=== PATIENT | male | born 1945 | race Caucasian/White ===

== ENCOUNTER 2017-04-30 12:14 | Day surgery (SDC) | payer MEDICARE, BC ==
[2017-04-30 14:23] LABS: #Eosinphils 0.1 thou/uL (0.0-0.7); #Lymphocytes 1.7 thou/uL (1.20-3.40); #Monocytes 0.6 thou/uL (0.11-0.59); #Neutrophils 5.6 thou/uL (1.40-6.50); %Basophils 0.6 % (0.0-1.0); %Eosinophils 0.9 % (0.0-10.0); %Lymphocytes 20.9 % (21.0-51.0); %Monocytes 7.8 % (0.0-10.0); Hematocrit 45.6 % (42.0-52.0); Red Blood Cell (RBC) Count 4.91 mill/uL (4.70-6.10); White Blood Cell (WBC) Count 7.9 thou/uL (4.8-10.8)
[2017-04-30] MEDS ORDERED: CEFAZOLIN/Water 2 GM/20 ML SYRINGE ONE (14:32)
[2017-04-30] MEDS ORDERED: CEFAZOLIN 1 GM VIAL ONE (14:33)
[2017-04-30 14:54] LABS: ALT (SGPT) 9 U/L (8-55); AST (SGOT) 14 U/L (5-34); Alkaline Phosphatase 85 U/L (40-150); Anion Gap 11 mmol/L (10-20); BUN (Urea Nitrogen) 14 mg/dL (8.4-25.7); Bilirubin, Total 0.5 mg/dL (0.2-1.2); Calc. Creatinine Clearance 0 mL/min (70-130); Calcium 9.8 mg/dL (7.8-10.44); Carbon Dioxide 29 mmol/L (23-31); Chloride 102 mmol/L (98-107); Estimated GFR-MDRD 71; Globulin 2.8 g/dL (2.4-3.5); Protein, Total 6.8 g/dL (5.8-8.1)
[2017-04-30] MEDS ORDERED: Gentamicin 80 MG/2 ML VIAL ONE (15:07)
--- NOTE | 2017-04-30 20:16 | CCL ---
CARDIOLOGY PROCEDURE NOTE: Date: 04/30/17 PROCEDURE: Pacemaker generator replacement. INDICATION FOR PROCEDURE: The patient was seen in the office today complaining of not feeling well. He has a history of pacem tacos insertion due to sinus node dysfunction. Recently he had been seen in the office within the las t 6 months and was found to have pacemaker generator approaching elective replacement interval. 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 He w as advised to undergo pacemaker generator replacement after we interrogated the device today in the office and it was found to be at elective replacement interval. DETAILS: The patient was taken to the cardiac catheterization lab, where he underwent the procedure today wit hout difficulties or complications. The patient was prepped and draped in sterile fashion. Using loc al Xylocaine, the old pacemaker was [id number], an Adapta dual chamber pacemaker from [employer]. The l lashon were interrogated and both the atrial and ventricular leads were found to have normal sensing a nd normal thresholds. The new device was then attached to the generator. The leads were then special procedures tech d to the new generator and the generator and leads were placed back in the pocket and the pocket was closed in three layers after copious amounts of antibiotic solution was performed. There were no di fficulties or complications encountered. He was implanted with a new Adapta dual chamber pacemaker ( IS-1 dual chamber) with the same leads. The pacemaker was set with the upper rate at 120 and the low er rate was set at 60. There were no difficulties or complications encountered.
--- NOTE | 2017-05-01 04:06 | DIS ---
He was seen in the office today and was found to have pacemaker generator elective replacement inter mitzi. He was to have developed suddenly the pacemaker syndrome where he was pacing in the ventricle, but not on the atrium. After he was switched over, now he paces in the atrium and has minimal paci ng in the ventricle. Pacemaker tripped over to elective replacement interval yesterday, and due to his symptoms, he was advised to go ahead and have the pacemaker generator change out today, and this was performed today without difficulties or complication. ADMITTING DIAGNOSES: Pacemaker generator at elective replacement interval and a history of sinus no de dysfunction. He also has a history of intermittent atrial fibrillation, has dyslipidemia and hyp ertension. DISCHARGE DIAGNOSES: Pacemaker generator at elective replacement interval and a history of sinus no de dysfunction. He also has a history of intermittent atrial fibrillation, has dyslipidemia and hyp ertension. PROCEDURES IN THE HOSPITAL: Include old generator removal, new generator implant. DISCHARGE MEDICATIONS: Same as his admission medications. He had actually held his Eliquis and thi s medication will be resumed. His medications include levothyroxine 75 mcg a day, MiraLax as needed , Tylenol with codeine p.r.n., B12. He also takes terazosin 10 mg q. day, sotalol 160 mg b.i.d., si mvastatin 40 mg a day, testosterone injections once a week and Budeprion XL 300 mg 24 hours. He has recently been started also on Eliquis 5 mg b.i.d., and again, this was held today and also as of mark cook. FOLLOWUP: His followup will be with me in 7 to 10 days in the office for wound check. He will cont inue his routine transtelephonic checks of the pacemaker. There were no complications or difficulti es encountered. HOSPITAL COURSE: As noted above, the patient presented to the office with symptomatic pacemaker syn drome. After his pacemaker, he had reached EMILIANO yesterday. He started experiencing dizziness and faustin d hypertension, and heart rate was maintaining at 60 or 65, which is the default for the pacemaker. He presented to the office after complaining of symptoms. He was seen, and indeed, the pacemaker g enerator was found to be in elective replacement interval, which was tripped just yesterday. He was taken to the lab where he underwent pacemaker generator exchange. The old was removed and the new was implanted. There were no other difficulties or complications. If the patient remains stable, nacho burnett will be discharged home today. We will see him back in the office as noted.
--- NOTE | 2017-05-01 21:05 | EKG ---
Test Reason : Blood Pressure : / mmHG Vent. Rate : 063 BPM Atrial Rate : 063 BPM P-R Int : 222 ms QRS Dur : 086 ms QT Int : 436 ms P-R-T Axes : 010 022 014 degrees QTc Int : 446 ms Atrial-paced rhythm with prolonged AV conduction with Premature atrial complexes with Abberant condu ction Nonspecific ST and T wave abnormality Abnormal ECG Confirmed by JACKY DESAI, DR. Jean Baptiste ([id number]) on 05/01/2017 9:05:27 PM Referred By: PEG Confirmed By:DR. Markel RICO MD
== END 2017-04-30 16:14 | disposition home or self-care (01) ==
LOC: CCL 12:14
PROVIDERS: ATTEND Internal Medicine Cardiovascular Disease
PROC: 0JPT0PZ Removal of Cardiac Rhythm Related Device from Trunk Subcutaneous Tissue and Fascia, Open Approach (ICD-10-PCS; principal; 2017-04-30)
PROC: 0JH606Z Insertion of Pacemaker, Dual Chamber into Chest Subcutaneous Tissue and Fascia, Open Approach (ICD-10-PCS; 2017-04-30)
DX: Z45.010 Encounter for checking and testing of cardiac pacemaker pulse generator [battery] (principal); I25.10 Atherosclerotic heart disease of native coronary artery without angina pectoris; E78.5 Hyperlipidemia, unspecified; I10 Essential (primary) hypertension; E78.00 Pure hypercholesterolemia, unspecified; E03.9 Hypothyroidism, unspecified; I49.5 Sick sinus syndrome; I48.0 Paroxysmal atrial fibrillation; H81.10 Benign paroxysmal vertigo, unspecified ear; Z98.890 Other specified postprocedural states; Z98.61 Coronary angioplasty status
CPT/HCPCS: 33228; 80053; 85025; 93005; C1785; J0690; J1580

== ENCOUNTER 2017-06-13 14:26 | Observation (INO) | payer MEDICARE, BC ==
[2017-06-13 15:10] LABS: #Lymphocytes 1.3 thou/uL (1.20-3.40); #Monocytes 0.5 thou/uL (0.11-0.59); %Basophils 0.5 % (0.0-1.0); %Eosinophils 0.9 % (0.0-10.0); %Lymphocytes 25.9 % (21.0-51.0); %Monocytes 10.6 % (0.0-10.0); %Neutrophils 62.2 % (42.0-75.0); Hemoglobin 13.6 g/dL (14.0-18.0); Mean Corpuscular HGB CONC 32.6 g/dL (32.0-36.0); Mean Corpuscular Hemoglobin 29.9 pg (27.0-31.0); Mean Corpuscular Volume 91.7 fl (80.0-94.0); Platelet Count 283 thou/uL (130-400); RBC Distribution Width 13.3 % (11.5-14.5); Red Blood Cell (RBC) Count 4.55 mill/uL (4.70-6.10); White Blood Cell (WBC) Count 4.8 thou/uL (4.8-10.8)
[2017-06-13 15:32] LABS: ALT (SGPT) 26 U/L (8-55); AST (SGOT) 23 U/L (5-34); Albumin 4.1 g/dL (3.4-4.8); Alkaline Phosphatase 105 U/L (40-150); Anion Gap 13 mmol/L (10-20); BUN (Urea Nitrogen) 10 mg/dL (8.4-25.7); Bilirubin, Total 0.5 mg/dL (0.2-1.2); CK (CPK) 29 U/L (30-200); Calc. Creatinine Clearance 0 mL/min (70-130); Carbon Dioxide 28 mmol/L (23-31); Chloride 98 mmol/L (98-107); Estimated GFR-MDRD 86; Glucose 101 mg/dL (83-110); Lipase 57 U/L (8-78); Potassium 4.2 mmol/L (3.5-5.1); Protein, Total 7.1 g/dL (5.8-8.1); Sodium 135 mmol/L (136-145)
[2017-06-13 15:36] LABS: CKMB 1.1 ng/mL (0-6.6); Troponin I 0.014 ng/mL (< 0.028)
--- NOTE | 2017-06-13 15:36 | RAD ---
CHEST ONE VIEW: History: Hypotension. Weakness. Comparison: 02-06-17 FINDINGS: Cardiac silhouette is magnified and enlarged. Pulmonary vasculature is unremarkable. Left hemidiaphra gm remains elevated with atelectasis at the left base. Mediastinum is midline with a dual-lead left s ubclavian cardiac pacer. No lobar consolidation or evidence of pneumothorax. youth nutritional monitor leads ov erlie the chest. IMPRESSION: Chronic type findings are stable. No active cardiopulmonary abnormalities are demonstrated. POS: [facility]
[2017-06-13 15:45] LABS: INR-International Normal Ratio 1.3; PTT 34.3 SEC (22.9-36.1); Prothrombin Time 16.6 SEC (12.0-14.7)
[2017-06-13 17:48] LABS: Bilirubin Negative (Negative); Blood, Urine Large (Negative); Clarity CLOUDY (Clear); Glucose, Urine (Dipstick) Negative (Negative); Leukocyte Small (Negative); Nitrite Negative (Negative); Protein, Urine (Dipstick) 30 mg/dL (Neg-Trace); Specific Gravity, Urine 1.012 (1.002-1.036); Urobilinogen 0.2 mg/dL (0.2-1.0)
[2017-06-13 17:52] LABS: Bacteria/HPF None Seen HPF (None Seen); Hyaline Casts/LPF 0-3 HYALINE CAST LPF (0-3 Hyaline); Squamous Epithelial None Seen HPF (0-3)
[2017-06-13 18:10] LABS: RBC/HPF GREATER THAN 50-TNTC HPF (0-3); Yeast-All Forms None Seen HPF (None Seen)
[2017-06-13] MEDS ORDERED: cefTRIAXone\\ROCEPHIN 2 GM in Sodium Chloride 0.9% 100 ML IVPB SCH (18:45)
[2017-06-13] MEDS ORDERED: Sodium Chloride 0.9% 1,000 ML IV SCH (21:00)
[2017-06-13] MEDS ORDERED: Ondansetron HCl/PF 4 MG/2 ML Vial IVP PRN (21:00)
[2017-06-13] MEDS ORDERED: Ondansetron ODT 4 MG TAB SL PRN (21:00)
[2017-06-13] MEDS ORDERED: Acetaminophen 325 MG TAB PO PRN (21:00)
[2017-06-13 21:56] VITALS: BMI 29.2
[2017-06-14] MEDS ORDERED: Ondansetron HCl/PF 4 MG/2 ML Vial IVP PRN (00:43)
[2017-06-14] MEDS ORDERED: Acetaminophen 500 MG TAB PO PRN (00:43)
[2017-06-14] MEDS ORDERED: Ondansetron ODT 4 MG TAB PO PRN (00:43)
[2017-06-14] MEDS ORDERED: Simvastatin 40 MG TAB PO SCH ×2 (01:00→21:00)
[2017-06-14] MEDS ORDERED: Terazosin HCl 5 MG CAP PO SCH ×2 (01:00→21:00)
[2017-06-14] MEDS ORDERED: Famotidine 20 MG TAB PO SCH ×2 (01:00→09:00)
[2017-06-14] MEDS ORDERED: Colchicine 0.6 MG TAB PO SCH ×2 (01:00→09:00)
[2017-06-14] MEDS ORDERED: Sotalol HCl 80 MG TAB PO SCH ×2 (01:00→09:00)
[2017-06-14] MEDS: Sodium Chloride 0.9% 1,000 ML IV SCH ×2 (01:13→11:31)
--- NOTE | 2017-06-14 03:34 | HP ---
DATE OF ADMISSION: 06/14/2017 PRIMARY CARE PROVIDER: Dain Abdalla M.D. PRIMARY FILTER PRESS SUPERVISOR: Vandana Staton M.D. CHIEF COMPLAINT: General weakness and hypotension. HISTORY OF PRESENT ILLNESS: This is a 71-year-old male who presented to [facility] after apparently feeling somewhat weak, dizzy taking his blood pressure at home with systolic in the 70s. The patient states he felt lightheaded with blood pressures ranging in the 70s/ 66. The patient denies any specific change to his chronic medication regimen and does admit to a sig nificant cardiac history including atrial fibrillation, status post cardiac ablation with return of a trial fibrillation and subsequent cardioversion. The patient states he was admitted in [place] with E lectrophysiology Service treating him for atrial arrhythmias. The patient states he spent approximat adry [address] [facility] due to complications after cardiac ablation. The patient states h e developed pericardial effusion requiring pericardial window with drain placement spending most of t he hospital stay in the ICU. The patient also underwent generator replacement for his pacemaker alfredo ce in 04/2017 without complication. The patient denied any recent illness, diarrhea, nausea or vomit ing. The patient denies any recent exposure history. The patient states overall general weakness, b ut denied any dysuria, but had noticed a rust colored urine. The patient was apparently evaluated by his primary care provider for possible urinary tract infection; however, no specific diagnosis was m jimmie. The patient did notice the urine changing to the [place] color after being placed on Eliquis at e direction of the Electrophysiology Service. Current plans are to continue Eliquis therapy for 4-6 weeks post-ablation. In the emergency room, the patient's blood pressure had improved with supportiv e measures, receiving IV fluids and IV Rocephin 2 grams x1 dose after concern for possible urinary tr act infection. The patient was transferred to the observation unit for further evaluation. PAST MEDICAL HISTORY: 1. Atrial fibrillation/atrial tachycardia status post cardiac ablation with subsequent cardioversion . 2. Pericardial effusion status post pericardial window with drain placement in 05/2017. 3. Hypothyroidism. 4. Gastroesophageal reflux. 5. Hyperlipidemia. 6. Chronic anticoagulation with Coumadin. 7. Coronary artery disease status post cardiac stent placement in 1999. PAST SURGICAL HISTORY: 1. Status post pacemaker placement with reimplantation of atrial pacemaker in 1999. Status post gen erator replacement in 2016. 2. Status post cardiac ablation with subsequent cardioversion in 05/2017. 3. Status post pericardial window with pericardial drain in 05/2017. 4. Status post spinal fusion secondary to spinal stenosis. CURRENT MEDICATIONS: 1. Eliquis 5 mg 1 tab p.o. b.i.d. 2. Bupropion XL 300 mg 1 tab p.o. daily. 3. Colchicine 0.6 mg p.o. b.i.d. 4. Toradol 10 mg p.o. q.6 hours p.r.n. pain. 5. Levothyroxine 75 mcg 1 tab p.o. daily. 6. Simvastatin 40 mg one tab p.o. at bedtime. 7. Sotalol 160 mg p.o. b.i.d. 8. Hytrin 10 mg p.o. at bedtime. ALLERGIES: No known drug allergies. FAMILY HISTORY: Positive for hypertension. SOCIAL HISTORY: The patient is , accompanied by his in the hospital. Resides in [place], [place]. Currently retired. No current alcohol, tobacco or illicit drug use. REVIEW OF SYSTEMS: The following complete review of systems was negative, unless otherwise mentioned in the HPI or below: Constitutional: Weight loss or gain, ability to conduct usual activities. Skin: Rash, itching. Eyes: Double vision, pain. ENT/Mouth: Nose bleeding, neck stiffness, pain, tenderness. Cardiovascular: Palpitations, dyspnea on exertion, orthopnea. Respiratory: Shortness of breath, wheezing, cough, hemoptysis, fever or night sweats. Gastrointestinal: Poor appetite, abdominal pain, heartburn, nausea, vomiting, constipation, or diarr hea. Genitourinary: Urgency, frequency, dysuria, nocturia. Musculoskeletal: Pain, swelling. Neurologic/Psychiatric: Anxiety, depression. Allergy/Immunologic: Skin rash, bleeding tendency. PHYSICAL EXAMINATION: VITAL SIGNS: Currently, blood pressure 115/67, pulse 61, respiratory rate 18, temperature 98.5 degre es Fahrenheit, O2 saturation 96% on room air. GENERAL APPEARANCE: This is a 71-year-old male, alert and oriented x3, pleasant, conversan t and in no acute distress. HEENT: Pupils are equal, round, and reactive to light and accommodation. Extraocular muscles are in tact. No scleral icterus, no conjunctival injection. Nares patent. OP is clear. Teeth in good rep air. Oral mucosa dry. NECK: Supple, no cervical adenopathy, no thyromegaly, no carotid bruits, no JVD appreciated. Cervic al spine with full active and passive range of motion. CHEST: Lungs are clear to auscultation bilaterally. CARDIOVASCULAR: S1, S2 with irregular rate and rhythm. Left upper chest wall with pacemaker device in place. ABDOMEN: Rounded, soft, nontender, nondistended. Bowel sounds are positive in all four quadrants. There is no hepatosplenomegaly, no abdominal bruits, no rebound or guarding appreciated. EXTREMITIES: Warm and dry with good turgor. No clubbing, cyanosis or asymmetric edema appreciated. Pulses palpable distally at the dorsalis pedis, posterior tibial, and popliteal arteries bilaterally . Capillary refill less than 2 seconds. NEUROLOGIC: Cranial nerves II-XII are grossly intact. No focal or lateralizing signs appreciated. PERTINENT LABORATORY AND X-RAY FINDINGS: Basic metabolic profile within normal limits. Lactic acid level 1.1. LFTs within normal limits. Total CK 29, troponin I 0.014. Albumin 4.1, lipase 57. CBC showed white blood cell count of 4.8, hemoglobin 14, hematocrit 42, platelet count 283 with normal di fferential. PT 16.6, INR 1.3, PTT 34.3. Urinalysis positive for greater than 50 to too numerous to count RBCs per high powered field and 4-6 WBCs per high powered field. Portable chest x-ray dated showed chronic changes bilaterally. No acute cardiopulmonary process identified. EKG dated 06/13/2017 by my interpretation shows sinus mechanism with heart rates in the 90s. Normal R-wave pr ogression noted in the precordial leads. Normal axis. ST-T wave changes noted in V3 through V5. ASSESSMENT AND PLAN: 1. Question of hypotension. We will continue serial monitoring of blood pressure. Continue intrave nous normal saline at 100 mL per hour. Hold all antihypertensives and monitor serial blood pressure trend. Suspect component of dehydration. 2. Hematuria. Suspect iatrogenic due to Eliquis. Hold Eliquis. Continue intravenous fluids as out lined previously. Continue to monitor urine output. Continue Rocephin 2 grams IV q.24 hours pending final urine culture results. 3. Atrial fibrillation, status post cardiac ablation/cardioversion on chronic anticoagulation with E liquis. Continue supportive measures. Hold Eliquis. Check 2D transthoracic echocardiogram 4. Hypothyroidism, stable. Continue levothyroxine 75 mcg p.o. daily. 5. Prophylaxis. Sequential compression devices while in bed. Pepcid 20 mg p.o. b.i.d. 6. Code status is full. Surrogate medical decision maker is patient's spouse.
[2017-06-14 05:03] LABS: Anion Gap 11 mmol/L (10-20); BUN (Urea Nitrogen) 8 mg/dL (8.4-25.7); Calc. Creatinine Clearance 107 mL/min (70-130); Calcium 9.2 mg/dL (7.8-10.44); Carbon Dioxide 26 mmol/L (23-31); Chloride 105 mmol/L (98-107); Estimated GFR-MDRD Greater than 90; Glucose 102 mg/dL (83-110); Potassium 4.1 mmol/L (3.5-5.1); Sodium 138 mmol/L (136-145)
[2017-06-14] MEDS ORDERED: Levothyroxine Sodium 75 MCG TAB PO SCH (06:00)
[2017-06-14 06:16] LABS: Eosinophils 2 % (0-10); Hemoglobin 12.3 g/dL (14.0-18.0); Lymphocytes 30 % (21-51); MDiff Complete? YES; Mean Corpuscular HGB CONC 32.5 g/dL (32.0-36.0); Mean Corpuscular Hemoglobin 29.9 pg (27.0-31.0); Mean Corpuscular Volume 91.8 fl (80.0-94.0); Mean Platelet Volume 7.1 fL (7.4-10.4); Monocytes 7 % (0-10); Neutrophil 59 % (42-75); PLT Morphology Comment Appears Adequate; Platelet Count 238 thou/uL (130-400); RBC Distribution Width 13.2 % (11.5-14.5); RBC Morphology Normal; Reactive Lymphocytes 1 % (0-10); Red Blood Cell (RBC) Count 4.12 mill/uL (4.70-6.10); White Blood Cell (WBC) Count 4.7 thou/uL (4.8-10.8)
[2017-06-14] MEDS ORDERED: Bupropion 150 MG XL TAB PO SCH (09:00)
--- NOTE | 2017-06-14 09:37 | PDOC.PN ---
- Subjective Encounter Start Date: 06/14/17 Encounter Start Time: 09:36 Subjective: dizziness resolved, gross hematuria - Objective Resuscitation Status: Resuscitation Status FULL:Full Resuscitation MAR Reviewed: Yes Vital Signs & Weight: Vital Signs (12 hours) Temp Pulse Resp BP BP Pulse Ox 06/14/17 08:54 93 06/14/17 08:00 98.3 F 92 24 H 06/14/17 07:24 98.2 F 95 18 128/82 96 06/14/17 04:22 98.3 F 92 24 H 120/68 96 06/14/17 01:14 61 115/67 06/13/17 23:22 98.5 F 61 18 115/67 96 06/13/17 21:58 98.5 F 94 20 Weight Weight 209 lb 8 oz I&O: 06/13/17 06/14/17 06/15/17 06:59 06:59 06:59 Intake Total 619 Output Total 1200 Balance -581 Result Diagrams: 06/14/17 04:24 06/14/17 04:24 Phys Exam - Physical Examination Constitutional: NAD Neck: no JVD Respiratory: clear to auscultation bilateral Cardiovascular: RRR, no significant murmur Gastrointestinal: soft, positive bowel sounds Musculoskeletal: no edema Dx/Plan (1) Hypotension Status: Acute (2) Atrial fibrillation with normal ventricular rate Code(s): I48.91 - UNSPECIFIED ATRIAL FIBRILLATION Status: Chronic (3) CAD (coronary artery disease) Code(s): I25.10 - ATHSCL HEART DISEASE OF [place] CORONARY ARTERY W/O ANG PCTRS Status: Chronic Qualifiers: Coronary Disease-Associated Artery/Lesion type: [place] artery [place] vs. transplanted heart: [place] heart Associated angina: without angina Qualified Code(s): I25.10 - Atherosclerotic heart disease of [place] coronary artery without angina pectoris (4) Hematuria, gross Status: Acute (5) Anticoagulant long-term use Code(s): Z79.01 - PROCESS PLANNER (CURRENT) USE OF ANTICOAGULANTS Status: Chronic - Plan consult card, consult urology * .
[2017-06-14] MEDS ORDERED: Apixaban 5 MG TAB PO SCH ×2 (15:45→21:00)
[2017-06-14 15:51] VITALS: BP 146/85; TEMP 98.2
--- NOTE | 2017-06-14 18:31 | DIS ---
DATE OF ADMISSION: 06/13/2017 DATE OF DISCHARGE: 06/14/2017 PRIMARY CARE PROVIDER: Dain Abdalla MD DISCHARGE DISPOSITION: Home. FINAL DIAGNOSES: Hypotension, resolved; microscopic hematuria; post-atrial flutter ablation; coronar y artery disease; dyslipidemia; chronic anticoagulation. DISCHARGE MEDICATIONS: Wellbutrin 300 mg a day, colchicine 0.6 mg twice a day, sotalol 160 mg twice a day, Zocor 40 mg a day, terazosin 10 mg p.o. at bedtime, levothyroxine 75 mcg a day, Eliquis 5 mg t wice a day, ketorolac 10 mg p.o. q.6 hours p.r.n. ALLERGIES: No known drug allergies. PENDING AT THE TIME OF DISCHARGE: Urine culture and blood cultures were no growth at 24 hours. CODE STATUS: FULL. HOSPITAL COURSE: The patient admitted to the hospital to the [facility]. He presente d with generalized weakness and hypotension. He had a complicated recent history with cardiac ablati on in [place], developed a pericardial effusion requiring pericardial window. He had a generator repl acement for his pacemaker. He has noted that while he is on Eliquis, his urine has been a bit alanna colored. In the emergency room, his blood pressure which had been by history 70, coming in was tala l. It has been 120/80-146/85 here, pulse 92-95, respiratory rate 16-24. Comp metabolic profile, pot assium 135, otherwise normal. Anticoagulation, PT 16.6, APTT 34.3. Urine had too many to count red blood cells, white count was 4.8, hemoglobin 13.6, platelet count 283,000. I spoke with Dr. Kate alamo about his hematuria and having an appointment some 6 weeks, hence, she will arrange for him to be seen earlier. I have given that appointment date to the patient and his . He he was seen by Dr. Gustafson, Electrophysiology and Dr. Ar Staton, his graphics artist. [facility] He will follow up with Dr. Staton in 7 days. Follow up with Dr. Yassine Bernardo, who Dr. Staton faustin s asked the patient to call to discuss future arrangements. I have asked the patient to see Dr. Dain Abdalla in 7 days. PROCEDURES: None.
--- NOTE | 2017-06-14 22:32 | CON ---
DATE OF CONSULTATION: 06/14/2017 ELECTROPHYSIOLOGY CONSULTATION REPORT REFERRING PHYSICIAN: Dr. Vandana Staton as well as Dr. Pineda. HISTORY OF PRESENT ILLNESS: I am seeing Mr. Heredia at our [facility] telemetry floor as an electrophysiology physician practice consultant for the following problems: 1. Atrial arrhythmias. A. Paroxysmal atrial fibrillation despite sotalol. B. Status post pulmonary venous isolation procedure on 05/22/2017, complicated with pericardial effusion, s/p drain. C. Cardioversion for early recurrence of atrial arrhythmias post-ablation, but atypical atrial flutter present on EKGs today. 2. Transient hypertension. A. Down trending blood pressure since discharge from [facility] on the with initially on Lasix with continued lowering blood pressures even after stopping Lasix 4 days post-discharge. B. Now resolved with rehydration. 3. Anticoagulation issues. A. Recent ablation and elevated CHADS VASC score, on Eliquis anticoagulation. B. Anticoagulation is on hold due to microscopic hematuria. Hemoglobin mildly decreased at 12.3. 4. History of sick sinus syndrome, status post dual chamber pacemaker implantation in 07/1999, lead repair in 09/1999, and then generator change in with a [employer] device. 5. History of normal LVEF by echo in 02/13/2017 with 60%. B. Repeat echo reveals good LVEF without pericardial effusion on this admission. 6. History of coronary artery disease, currently stable. 7. History of spinal stenosis, status post recent neck surgery. ALLERGIES: None noted. MEDICATIONS: At home include levothyroxine 75 mcg daily, bupropion, sotalol 160 mg twice a day, Eliquis, terazosin, simvastatin, ketorolac, and colchicine. SUBJECTIVE: Mr. Heredia has been admitted with dizziness and progressively lowering blood pressure. His home device has been registering blood pressure down in the 70s. Though after arrival to the [facility] ER, his blood pressure was all in a good range, earlier was 131/61. He was also noted to have elevated heart rate ever since discharge. His heart rates are in the 90s. His initial EKG is suggestive of 2:1 atypical atrial flutter continued. He has no PND, orthopnea, or lower extremity edema suggest fluid overload. His groin site healed well. He does not pass out. He has no typical angina or pleuritic type of chest pains. He has no fever or chills. He has had somewhat darker urine, but there is no definite burning urination noted. There are no stroke- like symptoms. No neurological deficits. Rest of the 12-point review of system otherwise unremarkable. HOSPITAL COURSE: The patient has been admitted. He continues being rehydrated and monitored, and his Eliquis was put on hold for the last 2 days. PAST MEDICAL HISTORY: As above, also includes hypothyroidism, GERD, hyperlipidemia, chronic anticoagulation with Eliquis. SOCIAL HISTORY: The patient is , accompanied with the . Lives in [place], [place]. Denies smoking, ETOH or drug use. He is retired. FAMILY HISTORY: Noncontributory. PHYSICAL EXAMINATION: VITAL SIGNS: Blood pressure again initially 131/61, most recently is 120/80, heart rate 95, respirations 16, temperature 97.6 degrees Fahrenheit. GENERAL: He is alert and oriented man, in no apparent distress. NECK: Supple. Jugular veins not distended. CHEST: Coarse without crackles. CARDIAC: Heart sounds are regular rate and rhythm. No murmur, gallop or rub is appreciated. Left precordial pacing insertion site is healing well. ABDOMEN: Benign. Bowel sounds positive. EXTREMITIES: Lower extremities without edema, clubbing or cyanosis. Groin catheter insertion site is without significant hematoma. NEUROLOGIC: The patient is nonfocal. MUSCULOSKELETAL: No joint swelling or deformities. SKIN: Without rash. DATABASE: EKGs reviewed reveals 2:1 atypical atrial flutter at a rate of 95 beats per minute consistently. LABORATORY DATA: White blood cell count is 4.7, hemoglobin 12.3, platelet count are 238. INR is 1.3 on . Sodium 138, potassium 4.1, BUN is 8, creatinine is 0.83. AST and ALT are normal. Troponin I 0.014. BNP is 203, slightly elevated. Urine reveals rbc greater than 50, leukocyte esterase is small, bacteria negative. ASSESSMENT AND PLAN: Mr. Heredia is a pleasant 71-year-old man with prior history of paroxysmal atrial fibrillation. He underwent pulmonary venous isolation procedure complicated by pericardial leak causing pericardial effusion requiring pericardiocentesis. He did undergo cardioversion also for atrial arrhythmias, which though recurred despite continue sotalol use. He is still in an atypical atrial flutter. He also has undergone left heart catheterization by his history, although this was not available to me. He reports no significant findings on that. My plan would be at this point: 1. Regarding his atrial arrhythmias, currently he is with reasonable rate control, his symptoms are fairly minimal at this time. Hence, he is off Eliquisx2 doses, I will postpone cardioversion. It is reasonable to continue sotalol for rate control in the meantime, consider cardioversion either EDY guided at a later date or after he resumed anticoagulation for 3-4 weeks. 2. Anticoagulation, currently on hold, hence the microscopic hematuria. I am concerned about the stroke risk hence recent ablation. If possible, I would prefer him to be going back on the anticoagulant unless the bleeding severe enough to prevent that. 3. Transient hypertension, I suspect due to dehydration, which now corrected. There is no evidence of pericardial effusion or tamponade. 4. Discuss these issues with Dr. Staton as well as Dr. Pineda. We will see him as an outpatient as well. DAHIANA
--- NOTE | 2017-06-15 00:49 | CON ---
DATE OF CONSULTATION: 06/14/2017 Please refer to the notes redictated by the creping machine operator. REASON FOR CONSULTATION: We were asked to see Mr. Heredia due to hypotension. HISTORY OF PRESENT ILLNESS: This is a very pleasant 71-year-old gentleman I have followed for many y ears. He has a history of coronary artery disease. He also developed atrial fibrillation, had a his tory of pacemaker insertion. He was advised to seek consultation previously with creping machine operator , was advised to undergo an ablation of the atrial fibrillation which was done in [place] about 2-3 we eks ago. At that time, he developed a pericardial effusion, required a chest tube insertion into the pericardium. He then also had some hematuria at the time and developed lower extremity edema. The chest tube apparently was in for about 3 days. Since that time, he apparently was doing much better but was sent home on Lasix and potassium and then once all the edema resolved, he knows his blood pr essure had actually been on the low side and continues to drift downward until the day of admission w hen he said his blood pressure was like 70/40. He had been up earlier that day and rode to town with his daughter. When he came home shortly after lunchtime, he noticed the blood pressure was low. He did not feel very well and he presented to the emergency room after checking a blood pressure which was in the 70s. On arrival here, the blood pressure has been normal and has been normal since that t nia. His EKG shows what appears to be sinus tachycardia, possibly flutter with a 3:1 block at times with a heart rate in the 90s, but no atrial fibrillation has been noticed and he has been doing quite well otherwise except for the hematuria. He denies any chest pain or shortness of breath. He does have a history of coronary artery disease, undergone angioplasty and stent placement in the past, [facility] appears to be stable. The pacemaker function also appears to be stable. PAST MEDICAL HISTORY: Noted above for the history of atrial fibrillation, history of pacemaker inser tion, dyslipidemia, hypertension, coronary artery disease. His family history, social history, and review of systems, please refer to the notes already dictate d. REVIEW OF SYSTEMS: Unremarkable except what was noted in the history of present illness. PHYSICAL EXAMINATION: GENERAL: Reveals an elderly gentleman in no acute distress. He is alert and oriented. He denies an y symptoms at this time. VITAL SIGNS: His blood pressure is 146/85, heart rate is 94 and regular, respiratory rate 16. He is afebrile. HEENT: Shows the head to be normocephalic and atraumatic. Carotid pulses are present. There were n o bruits, no JVD. Thyroid is not enlarged. Oral mucosa was pink and moist. CHEST: Clear to auscultation. There are no rales, rhonchi, or wheezing. CARDIOVASCULAR: Exam reveals a regular rate and rhythm at this time. There were no significant murm urs, heaves, thrills, bruits, or rubs. ABDOMEN: Soft and nontender. Positive bowel sounds are present. He has a small incision in the lef t sternal area after what appears to be a pericardial drainage tube placement after his previous abla tion and pericardial effusion. EXTREMITIES: Showed no clubbing, cyanosis, or edema. Pedal pulses are present. NEUROLOGIC: He appears to be normal. He was intact. He has normal strength and normal tone. SKIN: Warm and dry. IMAGING STUDIES: He did have an echocardiogram performed today, which shows a normal ejection fracti on with mild mitral and tricuspid valve regurgitation. The left ventricular systolic function was no rmal. There was no evidence of pericardial effusion. His EKG shows sinus rhythm or sinus tachycardi a with possible atrial flutter at times, but with well-controlled ventricular response, has no tachyc ardia. Blood pressure has been stable. LABORATORY DATA: Shows a hemoglobin 12.3. Creatinine is 0.83 with a potassium of 4.1. IMPRESSION: 1. Episode of hypotension most likely which is either vasovagal or due to volume depletion after dari ng given the diuretics. At this time, the patient appears to be stable. I would discharge the patie nt to home. He was advised to drink increase amounts of fluid over the next few days unless he devel ops edema and most likely his hypotension would resolve. I have also advised him to take a 1/2 of hi s sotalol if the blood pressure is less than 90 instead of taking the full dose. 2. Hematuria. He will follow with the urologist concerning his hematuria. 3. History of coronary artery disease which appears to be stable. 4. Status post pacemaker insertion. This also appears to be stable. 5. History of atrial fibrillation which has undergone successful ablation. I will see the patient lashae weeks in the office in approximately a week. If he continues to have episodes of what appears to be po ssible atrial flutter, we can check his pacemaker to determine whether or not he has had any further flutter and so we may discuss cardioversion of the atrial flutter. At some point in time, most likel y if he continues to have atrial flutter, he will need to undergo ablation of the atrial flutter.
== END 2017-06-14 18:48 | disposition home or self-care (01) ==
LOC: ERS 14:26 → 2SW 18:30
PROVIDERS: ADMIT Family Medicine; ATTEND Family Medicine
DX: I95.9 Hypotension, unspecified (principal); R31.29 Other microscopic hematuria; I48.92 Unspecified atrial flutter; I25.10 Atherosclerotic heart disease of native coronary artery without angina pectoris; E78.5 Hyperlipidemia, unspecified; I10 Essential (primary) hypertension; K21.9 Gastro-esophageal reflux disease without esophagitis; E03.9 Hypothyroidism, unspecified; I48.0 Paroxysmal atrial fibrillation; E86.0 Dehydration; Z79.01 Long term (current) use of anticoagulants; Z79.899 Other long term (current) drug therapy; Z98.1 Arthrodesis status; Z95.0 Presence of cardiac pacemaker; Z95.818 Presence of other cardiac implants and grafts; Z98.890 Other specified postprocedural states
CPT/HCPCS: 71010; 80048; 80053; 82550; 82553; 83605; 83690; 84484; 85007; 85025; 85027; 85610; 85730; 87040; 87086; 93005; 93306; 94760; 96361 ×2; 96365; 99285; G0378; 36415; 81003; 81015; J0696; J7050

== ENCOUNTER 2017-06-25 06:07 | Day surgery (SDC) | payer MEDICARE, BC ==
[2017-06-22 10:11] VITALS: BMI 28.4
[2017-06-25] MEDS ORDERED: PROPOFOL 20 ML ONE (06:59)
--- NOTE | 2017-06-25 09:44 | ECHO ---
TRANSESOPHAGEAL ECHOCARDIOGRAM: DATE OF PROCEDURE: 06/25/17. INDICATION FOR PROCEDURE: This is a 72-year-old patient who is status post atrial fibrillation ablation who developed atrial fl utter. He was advised to undergo electrocardioversion of the atrial flutter since he continues to faustin ve fatigue and had heart rates in the low 100s. PROCEDURE: He was taken to the recovery area where he underwent short acting propofol. He underwent a transesop hageal echocardiogram as the first procedure. He was given short acting propofol for sedation and th en the esophageal probe was easily passed down the distal esophagus. Impressions are as follows. IMPRESSIONS: 1. Normal left ventricular systolic function, ejection fraction of 55-60%. 2. Pacemaker leads noted in the right chambers without evidence of abnormalities. 3. No evidence of left atrial appendage thrombus and no evidence of left atrial thrombus. 4. No evidence of atrial septal defect or patent foramen ovale. 5. Moderate mitral valve regurgitation. 6. Moderate tricuspid valve regurgitation. He tolerated the procedure well without difficulties or complications. POS: [facility]
--- NOTE | 2017-06-25 09:45 | OP ---
ELECTRICAL CARDIOVERSION: INDICATION FOR PROCEDURE: Atrial flutter with fatigue in a patient with heart rates in the low 100s. After an atrial fibrillat ion ablation, he developed atrial flutter. He was advised to undergo an electrical cardioversion of the atrial flutter after undergoing a transesophageal echocardiogram. He has been on Eliquis but has missed some doses week or two ago and was advised by the social science instructor to undergo a transesoph ageal echocardiogram prior to electrical cardioversion. PROCEDURE: He was taken to recovery area where he underwent transesophageal echocardiogram without evidence of i ntracardiac thrombus or masses, atrial septal defect or patent foramen ovale or left atrial or left a trial appendage thrombus. Using one attempt at 100 joules, he was successfully converted from his atrial flutter back to normal sinus rhythm. He then was converted back to sinus rhythm and had atrial pacing and ventricular sens ing. No difficulties or complications were encountered. The patient remained stable throughout the procedure.
--- NOTE | 2017-06-25 10:49 | DIS ---
INDICATION: He was seen as an outpatient to undergo electrical cardioversion as well as a transesoph ageal echocardiogram due to atrial flutter. ADMITTING DIAGNOSES: 1. Atrial flutter, he is status post atrial fibrillation and ablation, he has a history of coronary artery disease, status post angioplasty and stent placement, he also has status post pacemaker insert ion. 2. Hypertension. 3. Hypercholesterolemia. DISCHARGE DIAGNOSES: 1. Atrial flutter, he is status post atrial fibrillation and ablation, he has a history of coronary artery disease, status post angioplasty and stent placement, he also has status post pacemaker insert ion. 2. Hypertension. 3. Hypercholesterolemia. He has been successfully converted from his atrial flutter back to sinus rhythm. DISCHARGE MEDICATIONS: Will be the same as his medications from which we first saw him with levothyr oxine 75 mcg a day, MiraLax powder, B12 injections, colchicine 0.6 mg b.i.d. every other day, Bupropi on XL 300 mg 1 tablet daily, terazosin 10 mg daily, sotalol 160 mg b.i.d., simvastatin 20 mg a day, t estosterone CIK 200 mg per mL intramuscular injection he is to inject 0.75 mL every week, Eliquis 5 m g b.i.d. FOLLOWUP: His followup will be with me in two weeks in the office. He will continue his routine fol lowups with his primary care physician, also with the miniature set builder. PROCEDURES IN HOSPITAL: Included a transthoracic echocardiogram and then successful cardioversion of atrial flutter back to normal sinus rhythm. HOSPITAL COURSE: This is a very pleasant 72-year-old gentleman who has been followed by me for sever al years. He has history of coronary artery disease and underwent angioplasty and stent placement, a lso had placement of pacemaker insertion. He had been doing well until he started developing intermi ttent atrial fibrillation with rapid rates. He was advised to undergo an ablation of the atrial fibr illation, which was performed in [place]. He did had a successful ablation. He did develop pericardi al effusion after procedure, which required a few additional days in the hospital. He then recovered from this and then developed atrial flutter with a heart rate in the low 100s. He has complained of fatigue, was seen in the office and was advised that he should undergo early cardioversion of his at rial flutter. He had been on Eliquis, who had missed a couple doses at the time of his procedure for the atrial fibrillation. He was thus advised to undergo a transesophageal echocardiogram prior to e lectrical cardioversion of the atrial flutter. He was taken to the recovery area where underwent abel rt-acting propofol and successful cardioversion of the atrial flutter back to normal sinus rhythm. H e actually had atrial pacing and ventricular sensing. There were no difficulties or complications en countered during the procedure. No thrombus was noted in the left atrium or left atrial appendage. There was a normal left ventricular systolic function. He does have moderate mitral and tricuspid va lve regurgitation, pacemaker leads appeared to be stable and there was no evidence of patent foramen ovale or atrial septal defect. He did very well for the procedure and he will continue on the same m edications. I will see him back in the office in a couple of weeks.
[2017-06-25] MEDS ORDERED: PROPOFOL 200 MG/20 ML VIAL ONE (17:09)
--- NOTE | 2017-07-20 16:28 | EKG ---
Test Reason : RUN OFF Blood Pressure : / mmHG Vent. Rate : 075 BPM Atrial Rate : 075 BPM P-R Int : 116 ms QRS Dur : 090 ms QT Int : 396 ms P-R-T Axes : -13 039 091 degrees QTc Int : 442 ms Electronic atrial pacemaker Abnormal ECG When compared with ECG of 13-JUN-2017 14:33, (Unconfirmed) Electronic atrial pacemaker has replaced Sinus rhythm Nonspecific T wave abnormality no longer evident in Inferior leads Confirmed by DR. Lester LORENZO ([id number]) on 07/20/2017 4:27:37 PM Referred By: PEG Confirmed By:DR. Lester LORENZO
== END 2017-06-25 09:15 | disposition home or self-care (01) ==
LOC: CCL 06:07
PROVIDERS: ATTEND Internal Medicine Cardiovascular Disease
DX: I48.92 Unspecified atrial flutter (principal); I25.10 Atherosclerotic heart disease of native coronary artery without angina pectoris; I10 Essential (primary) hypertension; I08.1 Rheumatic disorders of both mitral and tricuspid valves; I48.0 Paroxysmal atrial fibrillation; E03.9 Hypothyroidism, unspecified; H81.10 Benign paroxysmal vertigo, unspecified ear; E78.00 Pure hypercholesterolemia, unspecified; Z79.01 Long term (current) use of anticoagulants; Z79.899 Other long term (current) drug therapy; Z95.0 Presence of cardiac pacemaker; Z95.5 Presence of coronary angioplasty implant and graft; Z90.89 Acquired absence of other organs
CPT/HCPCS: 92960; 93005; 93010; 93312; J2704

== ENCOUNTER → 2017-07-24 | Day surgery (SDC) | payer MEDICARE, BC ==
[2017-07-23 13:15] VITALS: BMI 28.7
[~2017-07-24] MED LIST: Diprivan 20 ML ONE; Propofol 200 MG/20 ML VIAL ONE
--- NOTE | 2017-07-24 12:42 | OP ---
DATE OF PROCEDURE: 07/24/2017 INDICATION OF THE PROCEDURE: Atrial flutter. DESCRIPTION OF PROCEDURE: He was advised to undergo electrocardioversion of the atrial flutter back to sinus rhythm. This was performed with one attempt at 200 joules. He was successfully converted b ack to sinus rhythm without any difficulties or complications. He was given short acting propofol fo r the procedure. In the procedure, he converted back to sinus rhythm with atrial pacing and ventricu lar sensing. There were no difficulties or complications encountered. The patient tolerated the pro cedure well.
--- NOTE | 2017-07-24 12:48 | DIS ---
INDICATION OF THE PROCEDURE: The diagnosis as an outpatient was atrial flutter. His other diagnoses include history of atrial fibrillation, status post ablation, history of coronary artery disease, hi story of hypertension. DISCHARGE DIAGNOSES: History of atrial fibrillation, status post ablation, history of coronary arter y disease, history of hypertension. He has paroxysmal atrial fibrillation, sick sinus syndrome. He has had pacemaker insertion. He also has a history of cervical spinal stenosis, hypercholesterolemia . PROCEDURE: Included an electrocardioversion of atrial flutter back to normal sinus rhythm. He will follow up with Dr. Gustafson in the next month. He will see me in the next 1-2 weeks in the office to ens ure he remains in sinus rhythm. DISCHARGE MEDICATIONS: Same as his admission medications. These include simvastatin 40 mg a day, Mi raLax as needed, bupropion 300 mg daily, levothyroxine 75 mcg daily, sotalol 160 mg b.i.d., Eliquis 5 mg b.i.d., Flomax daily, carvedilol 3.125 mg half a tablet b.i.d., vitamin B12 1000 mcg injection on ce a month, Keflex 500 mg b.i.d. as directed. PROCEDURES IN HOSPITAL: Included electrocardioversion of atrial flutter back to normal sinus rhythm with one attempt at 200 joules. HOSPITAL COURSE: This is a very pleasant gentleman who is now 72 years old, had a history of atrial fibrillation and underwent radiofrequency ablation in the last year. He then developed atrial flutte r. He required electrical cardioversion several weeks ago. He then presented again with atrial flut ter and not feeling well with rapid heart rates. Heart rates in the 120s and 130s at times and he wa s advised to undergo repeat cardioversion. His medications have been slightly adjusted with Betapace and sotalol and he was advised to undergo repeat attempt of cardioversion. He was taken to [facility] area with short acting propofol anesthesia and using one attempt at 200 joules, he was successfu lly converted back to normal sinus rhythm with a heart rate in the 60s and 70s and appears to be atri al pacing with ventricular sensing. He did well. There were no complications or difficulties. He w as given short acting propofol for the procedure. If he remains stable, he will be discharged home i n the next 1-2 hours.
== END ==
LOC: CCL 05:58
PROVIDERS: ATTEND Internal Medicine Cardiovascular Disease
DX: I48.0 Paroxysmal atrial fibrillation (principal); I25.10 Atherosclerotic heart disease of native coronary artery without angina pectoris; I10 Essential (primary) hypertension; I48.92 Unspecified atrial flutter; I49.5 Sick sinus syndrome; E78.00 Pure hypercholesterolemia, unspecified; Z95.0 Presence of cardiac pacemaker; Z95.5 Presence of coronary angioplasty implant and graft; Z98.890 Other specified postprocedural states; Z79.01 Long term (current) use of anticoagulants; Z79.899 Other long term (current) drug therapy
CPT/HCPCS: 92960; J2704

== ENCOUNTER 2017-07-25 10:30 | Outpatient (CLI) | payer MEDICARE, BC ==
--- NOTE | 2017-07-25 12:58 | CT ---
ABDOMEN AND PELVIS CT SCAN WITH IV CONTRAST WITH MULTIPHASE IMAGING: HISTORY: A 72-year-old male with a history of gross hematuria. FINDINGS: There is some pleural thickening and minimal linear and pleural-based parenchymal changes in the left lower lobe, which could possibly be old, with some left hemidiaphragm elevation. Three vessel coron gonzalo artery calcific disease. ICD in place. A 2 cm in diameter right lobe of liver cyst. The gallbl adder, pancreas, spleen, and adrenal glands are unremarkable. There are multiple nonobstructing righ t renal calculi, up to an irregularly-shaped calculus measuring 0.9 x 1.8 cm. There is some renal co rtical scarring and some bilateral renal cysts. In addition, there is a fatty mass, measuring approx imately 3 x 3.3 x 3.9 cm, exophytic, off the lateral aspect of the right mid kidney, which has very f atty attenuation. There is a slightly prominent right extrarenal pelvis without evidence for obstruc ting calculus or right ureteral dilatation, probably related to mild right ureteropelvic junction obs truction. Bilateral fat-containing inguinal hernias. Marked prostate gland enlargement, with the pr ostate gland measuring approximately 6 x 6.7 x 6.9 cm. Normal appearing appendix. No adenopathy, ab scess, or abnormal fluid collection. IMPRESSION: 1. Multiple right-sided renal calculi without evidence for acute genitourinary obstruction. 2. 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 3. Prostate gland enlargement. 4. Bilateral fat-containing inguinal hernias. 5. Pleural-based parenchymal and pleural changes in the left lung base, having more of an old appear ance. 6. Diaphragm elevation, having more the appearance of some thickening or possibly some chronic schaefer e. 7. Other findings as above. CODE T POS: [facility]
[2017-07-25] MEDS ORDERED: Iopamidol 370 76% 100 ML VIAL ONE (13:12)
== END 2017-07-25 10:31 | disposition home or self-care (01) ==
LOC: CT 10:30
PROVIDERS: ATTEND Urology
DX: R31.0 Gross hematuria (principal); R97.20 Elevated prostate specific antigen [PSA]; N20.0 Calculus of kidney; N40.0 Benign prostatic hyperplasia without lower urinary tract symptoms; K40.90 Unilateral inguinal hernia, without obstruction or gangrene, not specified as recurrent; J98.6 Disorders of diaphragm
CPT/HCPCS: 74178; 84153; 88112

== ENCOUNTER 2017-09-07 11:21 | Day surgery (SDC) | payer MEDICARE, BC ==
[~2017-09-07 11:21] MED LIST changes: -Diprivan 20 ML ONE; +PROPOFOL 200 MG/20 ML VIAL ONE; -Propofol 200 MG/20 ML VIAL ONE
[2017-09-07] MEDS ORDERED: PROPOFOL 20 ML ONE (12:43)
--- NOTE | 2017-09-10 18:20 | EKG ---
Test Reason : Blood Pressure : / mmHG Vent. Rate : 087 BPM Atrial Rate : 087 BPM P-R Int : 132 ms QRS Dur : 090 ms QT Int : 400 ms P-R-T Axes : -25 027 054 degrees QTc Int : 481 ms Electronic atrial pacemaker Prolonged QT Abnormal ECG When compared with ECG of 25-JUN-2017 07:49, T wave inversion no longer evident in Anterior leads Confirmed by JACKY DESAI, SRima ([id number]) on 09/10/2017 6:19:44 PM Referred By: DARIO Confirmed By:DR. Markel RICO MD
--- NOTE | 2017-09-20 09:40 | OP ---
DATE OF PROCEDURE: 09/07/2017 CARDIOVERSION REPORT REASON FOR PROCEDURE: Mr. Heredia is a 72-year-old man with history of persistent atrial fibrillation, prior ablation, pacemaker in place, who presenting with atypical atrial flutter here for cardioversi on. He has been adequately anticoagulated. DESCRIPTION OF PROCEDURE: The patient has received deep sedation by Anesthesia specialist, propofol. After adequate level of sedation achieved, a 70 joule shock promptly converted the patient back to sinus rhythm. CONCLUSION: Successful cardioversion. PLAN: Continue anticoagulation and office followup.
== END 2017-09-07 15:13 | disposition home or self-care (01) ==
LOC: SDC 11:21 → CCL 15:13
PROVIDERS: ATTEND Internal Medicine Cardiovascular Disease
PROC: 5A2204Z Restoration of Cardiac Rhythm, Single (ICD-10-PCS; principal; 2017-09-07)
DX: I48.1 Persistent atrial fibrillation (principal); I48.4 Atypical atrial flutter; I10 Essential (primary) hypertension; I25.10 Atherosclerotic heart disease of native coronary artery without angina pectoris; E78.00 Pure hypercholesterolemia, unspecified; Z79.01 Long term (current) use of anticoagulants; Z79.899 Other long term (current) drug therapy; Z95.0 Presence of cardiac pacemaker; Z95.5 Presence of coronary angioplasty implant and graft; Z98.890 Other specified postprocedural states
CPT/HCPCS: 92960; 93005; 93010; J2704

== ENCOUNTER 2017-12-17 08:42 | Outpatient (CLI) | payer MEDICARE, BC ==
--- NOTE | 2017-12-17 10:23 | CT ---
CT LUMBAR SPINE WITHOUT CONTRAST: Date: 12/17/17 HISTORY: Lumbar radiculopathy. Low back pain. Left leg gives out. COMPARISON: None. TECHNIQUE: Lumbar spine CT is performed without contrast. Coronal and sagittal reformatted images are submitted for interpretation. FINDINGS: Lumbar spine vertebral body height is maintained. No fracture. No retroperitoneal mass, lymphadenopat hy, or hematoma. Aorta has a normal caliber. There are nonobstructing calcifications in the right intrarenal collecting system. Vacuum disc phenomenon at L4-L5 and L5-S1. No spondylolysis. There is 3 mm of anterolisthesis of L4 u salima L5. Lumbar spine vertebral body height is maintained. There is no fracture. Limited evaluation of the contents of the central spinal canal and neural foramina due to technique. T12-L1, L1-L2: No significant central canal stenosis or neural foraminal narrowing. L2-L3: No significant central canal stenosis or foraminal narrowing. L3-l4: Generalized disc bulge, ligamentum flavum thickening, and facet hypertrophy result in mild central ca nal stenosis. Mild bilateral foraminal narrowing. L4-L5: Vacuum disc phenomenon. Generalized disc bulge, ligamentum flavum thickening, and facet hypertrophy r esult in mild central canal stenosis. Mild bilateral foraminal narrowing. L5-S1: Vacuum disc phenomenon. No significant central canal stenosis. Neural foramina are patent bilaterally . IMPRESSION: 1. Degenerative changes lumbar spine as above. 2. Nonobstructing calcification of the right intrarenal collecting system, incompletely evaluated. POS: [facility]
== END 2017-12-17 08:43 | disposition home or self-care (01) ==
LOC: TBSIIMAG 08:42
PROVIDERS: ATTEND Neurological Surgery
DX: M47.26 Other spondylosis with radiculopathy, lumbar region (principal); N28.89 Other specified disorders of kidney and ureter; M99.83 Other biomechanical lesions of lumbar region; M51.16 Intervertebral disc disorders with radiculopathy, lumbar region; M48.061 Spinal stenosis, lumbar region without neurogenic claudication
CPT/HCPCS: 72131

== ENCOUNTER 2018-03-19 13:11 | Outpatient (CLI) | payer MEDICARE, BC ==
--- NOTE | 2018-03-19 18:59 | CT ---
ABDOMEN CT WITHOUT CONTRAST 03/19/18 HISTORY: Nephrolithiasis. Angiomyolipoma of the right kidney. COMPARISON: 07/25/17. TECHNIQUE: An abdomen CT is performed without contrast. Coronal reformatted images are submitted. FINDINGS: ABDOMEN CT: Chronic changes in the lung bases. Stable stent projecting over the mitral valve. Cardiac silhouette. Atherosclerosis of a nonaneurysmal aorta is noted. Hypodensity in the right hepatic lobe measures 2.0 x 2.1 cm. Attenuation coefficient suggests a cyst. The spleen, pancreas, and adrenal glands are unremarkable. The visualized alimentary canal is unremarkable. Exophytic hypodensity from the lower pole of the left kidney measures 2.0 x 2.1 cm and has an attenua tion coefficient of 8 Hounsfield units. No evidence of obstructive uropathy. There are staghorn calcu li in the right renal collecting system. There is scarring of the right kidney. Extrarenal pelvis is noted on the right side. No evidence of right sided obstructive uropathy. The area of scarring mentioned above does have some adjacent fat with subtle linear densities. Possib ility of a predominantly fatty angiomyolipoma is raised measuring 2.9 x 3.8 x 3.8 cm. Previously, thi s lesion measured 3.9 x 3.0 x 3.3 cm. IMPRESSION: 1. Scarring of the right kidney with adjacent well contained predominantly fatty lesion suspicio us for an angiomyolipoma until proven otherwise. There is no significant interval change. 2. Nonobstructing staghorn calculi in the right kidney. POS: [facility]
== END 2018-03-19 13:12 | disposition home or self-care (01) ==
LOC: BICCT 13:11
PROVIDERS: ATTEND Urology
DX: N20.0 Calculus of kidney (principal); D30.01 Benign neoplasm of right kidney; N28.9 Disorder of kidney and ureter, unspecified
CPT/HCPCS: 74150

== ENCOUNTER 2018-08-07 09:23 | Inpatient (IN) | payer MEDICARE, BC ==
--- NOTE | 2018-08-07 09:51 | RAD ---
TWO VIEWS CHEST: Date: 08-07-18 Provided Clinical History: Dyspnea. FINDINGS: Comparison 06-13-17. Cardiac silhouette appears enlarged. Left subclavian cardiac pacing device is redemonstrated with lenore ds overlying the expected locations of RA and RV. There is persistent elevation of the left hemidiaph ragm. There is now adjacent pleural and/or parenchymal opacities present at the left lung base. The r ight lung remains clear. There is no evidence for pneumothorax. IMPRESSION: Left basilar pleural and parenchymal opacity. Follow up is recommended. POS: [facility]
[2018-08-07] MEDS ORDERED: ISOVUE-370 76%-LOCM 1 ML ONE (10:15)
[2018-08-07 10:22] LABS: #Eosinphils 0.1 thou/uL (0.0-0.7); #Lymphocytes 0.9 thou/uL (1.20-3.40); #Monocytes 1.4 thou/uL (0.11-0.59); #Neutrophils 8.1 thou/uL (1.40-6.50); %Eosinophils 0.6 % (0.0-10.0); %Lymphocytes 8.8 % (21.0-51.0); %Monocytes 13.2 % (0.0-10.0); %Neutrophils 77.4 % (42.0-75.0); Hemoglobin 13.7 g/dL (14.0-18.0); Mean Corpuscular HGB CONC 31.3 g/dL (32.0-36.0); Mean Corpuscular Hemoglobin 28.7 pg (27.0-31.0); Mean Corpuscular Volume 91.6 fL (78.0-98.0); Mean Platelet Volume 7.2 fL (7.4-10.4); Platelet Count 301 thou/uL (130-400); RBC Distribution Width 13.5 % (11.5-14.5); Red Blood Cell (RBC) Count 4.76 mill/uL (4.70-6.10); White Blood Cell (WBC) Count 10.4 thou/uL (4.8-10.8)
[2018-08-07] MEDS ORDERED: Furosemide 40 MG/4 ML VIAL ONE (10:27)
[2018-08-07] MEDS ORDERED: Digoxin 0.5 MG/2 ML AMP ONE (10:27)
[2018-08-07 10:40] LABS: ALT (SGPT) Less than 7 U/L (8-55); AST (SGOT) 12 U/L (5-34); Albumin 3.8 g/dL (3.4-4.8); Alkaline Phosphatase 110 U/L (40-150); Anion Gap 16 mmol/L (10-20); BUN (Urea Nitrogen) 15 mg/dL (8.4-25.7); Bilirubin, Total 0.6 mg/dL (0.2-1.2); CK (CPK) 30 U/L (30-200); Calc. Creatinine Clearance 0 mL/min (70-130); Calcium 9.7 mg/dL (7.8-10.44); Carbon Dioxide 25 mmol/L (23-31); Chloride 95 mmol/L (98-107); Estimated GFR-MDRD 89; Globulin 3.4 g/dL (2.4-3.5); Glucose 115 mg/dL (83-110); Protein, Total 7.2 g/dL (5.8-8.1); Sodium 132 mmol/L (136-145)
[2018-08-07 11:58] LABS: Bilirubin Negative (Negative); Blood, Urine Large (Negative); Clarity CLOUDY (Clear); Glucose, Urine (Dipstick) Negative (Negative); Leukocyte Large (Negative); Nitrite Positive (Negative); Protein, Urine (Dipstick) Trace mg/dL (Neg-Trace); Specific Gravity, Urine 1.012 (1.002-1.036)
[2018-08-07 12:00] LABS: Hyaline Casts/LPF 4-6 HYALINE CAST LPF (0-3 Hyaline); Pathc Cast-AUWi Flag 1.01 (0-2.49); Squamous Epithelial 0-3 HPF (0-3); WBC/HPF 21-50 HPF (0-3)
[2018-08-07 12:03] LABS: Yeast-AUWi Flag 47.2 (0-25.0)
[2018-08-07 12:16] LABS: Bacteria/HPF Rare-Few HPF (None Seen); Yeast-All Forms None Seen HPF (None Seen)
[2018-08-07] MEDS ORDERED: Diltiazem 125 MG in Sodium Chloride 0.9% 100 ML IVPB SCH (14:00)
[2018-08-07] MEDS ORDERED: Dextrose 50% Abboject 50 ML SYRINGE ONE (14:07)
[2018-08-07 14:12] LABS: Troponin I Less than 0.010 ng/mL (< 0.028)
--- NOTE | 2018-08-07 15:26 | CT ---
CTA THORAX WITH CONTRAST: (Computed Tomographic Angiography, chest(noncoronary) with contrast material, and image postprocessin g) (PE protocol) DATE: 08/07/18 TIME: 1454 HOURS HISTORY: 73-year-old male with dyspnea, tachycardia, and elevated D-Dimer. Dr. Anthony reported all the relative findings by telephone to Manohar VIZCAINO, of the emergency department, at 1506 hours on 08/07/18. TECHNIQUE: IV injection of iodinated contrast: Isovue-M 300. Scan acquisition timing attempted to coincide with iodinated contrast bolus reaching maximal density in pulmonary arteries. 3D MIP reconstructions. FINDINGS: There is a right pleural effusion that occupies approximately 20% volume of the right hemithoracic ca vity. There is a left pleural effusion that occupies approximately 30% volume of the left hemithoraci c cavity. There is a moderate size pericardial effusion. There is a Watchman device within the left a trial appendage. There is excellent opacification of the pulmonary arteries. There are filling defects involving second, third, and more distal order branches of the left lower l obe pulmonary artery. No other areas of pulmonary thromboembolism are identified; not in the left upp er lobe pulmonary artery branches, right pulmonary artery branches, pulmonic trunk, or left and right main pulmonary arteries. Mild parenchymal densities in the lungs, especially on the left, are probab ly passive atelectasis related to the pleural effusions. There is a left subclavian pacemaker. IMPRESSION: 1. Positive for mild, peripheral pulmonary thromboembolism involving branches of the left lower lobe pulmonary artery. 2. Moderate sized pericardial effusion. 3. Bilateral pleural effusions, approximately 20% on right and 35% on left. 4. Watchman left atrial device. 5. Pacemaker. CODE CR. jn[] POS: [facility]
--- NOTE | 2018-08-07 16:25 | HP ---
REASON FOR ADMISSION: Atrial fibrillation with rapid ventricular response. HISTORY OF PRESENT ILLNESS AND REVIEW OF SYSTEMS: Mr. Heredia is a pleasant 73-year-old man presenting with complaints of shortness of breath for the last three days as well as generalized aching in his joints and muscles 3-4 days ago. The patient states he was recently seen by his primary care physician and underwent a urinalysis which was notable for UTI. He was started on Cipro, which he received only two doses. The patient states he has made it a point of drinking 60 ounces of fluids daily and had noted in the recent days that he had been retaining urine with minimal output compared to what he was taking in. He began to note distention of his abdomen and when lying flat, began to experience difficulty breathing. Denies any cough or hemoptysis. Has not had any fevers or chills, but has had occasional sweats. He reports having increased shortness of breath today. According to patient, he had a max temperature of a 100.1 yesterday evening. He has been managing the temperature as well as aching with Tylenol every 6 to 8 hours. On arrival to the ED, he was noted to be in atrial fibrillation with RVR. Initial heart rate fluctuating between 120s and 130s. He was given a dose of digoxin 0.125 mg and his heart rate improved to the 70s range. He underwent a chest x-ray that was notable for left pleural effusion with an opacity in the posterior left lower lung. He was therefore given a dose of Lasix 40 mg IV. The patient states since receiving that he has emptied his bladder and has noted a subsequent improvement in his shortness of breath. He has undergone laboratory studies notable for a BNP of 344.1. First and second troponin's negative. White blood count normal. His urinalysis was cloudy and positive for trace protein, large blood, nitrites, large leukocyte esterase, 21 to 50 white blood cells, 11-20 red blood cells and hyaline casts with rare to few bacteria. The patient states he is known to have angiomyolipoma involving the right kidney as well as nonobstructing calculi. Additionally, he is known to have a history of atrial fibrillation with previous ablation and pacemaker in place. He has undergone cardioversion for atrial flutter with Dr. Art in August 2017. He is status post Watchman placement and since then has been off Eliquis. His nursing support worker is Dr. Staton. REVIEW OF SYSTEMS: The patient reports having generalized muscle aches and pains for the last 3-4 days. He has been diagnosed with a UTI by his primary care physician, but denies having any dysuria, hematuria. He does report urinary retention in recent days. Reports having fever at home. Denies having any chills but has experienced sweats. Denies having any chest pain, but endorses discomfort when lying flat, particularly due to orthopnea. Has an occasional dry cough, but denies any hemoptysis. Denies having any nausea, vomiting, or abdominal pain. Denies any changes with his bowels. Denies any headaches or dizziness. All other review of systems is negative. PAST MEDICAL HISTORY: 1. Atrial fibrillation. 2. Atrial flutter, status post cardiac ablation in August 2017. 3. Peptic ulcer disease. 4. BPH. 5. Hyperlipidemia. 6. Permanent pacemaker in place. 7. History of spinal surgery for spinal stenosis. 8. Hypothyroidism. 9. Hypercholesterolemia. SOCIAL HISTORY: The patient denies history of smoking or heavy alcohol use. Denies any illicit drug use. He lives with his and is fully independent. ALLERGIES: NO KNOWN DRUG ALLERGIES. CURRENT MEDICATIONS: 1. Levothyroxine 25 mcg p.o. daily. 2. Simvastatin 10 mg p.o. daily. 3. Sotalol 160 mg b.i.d. 4. Aspirin chewable 81 mg p.o. daily. 5. Fluoxetine 20 mg p.o. daily. 6. Tamsulosin 0.4 mg p.o. daily. 7. Effient 10 mg p.o. daily. PHYSICAL EXAMINATION: GENERAL: The patient appears well-developed, well-nourished, in no acute distress. VITAL SIGNS: Temperature 98.4, pulse in the 70s range. Blood pressure 116/75, O2 saturation 100% on room air. Respirations 18. HEENT: Normocephalic and atraumatic. Pupils are equal, round, reactive to light. Sclerae are without icterus. Oropharynx is clear. NECK: Supple. No lymphadenopathy. LUNGS: With reduced breath sounds at the left lung base, otherwise clear without any wheezes, rales, or rhonchi. CARDIAC: Regular rate and rhythm without audible murmurs, rubs, or gallops. ABDOMEN: Soft, nontender, nondistended. Normoactive bowel sounds present. No guarding or rigidity. EXTREMITIES: No edema. No calf tenderness. NEUROLOGIC: Alert and oriented x3. SKIN: Without rash or jaundice. LABORATORY DATA: White blood count 10.4, hemoglobin 13.7, hematocrit 43.6, platelets 301. D-dimer 6.81. Sodium 132, potassium 4.0, BUN 15, creatinine 0.84, GFR 89, total bilirubin 0.6, AST 12, ALT less than 7, alkaline phosphatase 110, CK 30. Troponin 1st and 2nd were negative. BNP 344.1. Urinalysis as mentioned above. IMAGING DATA: Chest x-ray notable for left basilar pleural and parenchymal opacity. IMPRESSION AND PLAN: Mr. Heredia is being admitted for management of the following conditions. 1. Atrial fibrillation with rapid ventricular response. The patient given a dose of digoxin with controlled heart rate in the 70s at present. The patient will be admitted to [facility] and consultation has been placed with Dr. Ruelas. The patient is known to Dr. Staton. 2. Shortness of breath. Potentially due to pleural effusion. We will rule out pulmonary embolism. D-dimer has been requested. Chest x-ray did mention the presence of a parenchymal and pleural opacity. He would need a CT imaging. If D-dimer positive, we will obtain CT angiogram. If D-dimer negative, we will obtain a CT of the chest. 3. Urinary tract infection. Continue antibiotics. Urine culture requested. 4. Hypothyroidism. Resume home medication. Check TSH. 5. Gastrointestinal prophylaxis. The patient is full code status. His primary decision maker is his , Beryl Heredia. His secondary decision maker is Twila Heredia. Job ID: [id number]
[2018-08-07] MEDS ORDERED: Ondansetron ODT 4 MG TAB PO PRN (16:36)
[2018-08-07] MEDS ORDERED: Ondansetron PF 4 MG/2 ML Vial IVP PRN (16:36)
[2018-08-07 17:13] LABS: Troponin I Less than 0.010 ng/mL (< 0.028)
[2018-08-07] MEDS ORDERED: Enoxaparin Sodium 100 MG/ML SYRINGE SC SCH (21:00)
[2018-08-07] MEDS: Sotalol HCl 80 MG TAB PO SCH (22:01)
[2018-08-07] MEDS: Rivaroxaban 15 MG TAB PO SCH (22:01)
[2018-08-07] MEDS: Atorvastatin Calcium 20 MG TAB PO SCH (22:02)
[2018-08-07] MEDS: Ciprofloxacin 500 MG TAB PO SCH (22:02)
[2018-08-07] MEDS: Famotidine/PF 20 mg/2ml Vial SLOW IVP SCH (22:03)
[2018-08-08 05:35] LABS: #Eosinphils 0.1 thou/uL (0.0-0.7); #Monocytes 1.2 thou/uL (0.11-0.59); #Neutrophils 6.3 thou/uL (1.40-6.50); %Basophils 0.3 % (0.0-1.0); %Eosinophils 0.9 % (0.0-10.0); %Lymphocytes 11.4 % (21.0-51.0); %Monocytes 14.2 % (0.0-10.0); %Neutrophils 73.2 % (42.0-75.0); Hemoglobin 12.4 g/dL (14.0-18.0); Mean Corpuscular HGB CONC 31.7 g/dL (32.0-36.0); Mean Corpuscular Volume 91.4 fL (78.0-98.0); Mean Platelet Volume 6.8 fL (7.4-10.4); Platelet Count 308 thou/uL (130-400); RBC Distribution Width 13.5 % (11.5-14.5); Red Blood Cell (RBC) Count 4.28 mill/uL (4.70-6.10); White Blood Cell (WBC) Count 8.6 thou/uL (4.8-10.8)
[2018-08-08] MEDS: Ciprofloxacin 500 MG TAB PO SCH ×2 (05:36→20:05)
[2018-08-08] MEDS: Levothyroxine Sodium 75 MCG TAB PO SCH (05:36)
[2018-08-08 05:54] LABS: ALT (SGPT) Less than 7 U/L (8-55); AST (SGOT) 10 U/L (5-34); Albumin 3.4 g/dL (3.4-4.8); Alkaline Phosphatase 93 U/L (40-150); Anion Gap 13 mmol/L (10-20); BUN (Urea Nitrogen) 14 mg/dL (8.4-25.7); Bilirubin, Total 0.5 mg/dL (0.2-1.2); Calc. Creatinine Clearance 109 mL/min (70-130); Calcium 9.4 mg/dL (7.8-10.44); Carbon Dioxide 26 mmol/L (23-31); Chloride 96 mmol/L (98-107); Estimated GFR-MDRD Greater than 90; Globulin 3.1 g/dL (2.4-3.5); Glucose 101 mg/dL (83-110); Protein, Total 6.5 g/dL (5.8-8.1); Sodium 131 mmol/L (136-145)
[2018-08-08] MEDS ORDERED: Levothyroxine 150 MCG TAB PO SCH (06:00)
--- NOTE | 2018-08-08 08:40 | PDOC.PN ---
- Subjective Encounter Start Date: 08/08/18 Encounter Start Time: 08:39 Feeling some better. Feels like his abdominal girth is decreased. Breathing a little better. - Objective Resuscitation Status - Order Detail: 08/07/18 16:36 Resuscitation Status Routine Co-Sign Provider: Resuscitation Status: FULL: Full Resuscitation Discussed with: Patient and family Vital Signs & Weight: Vital Signs (12 hours) Temp Pulse Resp BP BP Pulse Ox 08/08/18 07:45 98.5 F 72 14 123/70 95 08/08/18 04:15 71 18 107/64 94 L 08/07/18 23:47 98.0 F 71 20 112/59 L 95 08/07/18 22:01 71 139/77 Weight Weight 213 lb I&O: 08/07/18 08/08/18 08/09/18 06:59 06:59 06:59 Intake Total 250 Output Total 475 Balance -225 Result Diagrams: 08/08/18 05:18 08/08/18 05:18 Phys Exam - Physical Examination Constitutional: NAD Respiratory: no wheezing, no rales, no rhonchi slightly diminished at bases. Cardiovascular: RRR, no significant murmur, no rub Faint at apex. Gastrointestinal: soft, non-tender, no distention, positive bowel sounds Trace edema. Psychiatric: normal affect, A&O x 3 Dx/Plan (1) Atrial fibrillation with RVR Code(s): I48.91 - UNSPECIFIED ATRIAL FIBRILLATION Status: Acute (2) High output congestive heart failure Code(s): I50.83 - HIGH OUTPUT HEART FAILURE Status: Acute (3) Pleural effusion Code(s): J90 - PLEURAL EFFUSION, NOT ELSEWHERE CLASSIFIED Status: Acute (4) Pulmonary embolism Code(s): I26.99 - OTHER PULMONARY EMBOLISM WITHOUT ACUTE COR PULMONALE Status : Acute (5) Pericardial effusion Code(s): I31.3 - PERICARDIAL EFFUSION (NONINFLAMMATORY) Status: Acute (6) CAD (coronary artery disease) Code(s): I25.10 - ATHSCL HEART DISEASE OF [place] CORONARY ARTERY W/O ANG PCTRS Status: Chronic Qualifiers: Coronary Disease-Associated Artery/Lesion type: [place] artery [place] vs. transplanted heart: [place] heart Associated angina: without angina Qualified Code(s): I25.10 - Atherosclerotic heart disease of [place] coronary artery without angina pectoris - Plan * Echo today. * Lasix. * On Xarelto for PE. * Ambulate. * Cards consult. * Better rate control now. * Bladder scan for PVR.
[2018-08-08] MEDS ORDERED: Prasugrel 10 MG TAB PO SCH (09:00)
[2018-08-08] MEDS ORDERED: Furosemide 40 MG/4 ML VIAL SLOW IVP SCH (09:15)
[2018-08-08] MEDS: Rivaroxaban 15 MG TAB PO SCH ×2 (09:36→20:05)
[2018-08-08] MEDS: Aspirin 81 mg Enteric Coated Tablet PO SCH (09:36)
[2018-08-08] MEDS: Sotalol HCl 80 MG TAB PO SCH ×2 (09:37→20:05)
[2018-08-08] MEDS: Famotidine/PF 20 mg/2ml Vial SLOW IVP SCH ×2 (09:48→20:05)
[2018-08-08] MEDS ORDERED: Digoxin 0.5 MG/2 ML AMP SLOW IVP SCH (13:15)
--- NOTE | 2018-08-08 14:26 | PDOC.CTH ---
Cardiology Progress Note - Subjective The pt seen and examined. No overnight events. No cardiac complaints. Recurrent Afib with RVR this afternoon. - Objective Vital Signs Temp Pulse Resp BP BP BP Pulse Ox 08/08/18 13:21 108 H 08/08/18 12:23 97.9 F 108 H 24 H 119/73 93 L 08/08/18 09:37 72 08/08/18 07:45 98.5 F 72 14 123/70 95 08/08/18 04:15 71 18 107/64 94 L Weight 213 lb 08/07/18 08/08/18 08/09/18 06:59 06:59 06:59 Intake Total 250 600 Output Total 475 600 Balance -225 0 - Physical Examination General/Neuro: alert & oriented x3 Neck: no JVD present Lungs: other: (diminished at bases) Heart: other: (irregular) Abdomen: soft Extremities: other: (No edema) - Telemetry Telemetry Rhythm: AFib - Labs Result Diagrams: 08/08/18 05:18 08/08/18 05:18 Troponin/CKMB Troponin I Less than 0.010 ng/mL (< 0.028) 08/07/18 16:40 - Assessment/Plan 1. A fib with RVR with last Aflutter ablation in 08/2017 - HR was well controlled until this afternoon. On digoxin and Sotalol for HR; hx of Watchman' s device. On ASA 2. PE in Lt Lower lobe - Stable with RA. On Xarelto 3. mod pericardial effusion - stable with Lasix 4. UTI - managed by PCP 5. CAD with s/p stent - stable with bblocker, ASA, and statin 6. Hx of PM placement - 7. Hypothyrodism - MAR reviewed Pt. seen and eval. by me. I agree with the A/P by the [facility]AR[employer] [facility]ER. He had another episode of A-fib early afternoon. This converted back to NSR after IV digoxin. Hopefully when the UTI has resolved the atrial fib. will not return. If so, he may need a repeat ablation. Review of Systems - Review of Systems Constitutional: reports: no symptoms reported EENTM: reports: no symptoms reported Respiratory: reports: no symptoms reported Cardiac (ROS): reports: no symptoms reported ABD/GI: reports: no symptoms reported : reports: no symptoms reported
--- NOTE | 2018-08-08 19:58 | CON ---
DATE OF CONSULTATION: 08/07/2018 INDICATION FOR CONSULTATION/HISTORY OF PRESENT ILLNESS: This is a 73-year-old patient with a history of atrial fibrillation, who has undergone multiple ablations and cardioversions, who also has history of coronary artery disease, who developed urinary tract infection and has intermittent atrial fibrillation. He developed atrial fibrillation, became short of breath and weak. He presented to the emergency room, where he also was found to have a small left lower lobe peripheral pulmonary emboli. He is a very pleasant 73-year-old gentleman whom I follow for many years. He had been complaining of not feeling well for the last several days with muscle aches and pains, almost like a flu-like syndrome. He also complains of shortness of breath. He was found to have urinary tract infection. He was started on medications. He had only received a couple of doses. He had also noticed that he was drinking plenty of fluids, but then noticed that he was starting to retain urine even though he was drinking quite amount of fluid and he became somewhat short of breath. He was in the emergency room. He was given IV Lasix and had improvement. He also noticed at that time in the emergency room he was in atrial fibrillation with rapid ventricular response. He has undergone ablations in the past. He has had several cardioversions. He has also had a pacemaker insertion. He has a dual-chamber pacemaker insertion, which recently was checked and was found to have normal function. He had angioplasty with stent placement to the mid left anterior descending artery in 1999 and had no significant problems since that time from a coronary standpoint. He had pulmonary vein isolation on 05/22/2017, for atrial fibrillation and cardioverted on 05/24/2017, June 2017, July 2017, and August of 2017. He then underwent atrial flutter ablation on 08/07/2017, and then again on 08/16/2017, by Dr. Cardona. At some point in time, he did have a small perforation. He also had been placed on I believe was to be placed on Plavix after he had a Watchman device placed. During that time, I believe that he was evaluated for whether or not he was compatible with Plavix and was found to be a nonresponder and then was started on Effient. At this time since in the emergency room, he has been found to have a pulmonary embolus may be advantageous, to start him on some other medication. It would not be advisable most likely in this gentleman to be on Lovenox as well as Effient and I will switch him over to Xarelto, which will be twice a day medicine for now. Then, we will switch eventually to once a day medicine. He was in atrial fibrillation in the emergency room and after he was given IV diltiazem and then he converted back to a normal sinus rhythm. Since the patient was seen yesterday, the dictation is today, he has since converted back to in and out of atrial fibrillation. He did yesterday have atrial pacing and ventricular sensing. He denied any chest pain. He mainly complains of shortness of breath and just not feeling well. He has had some renal insufficiency problems in the past, but this has been relatively stable. He says he has an angiomyolipoma of right kidney, this had been overall stable. PAST MEDICAL HISTORY: Significant for the arrhythmias as noted above, coronary artery disease as noted above. He has a history of dyslipidemia, hypertension, pacemaker insertion. He has had a tonsillectomy. He has a history of paroxysmal atrial fibrillation, benign positional vertigo, history of atrial flutter, atrial fibrillation. Also, I believe he has had some benign positional vertigo. His last echocardiogram prior to having the ablations was in June of 2017, which showed ejection fraction of 50% to 55% with moderate mitral and tricuspid valve regurgitation. SOCIAL HISTORY: He is . He has no tobacco abuse. He has rare alcohol use if any. He continues to work [place] his [place]. ALLERGIES: NONE. MEDICATIONS: Prior to admission include; 1. Levothyroxine. 2. MiraLAX. 3. Vitamin B12. 4. Colchicine. 5. Tamsulosin. 6. Aspirin 81 mg a day. 7. Budeprion XL 300 mg 24-hour tablets. 8. Testosterone once a week injections. 9. He was on Effient as well as sotalol 160 mg b.i.d. 10. Simvastatin 40 mg a day. 11. He also was taking fluoxetine and sotalol 160 mg twice a day as well as his levothyroxine, which is 25 mcg a day. REVIEW OF SYSTEMS: A 12-point review of systems is unremarkable, except what was noted in the history of present illness. He has had some left leg pain, but otherwise has remained relatively stable otherwise. PHYSICAL EXAMINATION: GENERAL: Reveals an elderly gentleman, who is in no acute distress. He is alert and oriented. He is in sinus rhythm at this time with atrial pacing and ventricular sensing. VITAL SIGNS: His blood pressure is 119/73, heart rate in the 70s to one teens, O2 saturation is 93%, respiratory rate is 14 to 24, and he is afebrile. HEENT: Shows head to be normocephalic and atraumatic. NECK: Carotid pulses are present. I do not hear any bruits. CHEST: Actually seem to be clear to auscultation. Did not hear any rales, rhonchi, or wheezing. CARDIOVASCULAR: Revealed at that time, irregular rate and rhythm. He has since become irregular again with his atrial fibrillation. ABDOMEN: Soft and nontender. Positive bowel sounds are present. EXTREMITIES: Show no clubbing, cyanosis, or edema. NEUROLOGICAL: The patient appears to be intact. SKIN: Warm and dry. DIAGNOSTIC DATA: His EKG showed atrial fibrillation, but then converted to a sinus rhythm with atrial pacing and ventricular sensing and no evidence of ischemia. Cardiac enzymes were negative. His other laboratory data is relatively stable. Hemoglobin was 12.4 with hematocrit of 39.1, platelet count was 308,000. His BNP was 344. Cardiac enzymes are negative. Creatinine 0.8, BUN was 14, blood sugar was 101, and potassium is 4.0. Chest x-ray shows some left basilar opacity. Urinalysis shows some elevated WBC and the CT scan showed the small pulmonary emboli in the periphery. IMPRESSION: 1. Probable viral illness, for which he is recovering but developed acute congestive heart failure, which is systolic in nature due to the onset of atrial fibrillation with rapid ventricular response. We will continue with his antiarrhythmic medication. We will also add digoxin. He may need to undergo a repeat ablation. However, this will be the third ablation for this gentleman. We will try to treat this with medication. We will ask an port warden to see him in consultation in the next few days. 2. Coronary artery disease. This appears to be stable. Cardiac enzymes are negative. There is no indication he has an ischemia. 3. Status post pacemaker insertion, the function recently checked was normal. At this time, we will be more than happy to continue to follow the patient with you. 4. Pulmonary embolus. As discussed above, I will hold the Lovenox and also the Effient and start him on Xarelto. In order to prevent overt bleeding, Xarelto should be adequate since this is a small peripheral pulmonary emboli. At this time, we will be more than happy to continue to follow the patient with you, but he appears to be overall stable until this afternoon shortly around 1 o'clock on . He again developed atrial fibrillation. I will start him on IV digoxin to see whether or not we can control the heart rate. Job ID: [id number]
[2018-08-08] MEDS: Digoxin 0.5 MG/2 ML AMP SLOW IVP SCH (20:04)
[2018-08-08] MEDS: Atorvastatin Calcium 20 MG TAB PO SCH (20:05)
[2018-08-09] MEDS: Digoxin 0.5 MG/2 ML AMP SLOW IVP SCH (01:19)
[2018-08-09 05:20] LABS: #Eosinphils 0.1 thou/uL (0.0-0.7); #Lymphocytes 1.1 thou/uL (1.20-3.40); #Monocytes 0.8 thou/uL (0.11-0.59); #Neutrophils 3.7 thou/uL (1.40-6.50); %Basophils 0.3 % (0.0-1.0); %Eosinophils 2.1 % (0.0-10.0); %Lymphocytes 19.3 % (21.0-51.0); %Monocytes 14.6 % (0.0-10.0); %Neutrophils 63.7 % (42.0-75.0); Hemoglobin 12.7 g/dL (14.0-18.0); Mean Corpuscular Hemoglobin 29.2 pg (27.0-31.0); Mean Corpuscular Volume 91.2 fL (78.0-98.0); Mean Platelet Volume 6.8 fL (7.4-10.4); Platelet Count 334 thou/uL (130-400); RBC Distribution Width 13.4 % (11.5-14.5); Red Blood Cell (RBC) Count 4.36 mill/uL (4.70-6.10); White Blood Cell (WBC) Count 5.7 thou/uL (4.8-10.8)
[2018-08-09] MEDS: Levothyroxine Sodium 75 MCG TAB PO SCH (05:40)
[2018-08-09] MEDS: Ciprofloxacin 500 MG TAB PO SCH (05:40)
[2018-08-09 05:44] LABS: ALT (SGPT) Less than 7 U/L (8-55); AST (SGOT) 14 U/L (5-34); Albumin 3.2 g/dL (3.4-4.8); Alkaline Phosphatase 92 U/L (40-150); Anion Gap 11 mmol/L (10-20); BUN (Urea Nitrogen) 13 mg/dL (8.4-25.7); Bilirubin, Total 0.2 mg/dL (0.2-1.2); Calc. Creatinine Clearance 112 mL/min (70-130); Calcium 9.1 mg/dL (7.8-10.44); Carbon Dioxide 29 mmol/L (23-31); Chloride 97 mmol/L (98-107); Estimated GFR-MDRD Greater than 90; Globulin 3.1 g/dL (2.4-3.5); Glucose 110 mg/dL (83-110); Potassium 3.6 mmol/L (3.5-5.1); Protein, Total 6.3 g/dL (5.8-8.1); Sodium 133 mmol/L (136-145)
[2018-08-09] MEDS: Aspirin 81 mg Enteric Coated Tablet PO SCH (08:57)
[2018-08-09] MEDS: Sotalol HCl 80 MG TAB PO SCH ×2 (08:57→20:52)
[2018-08-09] MEDS: Digoxin 0.125 MG TAB PO SCH (08:57)
[2018-08-09] MEDS: Rivaroxaban 15 MG TAB PO SCH ×2 (08:58→20:52)
[2018-08-09] MEDS: Famotidine/PF 20 mg/2ml Vial SLOW IVP SCH (08:58)
[2018-08-09] MEDS: Acetaminophen 325 MG TAB PO PRN (08:58)
[2018-08-09 10:18] LABS: Hemoglobin 12.3 g/dL (14.0-18.0); Platelet Count 332 thou/uL (130-400)
[2018-08-09 10:40] LABS: Calc. Creatinine Clearance 116 mL/min (70-130); Estimated GFR-MDRD Greater than 90
[2018-08-09] MEDS ORDERED: Potassium Chloride 20 MEQ TAB PO SCH (11:00)
[2018-08-09] MEDS ORDERED: Furosemide 20 MG/2 ML VIAL SLOW IVP SCH (11:00)
--- NOTE | 2018-08-09 15:09 | PDOC.CTH ---
Cardiology Progress Note - Subjective The pt seen and examined. No overnight events. No cardiac complaints. - Objective Vital Signs Temp Pulse Resp BP BP Pulse Ox 08/09/18 11:24 97.8 F 111 H 16 100/51 L 93 L 08/09/18 08:57 109 H 101/66 08/09/18 07:32 97.6 F 109 H 20 101/66 96 Weight 213 lb 08/08/18 08/09/18 08/10/18 06:59 06:59 06:59 Intake Total 250 840 244 Output Total 475 2045 Balance -225 -1205 244 - Physical Examination General/Neuro: alert & oriented x3 Neck: no JVD present Lungs: CTA Heart: other: (irregular) Abdomen: soft Extremities: other: (1-2+ pitting BLE edema) - Telemetry Telemetry Rhythm: Afib/Aflutter - Labs Result Diagrams: 08/09/18 10:10 08/09/18 10:10 Troponin/CKMB Troponin I Less than 0.010 ng/mL (< 0.028) 08/07/18 16:40 - Assessment/Plan 1. A fib with RVR with last Aflutter ablation in 08/2017 - HR has been 90-110s with digoxin and Sotalol; hx of Watchman's device. On ASA 2. PE in Lt Lower lobe - Stable with RA. On Xarelto 3. mod pericardial effusion - stable with Lasix 4. UTI - managed by PCP 5. CAD with s/p stent - stable with bblocker, ASA, and statin 6. Hx of PM placement - 7. Hypothyrodism - MAR reviewed Pt. seen and eval. by me. I agree with the A/P by the [facility]. He does not tolerate the rapid ventricular response to the atrial flutter/fib. Continue rate control with sotolol and digoxin. EP to see on Sunday. Likely will need a repeat ablation. Chest clear. Regular rhythm . ( monitor- atrial flutter). Review of Systems - Review of Systems Constitutional: reports: no symptoms reported EENTM: reports: no symptoms reported Respiratory: reports: no symptoms reported Cardiac (ROS): reports: no symptoms reported ABD/GI: reports: no symptoms reported : reports: no symptoms reported Musculoskeletal: reports: no symptoms reported
[2018-08-09] MEDS: Famotidine 20 MG TAB PO SCH (20:53)
[2018-08-09] MEDS: Atorvastatin Calcium 20 MG TAB PO SCH (20:53)
--- NOTE | 2018-08-09 21:37 | PDOC.PN ---
- Subjective Encounter Start Date: 08/09/18 Encounter Start Time: 09:25 Doing ok overall. Lost about five pounds with diuresis. Breathing better. Less orthopnea. - Objective Resuscitation Status - Order Detail: 08/07/18 16:36 Resuscitation Status Routine Co-Sign Provider: Resuscitation Status: FULL: Full Resuscitation Discussed with: Patient and family Vital Signs & Weight: Vital Signs (12 hours) Temp Pulse Resp BP BP Pulse Ox 08/09/18 20:52 115 H 08/09/18 19:14 98.0 F 115 H 20 125/65 99 08/09/18 15:57 111 H 114/64 95 08/09/18 15:11 98.1 F 112 H 20 90/51 L 95 08/09/18 11:24 97.8 F 111 H 16 100/51 L 93 L Weight Weight 213 lb I&O: 08/08/18 08/09/18 08/10/18 06:59 06:59 06:59 Intake Total 968 394 0078 Output Total 475 2045 1775 Balance [facility] -1205 -671 Result Diagrams: 08/09/18 10:10 08/09/18 10:10 Phys Exam - Physical Examination Constitutional: NAD Respiratory: no wheezing, no rales, no rhonchi Decreased fremitus at both bases. Cardiovascular: no significant murmur, irregular Gastrointestinal: soft, non-tender Musculoskeletal: no edema Neurological: non-focal Psychiatric: normal affect, A&O x 3 Dx/Plan (1) Atrial fibrillation with RVR Code(s): I48.91 - UNSPECIFIED ATRIAL FIBRILLATION Status: Acute (2) High output congestive heart failure Code(s): I50.83 - HIGH OUTPUT HEART FAILURE Status: Acute (3) Pleural effusion Code(s): J90 - PLEURAL EFFUSION, NOT ELSEWHERE CLASSIFIED Status: Acute (4) Pulmonary embolism Code(s): I26.99 - OTHER PULMONARY EMBOLISM WITHOUT ACUTE COR PULMONALE Status : Acute (5) Pericardial effusion Code(s): I31.3 - PERICARDIAL EFFUSION (NONINFLAMMATORY) Status: Acute (6) CAD (coronary artery disease) Code(s): I25.10 - ATHSCL HEART DISEASE OF [place] CORONARY ARTERY W/O ANG PCTRS Status: Chronic Qualifiers: Coronary Disease-Associated Artery/Lesion type: [place] artery [place] vs. transplanted heart: [place] heart Associated angina: without angina Qualified Code(s): I25.10 - Atherosclerotic heart disease of [place] coronary artery without angina pectoris - Plan * Had recurrence of afib with RVR yesterday evening. Started on Dig. Continues to have intermittent afib/flutter. * Continue Dig load. * Discussed with Cardiology. Does not do well with afib and will likely need cardioversion. * Discussed with EP. Had prior ablations. Had complications at one point ( apparent hemopericardium). May need to go back to [place]. * Anticipate he will be here through the weekend. * Has watchman and dose not need anticoagulation for afib, but does for the PE. Continue xarelto.
[2018-08-10] MEDS: Levothyroxine Sodium 75 MCG TAB PO SCH (05:43)
[2018-08-10 05:47] LABS: Anion Gap 11 mmol/L (10-20); BUN (Urea Nitrogen) 13 mg/dL (8.4-25.7); Calc. Creatinine Clearance 121 mL/min (70-130); Calcium 9.1 mg/dL (7.8-10.44); Carbon Dioxide 28 mmol/L (23-31); Chloride 100 mmol/L (98-107); Estimated GFR-MDRD Greater than 90; Glucose 93 mg/dL (83-110); Potassium 4.1 mmol/L (3.5-5.1); Sodium 135 mmol/L (136-145)
[2018-08-10] MEDS: Aspirin 81 mg Enteric Coated Tablet PO SCH (09:18)
[2018-08-10] MEDS: Digoxin 0.125 MG TAB PO SCH (09:18)
[2018-08-10] MEDS: Famotidine 20 MG TAB PO SCH ×2 (09:19→21:07)
[2018-08-10] MEDS: Sotalol HCl 80 MG TAB PO SCH ×2 (09:19→21:08)
[2018-08-10] MEDS: Rivaroxaban 15 MG TAB PO SCH (09:19)
[2018-08-10] MEDS: cefTRIAXone\\ROCEPHIN 1 GM in Sodium Chloride 0.9% 100 ML IVPB SCH (18:19)
[2018-08-10 18:58] LABS: Bilirubin Negative (Negative); Blood, Urine Large (Negative); Clarity CLOUDY (Clear); Glucose, Urine (Dipstick) Negative (Negative); Leukocyte Moderate (Negative); Nitrite Negative (Negative); Protein, Urine (Dipstick) 100 mg/dL (Neg-Trace); Specific Gravity, Urine 1.009 (1.002-1.036); pH, Urine 7.5 (5.0-9.0)
[2018-08-10 19:03] LABS: Bacteria/HPF None Seen HPF (None Seen); Hyaline Casts/LPF 0-3 HYALINE CAST LPF (0-3 Hyaline); RBC/HPF GREATER THAN 50-TNTC HPF (0-3); Squamous Epithelial 0-3 HPF (0-3)
--- NOTE | 2018-08-10 19:08 | PDOC.CTH ---
Cardiology Progress Note - Subjective He is more tachycardic and feels SOB when this happens. Still in and out of afib currently in RVR in the 110's. Developed hematuria. - Objective Vital Signs Temp Pulse Resp BP Pulse Ox 08/10/18 15:53 96.7 F L 116 H 20 122/85 98 08/10/18 12:31 97.2 F L 114 H 19 131/83 08/10/18 09:18 116 H 08/10/18 09:10 97.4 F L 115 H 20 139/75 96 Weight 213 lb 08/09/18 08/10/18 08/11/18 06:59 06:59 06:59 Intake Total 840 1104 900 Output Total 2045 8825 1050 Balance -1862 -354 -150 - Physical Examination General/Neuro: alert & oriented x3, NAD Neck: no JVD present Lungs: unlabored respirations Heart: other: (Irreg irreg) Abdomen: NT/ND Extremities: other: (no edema) - Telemetry Telemetry Rhythm: Afib HR 110's. - Labs Result Diagrams: 08/09/18 10:10 08/10/18 04:42 Troponin/CKMB Troponin I Less than 0.010 ng/mL (< 0.028) 08/07/18 16:40 - Assessment/Plan 1. A fib with RVR with last Aflutter ablation in 08/2017 2. Acute PE. 3. Mod pericardial effusion 4. UTI 5. CAD s/p stent 6. Hx of PM placement 7. Hypothyrodism 8. Hematuria, new. PLAN: - Will try to rate control afib more with increased digoixin dose. - May need AVJ ablation. - Continue sotalol on high dose. - Watchman device in place so no need for Xarelto for stroke prophylaxis. - May have to stop Xarelto due to hematuria and have an IVC filter placed. - EP to see Sunday. - Would expect hematuria to resolve once Xarelto stopped. Hgb without a significant drop. - Will get a UA. - Keep rizzo in place.
[2018-08-10] MEDS: Atorvastatin Calcium 20 MG TAB PO SCH (21:07)
--- NOTE | 2018-08-10 23:14 | PRG ---
DATE OF SERVICE: 08/10/2018 SUBJECTIVE: The patient developed gross hematuria. Shortness of breath is improving. He denies any flank pain, fever, or chills. No chest pain or shortness of breath reported. OBJECTIVE: VITAL SIGNS: Temperature 97.2, pulse rate of 114, respiration 19, blood pressure 131/83. Intake of 1104, output 1775. Telemetry monitoring by my review showed sinus tachycardia/atrial flutter. GENERAL: A 73-year-old male in no apparent distress. LUNGS: Showed few rales at bases. No wheezing. HEART: S1 and S2 present. Tachycardic. ABDOMEN: Soft, nontender. Bowel sounds present. EXTREMITIES: Trace edema in bilateral lower extremity. REVIEW OF SYSTEMS: No fever, chills, chest pain, shortness of breath, nausea, or vomiting. CURRENT MEDICATIONS: Current medications were reviewed. The patient is on; 1. Aspirin. 2. Lipitor. 3. Digoxin. 4. Levothyroxine. 5. Protonix. 6. Xarelto with sotalol. LABORATORY FINDINGS: Sodium 135, potassium 4.1, BUN 13, and creatinine 0.72. Hemoglobin was 12.3. Urinalysis has been ordered. Urine cultures from 19 showed mixed skin diogenes, greater than 100,000 colonies. Repeat urine culture this admission showed less than 25,000 mixed skin diogenes. IMPRESSION: 1. Atrial fibrillation with rapid ventricular response. 2. History of atrial flutter status post ablation last year. 3. New diagnosis of pulmonary embolism, on anticoagulation. 4. Urinary tract infection. Ciprofloxacin has been discontinued. 5. Acute on chronic diastolic heart failure exacerbation, probably precipitated by tachyarrhythmias. 6. Bilateral pleural effusions. 7. Pericardial effusion. 8. Coronary artery disease, status post stent placement. 9. Hypothyroidism. 10. History of pacemaker placement. 11. New gross hematuria while on anticoagulation. 12. Chronic normochromic normocytic anemia. 13. Hyponatremia. 14. History of Watchman left atrial device. PLAN: Anticoagulation will be held due to gross hematuria. We will consult Urology. Electrophysiology has been consulted as well. Continue current medications including aspirin, levothyroxine, Protonix, and sotalol. Digoxin dose has been increased per Cardiology. We will start him on IV ceftriaxone for UTI. Job ID: [id number]
[2018-08-11 05:22] LABS: #Eosinphils 0.4 thou/uL (0.0-0.7); #Lymphocytes 1.2 thou/uL (1.20-3.40); #Monocytes 0.8 thou/uL (0.11-0.59); #Neutrophils 4.1 thou/uL (1.40-6.50); %Basophils 0.4 % (0.0-1.0); %Eosinophils 5.5 % (0.0-10.0); %Lymphocytes 19.1 % (21.0-51.0); %Monocytes 11.5 % (0.0-10.0); %Neutrophils 63.4 % (42.0-75.0); Hemoglobin 12.8 g/dL (14.0-18.0); Mean Corpuscular HGB CONC 31.2 g/dL (32.0-36.0); Mean Corpuscular Hemoglobin 28.5 pg (27.0-31.0); Mean Corpuscular Volume 91.5 fL (78.0-98.0); Mean Platelet Volume 6.4 fL (7.4-10.4); Platelet Count 379 thou/uL (130-400); RBC Distribution Width 13.2 % (11.5-14.5); Red Blood Cell (RBC) Count 4.48 mill/uL (4.70-6.10); White Blood Cell (WBC) Count 6.5 thou/uL (4.8-10.8)
[2018-08-11 05:45] LABS: Anion Gap 12 mmol/L (10-20); BUN (Urea Nitrogen) 13 mg/dL (8.4-25.7); Calc. Creatinine Clearance 117 mL/min (70-130); Calcium 8.9 mg/dL (7.8-10.44); Carbon Dioxide 23 mmol/L (23-31); Chloride 102 mmol/L (98-107); Estimated GFR-MDRD Greater than 90; Glucose 96 mg/dL (83-110); Phosphorus 3.5 mg/dL (2.3-4.7); Potassium 4.3 mmol/L (3.5-5.1); Sodium 133 mmol/L (136-145)
[2018-08-11] MEDS: Levothyroxine Sodium 75 MCG TAB PO SCH (05:47)
[2018-08-11] MEDS: Digoxin 0.25 MG TAB PO SCH (08:44)
[2018-08-11] MEDS: Aspirin 81 mg Enteric Coated Tablet PO SCH (08:44)
[2018-08-11] MEDS: Saccharomyces boulardii 250 MG CAP PO SCH (08:45)
[2018-08-11] MEDS: Sotalol HCl 80 MG TAB PO SCH ×2 (08:45→20:39)
[2018-08-11] MEDS: Famotidine 20 MG TAB PO SCH ×2 (08:45→20:40)
--- NOTE | 2018-08-11 10:14 | ULT ---
BILATERAL LOWER EXTREMITY VENOUS DOPPLER ULTRASOUND: DATE: 08/11/2018. COMPARISON: None. HISTORY: Elevated D-dimer, PE, rollout DVT. TECHNIQUE: Multiplanar, morgan scale, sonographic imaging venous structures bilateral lower extremities obtained w ith color flow and spectral analysis. FINDINGS: Bilateral common femoral veins, greater saphenous veins, profunda femoral veins, femoral veins, popli teal veins, posterior tibial veins, and anterior tibial veins are patent. Normal blood flow, augment ation, and compression within the deep venous system bilaterally. No evidence for DVT on either side . IMPRESSION: No evidence for deep venous thrombosis of either lower extremity. POS: [facility]
--- NOTE | 2018-08-11 13:08 | CON ---
DATE OF CONSULTATION: 08/11/2018 REASON FOR CONSULTATION: Gross hematuria. HISTORY OF PRESENT ILLNESS: Mr. Heredia is a 73-year-old white male, who is well known to me for previous multiple urologic issues including BPH, gross hematuria, nephrolithiasis, and an angiomyolipoma and elevated PSA. He came into the hospital last night secondary to shortness of breath for the last few days as well as generalized malaise and aching a few days ago. He previously been seen by his primary care physician a few days before that and was diagnosed with a urinary tract infection, at which time, the patient started feeling bad. He was started on ciprofloxacin and drinking at least 60 to 80 ounces of water. During this time, the patient started having shortness of breath, but denied any fevers or chills, flank pain, but did start having some myalgias and upper respiratory symptoms, mainly the shortness of breath. Previously noted. The highest temperature got was up to 100.1. They brought him to the emergency room, where he was noted to be back in atrial fibrillation with RVR. The patient has previously had an ablation by Dr. Julien and was in normal sinus rhythm for approximately 9 months. His BNP was also elevated somewhat. He has now been admitted to the hospital for treatment of his urinary tract infection as well as his shortness of breath and atrial fibrillation. He did undergo a CT PE protocol and venogram while in the emergency room, which demonstrated a very small pulmonary embolism in the lateral aspects of his vasculature. His venogram was clear and did not demonstrate any evidence of lower extremity DVTs. He also has developed gross hematuria, which is clearing now that his Xarelto has been held by the primary team. Obviously, his die operator would like him back on his blood thinners as soon as possible. Of note, the patient also reports that his urinary symptoms have markedly improved after starting daily MiraLAX and taking his Flomax. He states his nocturia is almost gone and his stream is pretty good without much difficulty with urination. The patient does have a known history of elevated PSA with a prior biopsy, which was negative. We had elected to stop PSA screening in lieu of his other comorbidities and his age. HOME MEDICATIONS: 1. Levothyroxine. 2. Simvastatin. 3. Sotalol. 4. Aspirin. 5. Fluoxetine. 6. Tamsulosin. 7. Effient. ALLERGIES: NO KNOWN ALLERGIES. PAST MEDICAL HISTORY: 1. Atrial fibrillation. 2. Atrial flutter. 3. Peptic ulcer disease. 4. BPH. 5. Hyperlipidemia. 6. Hypothyroidism. 7. Hypercholesterolemia. 8. Angiomyolipoma. 9. Nephrolithiasis. PAST SURGICAL HISTORY: 1. Pacemaker placement. 2. Spinal surgery for spinal stenosis. 3. Cardiac ablation in August 2017. FAMILY HISTORY: Noncontributory. SOCIAL HISTORY: The patient denies any current tobacco abuse or heavy alcohol use. He denies any illicit drugs. He lives with his and is independent. REVIEW OF SYSTEMS: A 12-point review of systems is unremarkable other than that was commented on the HPI. PHYSICAL EXAMINATION: VITAL SIGNS: Temperature 98.1, pulse 118, respirations 20, blood pressure 126/82, and saturations 95% on room air. GENERAL: No apparent distress, communicating, and alert and appears stated age, well nourished, well developed. HEENT: Normocephalic and atraumatic. Sclerae nonicteric. Pupils are symmetric and round. Moist mucous membranes. Trachea midline. CARDIOVASCULAR: Irregularly irregular rhythm with tachycardia. Normal S1 and S2. CHEST: No increased work of breathing. Symmetric expansion of the lungs, bibasilar crackles. ABDOMEN: Soft, nontender, and nondistended. Positive bowel sounds. No organomegaly. No peritoneal signs. No rebound or guarding. No suprapubic tenderness. : Nonfocal. No obvious lesions. EXTREMITIES: 1+ edema bilaterally. No clubbing or cyanosis. MUSCULOSKELETAL: No joint deformities or joint erythema noted. Full range of motion. SKIN: Warm and dry. Good turgor. No rashes or lesions. NEUROLOGIC: Cranial nerves 2 through 12 grossly intact. No focal sensory or motor deficits identified. PSYCHIATRIC: Alert and oriented x3. Appropriate mood and affect. LABORATORY EVALUATION: The full set of labs in the [facility] system, which I have reviewed. Of note, the patient's white count of 6.5 and hemoglobin 12.8. Creatinine is currently 0.71 with a sodium of 133. Urinalysis demonstrates red urine, 100 protein, large blood, moderate leukocyte esterase, greater than 50 red cells, 7 to 10 white cells, and no bacteria seen. Urine culture from August 07 demonstrates 10,000 to 25,000 mixed skin diogenes. ASSESSMENT AND PLAN: A 73-year-old white male with gross hematuria, which is almost certainly due to his nephrolithiasis and concurrent urinary tract infection. I agree with holding his Xarelto for a very short time until his hematuria clears as soon as his urine is back to normal or yellow appearing. He can restart his blood thinners per the die operator. Ultimately, I do think the patient needs to have his stone treated as he will otherwise be at risk for recurrent urinary tract infections and recurrent hematuria, especially given his blood thinner usage. Given his heart comorbidities and recurrence of his atrial fibrillation, I think it will be best to just avoid percutaneous nephrolithotomy in this situation and consider doing staged ureteroscopy for his rather large stone. I have discussed this with the patient and he is in agreement that he will be okay going forward with ureteroscopy. He is not eligible to undergo an ureteroscopy right now as he does have some uncontrolled atrial fibrillation with evidence of heart failure and urinary tract infection. He will need cardiac clearance from both Dr. Julien and Dr. Staton before moving forward with any kind of surgical procedure as well as clearance of his current urinary tract infection. I will arrange for his ureteroscopy as an outpatient. His angiomyolipoma is stable at the current time, and this does need to be addressed in the future, but has no indications for treatment at the current time. His BPH seems to be managing well with the tamsulosin and management of his constipation. SUMMARY OF RECOMMENDATIONS: 1. Continue antibiotics for 7 days. we can await final cultures. 2. Agree with holding anticoagulation for a short time only until his hematuria clears and then restarting it per the die operator recommendations. 3. Continue BPH medications. 4. We will arrange for ureteroscopy as an outpatient after cardiac clearance. Job ID: [id number]
[2018-08-11] MEDS: cefTRIAXone\\ROCEPHIN 1 GM in Sodium Chloride 0.9% 100 ML IVPB SCH (16:42)
--- NOTE | 2018-08-11 17:41 | PDOC.PN ---
- Subjective Encounter Start Date: 08/11/18 Encounter Start Time: 11:30 Patient seen and examined for A flutter/PE. No CP. No new complaints. No overnight events - Objective Resuscitation Status - Order Detail: 08/07/18 16:36 Resuscitation Status Routine Co-Sign Provider: Resuscitation Status: FULL: Full Resuscitation Discussed with: Patient and family MAR Reviewed: Yes Vital Signs & Weight: Vital Signs (12 hours) Temp Pulse Resp BP Pulse Ox 08/11/18 16:41 97.6 F 121 H 17 118/75 97 08/11/18 12:06 98.1 F 118 H 20 126/82 95 08/11/18 08:44 121 H 08/11/18 08:34 97.5 F L 120 H 16 122/77 96 Weight Weight 202 lb 9.6 oz I&O: 08/10/18 08/11/18 08/12/18 06:59 06:59 06:59 Intake Total 1104 1210 1060 Output Total 1775 1700 725 Balance -671 -490 335 Result Diagrams: 08/11/18 04:27 08/11/18 04:27 EKG Reviewed by me: Yes (Tele A flutter) Phys Exam - Physical Examination Constitutional: NAD Respiratory: no wheezing, no rhonchi Cardiovascular: no rub tachycardic Gastrointestinal: soft, non-tender, positive bowel sounds Musculoskeletal: no edema Neurological: moves all 4 limbs Psychiatric: A&O x 3 Dx/Plan - Plan DVT proph w/SCDs IMPRESSION: 1. Atrial fibrillation/flutter with rapid ventricular response. 2. History of atrial flutter status post ablation last year. 3. New diagnosis of pulmonary embolism, on anticoagulation. Doppler B/L LE - negative 4. Urinary tract infection. 5. Acute on chronic diastolic heart failure exacerbation, probably precipitated by tachyarrhythmias. 6. Bilateral pleural effusions. 7. Pericardial effusion. 8. Coronary artery disease, status post stent placement. 9. Hypothyroidism. 10. History of pacemaker placement. 11. New gross hematuria while on anticoagulation. improving. 12. Chronic normochromic normocytic anemia. 13. Hyponatremia. 14. History of Watchman left atrial device. PLAN: Hold Anticoag until gross hematuria resolves per urology. AM labs Cont Sotalol/Digoxin Cont IV Atbx for 7 days per Urology. Cont current meds as below Review of Systems - Review of Systems Respiratory: negative: Cough, Dry, Shortness of Breath, Hemoptysis, SOB with Excertion, Pleuritic Pain, Sputum, Wheezing Cardiovascular: negative: chest pain, palpitations, orthopnea, paroxysmal nocturnal dyspnea, edema, light headedness, other - Medications/Allergies Allergies/Adverse Reactions: Allergies Allergy/AdvReac Type Severity Reaction Status Date / Time No Known Allergies Allergy Verified 07/23/17 13:15 Medications: Current Medications Acetaminophen (Tylenol) 650 mg PO Q4H PRN PRN Reason: Headache/Fever/Mild Pain (1-3) Last Admin: 08/09/18 08:58 Dose: 650 mg Aspirin (Ecotrin) 81 mg PO DAILY PENDING SALE TO [facility] Last Admin: 08/11/18 08:44 Dose: 81 mg Atorvastatin Calcium (Lipitor) 20 mg PO HS PENDING SALE TO [facility] Last Admin: 08/10/18 21:07 Dose: 20 mg Digoxin (Lanoxin) 0.25 mg PO DAILY PENDING SALE TO [facility] Last Admin: 08/11/18 08:44 Dose: 0.25 mg Famotidine (Pepcid) 20 mg PO Q12HR PENDING SALE TO [facility] Last Admin: 08/11/18 08:45 Dose: 20 mg Ceftriaxone Sodium 1 gm/ (Sodium Chloride) 100 mls @ 200 mls/hr IVPB Q24HR PENDING SALE TO [facility] Last Admin: 08/11/18 16:42 Dose: 100 mls Levothyroxine Sodium (Synthroid) 75 mcg PO 0600 PENDING SALE TO [facility] Last Admin: 08/11/18 05:47 Dose: 75 mcg Ondansetron HCl (Zofran Odt) 4 mg PO Q6H PRN PRN Reason: Nausea/Vomiting Ondansetron HCl (Zofran) 4 mg IVP Q6H PRN PRN Reason: Nausea/Vomiting Pantoprazole Sodium (Protonix) 40 mg PO DAILY PENDING SALE TO [facility] Last Admin: 08/11/18 08:45 Dose: 40 mg Rivaroxaban (Xarelto) 15 mg PO BID PENDING SALE TO [facility] Last Admin: 08/10/18 09:19 Dose: 15 mg Saccharomyces Boulardii (Florastor) 250 mg PO DAILY PENDING SALE TO [facility] Last Admin: 08/11/18 08:45 Dose: 250 mg Sodium Chloride (Flush - Normal Saline) 10 ml IVF Q12HR PRN PRN Reason: Saline Flush Last Admin: 08/10/18 21:08 Dose: 10 ml Sodium Chloride (Flush - Normal Saline) 10 ml IVF PRN PRN PRN Reason: Saline Flush Sotalol HCl (Betapace) 160 mg PO BID PATRICIA Last Admin: 08/11/18 08:45 Dose: 160 mg
--- NOTE | 2018-08-11 18:31 | PDOC.CTH ---
Cardiology Progress Note - Objective Vital Signs Temp Pulse Resp BP Pulse Ox 08/11/18 16:41 97.6 F 121 H 17 118/75 97 08/11/18 12:06 98.1 F 118 H 20 126/82 95 08/11/18 08:44 121 H 08/11/18 08:34 97.5 F L 120 H 16 122/77 96 Weight 202 lb 9.6 oz 08/10/18 08/11/18 08/12/18 06:59 06:59 06:59 Intake Total 1104 1210 1060 Output Total 1775 1700 725 Balance -451 -480 335 - Labs Result Diagrams: 08/11/18 04:27 08/11/18 04:27 Troponin/CKMB Troponin I Less than 0.010 ng/mL (< 0.028) 08/07/18 16:40 - Assessment/Plan 1. A fib with RVR with last Aflutter ablation in 08/2017 2. Acute PE. 3. Mod pericardial effusion 4. UTI 5. CAD s/p stent 6. Hx of PM placement 7. Hypothyrodism 8. Hematuria, new. PLAN: - Continue current digoixin dose. - May need AVJ ablation. - Continue sotalol on high dose. - Watchman device in place so no need for Xarelto for stroke prophylaxis. - Continue to hold Xarelto due to hematuria, consider an IVC filter. - EP to see Sunday. - Would expect hematuria to resolve once Xarelto stopped. Hgb actually better than yesterday. - Appreciate urology recs.
[2018-08-11] MEDS: Atorvastatin Calcium 20 MG TAB PO SCH (20:40)
[2018-08-12] MEDS: Acetaminophen 325 MG TAB PO PRN ×2 (00:53→09:17)
[2018-08-12 05:32] LABS: #Eosinphils 0.3 thou/uL (0.0-0.7); #Lymphocytes 1.4 thou/uL (1.20-3.40); #Monocytes 0.6 thou/uL (0.11-0.59); #Neutrophils 3.6 thou/uL (1.40-6.50); %Basophils 0.1 % (0.0-1.0); %Eosinophils 4.8 % (0.0-10.0); %Lymphocytes 23.2 % (21.0-51.0); %Monocytes 10.7 % (0.0-10.0); %Neutrophils 61.3 % (42.0-75.0); Hemoglobin 12.6 g/dL (14.0-18.0); Mean Corpuscular HGB CONC 32.2 g/dL (32.0-36.0); Mean Corpuscular Hemoglobin 29.2 pg (27.0-31.0); Mean Corpuscular Volume 90.8 fL (78.0-98.0); Mean Platelet Volume 6.4 fL (7.4-10.4); Platelet Count 396 thou/uL (130-400); RBC Distribution Width 13.3 % (11.5-14.5); Red Blood Cell (RBC) Count 4.31 mill/uL (4.70-6.10); White Blood Cell (WBC) Count 5.9 thou/uL (4.8-10.8)
[2018-08-12 05:58] LABS: Anion Gap 12 mmol/L (10-20); BUN (Urea Nitrogen) 12 mg/dL (8.4-25.7); Calc. Creatinine Clearance 120 mL/min (70-130); Calcium 9.2 mg/dL (7.8-10.44); Carbon Dioxide 25 mmol/L (23-31); Chloride 102 mmol/L (98-107); Estimated GFR-MDRD Greater than 90; Glucose 88 mg/dL (83-110); Magnesium 2.1 mg/dL (1.6-2.6); Phosphorus 3.6 mg/dL (2.3-4.7); Potassium 4.7 mmol/L (3.5-5.1); Sodium 134 mmol/L (136-145)
[2018-08-12] MEDS: Levothyroxine Sodium 75 MCG TAB PO SCH (06:13)
[2018-08-12] MEDS: Digoxin 0.25 MG TAB PO SCH (09:13)
[2018-08-12] MEDS: Aspirin 81 mg Enteric Coated Tablet PO SCH (09:13)
[2018-08-12] MEDS: Saccharomyces boulardii 250 MG CAP PO SCH (09:13)
[2018-08-12] MEDS: Famotidine 20 MG TAB PO SCH (09:14)
[2018-08-12] MEDS: Sotalol HCl 80 MG TAB PO SCH ×2 (09:14→21:09)
[2018-08-12] MEDS: cefTRIAXone\\ROCEPHIN 1 GM in Sodium Chloride 0.9% 100 ML IVPB SCH (16:40)
--- NOTE | 2018-08-12 17:29 | PDOC.CTH ---
Cardiology Progress Note - Subjective The pt seen and examined. No overnight events. No cardiac complaints. - Objective Vital Signs Temp Pulse Resp BP Pulse Ox 08/12/18 12:11 97.6 F 111 H 18 123/81 97 08/12/18 09:13 122 H 08/12/18 07:48 97.5 F L 98 16 128/91 H 96 Weight 203 lb 08/11/18 08/12/18 08/13/18 06:59 06:59 06:59 Intake Total 1210 1570 Output Total 1700 2125 Balance -490 -555 - Physical Examination General/Neuro: alert & oriented x3 Neck: no JVD present Lungs: CTA Heart: other: (irregular) Abdomen: soft Extremities: other: (No edema) - Telemetry Telemetry Rhythm: Afib - Labs Result Diagrams: 08/12/18 04:14 08/12/18 04:14 Troponin/CKMB Troponin I Less than 0.010 ng/mL (< 0.028) 08/07/18 16:40 - Assessment/Plan 1. A fib with RVR with last Aflutter ablation in 08/2017 - HR has been 90-110s with digoxin and Sotalol; hx of Watchman's device. On ASA 2. PE in Lt Lower lobe - Stable with RA. Xarelto is off 2/2 hematuria last Sunday; consider an IVC filter? 3. mod pericardial effusion - stable with Lasix 4. UTI - managed by PCP 5. CAD with s/p stent - stable with bblocker, ASA, and statin 6. Hx of PM placement - 7. Hypothyrodism - 8. Hematuria - no more hematuria since Xarelto was off on 08/10/2018 MAR reviewed Pt. seen and eval. by me. I agree with the A/P by the PERSONAL LINES SALES EXECUTIVE. He does not tolerate the rapid ventricular response to the atrial flutter/fib. Continue rate control with sotolol and digoxin. EP to see on Sunday. Likely will need a repeat ablation. Chest clear. Regular rhythm . ( monitor- atrial flutter). Review of Systems - Review of Systems Constitutional: reports: no symptoms reported EENTM: reports: no symptoms reported Respiratory: reports: no symptoms reported Cardiac (ROS): reports: no symptoms reported ABD/GI: reports: no symptoms reported : reports: no symptoms reported Musculoskeletal: reports: no symptoms reported Skin: reports: no symptoms reported
--- NOTE | 2018-08-12 20:04 | CON ---
DATE OF CONSULTATION: 08/12/2018 ADDITIONAL REFERRING PHYSICIAN: Todd Poe MD I am seeing Mr. Heredia at our [facility] Telemetry Floor as an Electrophysiology digital media sales consultant for the following problems; PROBLEM LIST: 1. Recurrent atypical atrial flutter with varying morphologies and somewhat limited ventricular rate control despite continued sotalol during the setting of UTI. 2. Newly found pulmonary embolism. 3. Hematuria requiring stopping freshly initiated Xarelto. 4. Prior history of Watchman device placement in the past with repeated re- coiling due to leak adjacent to the Watchman device with no evident srinivasa-device leak, but some echo lucency behind the Watchman device on the most recetn EDY. Currently was on Effient. 5. Prior history of pacemaker implant without obvious malfunction. 6. Preserved LVEF at 55% to 60%, mild TR, small pericardial effusion on echo 08/07/2018. ALLERGIES: NONE NOTED. MEDICATIONS: At home included; 1. Levothyroxine. 2. Sotalol 160 mg twice a day. 3. Simvastatin 40 mg p.o. nightly. 4. Tamsulosin. 5. Fluoxetine. 6. Prasugrel. 7. Aspirin. 8. Ciprofloxacin. 9. Vitamin A. 10. Vitamin C. 11. Vitamin E. 12. Copper supplements. SUBJECTIVE: Mr. Heredia was admitted with progressive dyspnea and generalized aching of joints starting 3 to 4 days prior to admission. His UA was significant for a UTI and was started on Cipro, given as an outpatient. He had some sweats. His dyspnea worsened. He had temperatures up to 100.1 degrees Fahrenheit temperatures. He was noted to be in atrial fibrillation/atrial flutter with RVR in the ER. Heart rates were somewhat increased 120s to 130s. Digoxin was given. IV Lasix was administered, which improved his dyspnea. Troponin levels were unremarkable. His further workup was significant for CT scan suggestive of mild peripheral pulmonary thromboembolism including branches of the left lower pulmonary artery with some moderate-sized pericardial effusion was noted, bilateral pleural effusions were also seen. Subsequently, he was initiated on Xarelto, but had to be stopped due to progressive hematuria. Currently, still in atrial flutter with some rapid rates, was improved with IV digoxin. Continue the higher dose of sotalol. Currently, denies angina. No dizziness, loss of consciousness, or stroke-like symptoms. Bleeding is again resolving. No fever, chills, or cough anymore. Rest of 12-point system otherwise unremarkable. PAST MEDICAL HISTORY: As above. SOCIAL HISTORY: The patient denies smoking, EtOH, or drug abuse. FAMILY HISTORY: Not contributory. OBJECTIVE DATA: VITAL SIGNS: Blood pressure is 123/81, heart rate 111, respiratory rate is 18, and temperature 97.6 degrees Fahrenheit today. GENERAL: Alert and oriented man, in no apparent distress. NECK: Supple. Jugular veins not distended. CHEST: Coarse without crackles. HEART: Sounds are irregular. S1 and S2 are variable. No murmur or gallop. ABDOMEN: Benign. Bowel sounds positive. EXTREMITIES: Lower extremities without edema, clubbing, or cyanosis. Pulses are adequate. NEUROLOGIC: Nonfocal. MUSCULOSKELETAL: Without joint swelling or deformity. SKIN: Without rash. DATABASE: The CT scan reviewed as above, recording as above. EKGs reviewed revealing an atypical appearing atrial flutter on presentation with variable AV conduction at 127 beats per minute. QTc is 479 milliseconds. Subsequent EKG from August 07 is similar. Telemetry strips revealed continued atrial flutter with variable AV conduction. LABORATORY DATA: White cell count 5.9, hemoglobin 12.6, and platelet count is 396. Sodium 133, potassium 4.3, BUN is 13, and creatinine 0.71. D-dimer 6.81. ASSESSMENT AND PLAN: Mr. Heredia is a pleasant 73-year-old male with prior history of atrial arrhythmias and prior left atrial ablation procedures, also Watchman device in place. He has been well suppressed with sotalol in the past, but has required cardioversion in September last year. He has since been stable on sotalol, but now the atrial flutter recurs in the setting of urinary tract infection. He also has documented pulmonary embolism. Plan would be currently continued rate control and possible transesophageal echocardiogram-guided cardioversion once the patient deemed stable from a clinical standpoint. As he has Watchman procedure and adequate documenting closure in the past, it is reasonable to consider the cardioversion even off anticoagulants. He has history of pulmonary embolism, though this would complicate decision, he might benefit from inferior vena cava filter placement, if he indeed cannot resume his anticoagulants as his hematuria. Long-term re-ablation is a remote possibility, although at this point, it is likely not a viable option as the current infection and pulmonary embolism issues. Thank you again for allowing me to participate in the care of this patient. Job ID: [id number]
--- NOTE | 2018-08-12 20:39 | PDOC.PN ---
- Subjective Encounter Start Date: 08/12/18 Encounter Start Time: 18:00 Patient seen and examined for Afib/flutter. Gross hematuria resolved. No new complaints. No overnight events - Objective Resuscitation Status - Order Detail: 08/07/18 16:36 Resuscitation Status Routine Co-Sign Provider: Resuscitation Status: FULL: Full Resuscitation Discussed with: Patient and family MAR Reviewed: Yes Vital Signs & Weight: Vital Signs (12 hours) Temp Pulse Resp BP BP Pulse Ox 08/12/18 19:00 97.4 F L 101 H 16 128/82 98 08/12/18 15:52 97.8 F 116 H 18 120/79 95 08/12/18 12:11 97.6 F 111 H 18 123/81 97 08/12/18 09:13 122 H Weight Weight 203 lb I&O: 08/11/18 08/12/18 08/13/18 06:59 06:59 06:59 Intake Total 1210 1570 750 Output Total 1700 2125 800 Balance -490 -555 -50 Result Diagrams: 08/12/18 04:14 08/12/18 04:14 EKG Reviewed by me: Yes (Tele A flutter) Phys Exam - Physical Examination Constitutional: NAD Neck: no JVD Gastrointestinal: no distention Neurological: non-focal, moves all 4 limbs Psychiatric: normal affect, A&O x 3 Skin: no rash Dx/Plan - Plan IMPRESSION: 1. Atrial fibrillation/flutter with rapid ventricular response. 2. History of atrial flutter status post ablation last year. 3. New diagnosis of pulmonary embolism. Doppler B/L LE - negative 4. Urinary tract infection - on IV Atbx 5. Acute on chronic diastolic heart failure exacerbation, probably precipitated by tachyarrhythmias. 6. Bilateral pleural effusions. 7. Pericardial effusion. 8. Coronary artery disease, status post stent placement. 9. Hypothyroidism. 10. History of pacemaker placement. 11. New gross hematuria while on anticoagulation. improving. 12. Chronic normochromic normocytic anemia. 13. Hyponatremia. 14. History of Watchman left atrial device. PLAN: Start Eliquis (Will start at 5 mg BID due to high risk of bleeding - Patient agrees) - Patient understands the risk of anticoag. Cont Sotalol/Digoxin Cont Atbx for 7 days per Urology. Cont current meds as below EDY-CV in AM Review of Systems - Medications/Allergies Allergies/Adverse Reactions: Allergies Allergy/AdvReac Type Severity Reaction Status Date / Time No Known Allergies Allergy Verified 07/23/17 13:15 Medications: Current Medications Acetaminophen (Tylenol) 650 mg PO Q4H PRN PRN Reason: Headache/Fever/Mild Pain (1-3) Last Admin: 08/12/18 09:17 Dose: 650 mg Apixaban (Eliquis) 5 mg PO BID [facility] Aspirin (Ecotrin) 81 mg PO DAILY [facility] Last Admin: 08/12/18 09:13 Dose: 81 mg Atorvastatin Calcium (Lipitor) 20 mg PO HS [facility] Last Admin: 08/11/18 20:40 Dose: 20 mg Digoxin (Lanoxin) 0.25 mg PO DAILY [facility] Last Admin: 08/12/18 09:13 Dose: 0.25 mg Famotidine (Pepcid) 20 mg PO Q12HR [facility] Last Admin: 08/12/18 09:14 Dose: 20 mg Fluoxetine HCl (Prozac) 20 mg PO DAILY [facility] Ceftriaxone Sodium 1 gm/ (Sodium Chloride) 100 mls @ 200 mls/hr IVPB Q24HR [facility] Last Admin: 08/12/18 16:40 Dose: 100 mls Levothyroxine Sodium (Synthroid) 75 mcg PO 0600 [facility] Last Admin: 08/12/18 06:13 Dose: 75 mcg Ondansetron HCl (Zofran Odt) 4 mg PO Q6H PRN PRN Reason: Nausea/Vomiting Ondansetron HCl (Zofran) 4 mg IVP Q6H PRN PRN Reason: Nausea/Vomiting Pantoprazole Sodium (Protonix) 40 mg PO DAILY [facility] Last Admin: 08/12/18 09:14 Dose: 40 mg Saccharomyces Boulardii (Florastor) 250 mg PO DAILY [facility] Last Admin: 08/12/18 09:13 Dose: 250 mg Sodium Chloride (Flush - Normal Saline) 10 ml IVF Q12HR PRN PRN Reason: Saline Flush Last Admin: 08/12/18 09:14 Dose: 10 ml Sodium Chloride (Flush - Normal Saline) 10 ml IVF PRN PRN PRN Reason: Saline Flush Sotalol HCl (Betapace) 160 mg PO BID [facility] Last Admin: 08/12/18 09:14 Dose: 160 mg Tamsulosin HCl (Flomax) 0.4 mg PO HS PATRICIA
[2018-08-12] MEDS ORDERED: Tamsulosin HCl 0.4 MG CAP PO SCH (21:00)
[2018-08-12] MEDS: Atorvastatin Calcium 20 MG TAB PO SCH (21:09)
[2018-08-12] MEDS: Apixaban 5 MG TAB PO SCH (21:09)
[2018-08-12 23:22] LABS: Hemoglobin 11.9 g/dL (14.0-18.0); Platelet Count 435 thou/uL (130-400)
[2018-08-13] MEDS: Levothyroxine Sodium 75 MCG TAB PO SCH (06:21)
[2018-08-13] MEDS ORDERED: FLUoxetine HCl 20 MG CAP PO SCH (09:00)
[2018-08-13] MEDS ORDERED: PROPOFOL 40 ML ONE (10:09)
--- NOTE | 2018-08-13 10:24 | PDOC.CTH ---
Cardiology Progress Note - Subjective No new cardiac events overnight. Still in atrial flutter. - Objective Vital Signs Temp Pulse Resp BP BP Pulse Ox 08/13/18 07:50 97.9 F 89 18 116/71 99 08/13/18 03:12 97.9 F 73 16 112/70 Weight 201 lb 4.8 oz 08/12/18 08/13/18 08/14/18 06:59 06:59 06:59 Intake Total 1570 950 Output Total 2125 1350 Balance -555 -400 - Physical Examination General/Neuro: alert & oriented x3 Neck: no JVD present Lungs: CTA Heart: RRR, other: (mild tachycardia. Still in flutter.) Abdomen: no HSM, soft - Telemetry Telemetry Rhythm: atrial flutter. HR low 100's. - Labs Result Diagrams: 08/12/18 23:07 08/12/18 04:14 Troponin/CKMB Troponin I Less than 0.010 ng/mL (< 0.028) 08/07/18 16:40 - Assessment/Plan 1. A fib with RVR with last Aflutter ablation in 08/2017 - HR has been 90-110s with digoxin and Sotalol; hx of Watchman's device. On ASA. Cardioverted this AM. 2. PE in Lt Lower lobe - Stable with RA. Xarelto is off 2/2 hematuria last Sunday; consider an IVC filter? No further hematuria off Xarelto. Tolerating Eliquis. 3. mod pericardial effusion - stable with Lasix 4. UTI - managed by PCP 5. CAD with s/p stent - stable with bblocker, ASA, and statin 6. Hx of PM placement - 7. Hypothyrodism - 8. Hematuria - no more hematuria since Xarelto was off on 08/10/2018. Continue OAC with Eliquis. MAR reviewed Successful cardioversion. If he remains stable then could d/c this PM or in AM. F/U with me in 2 weeks in Office,
[2018-08-13] MEDS: Aspirin 81 mg Enteric Coated Tablet PO SCH (11:43)
[2018-08-13] MEDS: Digoxin 0.25 MG TAB PO SCH (11:43)
[2018-08-13] MEDS: Saccharomyces boulardii 250 MG CAP PO SCH (11:43)
[2018-08-13] MEDS: Apixaban 5 MG TAB PO SCH (11:43)
[2018-08-13] MEDS: Sotalol HCl 80 MG TAB PO SCH (11:44)
--- NOTE | 2018-08-13 14:57 | DIS ---
DATE OF ADMISSION: 08/09/2018 DATE OF DISCHARGE: 08/13/2018 DISCHARGE DISPOSITION: Home. FOLLOWUP: 1. Follow up with primary care physician, Dr. Abdalla in 1 week. 2. Follow up with Cardiology, Dr. Staton as well as Urology, Dr. Bernardo in 2 to 3 weeks. ALLERGIES: NO KNOWN DRUG ALLERGIES. THE PATIENT WAS SEEN ON THE DAY OF DISCHARGE. DENIES ANY NEW COMPLAINTS. NO CHEST PAIN, SHORTNESS OF BREATH, OR PALPITATIONS REPORTED. BRIEF HOSPITAL COURSE: The patient is a 73-year-old white male with atrial fibrillation, status post Watchman device; recent UTI, on ciprofloxacin; and diastolic heart failure, presented to the hospital on July, with shortness of breath with palpitations. His workup was consistent with atrial fibrillation with rapid ventricular response along with diastolic heart failure exacerbation. He was managed on the telemetry floor. He was seen by Cardiology , Dr. Staton. His heart rate was controlled with sotalol and digoxin. CT angiogram of the chest done in the emergency room showed mild peripheral pulmonary thromboembolism involving the branches of the left lower lobe pulmonary artery with moderate-size pericardial effusion and bilateral pleural effusion. He was started on Xarelto, after which he developed gross hematuria. Xarelto was held for 1 to 2 days for this reason. He was also evaluated by Urology, Dr. Bernardo. Gross hematuria has resolved. Anticoagulation with Eliquis has been started. He was started on 5 mg twice a day instead of 10 mg twice a day due to high risk of bleeding. He underwent cardioversion for atrial flutter this morning. He was seen by multiple consultants including Cardiology, Dr. Staton; Electrophysiology, Dr. Gustafson, and Urology, Dr. Bernardo. He appears stable for discharge. FINAL DIAGNOSES: 1. Atrial fibrillation/flutter with rapid ventricular response. 2. History of atrial flutter status post ablation last year. 3. New diagnosis of pulmonary embolism. Doppler B/L LE - negative - started on Eliquis. The patient understands the risk associated with anticoagulation. 4. Urinary tract infection - Completed antibiotics 5. Acute on chronic diastolic heart failure exacerbation, probably precipitated by tachyarrhythmias. ACC Stage C. 6. Bilateral pleural effusions. 7. Pericardial effusion. 8. Coronary artery disease, status post stent placement. 9. Hypothyroidism. 10. History of pacemaker placement. 11. New gross hematuria while on anticoagulation. improving. 12. Chronic normochromic normocytic anemia. 13. Hyponatremia. 14. History of Watchman left atrial device. PLAN: Plan was discussed with the patient in detail. He stated understanding. DIAGNOSTIC TESTS: Bilateral lower extremity Doppler was negative for DVT. Echocardiogram as discussed above. CT of the chest as discussed above. Chest x -ray on admission showed left basilar pleural and parenchymal opacity. Job ID: [id number] [facility]
[2018-08-13] MEDS ORDERED: PROPOFOL 200 MG/20 ML VIAL ONE (15:40)
[2018-08-13 15:46] VITALS: BP 109/64; TEMP 98.8
--- NOTE | 2018-08-13 16:03 | PDOC.CTH ---
Cardiology Progress Note - Subjective EP PROGRESS NOTE: 08/13/18 Seen and evaluated for atrial flutter. Had CV this AM. staying in NSR. Feels well. Now on Eliquis with no further hematuria. Likely DC later today. no new cardiac concerns or complaints - Objective Vital Signs Temp Pulse Resp BP Pulse Ox 08/13/18 15:16 98.8 F 74 20 109/64 94 L 08/13/18 11:43 71 08/13/18 11:25 97.8 F 72 18 126/67 97 08/13/18 07:50 97.9 F 89 18 116/71 99 Weight 201 lb 4.8 oz 08/12/18 08/13/18 08/14/18 06:59 06:59 06:59 Intake Total 1570 950 Output Total 2125 1350 Balance -555 -400 - Physical Examination General/Neuro: alert & oriented x3, NAD Neck: carotid US brisk, no JVD present Lungs: CTA, unlabored respirations Heart: PMI normal, RRR Abdomen: NT/ND - Telemetry Telemetry Rhythm: SR - Labs Result Diagrams: 08/12/18 23:07 08/12/18 04:14 Troponin/CKMB Troponin I Less than 0.010 ng/mL (< 0.028) 08/07/18 16:40 - Assessment/Plan 1. Atypical atrial flutter -on Sotalol 160mg BID - s/p DCCV in NSR now - Has watchman in place. needs to restart Effient if eliquis is stopped as part of the post implant protocol. No need for novel oral anticoagulation from at AF perspective with left atrial appendage closed. 2. UTI 3. Pulmonary embolism -small - OAC reinitiated 4. Preserved LVEF 55%-60% 5. Hematuria -d/t large kidney stone -per nephrology Continue Sotalol as currently ordered. Will possibly require redo ablation in the future. Will discuss as outpatient once recovered from recent medical issues. If OAC is stopped he must resume effient therapy as taken before as part of his recovery following watchman implant. OK for DC by EP. Follow up in 6 weeks in clinic. Addendum - Physician - Physician Attestation Date/Time: 08/13/18 6725 Agree with above. I personally performed or re-performed the physical examination and medical decision making. I have verified all student documentation or findings, including history, physical exam and/or medical decision making.
--- NOTE | 2018-08-14 21:15 | OP ---
DATE OF PROCEDURE: 08/13/18 INDICATION FOR PROCEDURE: This is an 73-year-old gentleman with atrial flutter with rapid ventricular response who has undergon e ablations in the past for atrial fibrillation. Flutter has a Watchman device. He has been on oral a nticoagulation. Also developed a pulmonary embolus. He was advised to undergone a electrocardioversio n of the atrial flutter back to sinus rhythm. This was performed today without difficulties or complications using short acting Propofol. One attem pt at 100 joules he was successfully converted from his atrial flutter back to sinus rhythm with atri al pacing and ventricular sensing, There were no complications or difficulties encountered.
== END 2018-08-13 16:58 | disposition home or self-care (01) | DRG 308 ==
LOC: ERS 09:23 → ERHOLD 11:48 → 2SW 16:27 → OBSVTOIN 08-09 14:05 → 2NO 08-09 21:39
PROVIDERS: ADMIT Internal Medicine; ATTEND Internal Medicine
PROC: 5A2204Z Restoration of Cardiac Rhythm, Single (ICD-10-PCS; principal; 2018-08-13)
DX: I48.0 Paroxysmal atrial fibrillation (principal); I26.99 Other pulmonary embolism without acute cor pulmonale; I50.33 Acute on chronic diastolic (congestive) heart failure; N39.0 Urinary tract infection, site not specified; E87.1 Hypo-osmolality and hyponatremia; I31.3 Pericardial effusion (noninflammatory); I48.4 Atypical atrial flutter; E03.9 Hypothyroidism, unspecified; I25.10 Atherosclerotic heart disease of native coronary artery without angina pectoris; D64.9 Anemia, unspecified; R31.0 Gross hematuria; N20.0 Calculus of kidney; N40.0 Benign prostatic hyperplasia without lower urinary tract symptoms; K27.9 Peptic ulcer, site unspecified, unspecified as acute or chronic, without hemorrhage or perforation; D17.9 Benign lipomatous neoplasm, unspecified; K59.00 Constipation, unspecified; Z79.899 Other long term (current) drug therapy; Z95.5 Presence of coronary angioplasty implant and graft; Z95.0 Presence of cardiac pacemaker; Z79.82 Long term (current) use of aspirin; Z98.890 Other specified postprocedural states
CPT/HCPCS: 36415; 71046; 71275; 80048; 80053; 81001; 81003; 81015; 82550; 83735; 83880; 84100; 84484; 85025; 85379; 87086; 92960; 93005; 93306; 93798; 93970; 96374; 96375; J0696; J1160; J1940; J2704; J7050; Q9966; S0028

== ENCOUNTER 2018-08-29 10:14 | Outpatient (CLI) | payer MEDICARE, BC ==
--- NOTE | 2018-08-29 12:34 | ULT ---
RENAL ULTRASOUND: HISTORY: Followup of right renal mass. Also a history of renal stones. FINDINGS: Real-time imaging of the right and left kidneys was performed. The right kidney measures 11.7 and th e left kidney 10.4 cm. 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 Cortical scarring involving the right kidney. There is some shad owing in the region of the right renal pelvis suggesting a calculus. There is some slight prominence of the extrarenal pelvis on the right. The left kidney shows no mass or obstruction. Bladder region shows an enlarged prostate with a sugge stion of some bladder wall thickening. IMPRESSION: 1. 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 2. Cortical scarring involving the right kidney, also shadowing in the right renal pelvis region sug gestive of renal calculi which have been noted on the previous CT study. 3. Enlarged prostate with some mild bladder wall thickening. POS: TPC
== END 2018-08-29 10:15 | disposition home or self-care (01) ==
LOC: BICULT 10:14
PROVIDERS: ATTEND Urology
DX: N20.0 Calculus of kidney (principal); D30.01 Benign neoplasm of right kidney; N28.9 Disorder of kidney and ureter, unspecified; N40.0 Benign prostatic hyperplasia without lower urinary tract symptoms; N32.9 Bladder disorder, unspecified
CPT/HCPCS: 76770

== ENCOUNTER 2018-09-20 02:10 | Outpatient (CLI) | payer MEDICARE, BC ==
[2018-09-20 13:59] LABS: Hemoglobin 14.4 g/dL (14.0-18.0); Mean Corpuscular HGB CONC 32.3 g/dL (32.0-36.0); Mean Corpuscular Hemoglobin 28.9 pg (27.0-31.0); Mean Corpuscular Volume 89.5 fL (78.0-98.0); Mean Platelet Volume 7.3 fL (7.4-10.4); Platelet Count 270 thou/uL (130-400); RBC Distribution Width 13.8 % (11.5-14.5); Red Blood Cell (RBC) Count 4.98 mill/uL (4.70-6.10); White Blood Cell (WBC) Count 6.9 thou/uL (4.8-10.8)
[2018-09-20 14:04] LABS: INR-International Normal Ratio 1.1; PTT 36.7 SEC (22.9-36.1); Prothrombin Time 14.4 SEC (12.0-14.7)
[2018-09-20 14:10] LABS: Bilirubin Negative (Negative); Blood, Urine Large (Negative); Clarity CLEAR (Clear); Glucose, Urine (Dipstick) Negative (Negative); Leukocyte Large (Negative); Nitrite Positive (Negative); Protein, Urine (Dipstick) Negative (Neg-Trace); Specific Gravity, Urine 1.008 (1.002-1.036); Urobilinogen 0.2 mg/dL (0.2-1.0)
[2018-09-20 14:14] LABS: Anion Gap 10 mmol/L (10-20); BUN (Urea Nitrogen) 13 mg/dL (8.4-25.7); Calc. Creatinine Clearance 0 mL/min (70-130); Calcium 9.7 mg/dL (7.8-10.44); Carbon Dioxide 31 mmol/L (23-31); Chloride 102 mmol/L (98-107); Estimated GFR-MDRD Greater than 90; Glucose 84 mg/dL (83-110); Potassium 4.3 mmol/L (3.5-5.1); Sodium 139 mmol/L (136-145)
[2018-09-20 14:15] LABS: Bacteria/HPF Rare-Few HPF (None Seen); Hyaline Casts/LPF 0-3 HYALINE CAST LPF (0-3 Hyaline); Squamous Epithelial None Seen HPF (0-3); WBC/HPF 21-50 HPF (0-3); Yeast-AUWi Flag 33.3 (0-25.0)
--- NOTE | 2018-09-20 14:16 | RAD ---
TWO VIEWS OF THE CHEST: COMPARISON: 08/07/2018. HISTORY: Preoperative radiograph. FINDINGS: Two views of the chest show a normal-sized cardiomediastinal silhouette. The pacemaker is unchanged in position. There is no evidence of consolidation, mass, or pleural effusion. IMPRESSION: No evidence of acute cardiopulmonary disease. POS: TPC
[2018-09-20 14:27] LABS: RBC/HPF 21-50 HPF (0-3); Yeast-All Forms None Seen HPF (None Seen)
--- NOTE | 2018-09-20 14:50 | EKG ---
Test Reason : Blood Pressure : / mmHG Vent. Rate : 072 BPM Atrial Rate : 468 BPM P-R Int : 000 ms QRS Dur : 090 ms QT Int : 410 ms P-R-T Axes : 000 061 059 degrees QTc Int : 448 ms Electronic atrial pacemaker When compared with ECG of 07-AUG-2018 09:46, Electronic atrial pacemaker has replaced Atrial fibrillation Nonspecific T wave abnormality no longer evident in Inferior leads Nonspecific T wave abnormality no longer evident in Anterolateral leads Confirmed by JACKY DESAI, DR. Jean Baptiste ([id number]) on 09/20/2018 2:49:33 PM Referred By: JUDY Confirmed By:DR. Markel RICO MD
== END 2018-09-20 02:11 | disposition home or self-care (01) ==
LOC: LABBT 02:10
PROVIDERS: ATTEND Urology
DX: Z01.818 Encounter for other preprocedural examination (principal); N20.0 Calculus of kidney; D30.01 Benign neoplasm of right kidney; R35.1 Nocturia; N40.1 Benign prostatic hyperplasia with lower urinary tract symptoms
CPT/HCPCS: 71046; 80048; 81001; 85027; 85610; 85730; 87077; 87086; 93005; 93010

== ENCOUNTER 2018-10-10 08:47 | Day surgery (SDC) | payer MEDICARE, BC ==
[2018-10-10] MEDS ORDERED: Sodium Chloride 0.9% 100 ML ONE (09:28)
[2018-10-10] MEDS ORDERED: cefTRIAXone\\ROCEPHIN 1 GM VIAL ONE (09:28)
[2018-10-10 09:51] LABS: #Eosinphils 0.3 thou/uL (0.0-0.7); #Lymphocytes 1.5 thou/uL (1.20-3.40); #Monocytes 0.8 thou/uL (0.11-0.59); #Neutrophils 7.9 thou/uL (1.40-6.50); %Basophils 0.4 % (0.0-1.0); %Eosinophils 2.6 % (0.0-10.0); %Lymphocytes 13.9 % (21.0-51.0); %Monocytes 7.5 % (0.0-10.0); %Neutrophils 75.6 % (42.0-75.0); Hemoglobin 13.5 g/dL (14.0-18.0); Mean Corpuscular HGB CONC 31.7 g/dL (32.0-36.0); Mean Corpuscular Hemoglobin 27.8 pg (27.0-31.0); Mean Corpuscular Volume 87.6 fL (78.0-98.0); Mean Platelet Volume 8.1 fL (7.4-10.4); Platelet Count 342 thou/uL (130-400); Red Blood Cell (RBC) Count 4.85 mill/uL (4.70-6.10); White Blood Cell (WBC) Count 10.5 thou/uL (4.8-10.8)
[2018-10-10 09:59] LABS: PTT 35.6 SEC (22.9-36.1); Prothrombin Time 13.5 SEC (12.0-14.7)
[2018-10-10] MEDS ORDERED: B & O ONE (10:08)
[2018-10-10] MEDS ORDERED: Fentanyl 100 MCG/2 ML VIAL ONE (10:18)
[2018-10-10] MEDS ORDERED: Iothalamate Meglumine 60% 50 ML VIAL FS ONE (11:02)
[2018-10-10] MEDS ORDERED: Tamsulosin HCl 0.4 MG CAP ONE (13:49)
[2018-10-10 14:21] LABS: Anion Gap 12 mmol/L (10-20); BUN (Urea Nitrogen) 13 mg/dL (8.4-25.7); Calc. Creatinine Clearance 0 mL/min (70-130); Calcium 9.1 mg/dL (7.8-10.44); Carbon Dioxide 25 mmol/L (23-31); Chloride 105 mmol/L (98-107); Estimated GFR-MDRD 90; Glucose 98 mg/dL (83-110); Potassium 4.5 mmol/L (3.5-5.1); Sodium 137 mmol/L (136-145)
[2018-10-10] MEDS ORDERED: PHENYLEPHRINE-NS 100 MCG/ML 10 ML SYRINGE ONE (17:01)
[2018-10-10] MEDS ORDERED: Ondansetron PF 4 MG/2 ML Vial ONE (17:01)
[2018-10-10] MEDS ORDERED: PROPOFOL 200 MG/20 ML VIAL ONE (17:01)
[2018-10-10] MEDS ORDERED: Glycopyrrolate 0.2 MG/ML 5 ML SYRINGE ONE (17:01)
[2018-10-10] MEDS ORDERED: Lidocaine 1% PF 5 ML VIAL ONE (17:01)
[2018-10-10] MEDS ORDERED: Rocuronium Bromide 10 MG/ML (10ML VIAL) ONE (17:01)
--- NOTE | 2018-10-10 19:20 | OP ---
DATE OF PROCEDURE: 10/10/2018 SERVICE: Urology. PREOPERATIVE DIAGNOSIS: Right nephrolithiasis. POSTOPERATIVE DIAGNOSIS: Right nephrolithiasis with right UPJ obstruction. INDICATION FOR PROCEDURE: Mr. Heredia is a 73-year-old white male, who has a right AML and large right renal calculus in the midpole. Due to his comorbidities and requirement for only short cessation of his anticoagulation, he was not a candidate for PCNL, so we have elected to do a staged ureteroscopy. I have discussed the procedure in great detail with him with all risks and benefits, and he has agreed to proceed forward. DESCRIPTION OF PROCEDURE: After identification of armband and verification of consent, the patient was brought back to the operating room. He underwent general anesthesia with endotracheal intubation. He was then placed in dorsal lithotomy position and prepped and draped in usual sterile fashion. After appropriate time-out, a lubricated 22-Moldovan rigid cystoscope was introduced per urethra into the bladder. The prostate was hypertrophic and somewhat friable. The right ureteral orifice was identified and intubated with the 0.035 Sensor wire up to the level of renal pelvis. The stones were radiopaque and easily identifiable. The cystoscope was then removed and a dual-lumen catheter was advanced over the Sensor wire up to the level of the proximal ureter. An Amplatz Super Stiff wire was then placed through the second lumen up to the level of renal pelvis. The dual-lumen was then removed and a Sensor wire affixed to the drapes as a safety wire. An 11/13 x 46 cm ureteral access sheath was then advanced over the Super Stiff wire up to the level of the proximal ureter. The inner cannula and the Super Stiff wire were then removed, leaving the outer sheath and Sensor wire in place as a safety wire. A flexible digital ureteroscope was then passed up through the ureteral access sheath to the level of the ureteropelvic junction, where there was a relatively narrow stricture noted. This would not allow passage of the ureteroscope and did represent some form of a UPJ obstruction. I elected to dilate this with a balloon dilator. Therefore, the area of the stricture was marked radiographically and the ureteroscope withdrawn. The Super Stiff wire was then loaded back through the ureteral access sheath into the renal pelvis, and a 12-Moldovan x 4 cm balloon dilator was advanced and positioned over the UPJ obstruction. The dilator was insufflated to 26 atmospheres. We did allow for some stretching of the UPJ. This was then decompressed and the balloon removed. The ureteroscope was then advanced back into the ureteral access sheath and the UPJ was more open but somewhat still stenotic. It was enough to allow for passage of the ureteroscope, which was then brought into the kidney. Full pyeloscopy demonstrated multiple stones with the largest stone in the mid to lower pole. Using a 275 micron ball-tip fiber, the stones were broken down with complete fragmentation of all stones. A 1.9-Moldovan ZeroTip Nitinol basket was then used to begin the basketing process. During this process, the kidney became more and more obscured with vision due to the significant amount of stone debris from the fragmentation, some bleeding which had occurred during the ureteroscopy, and then eventually a large blood clot formed, which precluded all vision. Attempts to basket out the blood clot were performed, but this was unsuccessful. The bleeding was not heavy and the bleeding did stop, but there was a large blood clot, which could not be removed, which was sitting in the mid pole and could not be gotten out of the way for the remainder of basketing and lasering of any remaining stone fragments. At this point, I felt it would be better and safer just to stop the procedure and bring the patient back at a later date after the blood clot has dissolved and all bleeding has stopped. At which point, the remaining fragments can be lasered down further to the appropriate size and the basket used to bring out the remaining fragments. The ureteroscope was withdrawn and the sheath removed. A cystoscope was back-loaded over the Sensor wire back into the bladder and a 6 x 28 double-J stent advanced over the Sensor wire up to the level of renal pelvis. The wire was then removed leaving a good curl in the kidney and a good curl in the bladder. The bladder was then drained and the cystoscope removed. The patient then had a 16-A B and O suppository placed in his rectum. He was taken out of positioning, awakened, and taken to PACU for recovery in stable condition. COMPLICATIONS: None. ESTIMATED BLOOD LOSS: Minimal. RETAINED TUBES AND DRAINS: A 6 x 28 double-J stent on the right. SPECIMEN: Stone for stone analysis. DISPOSITION: The patient will be discharged home and we will schedule a new surgical date in approximately 1 to 2 weeks for treatment of the remaining stones and basket extraction of remaining stones. Job ID: [id number]
[2018-10-15 16:09] LABS: CA Oxalate Dihydrate 20 % (.); CA Oxalate Monohydrate 45 % (.); CA Phosphate 35 % (.); Color Brown (.); Stone Weight 87.4 mg (.)
== END 2018-10-10 21:10 | disposition home or self-care (01) ==
LOC: SDC 08:47
PROVIDERS: ATTEND Urology
PROC: 0TF38ZZ Fragmentation in Right Kidney Pelvis, Via Natural or Artificial Opening Endoscopic (ICD-10-PCS; principal; 2018-10-10)
PROC: 0T768DZ Dilation of Right Ureter with Intraluminal Device, Via Natural or Artificial Opening Endoscopic (ICD-10-PCS; 2018-10-10)
DX: N20.0 Calculus of kidney (principal); N13.5 Crossing vessel and stricture of ureter without hydronephrosis; N40.1 Benign prostatic hyperplasia with lower urinary tract symptoms; R35.1 Nocturia; I10 Essential (primary) hypertension; E03.9 Hypothyroidism, unspecified; D30.01 Benign neoplasm of right kidney; Z79.01 Long term (current) use of anticoagulants; Z79.82 Long term (current) use of aspirin; Z79.899 Other long term (current) drug therapy; Z88.8 Allergy status to other drugs, medicaments and biological substances
CPT/HCPCS: 51798; 52356; 76000; 80048; 82365; 85025; 85610; 85730; 88300; C1769; 36415; J0696; J2001; J2405; J2704; J3010; J3490; Q9961

== ENCOUNTER 2018-10-12 10:32 | Inpatient (IN) | payer MEDICARE, BC ==
[2018-10-12] MEDS ORDERED: Lidocaine 2% Jelly 5 ML TUBE ONE (11:55)
[2018-10-12 12:48] LABS: #Eosinphils 0.1 thou/uL (0.0-0.7); #Lymphocytes 1.3 thou/uL (1.20-3.40); #Monocytes 1.5 thou/uL (0.11-0.59); #Neutrophils 11.3 thou/uL (1.40-6.50); %Basophils 0.2 % (0.0-1.0); %Eosinophils 0.4 % (0.0-10.0); %Lymphocytes 8.9 % (21.0-51.0); %Monocytes 10.4 % (0.0-10.0); %Neutrophils 80.1 % (42.0-75.0); Hemoglobin 10.9 g/dL (14.0-18.0); Mean Corpuscular HGB CONC 32.4 g/dL (32.0-36.0); Mean Corpuscular Hemoglobin 28.7 pg (27.0-31.0); Mean Corpuscular Volume 88.8 fL (78.0-98.0); Mean Platelet Volume 6.5 fL (7.4-10.4); Platelet Count 276 thou/uL (130-400); RBC Distribution Width 13.7 % (11.5-14.5); Red Blood Cell (RBC) Count 3.79 mill/uL (4.70-6.10); White Blood Cell (WBC) Count 14.1 thou/uL (4.8-10.8)
[2018-10-12 13:09] LABS: ALT (SGPT) 14 U/L (8-55); AST (SGOT) 21 U/L (5-34); Albumin 3.5 g/dL (3.4-4.8); Alkaline Phosphatase 90 U/L (40-150); Anion Gap 13 mmol/L (10-20); BUN (Urea Nitrogen) 14 mg/dL (8.4-25.7); Bilirubin, Total 0.5 mg/dL (0.2-1.2); Calc. Creatinine Clearance 0 mL/min (70-130); Calcium 9.2 mg/dL (7.8-10.44); Carbon Dioxide 24 mmol/L (23-31); Chloride 100 mmol/L (98-107); Estimated GFR-MDRD 71; Globulin 2.9 g/dL (2.4-3.5); Glucose 93 mg/dL (83-110); Potassium 4.1 mmol/L (3.5-5.1); Protein, Total 6.4 g/dL (5.8-8.1); Sodium 133 mmol/L (136-145)
--- NOTE | 2018-10-12 14:44 | HP ---
PRIMARY CARE PHYSICIAN: Dain Abdalla MD. REASON FOR ADMISSION: Acute urinary retention with clot retention, gross hematuria. HISTORY OF PRESENT ILLNESS: A 73-year-old male, who has underlying history of chronic benign enlargement of prostate as well as nephrolithiasis. He had lithotripsy procedure by Dr. Bernardo on October 10, 2018. The patient reports that he has 1-inch stone in his kidney, which was broken to half on that day, and subsequently, the patient was in day stay procedure. He was not able to pee and that is why he was discharged home with a Landrum catheter. After discharge, the patient was having hematuria and clots through the Landrum catheter. At one point, his catheter stopped draining, and the patient was having difficulty urination and he was having lot of lower abdominal pain, and that is why he decided to come to the emergency room. In the emergency room, ER physician tried to flush Landrum catheter, but it was not able to be flushed, and subsequently, Urology was consulted and they exchanged bigger size catheter. After that, the patient was feeling much better. This patient has a drop in his hemoglobin from baseline 13.5 to 10.9. He currently denies any fever, chills, nausea, or vomiting, but he reports that he gained 3 pounds for the last several weeks, and he has pedal edema as well as lower extremity edema. He denies any orthopnea or PND. He denies any fever or chills. He denies any constipation, diarrhea, melena, or hematochezia. REVIEW OF SYSTEMS: CONSTITUTIONAL: Negative for weight loss or gain, ability to conduct usual activities. SKIN: Negative for rash, itching. EYES: Negative for double vision, pain. ENT/MOUTH: Negative for nose bleeding, neck stiffness, pain, tenderness. CARDIOVASCULAR: Negative for palpitations, dyspnea on exertion, orthopnea. RESPIRATORY: Negative for shortness of breath, wheezing, cough, hemoptysis, fever or night sweats. GASTROINTESTINAL: Negative for poor appetite, abdominal pain, heartburn, nausea, vomiting, constipation, or diarrhea. GENITOURINARY: Negative for urgency, frequency, dysuria, nocturia. MUSCULOSKELETAL: Negative for pain, swelling. NEUROLOGIC/PSYCHIATRIC: Negative for anxiety, depression. ALLERGY/IMMUNOLOGIC: Negative for skin rash, bleeding tendency. See my HPI for pertinent positives and negatives. All other review of systems reviewed and negative except as mentioned in HPI. PAST MEDICAL HISTORY: History of atrial fibrillation/atrial flutter, required cardiac ablation in August 2017; peptic ulcer disease; benign enlargement of prostate; nephrolithiasis; hypertension; dyslipidemia; hypothyroidism; lumbar spine stenosis; permanent pacemaker; and chronic anticoagulation, which is currently on hold. PAST PSYCHIATRIC HISTORY: Reviewed and negative. PAST SURGICAL HISTORY: Spinal stenosis surgery, pacemaker placement, lithotripsy, and ablation procedure x3. SOCIAL HISTORY: The patient is , lives at home with his . No history of tobacco, alcohol, or illicit drug abuse. FAMILY HISTORY: No strong family history of premature coronary artery disease, stroke, or cancer. ALLERGIES: NO KNOWN DRUG ALLERGIES. CURRENT HOME MEDICATIONS: 1. Vitamin B12 every month. 2. Aspirin 81 mg daily. 3. Lasix 20 mg p.o. daily p.r.n. 4. Zocor 40 mg p.o. at bedtime. 5. Levothyroxine 75 mcg p.o. daily. 6. Sotalol 160 mg p.o. b.i.d. 7. The patient is currently off Eliquis therapy. EMERGENCY ROOM COURSE: The patient's emergency room course reviewed. PHYSICAL EXAMINATION: VITAL SIGNS: Currently, blood pressure 122/68, pulse 69, respiratory rate 16, temperature 98.1, saturation 98% on room air, weight 96.6 kg. GENERAL: The patient is currently alert, awake, in no obvious acute distress. HEENT: Head, normocephalic and atraumatic. Eyes; pupils are round and reactive to light. Extraocular muscle is intact. ENT; oropharynx is within normal limits. Moist mucous membrane. No oral lesion. No pharyngeal erythema. No exudate. NECK: Supple. No JVD. No thyromegaly. No carotid bruit. No jugular venous distention. LUNGS: Clear to auscultation without any rhonchi or rales. CARDIAC: S1 and S2, appears regular without any significant murmur. ABDOMEN: Soft and benign without any tenderness. GENITALIA: Landrum catheter in place, continuous bladder irrigation in process. EXTREMITIES: Bilateral lower extremity pitting edema noted. Good distal pulsation. SKIN: No skin rash. HEMATOLOGICAL SYSTEM: No lymphadenopathy. NEUROLOGIC: Nonfocal examination. LABORATORY DATA: Significant labs: BMP; sodium 133, potassium 4.1, chloride 100, carbon dioxide 24, anion gap 13, BUN 14, creatinine 1.02, glucose 93, calcium 9.2. LFT; albumin 3.5, protein 6.4, AST 21, ALT 14, alkaline phosphatase 90. CBC; WBC 14.1, hemoglobin 10.9, platelet 276. ASSESSMENT AND PLAN: 1. Gross hematuria, likely due to recent lithotripsy procedure for nephrolithiasis. 2. Acute urinary retention due to clot retention. Urology was consulted and Landrum catheter is exchanged, and currently, the patient has bladder irrigation. 3. Anemia due to acute blood loss, likely due to gross hematuria. His baseline hemoglobin is in 13 and currently 10. The patient is asymptomatic, and we will monitor H and H while in hospital. No need of blood transfusion. 4. Bilateral lower extremity edema, likely due to diastolic heart failure. We will check BNP. The patient already had echocardiography in July 2018. No need of repeat echocardiography, but we will treat with Lasix 40 mg IV b.i.d. We will repeat labs tomorrow. 5. Atrial fibrillation/atrial flutter, required ablation with pacemaker. Currently, stable and rate controlled. 6. Hypothyroidism. Continue Synthroid 75 mcg p.o. daily. 7. Dyslipidemia. Continue Zocor 40 mg p.o. at bedtime. 8. Deep venous thrombosis prophylaxis. SCD boots. 9. Gastrointestinal prophylaxis. Pepcid 20 mg p.o. b.i.d. CODE STATUS: The patient is full code. The patient's is surrogate decision maker. DISPOSITION PLAN: Based on clinical course. Plan of care was discussed with the patient and family member in detail. Job ID: [id number]
[2018-10-12] MEDS ORDERED: Metolazone 5 MG TAB PO SCH (15:30)
--- NOTE | 2018-10-12 15:31 | CON ---
DATE OF CONSULTATION: 10/12/2018 HISTORY OF PRESENT ILLNESS: This is a 73-year-old white male, his and he called me earlier this morning saying that his catheter was not draining well. He has had hematuria, was urinating around the catheter and a great deal of discomfort, feeling like he needed to urinate. I asked him to come in to [facility] Emergency Room as it sound like his catheter had occluded. A couple days ago, he had ureteroscopic procedure done by Dr. Yassine Bernardo, who is his primary urologist. This was actually 2 days ago on the , there was a ureteroscopic procedure with laser lithotripsy for a right stone. He had evidence of right UPJ obstruction, also had that balloon dilated. There was some bleeding and lot of difficulty towards the end of the case and seeing the stone fragments, where stent was placed. He was unable to urinate in recovery room, so he had a Landrum catheter placed and had about a liter of urine out that was bloody. The urine was bloody yesterday, which seemed to be draining okay. Last night, it was not draining well at all. He started urinating around it. Today, the same thing having lateral lower abdominal pain to the point, where it was bad enough they need to call and come in. He does have some other significant medical problems. He has atrial fibrillation. He has had ablations done for this as well as a Watchman procedure for this. He has spinal stenosis and not too long ago and spinal surgery for this. He has a history of coronary artery disease and I believe he has at least a cardiac stent in place and the history of a kidney stone as mentioned. 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 Reason to consider undergoing, I think a percutaneous approach to the stone that in the fact that he was on blood thinners because of his atrial fibrillation. Currently, he is off blood thinners. The only other thing that his family has really been noticing is over the last couple of weeks to a bit longer just increasing lower extremity edema. He is on Lasix for this. He also has a history of a pacemaker in place, lower urinary tract symptoms, low thyroid, hypercholesterolemia, and peptic ulcer disease. He has had no artificial hip or joint surgery. He does not have any significant history of cigarette smoking or alcohol use. His lab work today is white count was 14.1 was 10.5 two days ago and his hemoglobin is 10.9, it was 13.5 two days ago. His creatinine is 0.83, which is about the same that it was. Looking through his urine cultures in July and early September of this year, he had negative culture and then in September was Staph saprophyticus. On exam, his bladder is distended. He is circumcised. His Landrum catheter is not draining a little bit of urine that is in the bag is grossly bloody. The testicles are descended without mass or tenderness. I removed his indwelling Landrum catheter and he was able to urinate, diffuse clots, and some grossly bloody urine. Of note is fact that his Landrum catheter is hanging quite a bit about the penis. I went ahead and used Betadine for the prep. Used 2% Xylocaine jelly for topical anesthesia and then placed a 22-[place] 3-way catheter without difficulty and drained out a little under a liter of grossly bloody urine, a few clots. We placed 30 mL in the balloon and then irrigated with 2 L of saline getting out some clots on a great deal of clots per the urine getting much clear with clots, we did retrieve. Hooked up to continuous bladder irrigation. I talked with his family. Given any other options, it is possible he could get home later today, although they live ways away and he has already had 1problem with this catheter occluded and that could happen again. So for that reason, I think he will be better to be admitted. In addition, he has the lower extremity edema, which is a newer problem for him. We will see if we get the hospitalist team to admit him and see what they think about the lower extremity edema and keep the catheter in and continuous irrigation. I will follow with him. We will recheck the hemoglobin tomorrow morning. I would really think it is a good idea in the face of his bleeding to keep him off his blood thinners and not restart any of them currently until this is cleared. I will let Dr. Bernardo know about his admission. Job ID: [id number]
[2018-10-12] MEDS ORDERED: Eucerin (Mineral Oil/Petrolatum,White) 30 gm Jar TOP PRN (15:33)
[2018-10-12] MEDS ORDERED: Zolpidem Tartrate 5 MG TAB PO PRN (15:33)
[2018-10-12] MEDS ORDERED: Artificial Tears 18 DROP/0.9 ML EA EYE PRN (15:33)
[2018-10-12] MEDS ORDERED: Senokot S 8.6-50 MG TAB PO PRN (15:33)
[2018-10-12] MEDS ORDERED: Loperamide HCl 2 MG CAP PO PRN (15:33)
[2018-10-12] MEDS ORDERED: Bisacodyl 5 MG TAB PO PRN (15:33)
[2018-10-12] MEDS ORDERED: Calcium Carbonate 500 MG ChewTAB PO PRN (15:33)
[2018-10-12] MEDS ORDERED: hydrALAZINE 20 MG/ML VIAL SLOW IVP PRN (15:33)
[2018-10-12] MEDS ORDERED: Sodium Chloride 0.65% Nasal 44 ML BOT EA NARE PRN (15:33)
[2018-10-12] MEDS ORDERED: Cepastat Lozenges 1 LOZ PO PRN (15:33)
[2018-10-12] MEDS ORDERED: Diabetic Tussin 200 MG/10 ML UDCUP PO PRN (15:33)
[2018-10-12] MEDS ORDERED: Metoclopramide HCl 10 MG/2 ML VIAL IVP PRN (15:33)
[2018-10-12 15:47] VITALS: BMI 29.3
[2018-10-12] MEDS: Furosemide 40 MG/4 ML VIAL SLOW IVP SCH (16:18)
[2018-10-12 19:09] LABS: Hemoglobin 11.8 g/dL (14.0-18.0)
[2018-10-12] MEDS: Sotalol HCl 80 MG TAB PO SCH (21:00)
[2018-10-12] MEDS: Famotidine 20 MG TAB PO SCH (21:00)
[2018-10-12] MEDS: Atorvastatin Calcium 20 MG TAB PO SCH (21:00)
[2018-10-13] MEDS: Levothyroxine Sodium 75 MCG TAB PO SCH (05:31)
[2018-10-13] MEDS: Furosemide 40 MG/4 ML VIAL SLOW IVP SCH ×2 (05:32→14:18)
[2018-10-13 06:23] LABS: #Eosinphils 0.1 thou/uL (0.0-0.7); #Lymphocytes 1.4 thou/uL (1.20-3.40); #Monocytes 1.5 thou/uL (0.11-0.59); %Basophils 0.3 % (0.0-1.0); %Eosinophils 0.7 % (0.0-10.0); %Lymphocytes 12.5 % (21.0-51.0); %Monocytes 13.3 % (0.0-10.0); %Neutrophils 73.2 % (42.0-75.0); Hemoglobin 10.8 g/dL (14.0-18.0); Mean Corpuscular HGB CONC 30.7 g/dL (32.0-36.0); Mean Corpuscular Hemoglobin 27.1 pg (27.0-31.0); Mean Corpuscular Volume 88.4 fL (78.0-98.0); Mean Platelet Volume 6.7 fL (7.4-10.4); Platelet Count 263 thou/uL (130-400); RBC Distribution Width 13.7 % (11.5-14.5); Red Blood Cell (RBC) Count 3.98 mill/uL (4.70-6.10); White Blood Cell (WBC) Count 10.9 thou/uL (4.8-10.8)
[2018-10-13 06:55] LABS: Anion Gap 12 mmol/L (10-20); BUN (Urea Nitrogen) 16 mg/dL (8.4-25.7); Calc. Creatinine Clearance 96 mL/min (70-130); Calcium 9.1 mg/dL (7.8-10.44); Carbon Dioxide 28 mmol/L (23-31); Chloride 99 mmol/L (98-107); Estimated GFR-MDRD 82; Glucose 90 mg/dL (83-110); Potassium 3.6 mmol/L (3.5-5.1); Sodium 135 mmol/L (136-145)
[2018-10-13] MEDS: Metolazone 5 MG TAB PO SCH (08:03)
[2018-10-13] MEDS: Famotidine 20 MG TAB PO SCH ×2 (08:03→20:17)
[2018-10-13] MEDS: Sotalol HCl 80 MG TAB PO SCH ×2 (08:03→20:18)
--- NOTE | 2018-10-13 09:57 | PDOC.PN ---
- Subjective Encounter Start Date: 10/13/18 Encounter Start Time: 09:20 -: old records requested/rev Patient seen and examined. No new complaints. No overnight events - Objective Resuscitation Status - Order Detail: 10/12/18 13:43 Resuscitation Status Routine Resuscitation Status: FULL: Full Resuscitation MAR Reviewed: Yes Vital Signs & Weight: Vital Signs (12 hours) Temp Pulse Resp BP BP Pulse Ox 10/13/18 08:03 69 104/64 10/13/18 08:00 97 10/13/18 07:43 98.2 F 69 20 104/64 92 L 10/13/18 05:09 98.3 F 70 18 109/58 L 97 10/13/18 00:45 98.3 F 70 16 99/56 L 97 Weight Weight 210 lb 4.8 oz I&O: 10/12/18 10/13/18 10/14/18 06:59 06:59 06:59 Intake Total 3000 Output Total 6750 Balance -3750 Result Diagrams: 10/13/18 05:36 10/13/18 05:36 Phys Exam - Physical Examination Constitutional: NAD HEENT: PERRLA, moist MMs, sclera anicteric Neck: no JVD, supple Respiratory: no wheezing, no rales, no rhonchi Cardiovascular: RRR, no significant murmur, no rub Gastrointestinal: soft, non-tender, no distention, positive bowel sounds Musculoskeletal: no edema, pulses present Neurological: non-focal, normal sensation Lymphatic: no nodes Psychiatric: normal affect, A&O x 3 Skin: no rash, normal turgor Dx/Plan (1) Acute urinary retention Code(s): R33.8 - OTHER RETENTION OF URINE Status: Acute (2) Anemia due to acute blood loss Code(s): D62 - ACUTE POSTHEMORRHAGIC ANEMIA Status: Acute (3) Edema of both lower extremities Code(s): R60.0 - LOCALIZED EDEMA Status: Acute (4) Hematuria, gross Status: Acute (5) Anticoagulant long-term use Code(s): Z79.01 - EXHIBIT BUILDER (CURRENT) USE OF ANTICOAGULANTS Status: Chronic (6) CAD (coronary artery disease) Code(s): I25.10 - ATHSCL HEART DISEASE OF [place] CORONARY ARTERY W/O ANG PCTRS Status: Chronic Qualifiers: (7) Atrial fibrillation and flutter Code(s): I48.91 - UNSPECIFIED ATRIAL FIBRILLATION; I48.92 - UNSPECIFIED ATRIAL FLUTTER Status: Chronic - Plan cont current plan of care, plan discussed w/ family * continue current medical treatment * symptomatic treatment * lasix daily * if urology ok, will dc. Review of Systems - Review of Systems ENT: negative: Ear Pain, Ear Discharge, Nose Pain, Nose Discharge, Nose Congestion, Mouth Pain, Mouth Swelling, Throat Pain, Throat Swelling, Other Respiratory: negative: Cough, Dry, Shortness of Breath, Hemoptysis, SOB with Excertion, Pleuritic Pain, Sputum, Wheezing Cardiovascular: negative: chest pain, palpitations, orthopnea, paroxysmal nocturnal dyspnea, edema, light headedness, other Gastrointestinal: negative: Nausea, Vomiting, Abdominal Pain, Diarrhea, Constipation, Melena, Hematochezia, Other Genitourinary: negative: Dysuria, Frequency, Incontinence, Hematuria, Retention , Other Musculoskeletal: negative: Neck Pain, Shoulder Pain, Arm Pain, Back Pain, Hand Pain, Leg Pain, Foot Pain, Other - Medications/Allergies Allergies/Adverse Reactions: Allergies Allergy/AdvReac Type Severity Reaction Status Date / Time ciprofloxacin [From Cipro] Allergy Severe Verified 10/12/18 15:45 rivaroxaban [From Xarelto] Allergy Severe Verified 10/12/18 15:45 fluoxetine Allergy Verified 10/12/18 15:45 hydroxyzine Allergy Verified 10/12/18 15:45 Medications: Current Medications Acetaminophen (Tylenol) 650 mg PO Q4H PRN PRN Reason: Headache/Fever/Mild Pain (1-3) Hydrocodone Bitart/Acetaminophen ([place] 5/325) 1 tab PO Q4H PRN PRN Reason: Moderate Pain (4-6) Artificial Tears (Tears Naturale) 2 drop EA EYE PRN PRN PRN Reason: Dry Eyes Atorvastatin Calcium (Lipitor) 20 mg PO HS [facility] Last Admin: 10/12/18 21:00 Dose: 20 mg Bisacodyl (Dulcolax) 10 mg PO DAILYPRN PRN PRN Reason: Constipation Calcium Carbonate (Tums) 1,000 mg PO Q4H PRN PRN Reason: Heartburn or Indigestion Famotidine (Pepcid) 20 mg PO BID [facility] Last Admin: 10/13/18 08:03 Dose: 20 mg Furosemide (Lasix) 40 mg SLOW IVP 0600,1400 [facility] Last Admin: 10/13/18 05:32 Dose: 40 mg Guaifenesin (Robitussin Sf) 200 mg PO Q4H PRN PRN Reason: Cough Hydralazine HCl (Apresoline) 10 mg SLOW IVP Q4H PRN PRN Reason: SBP > 180 and HR < 70 Levothyroxine Sodium (Synthroid) 75 mcg PO 0600 [facility] Last Admin: 10/13/18 05:31 Dose: 75 mcg Loperamide HCl (Imodium) 2 mg PO PRN PRN PRN Reason: Diarrhea/Loose Stools Metoclopramide HCl (Reglan) 10 mg IVP Q6H PRN PRN Reason: Nausea/Vomiting Metolazone (Zaroxolyn) 5 mg PO 0830 [facility] Last Admin: 10/13/18 08:03 Dose: 5 mg Mineral Oil/White Petrolatum (Eucerin Cream) 0 gm TOP BIDPRN PRN PRN Reason: Dry Skin Senna/Docusate Sodium (Senokot S) 2 tab PO BID PRN PRN Reason: Constipation Sodium Chloride ([place] Nasal [place] 0.65%) 0 ml EA NARE QIDPRN PRN PRN Reason: Nasal Congestion Sotalol HCl (Betapace) 160 mg PO BID [facility] Last Admin: 10/13/18 08:03 Dose: 160 mg Throat Lozenges (Cepastat Lozenges) 1 anselmo PO Q2H PRN PRN Reason: Sore Throat Zolpidem Tartrate (Ambien) 5 mg PO HSPRN PRN PRN Reason: Insomnia
[2018-10-13] MEDS: Acetaminophen 325 MG TAB PO PRN ×2 (10:56→20:24)
[2018-10-13] MEDS ORDERED: Polyethylene Glycol 3350 17 GM Packet PO SCH (11:15)
[2018-10-13] MEDS: Atorvastatin Calcium 20 MG TAB PO SCH (20:17)
[2018-10-14] MEDS: Levothyroxine Sodium 75 MCG TAB PO SCH (04:48)
[2018-10-14] MEDS: Acetaminophen 325 MG TAB PO PRN (04:49)
[2018-10-14] MEDS: Furosemide 40 MG/4 ML VIAL SLOW IVP SCH ×2 (04:51→14:12)
[2018-10-14] MEDS: Metolazone 5 MG TAB PO SCH (08:54)
[2018-10-14] MEDS: Famotidine 20 MG TAB PO SCH ×2 (08:54→20:50)
[2018-10-14] MEDS: Sotalol HCl 80 MG TAB PO SCH ×2 (08:55→20:50)
[2018-10-14] MEDS: Polyethylene Glycol 3350 17 GM Packet PO SCH (08:56)
[2018-10-14] MEDS: HYDROcodone/Acetaminophen 5/325 mg Tablet PO PRN ×2 (09:56→18:03)
--- NOTE | 2018-10-14 10:19 | PDOC.PN ---
- Subjective Encounter Start Date: 10/14/18 Encounter Start Time: 09:40 Patient seen and examined. No new complaints. No overnight events - Objective Resuscitation Status - Order Detail: 10/12/18 13:43 Resuscitation Status Routine Resuscitation Status: FULL: Full Resuscitation MAR Reviewed: Yes Vital Signs & Weight: Vital Signs (12 hours) Temp Pulse Resp BP BP Pulse Ox 10/14/18 08:55 70 10/14/18 08:06 97.6 F 70 16 109/74 95 10/14/18 04:06 97.7 F 69 20 104/68 96 10/14/18 00:31 97.8 F 70 18 100/66 93 L Weight Weight 210 lb 4.8 oz I&O: 10/13/18 10/14/18 10/15/18 06:59 06:59 06:59 Intake Total 3000 2800 Output Total 6750 9000 Balance -3750 -6210 Result Diagrams: 10/13/18 05:36 10/13/18 05:36 Phys Exam - Physical Examination Constitutional: NAD HEENT: PERRLA, moist MMs, sclera anicteric Neck: no JVD, supple Respiratory: no wheezing, no rales, no rhonchi Cardiovascular: RRR, no significant murmur, no rub Gastrointestinal: soft, non-tender, no distention, positive bowel sounds Musculoskeletal: no edema, pulses present rizzo+ Neurological: non-focal, normal sensation Lymphatic: no nodes Psychiatric: normal affect, A&O x 3 Skin: no rash, normal turgor Dx/Plan (1) Acute urinary retention Code(s): R33.8 - OTHER RETENTION OF URINE Status: Acute (2) Anemia due to acute blood loss Code(s): D62 - ACUTE POSTHEMORRHAGIC ANEMIA Status: Acute (3) Edema of both lower extremities Code(s): R60.0 - LOCALIZED EDEMA Status: Acute (4) Hematuria, gross Status: Acute (5) Anticoagulant long-term use Code(s): Z79.01 - CHILD AND ADOLESCENT THERAPIST (CURRENT) USE OF ANTICOAGULANTS Status: Chronic (6) CAD (coronary artery disease) Code(s): I25.10 - ATHSCL HEART DISEASE OF [place] CORONARY ARTERY W/O ANG PCTRS Status: Chronic Qualifiers: - Plan cont current plan of care, plan discussed w/ family * medication reviewed as below * symptomatic treatment * continue CBI * urology following * discharge if urology OK. Review of Systems - Review of Systems ENT: negative: Ear Pain, Ear Discharge, Nose Pain, Nose Discharge, Nose Congestion, Mouth Pain, Mouth Swelling, Throat Pain, Throat Swelling, Other Respiratory: negative: Cough, Dry, Shortness of Breath, Hemoptysis, SOB with Excertion, Pleuritic Pain, Sputum, Wheezing Cardiovascular: negative: chest pain, palpitations, orthopnea, paroxysmal nocturnal dyspnea, edema, light headedness, other Gastrointestinal: negative: Nausea, Vomiting, Abdominal Pain, Diarrhea, Constipation, Melena, Hematochezia, Other Genitourinary: negative: Dysuria, Frequency, Incontinence, Hematuria, Retention , Other Musculoskeletal: negative: Neck Pain, Shoulder Pain, Arm Pain, Back Pain, Hand Pain, Leg Pain, Foot Pain, Other - Medications/Allergies Allergies/Adverse Reactions: Allergies Allergy/AdvReac Type Severity Reaction Status Date / Time ciprofloxacin [From Cipro] Allergy Severe Verified 10/12/18 15:45 rivaroxaban [From Xarelto] Allergy Severe Verified 10/12/18 15:45 fluoxetine Allergy Verified 10/12/18 15:45 hydroxyzine Allergy Verified 10/12/18 15:45 Medications: Current Medications Acetaminophen (Tylenol) 650 mg PO Q4H PRN PRN Reason: Headache/Fever/Mild Pain (1-3) Last Admin: 10/14/18 04:49 Dose: 650 mg Hydrocodone Bitart/Acetaminophen ([place] 5/325) 1 tab PO Q4H PRN PRN Reason: Moderate Pain (4-6) Last Admin: 10/14/18 09:56 Dose: 1 tab Artificial Tears (Tears Naturale) 2 drop EA EYE PRN PRN PRN Reason: Dry Eyes Atorvastatin Calcium (Lipitor) 20 mg PO HS [facility] Last Admin: 10/13/18 20:17 Dose: 20 mg Bisacodyl (Dulcolax) 10 mg PO DAILYPRN PRN PRN Reason: Constipation Calcium Carbonate (Tums) 1,000 mg PO Q4H PRN PRN Reason: Heartburn or Indigestion Famotidine (Pepcid) 20 mg PO BID [facility] Last Admin: 10/14/18 08:54 Dose: 20 mg Furosemide (Lasix) 40 mg SLOW IVP 0600,1400 [facility] Last Admin: 10/14/18 04:51 Dose: 40 mg Guaifenesin (Robitussin Sf) 200 mg PO Q4H PRN PRN Reason: Cough Hydralazine HCl (Apresoline) 10 mg SLOW IVP Q4H PRN PRN Reason: SBP > 180 and HR < 70 Levothyroxine Sodium (Synthroid) 75 mcg PO 0600 [facility] Last Admin: 10/14/18 04:48 Dose: 75 mcg Loperamide HCl (Imodium) 2 mg PO PRN PRN PRN Reason: Diarrhea/Loose Stools Metoclopramide HCl (Reglan) 10 mg IVP Q6H PRN PRN Reason: Nausea/Vomiting Metolazone (Zaroxolyn) 5 mg PO 0830 [facility] Last Admin: 10/14/18 08:54 Dose: 5 mg Mineral Oil/White Petrolatum (Eucerin Cream) 0 gm TOP BIDPRN PRN PRN Reason: Dry Skin Polyethylene Glycol (Miralax) 17 gm PO DAILY [facility] Last Admin: 10/14/18 08:56 Dose: 17 gm Senna/Docusate Sodium (Senokot S) 2 tab PO BID PRN PRN Reason: Constipation Sodium Chloride ([place] Nasal [place] 0.65%) 0 ml EA NARE QIDPRN PRN PRN Reason: Nasal Congestion Sotalol HCl (Betapace) 160 mg PO BID [facility] Last Admin: 10/14/18 08:55 Dose: 160 mg Throat Lozenges (Cepastat Lozenges) 1 anselmo PO Q2H PRN PRN Reason: Sore Throat Zolpidem Tartrate (Ambien) 5 mg PO HSPRN PRN PRN Reason: Insomnia
--- NOTE | 2018-10-14 14:48 | DIS ---
DATE OF ADMISSION: 10/12/2018 DATE OF DISCHARGE: 10/14/2018 PRIMARY CARE PHYSICIAN: Dain Abdalla MD DISCHARGE DISPOSITION: Home. PRIMARY DISCHARGE DIAGNOSES: Acute urinary retention, acute anemia due to blood loss, edema of both lower extremity, and gross hematuria. SECONDARY DISCHARGE DIAGNOSES: History of coronary artery disease, atrial fibrillation/atrial flutter, and history of chronic anticoagulation use. PRIMARY PROCEDURE/OPERATION: None. RADIOLOGICAL INVESTIGATION: None. SIGNIFICANT LABORATORY DATA: Hemoglobin 10.8. Creatinine 0.90. DISCHARGE MEDICATIONS: The patient will hold aspirin and Eliquis as per Urology. The patient will continue to take Lasix 20 mg daily. The patient will continue 1. Jay 1 tablet q.6 hourly p.r.n. 2. Vitamin B12 every month. 3. Synthroid 75 mcg p.o. daily. 4. Oxybutynin 5 mg t.i.d. 5. MiraLAX 17 g daily. 6. Zocor 40 mg p.o. q.h.s. 7. Sotalol 160 mg p.o. b.i.d. The patient will continue his testosterone injection monthly therapy. CONTRAINDICATION: None. CODE STATUS: Full code. INPATIENT LEAN MANUFACTURING SPECIALIST: Dr. Edmond Forbes was following while in hospital. TEST RESULT PENDING ON DISCHARGE: None. ALLERGIES: CIPRO, XARELTO, AND HYDROXYZINE. DISCHARGE PLAN: Posthospital, the patient will follow up with Dr. Yassine Bernardo as instructed and primary care physician. HOSPITAL COURSE: A 73-year-old male, who was admitted by me. Please see my HPI for further details. This patient was recently treated for nephrolithiasis by Dr. Bernardo. Subsequently, the patient required Landrum catheter, and when he went home after procedure, he was having significant amount of gross hematuria with clot and that clot made his catheter clogged, and subsequently, he had retention of urine. He had to come to emergency room because he was having lot of abdominal pain. He was found with acute urinary retention. He required Landrum catheter exchange by Urology, and subsequently, we admitted him to the hospital for observation. He had slight drop in his hemoglobin, but he did not require any blood transfusion. He was also having weight gain and lower extremity edema, which was corrected with Lasix and Zaroxolyn. On discharge, we advised him to take Lasix everyday basis. Rest of medication was continued while in hospital as well as on discharge. He will restart aspirin and Eliquis therapy whenever Urology clears to take. This patient is overall stable, and once Urology cleared him for discharge, then we will consider discharging him home. The patient was getting continuous bladder irrigation while in hospital, and his gross hematuria was clearing up. Job ID: [id number]
[2018-10-14] MEDS: Atorvastatin Calcium 20 MG TAB PO SCH (20:50)
[2018-10-15] MEDS: Furosemide 40 MG/4 ML VIAL SLOW IVP SCH (05:45)
[2018-10-15] MEDS: Levothyroxine Sodium 75 MCG TAB PO SCH (05:45)
[2018-10-15] MEDS: HYDROcodone/Acetaminophen 5/325 mg Tablet PO PRN ×2 (06:37→22:47)
[2018-10-15 08:56] LABS: #Basophils 0.1 thou/uL (0.0-0.2); #Eosinphils 0.3 thou/uL (0.0-0.7); #Lymphocytes 1.2 thou/uL (1.20-3.40); #Monocytes 0.6 thou/uL (0.11-0.59); %Basophils 0.6 % (0.0-1.0); %Eosinophils 3.8 % (0.0-10.0); %Lymphocytes 13.2 % (21.0-51.0); %Monocytes 6.2 % (0.0-10.0); %Neutrophils 76.2 % (42.0-75.0); Hemoglobin 12.4 g/dL (14.0-18.0); Mean Corpuscular HGB CONC 31.1 g/dL (32.0-36.0); Mean Corpuscular Hemoglobin 27.6 pg (27.0-31.0); Mean Corpuscular Volume 88.9 fL (78.0-98.0); Mean Platelet Volume 6.7 fL (7.4-10.4); Platelet Count 394 thou/uL (130-400); RBC Distribution Width 13.4 % (11.5-14.5); Red Blood Cell (RBC) Count 4.47 mill/uL (4.70-6.10); White Blood Cell (WBC) Count 9.1 thou/uL (4.8-10.8)
[2018-10-15 09:14] LABS: Anion Gap 17 mmol/L (10-20); BUN (Urea Nitrogen) 29 mg/dL (8.4-25.7); Calc. Creatinine Clearance 53 mL/min (70-130); Calcium 9.7 mg/dL (7.8-10.44); Carbon Dioxide 30 mmol/L (23-31); Chloride 89 mmol/L (98-107); Estimated GFR-MDRD 42; Glucose 169 mg/dL (83-110); Potassium 3.7 mmol/L (3.5-5.1); Sodium 132 mmol/L (136-145)
[2018-10-15] MEDS: Metolazone 5 MG TAB PO SCH (09:57)
[2018-10-15] MEDS: Polyethylene Glycol 3350 17 GM Packet PO SCH (09:58)
[2018-10-15] MEDS: Apixaban 5 MG TAB PO SCH ×2 (09:58→20:38)
[2018-10-15] MEDS: Famotidine 20 MG TAB PO SCH ×2 (09:59→20:38)
[2018-10-15] MEDS: Sotalol HCl 80 MG TAB PO SCH ×2 (10:01→20:38)
--- NOTE | 2018-10-15 10:14 | PRG ---
DATE OF SERVICE: 10/14/2018 SUBJECTIVE: The patient states he is feeling okay. He is not complaining of any chest pain or shortness of breath. He is receiving high doses of Lasix for his volume overload to decrease his edema. His catheter has cleared up significantly from when Dr. Forbes had seen him. He is on a slow drip CBI. OBJECTIVE: VITAL SIGNS: Temperature 97.7, pulse 70, respirations 18, blood pressure 99/61, and saturation 97% on room air. GENERAL: No apparent distress. Communicative and alert. CARDIOVASCULAR: Regular rate and rhythm. ABDOMEN: Soft, nontender, and nondistended. : Landrum catheter in place with very light pink blood-tinged translucent urine without blood immediately clears with CBI re-initiation. EXTREMITIES: 1+ edema bilaterally. ASSESSMENT AND PLAN: A 73-year-old white male with gross hematuria after ureteroscopy, presumably either from bleeding from the renal pelvis versus potential prostatic bleeding from catheter-related trauma. We may consider a voiding trial tomorrow and then restart the patient's Eliquis subsequently to ensure that he can receive his anticoagulation until his next surgery. We will reassess in the morning and make a decision at that time. Job ID: [id number]
--- NOTE | 2018-10-15 10:18 | PRG ---
DATE OF SERVICE: SUBJECTIVE: The patient is feeling fine. Denies any chest pain or shortness of breath. He has become a little bit hypotensive from all of his Lasix, but otherwise is still feeling okay. He did not have any clots or problems with his catheter overnight. OBJECTIVE: VITAL SIGNS: Temperature 98.6, pulse 70, respirations 18, blood pressure 84/55, and saturation 97% on room air. GENERAL: No apparent distress, communicative, and alert. CARDIOVASCULAR: Regular rate and rhythm. Normal S1 and S2. ABDOMEN: Soft, nontender, and nondistended. Positive bowel sounds. : Landrum catheter in place with blood-tinged urine on CBI and very slow drip. EXTREMITIES: No edema. ASSESSMENT AND PLAN: This is a 73-year-old white male with gross hematuria after ureteroscopy, presumably either from the prostate or renal pelvis. I had come to my attention that the patient actually had 1300 mL when he presented to the emergency room with his clot retention from his catheter. Given this information, which occurred on Sunday, he should keep his catheter in for 7 days before doing a void trial. I would not recommend that we do a void trial today, but we will just keep his CBI off. I will restart his Eliquis as his hematuria is not that significant and is what would be expected with an indwelling stent. I will monitor him for at least 24 hours on the Eliquis to see how bad his hematuria gets. If it does get bad, we may need to restart the CBI and take him back off Eliquis. Otherwise, he may be able to be discharged with his catheter in place and on Eliquis to go home. I would plan to see him back on Sunday next week for a void trial and then we will discuss his definitive ureteroscopy that following Sunday, where we would clean out the remainder of his stone. I did discuss possibly doing a TURP with him, which I will discuss further at his followup visit before his next surgery. Job ID: [id number]
--- NOTE | 2018-10-15 10:36 | PDOC.PN ---
- Subjective Encounter Start Date: 10/15/18 Encounter Start Time: 07:20 Patient seen and examined. No new complaints. No overnight events - Objective Resuscitation Status - Order Detail: 10/12/18 13:43 Resuscitation Status Routine Resuscitation Status: FULL: Full Resuscitation MAR Reviewed: Yes Vital Signs & Weight: Vital Signs (12 hours) Temp Pulse Resp BP Pulse Ox 10/15/18 10:01 70 10/15/18 08:02 92/61 10/15/18 07:43 98.6 F 70 18 84/55 L 97 Weight Weight 210 lb 4.8 oz I&O: 10/14/18 10/15/18 10/16/18 06:59 06:59 06:59 Intake Total 2800 2585 Output Total 9005 5014 Balance -2645 -4093 Result Diagrams: 10/15/18 08:43 10/15/18 08:43 Phys Exam - Physical Examination Constitutional: NAD HEENT: PERRLA, moist MMs, sclera anicteric Neck: no JVD, supple Respiratory: no wheezing, no rales, no rhonchi Cardiovascular: RRR, no significant murmur, no rub Gastrointestinal: soft, non-tender, no distention, positive bowel sounds Musculoskeletal: no edema, pulses present Neurological: non-focal, normal sensation rizzo+ Lymphatic: no nodes Psychiatric: normal affect, A&O x 3 Skin: no rash, normal turgor Dx/Plan (1) Acute urinary retention Code(s): R33.8 - OTHER RETENTION OF URINE Status: Acute (2) Anemia due to acute blood loss Code(s): D62 - ACUTE POSTHEMORRHAGIC ANEMIA Status: Acute (3) Edema of both lower extremities Code(s): R60.0 - LOCALIZED EDEMA Status: Acute (4) Hematuria, gross Status: Acute (5) Anticoagulant long-term use Code(s): Z79.01 - AERONAUTICAL PROJECT ENGINEER (CURRENT) USE OF ANTICOAGULANTS Status: Chronic (6) CAD (coronary artery disease) Code(s): I25.10 - ATHSCL HEART DISEASE OF [place] CORONARY ARTERY W/O ANG PCTRS Status: Chronic Qualifiers: - Plan cont current plan of care, plan discussed w/ family * medication reviewed as below * symptomatic treatment * see my discharge summery. Review of Systems - Review of Systems ENT: negative: Ear Pain, Ear Discharge, Nose Pain, Nose Discharge, Nose Congestion, Mouth Pain, Mouth Swelling, Throat Pain, Throat Swelling, Other Respiratory: negative: Cough, Dry, Shortness of Breath, Hemoptysis, SOB with Excertion, Pleuritic Pain, Sputum, Wheezing Cardiovascular: negative: chest pain, palpitations, orthopnea, paroxysmal nocturnal dyspnea, edema, light headedness, other Gastrointestinal: negative: Nausea, Vomiting, Abdominal Pain, Diarrhea, Constipation, Melena, Hematochezia, Other Genitourinary: negative: Dysuria, Frequency, Incontinence, Hematuria, Retention , Other Musculoskeletal: negative: Neck Pain, Shoulder Pain, Arm Pain, Back Pain, Hand Pain, Leg Pain, Foot Pain, Other - Medications/Allergies Allergies/Adverse Reactions: Allergies Allergy/AdvReac Type Severity Reaction Status Date / Time ciprofloxacin [From Cipro] Allergy Severe Verified 10/12/18 15:45 rivaroxaban [From Xarelto] Allergy Severe Verified 10/12/18 15:45 fluoxetine Allergy Verified 10/12/18 15:45 hydroxyzine Allergy Verified 10/12/18 15:45 Medications: Current Medications Acetaminophen (Tylenol) 650 mg PO Q4H PRN PRN Reason: Headache/Fever/Mild Pain (1-3) Last Admin: 10/14/18 04:49 Dose: 650 mg Hydrocodone Bitart/Acetaminophen ([place] 5/325) 1 tab PO Q4H PRN PRN Reason: Moderate Pain (4-6) Last Admin: 10/15/18 06:37 Dose: 1 tab Apixaban (Eliquis) 5 mg PO BID [facility] Last Admin: 10/15/18 09:58 Dose: 5 mg Artificial Tears (Tears Naturale) 2 drop EA EYE PRN PRN PRN Reason: Dry Eyes Atorvastatin Calcium (Lipitor) 20 mg PO [facility] Last Admin: 10/14/18 20:50 Dose: 20 mg Bisacodyl (Dulcolax) 10 mg PO DAILYPRN PRN PRN Reason: Constipation Calcium Carbonate (Tums) 1,000 mg PO Q4H PRN PRN Reason: Heartburn or Indigestion Famotidine (Pepcid) 20 mg PO BID [facility] Last Admin: 10/15/18 09:59 Dose: 20 mg Guaifenesin (Robitussin Sf) 200 mg PO Q4H PRN PRN Reason: Cough Hydralazine HCl (Apresoline) 10 mg SLOW IVP Q4H PRN PRN Reason: SBP > 180 and HR < 70 Sodium Chloride (Normal Saline 0.9%) 500 mls @ 999 mls/hr IV .Q31M [facility] Stop: 10/15/18 11:00 Levothyroxine Sodium (Synthroid) 75 mcg PO 0600 [facility] Last Admin: 10/15/18 05:45 Dose: 75 mcg Loperamide HCl (Imodium) 2 mg PO PRN PRN PRN Reason: Diarrhea/Loose Stools Metoclopramide HCl (Reglan) 10 mg IVP Q6H PRN PRN Reason: Nausea/Vomiting Mineral Oil/White Petrolatum (Eucerin Cream) 0 gm TOP BIDPRN PRN PRN Reason: Dry Skin Polyethylene Glycol (Miralax) 17 gm PO DAILY [facility] Last Admin: 10/15/18 09:58 Dose: 17 gm Senna/Docusate Sodium (Senokot S) 2 tab PO BID PRN PRN Reason: Constipation Sodium Chloride ([place] Nasal [place] 0.65%) 0 ml EA NARE QIDPRN PRN PRN Reason: Nasal Congestion Sotalol HCl (Betapace) 160 mg PO BID [facility] Last Admin: 10/15/18 10:01 Dose: Not Given Throat Lozenges (Cepastat Lozenges) 1 anselmo PO Q2H PRN PRN Reason: Sore Throat Zolpidem Tartrate (Ambien) 5 mg PO HSPRN PRN PRN Reason: Insomnia
[2018-10-15] MEDS ORDERED: Sodium Chloride 0.9% 500 ML IV SCH (11:00)
--- NOTE | 2018-10-15 11:25 | DIS ---
DATE OF ADMISSION: 10/12/2018 DATE OF DISCHARGE: ADDENDUM: Please see my discharge summary dictated yesterday. Dr. Bernardo discontinued continuous bladder irrigation yesterday and he did not have any further problems while in hospital. He continued to get Lasix and Zaroxolyn and because of that he has mild acute kidney injury and he has relatively low blood pressure and that is why I am giving him today a 500 mL bolus and I advised him to drink liberal fluid. His kidney should be getting better. This is only related with diuretic therapy and we are giving him 500 mL bolus fluid. Urology started Eliquis therapy on him as well. Further plan will be as per Urology. After discharge, the patient is going home with Landrum catheter in place. Otherwise, the patient is medically stable for discharge. Please see my progress note from today for further detail. Job ID: [id number]
[2018-10-15] MEDS: Atorvastatin Calcium 20 MG TAB PO SCH (20:38)
[2018-10-16] MEDS: Levothyroxine Sodium 75 MCG TAB PO SCH (06:05)
[2018-10-16] MEDS: HYDROcodone/Acetaminophen 5/325 mg Tablet PO PRN ×3 (06:10→22:32)
[2018-10-16] MEDS: Apixaban 5 MG TAB PO SCH (08:51)
[2018-10-16] MEDS: Famotidine 20 MG TAB PO SCH ×2 (08:51→20:15)
[2018-10-16] MEDS: Sotalol HCl 80 MG TAB PO SCH ×2 (08:58→20:15)
[2018-10-16] MEDS: Polyethylene Glycol 3350 17 GM Packet PO SCH (08:58)
--- NOTE | 2018-10-16 09:53 | PRG ---
DATE OF SERVICE: 10/16/2018 SUBJECTIVE: The patient states he is feeling fine. He is having some right flank pain secondary to his stent, but this is controlled with pain medication. His home dose of Eliquis was restarted yesterday and he has had increased hematuria today, but has not had any problems with drainage. OBJECTIVE: VITAL SIGNS: Temperature 99, pulse 69, blood pressure 111/65, respirations 20, and saturations 95% on room air. GENERAL: No apparent distress, communicating, and alert. CARDIOVASCULAR: Regular rate and rhythm. ABDOMEN: Soft, nontender, and nondistended. Positive bowel sounds. LOWER EXTREMITIES: No significant edema. : Landrum catheter in place, draining a Ruperto-Aid translucent red urine. ASSESSMENT AND PLAN: This is a 73-year-old white male with gross hematuria secondary to stent irritation and possible prostate trauma with increased hematuria, on Eliquis, which is somewhat expected. 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 As such, I had elected to restart his Eliquis while in the hospital to see how much hematuria he would have. The hematuria has picked up, but is not necessarily bad enough to form clots. I have elected to watch him over the course of today and will reassess this afternoon. If his hematuria has worsened more or he has any form of clots within the catheter, I would recommend that we decrease his Eliquis down to 5 mg once a day and see how he does with that instead, even though that is not an ideal dose for him, just for the short term until he can have his surgery and his stent removed. If his urine stays at least able to where it is or a little improved, he may still be able to be discharged today. I will reassess this afternoon. Job ID: [id number]
--- NOTE | 2018-10-16 15:37 | PDOC.PN ---
- Subjective Encounter Start Date: 10/16/18 Encounter Start Time: 15:36 Subjective: Admitted with urinary retention and found to have gross hematuria -: Patient had uereteroscopic procedure few days prior. -: Reports feeling ill. gross hematuria worsened since restarting eliquis. - Objective Resuscitation Status - Order Detail: 10/12/18 13:43 Resuscitation Status Routine Resuscitation Status: FULL: Full Resuscitation Vital Signs & Weight: Vital Signs (12 hours) Temp Pulse Resp BP BP Pulse Ox 10/16/18 08:58 69 111/65 10/16/18 08:45 99.0 F 72 20 111/65 95 10/16/18 08:00 95 10/16/18 04:00 98.0 F 69 20 113/76 93 L Weight Weight 210 lb 4.8 oz I&O: 10/15/18 10/16/18 10/17/18 06:59 06:59 06:59 Intake Total 2585 1380 Output Total 6850 3350 425 Balance -4265 -1970 -425 Result Diagrams: 10/15/18 08:43 10/15/18 08:43 Phys Exam - Physical Examination Constitutional: NAD fatigued HEENT: moist MMs Neck: no JVD, supple Respiratory: no wheezing, no rales, no rhonchi fair air entry bilaterally Cardiovascular: RRR Gastrointestinal: soft, non-tender, no distention, positive bowel sounds Musculoskeletal: no edema, pulses present Neurological: non-focal, moves all 4 limbs Psychiatric: A&O x 3 Dx/Plan (1) CHENTE (acute kidney injury) Code(s): N17.9 - ACUTE KIDNEY FAILURE, UNSPECIFIED Status: Acute (2) Pulmonary embolism Code(s): I26.99 - OTHER PULMONARY EMBOLISM WITHOUT ACUTE COR PULMONALE Status : Acute (3) Cancer of skin of right ear Code(s): C44.202 - UNSP MALIG NEOPLASM SKIN/ RIGHT EAR AND EXTERNAL AURIC CANAL Status: Acute (4) Acute urinary retention Code(s): R33.8 - OTHER RETENTION OF URINE Status: Acute (5) Anemia due to acute blood loss Code(s): D62 - ACUTE POSTHEMORRHAGIC ANEMIA Status: Acute (6) Hematuria, gross Status: Acute (7) Anticoagulant long-term use Code(s): Z79.01 - HALFWAY (CURRENT) USE OF ANTICOAGULANTS Status: Chronic (8) Atrial fibrillation and flutter Code(s): I48.91 - UNSPECIFIED ATRIAL FIBRILLATION; I48.92 - UNSPECIFIED ATRIAL FLUTTER Status: Chronic (9) CAD (coronary artery disease) Code(s): I25.10 - ATHSCL HEART DISEASE OF [place] CORONARY ARTERY W/O ANG PCTRS Status: Chronic Qualifiers: (10) Nephrolithiasis Status: Acute (11) Hyponatremia Code(s): E87.1 - HYPO-OSMOLALITY AND HYPONATREMIA Status: Acute - Plan Get repeat CBC and BMP -: Will start IVF therapy. -: Will defer gross hematuria mgt to Urology. -: Continue other treatments * .
[2018-10-16 15:44] LABS: #Eosinphils 0.1 thou/uL (0.0-0.7); #Lymphocytes 1.2 thou/uL (1.20-3.40); #Monocytes 1.6 thou/uL (0.11-0.59); #Neutrophils 12.6 thou/uL (1.40-6.50); %Basophils 0.1 % (0.0-1.0); %Eosinophils 0.7 % (0.0-10.0); %Lymphocytes 7.9 % (21.0-51.0); %Monocytes 10.2 % (0.0-10.0); %Neutrophils 81.1 % (42.0-75.0); Hemoglobin 11.3 g/dL (14.0-18.0); Mean Corpuscular HGB CONC 32.4 g/dL (32.0-36.0); Mean Corpuscular Hemoglobin 28.2 pg (27.0-31.0); Mean Platelet Volume 6.5 fL (7.4-10.4); Platelet Count 344 thou/uL (130-400); RBC Distribution Width 13.2 % (11.5-14.5); Red Blood Cell (RBC) Count 4.02 mill/uL (4.70-6.10); White Blood Cell (WBC) Count 15.5 thou/uL (4.8-10.8)
[2018-10-16 16:03] LABS: Anion Gap 11 mmol/L (10-20); BUN (Urea Nitrogen) 30 mg/dL (8.4-25.7); Calc. Creatinine Clearance 59 mL/min (70-130); Calcium 9.3 mg/dL (7.8-10.44); Carbon Dioxide 34 mmol/L (23-31); Chloride 91 mmol/L (98-107); Estimated GFR-MDRD 47; Glucose 134 mg/dL (83-110); Potassium 3.6 mmol/L (3.5-5.1); Sodium 132 mmol/L (136-145)
[2018-10-16] MEDS ORDERED: Sodium Chloride 0.9% 1,000 ML IV SCH ×2 (16:45→17:15)
[2018-10-16] MEDS: Atorvastatin Calcium 20 MG TAB PO SCH (20:15)
[2018-10-17] MEDS: Levothyroxine Sodium 75 MCG TAB PO SCH (05:51)
[2018-10-17 06:07] LABS: Anion Gap 11 mmol/L (10-20); BUN (Urea Nitrogen) 28 mg/dL (8.4-25.7); Calc. Creatinine Clearance 56 mL/min (70-130); Calcium 9.3 mg/dL (7.8-10.44); Carbon Dioxide 35 mmol/L (23-31); Chloride 91 mmol/L (98-107); Estimated GFR-MDRD 44; Glucose 103 mg/dL (83-110); Potassium 3.7 mmol/L (3.5-5.1); Sodium 133 mmol/L (136-145)
[2018-10-17 06:21] LABS: Band 4 % (5-11); Hemoglobin 10.4 g/dL (14.0-18.0); Lymphocytes 16 % (21-51); MDiff Complete? YES; Mean Corpuscular HGB CONC 32.9 g/dL (32.0-36.0); Mean Corpuscular Hemoglobin 28.9 pg (27.0-31.0); Mean Corpuscular Volume 87.8 fL (78.0-98.0); Mean Platelet Volume 6.5 fL (7.4-10.4); Monocytes 12 % (0-10); Neutrophil 68 % (42-75); Platelet Count 318 thou/uL (130-400); RBC Distribution Width 13.1 % (11.5-14.5); RBC Morphology Normal; Red Blood Cell (RBC) Count 3.61 mill/uL (4.70-6.10); White Blood Cell (WBC) Count 12.4 thou/uL (4.8-10.8)
--- NOTE | 2018-10-17 07:47 | PRG ---
DATE OF SERVICE: 10/17/2018 SUBJECTIVE: The patient is complaining of right upper back flank pain, which has been present since surgery. Denies nausea, vomiting, fever, or chills. OBJECTIVE: VITAL SIGNS: Temperature 98, pulse 71, respiratory rate 18, oxygen saturation 92, and blood pressure 104/65. I's and O's 1526 in, 1375 out. ABDOMEN: Soft. There is a right CVA tenderness, however, no rigidity. No rebound. GENITOURINARY: Has a 3-way Landrum catheter in, it is maroon red. I did manually irrigate at bedside, in which there was immediate clearing, however, hematuria persist. Therefore, I did reconnect his CBI, started on low drip, quirino light red. PERTINENT LABORATORY DATA: White count 12.4; hemoglobin 10.4, which has been relatively stable since admission; and platelet is 318. Creatinine is 1.55. Admitting creatinine of 1.0. Urine culture on September 20 is Staph saprophyticus. Repeat urine culture pending. IMPRESSION AND PLAN: Mr. Heredia is a 73-year-old male with history of atrial fibrillation, remote history of pulmonary embolus, on chronic Eliquis, followed by Dr. Staton, I am covering Dr. Bernardo, who is his primary urologist. The patient has been signed out to me. Eliquis has been discontinued, as I have been informed by Dr. Bernardo, whom he conference with Dr. Staton in which Eliquis is approved to be held as his pulmonary embolus was remote, EKG has been obtained. It appears to be paced. I will review with Dr. Staton. The plan is if the patient is not in overt atrial fibrillation, he is clear to hold his Eliquis due to persistent hematuria. Last Eliquis was yesterday and I will keep the patient overnight with continuous bladder irrigation. Pending improvement of his hematuria off Eliquis, we will consider discharge tomorrow with indwelling Landrum catheter. will cover with broad-spectrum antibiotic therapy due to recent trauma, ureteral stent with perforation of pelvis prudent to cover with broad-spectrum antibiotic until final culture is back. Job ID: [id number] [facility]
[2018-10-17] MEDS: HYDROcodone/Acetaminophen 5/325 mg Tablet PO PRN (08:30)
[2018-10-17] MEDS: cefTRIAXone\\ROCEPHIN 1 GM in Sodium Chloride 0.9% 100 ML IVPB SCH (08:30)
[2018-10-17] MEDS: Sotalol HCl 80 MG TAB PO SCH ×2 (08:31→21:51)
[2018-10-17] MEDS: Polyethylene Glycol 3350 17 GM Packet PO SCH (08:33)
[2018-10-17] MEDS: Famotidine 20 MG TAB PO SCH ×2 (08:33→20:39)
[2018-10-17] MEDS ORDERED: Apixaban 5 MG TAB PO SCH (09:00)
--- NOTE | 2018-10-17 13:33 | ULT ---
US Renal Bilateral STANDARD HISTORY:Acute renal insufficiency obstructive uropathy. COMPARISON: CT examination of 04-04 and a renal ultrasound 08/29/2018. FINDINGS: Real-time imaging of the right and left kidneys were performed. The right kidney measures 1 2.1 cm in size. There is cortical scarring involving the right kidney and an echogenic lesion again demonstrated along the cortex of the midpole region of the kidney. 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 There are some echogenic foci within the renal pelvis which probably represent renal calculi. There is prominence to the right renal pelvis, this appears similar to the previous CT study . The left kidney measures 10.4 cm in length. It is not obstructed. The bladder is nondistended at the time of this exam. IMPRESSION: Stable appearance to the right kidney. 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 The prominence to the right renal pelvis is a stable appearance.
--- NOTE | 2018-10-17 17:41 | PDOC.PN ---
- Subjective Encounter Start Date: 10/17/18 Encounter Start Time: 17:39 Subjective: Seen and examined. -: No new problem -: still having right flank pain and hematuria - Objective Resuscitation Status - Order Detail: 10/12/18 13:43 Resuscitation Status Routine Resuscitation Status: FULL: Full Resuscitation Vital Signs & Weight: Vital Signs (12 hours) Temp Pulse Resp BP BP BP Pulse Ox 10/17/18 16:00 97.6 F 69 18 93/55 L 93 L 10/17/18 12:39 98.2 F 76 18 96/61 93 L 10/17/18 08:31 71 104/65 10/17/18 07:24 98.0 F 71 18 104/65 92 L Weight Weight 210 lb 4.8 oz I&O: 10/16/18 10/17/18 10/18/18 06:59 06:59 06:59 Intake Total 1380 1526 Output Total 3350 3875 2500 Balance -1970 -2349 -2500 Result Diagrams: 10/17/18 05:22 10/17/18 05:22 Phys Exam - Physical Examination Constitutional: NAD fatigued HEENT: PERRLA, moist MMs Right ear ulcer noted Neck: no JVD, supple Respiratory: no wheezing, no rales, no rhonchi, clear to auscultation bilateral Cardiovascular: RRR Gastrointestinal: soft, non-tender, no distention, positive bowel sounds Landrum in place connected to CBI and with bloody drainage Musculoskeletal: no edema, pulses present Neurological: non-focal, moves all 4 limbs Psychiatric: A&O x 3 Dx/Plan (1) CHENTE (acute kidney injury) Code(s): N17.9 - ACUTE KIDNEY FAILURE, UNSPECIFIED Status: Acute Comment: No improvement in renal function as yet. (2) Pulmonary embolism Code(s): I26.99 - OTHER PULMONARY EMBOLISM WITHOUT ACUTE COR PULMONALE Status : Acute (3) Cancer of skin of right ear Code(s): C44.202 - UNSP MALIG NEOPLASM SKIN/ RIGHT EAR AND EXTERNAL AURIC CANAL Status: Acute (4) Acute urinary retention Code(s): R33.8 - OTHER RETENTION OF URINE Status: Acute (5) Anemia due to acute blood loss Code(s): D62 - ACUTE POSTHEMORRHAGIC ANEMIA Status: Acute (6) Hematuria, gross Status: Acute (7) Anticoagulant long-term use Code(s): Z79.01 - BUTTON SAWYER (CURRENT) USE OF ANTICOAGULANTS Status: Chronic Comment: For atrial fib. S/p watchman procedure. Told by aviation consultant/EPS that he can stop anticoagulation. small PE noted in 07/2018 is questioned at this time ? artefacts (8) Atrial fibrillation and flutter Code(s): I48.91 - UNSPECIFIED ATRIAL FIBRILLATION; I48.92 - UNSPECIFIED ATRIAL FLUTTER Status: Chronic (9) CAD (coronary artery disease) Code(s): I25.10 - ATHSCL HEART DISEASE OF [place] CORONARY ARTERY W/O ANG PCTRS Status: Chronic Qualifiers: (10) Nephrolithiasis Status: Acute (11) Hyponatremia Code(s): E87.1 - HYPO-OSMOLALITY AND HYPONATREMIA Status: Acute (12) Low BP Status: Acute Comment: Due to volume depletion most likely. - Plan Renal U/S showed no acute changes or obstruction. -: Will start NS at 100 cc/hr -: Monitor hematuria with CBI and discontinuation of anticoagulation. -: recheck CBC and renal function in the am. -: Monitor BP with commencement of IVF. Will consider sotalol dose reduction * .
[2018-10-17] MEDS: Sodium Chloride 0.9% 1,000 ML IV SCH (18:54)
[2018-10-17] MEDS: Atorvastatin Calcium 20 MG TAB PO SCH (20:39)
[2018-10-18] MEDS: Sodium Chloride 0.9% 1,000 ML IV SCH ×4 (01:21→22:15)
[2018-10-18] MEDS: Levothyroxine Sodium 75 MCG TAB PO SCH (05:11)
[2018-10-18] MEDS: HYDROcodone/Acetaminophen 5/325 mg Tablet PO PRN ×2 (05:11→17:34)
[2018-10-18 06:31] LABS: #Eosinphils 0.3 thou/uL (0.0-0.7); #Lymphocytes 1.3 thou/uL (1.20-3.40); #Monocytes 1.1 thou/uL (0.11-0.59); #Neutrophils 4.8 thou/uL (1.40-6.50); %Basophils 0.4 % (0.0-1.0); %Lymphocytes 17.5 % (21.0-51.0); %Monocytes 14.6 % (0.0-10.0); %Neutrophils 63.5 % (42.0-75.0); Hemoglobin 9.7 g/dL (14.0-18.0); Mean Corpuscular HGB CONC 33.1 g/dL (32.0-36.0); Mean Corpuscular Hemoglobin 28.8 pg (27.0-31.0); Mean Corpuscular Volume 86.9 fL (78.0-98.0); Mean Platelet Volume 6.6 fL (7.4-10.4); Platelet Count 322 thou/uL (130-400); RBC Distribution Width 12.9 % (11.5-14.5); Red Blood Cell (RBC) Count 3.35 mill/uL (4.70-6.10); White Blood Cell (WBC) Count 7.6 thou/uL (4.8-10.8)
[2018-10-18 06:51] LABS: Anion Gap 11 mmol/L (10-20); BUN (Urea Nitrogen) 28 mg/dL (8.4-25.7); Calc. Creatinine Clearance 61 mL/min (70-130); Calcium 8.8 mg/dL (7.8-10.44); Carbon Dioxide 33 mmol/L (23-31); Chloride 93 mmol/L (98-107); Estimated GFR-MDRD 49; Glucose 92 mg/dL (83-110); Potassium 3.7 mmol/L (3.5-5.1); Sodium 133 mmol/L (136-145)
[2018-10-18] MEDS: Famotidine 20 MG TAB PO SCH ×2 (07:59→21:19)
[2018-10-18] MEDS: Sotalol HCl 80 MG TAB PO SCH ×2 (07:59→21:18)
[2018-10-18] MEDS: cefTRIAXone\\ROCEPHIN 1 GM in Sodium Chloride 0.9% 100 ML IVPB SCH (07:59)
[2018-10-18] MEDS: Polyethylene Glycol 3350 17 GM Packet PO SCH (08:00)
--- NOTE | 2018-10-18 08:44 | PRG ---
DATE OF SERVICE: 10/18/[address] Yassine Bernardo, primary urologist. SUBJECTIVE: The patient is feeling well, at bedside. OBJECTIVE: VITAL SIGNS: Stable. He is afebrile. : CBI was held this morning for monitoring of degree of hematuria, required re-initiation of CBI due to gross hematuria. Currently, CBI is running at a low rate; however, continues to have hematuria. Some sediment noted. LABORATORY DATA: White count improved with rocephin, currently 7.6. Mild decrease in his hemoglobin to 9.7, platelet 322. Creatinine improving at 1.4 with IV fluids. Repeat urine culture negative. Prior urine culture, Staph saprophyticus. Renal ultrasound obtained yesterday reviewed. No acute findings of concern. IMPRESSION AND PLAN: Mr. Heredia is a pleasant 73-year-old male with history of atrial fibrillation, remote history of pulmonary embolus, previously on Eliquis which has been held due to gross hematuria, requiring continuous bladder irrigation. He presented with clot retention, requiring continuous bladder irrigation. He underwent ureteroscopy, laser lithotripsy of large renal pelvic stone, with intraoperative renal pelvic perforation. His renal ultrasound is stable. Eliquis has been approved to be held by Cardiology as he has acute bleed, requiring hospital admission and continuous bladder irrigation. Monitor CBC daily, transfuse if indicated. I informed the patient that due to persistent hematuria, the patient will require to be observed over the weekend on continuous bladder irrigation. Dr. Bernardo is currently off service. I will inform [facility], who is diamond sizer this weekend. Plan is to continue his continuous bladder irrigation, monitor his H and H. Expect hematuria to improve as his anticoagulation wears off. patient agrees to be observed. Continue Rocephin as he is responding to antibiotic therapy with improvement of leukocytosis. Job ID: [id number] [facility]
--- NOTE | 2018-10-18 10:50 | PDOC.PN ---
- Subjective Encounter Start Date: 10/18/18 Encounter Start Time: 10:48 Subjective: Still having gross hematuria and on CBI -: Feeling better. appetite is better. -: No fever, chest pain or SOB. right flank pain has subsided. - Objective Resuscitation Status - Order Detail: 10/12/18 13:43 Resuscitation Status Routine Resuscitation Status: FULL: Full Resuscitation Vital Signs & Weight: Vital Signs (12 hours) Temp Pulse Resp BP BP Pulse Ox 10/18/18 07:59 74 113/59 L 10/18/18 07:44 97.4 F L 74 20 113/59 L 97 Weight Weight 210 lb 4.8 oz I&O: 10/17/18 10/18/18 10/19/18 06:59 06:59 06:59 Intake Total 1526 Output Total 2672 2900 Balance -2349 -2900 Result Diagrams: 10/18/18 06:09 10/18/18 06:09 Phys Exam - Physical Examination Constitutional: NAD HEENT: PERRLA, moist MMs Neck: no JVD Respiratory: no wheezing, no rales, no rhonchi, clear to auscultation bilateral Cardiovascular: RRR Gastrointestinal: soft, non-tender, no distention, positive bowel sounds Musculoskeletal: no edema, pulses present Neurological: non-focal, moves all 4 limbs Psychiatric: A&O x 3 Dx/Plan (1) Anemia due to acute blood loss Code(s): D62 - ACUTE POSTHEMORRHAGIC ANEMIA Status: Acute (2) CHENTE (acute kidney injury) Code(s): N17.9 - ACUTE KIDNEY FAILURE, UNSPECIFIED Status: Acute Comment: No improvement in renal function as yet. (3) Hematuria, gross Status: Acute (4) Pulmonary embolism Code(s): I26.99 - OTHER PULMONARY EMBOLISM WITHOUT ACUTE COR PULMONALE Status : Acute Comment: Noted on CTA chest of 07/2018. 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 S/p watchman procedure. Told by fruit dryer/EPS that he can stop anticoagulation. small PE noted in 07/2018 is questioned at this time ? artefacts (8) Atrial fibrillation and flutter Code(s): I48.91 - UNSPECIFIED ATRIAL FIBRILLATION; I48.92 - UNSPECIFIED ATRIAL FLUTTER Status: Chronic (9) CAD (coronary artery disease) Code(s): I25.10 - ATHSCL HEART DISEASE OF [place] CORONARY ARTERY W/O ANG PCTRS Status: Chronic Qualifiers: (10) Nephrolithiasis Status: Acute Comment: Right sided. S/p stent placement (11) Hyponatremia Code(s): E87.1 - HYPO-OSMOLALITY AND HYPONATREMIA Status: Acute (12) Low BP Status: Acute Comment: Due to volume depletion most likely. Improved with IVF. (13) Physical deconditioning Code(s): R53.81 - OTHER MALAISE Status: Acute - Plan Continue IVF and monitor renal function, volume status and BP. -: Continue Rocephin for possible UTI. Leucocytosis resolved with antibiotics -: monitor H/H and transfuse as needed. -: Continue CBI as per urology -: PT eval and treat. * .
[2018-10-18 18:19] LABS: Hemoglobin 9.8 g/dL (14.0-18.0)
[2018-10-18] MEDS: Atorvastatin Calcium 20 MG TAB PO SCH (21:18)
[2018-10-19] MEDS: HYDROcodone/Acetaminophen 5/325 mg Tablet PO PRN ×3 (04:24→18:10)
[2018-10-19] MEDS: Levothyroxine Sodium 75 MCG TAB PO SCH (05:24)
[2018-10-19 07:50] LABS: #Eosinphils 0.3 thou/uL (0.0-0.7); #Lymphocytes 1.4 thou/uL (1.20-3.40); #Monocytes 0.8 thou/uL (0.11-0.59); #Neutrophils 3.6 thou/uL (1.40-6.50); %Basophils 0.1 % (0.0-1.0); %Eosinophils 5.6 % (0.0-10.0); %Lymphocytes 23.3 % (21.0-51.0); %Monocytes 13.2 % (0.0-10.0); %Neutrophils 57.7 % (42.0-75.0); Hemoglobin 9.8 g/dL (14.0-18.0); Mean Corpuscular HGB CONC 33.9 g/dL (32.0-36.0); Mean Corpuscular Hemoglobin 29.7 pg (27.0-31.0); Mean Corpuscular Volume 87.7 fL (78.0-98.0); Mean Platelet Volume 6.8 fL (7.4-10.4); Platelet Count 305 thou/uL (130-400); RBC Distribution Width 13.1 % (11.5-14.5); Red Blood Cell (RBC) Count 3.31 mill/uL (4.70-6.10); White Blood Cell (WBC) Count 6.2 thou/uL (4.8-10.8)
[2018-10-19 08:09] LABS: Anion Gap 12 mmol/L (10-20); BUN (Urea Nitrogen) 21 mg/dL (8.4-25.7); Calc. Creatinine Clearance 95 mL/min (70-130); Calcium 8.9 mg/dL (7.8-10.44); Carbon Dioxide 29 mmol/L (23-31); Chloride 100 mmol/L (98-107); Estimated GFR-MDRD 81; Glucose 94 mg/dL (83-110); Potassium 3.7 mmol/L (3.5-5.1); Sodium 137 mmol/L (136-145)
[2018-10-19] MEDS: cefTRIAXone\\ROCEPHIN 1 GM in Sodium Chloride 0.9% 100 ML IVPB SCH (08:16)
[2018-10-19] MEDS: Sotalol HCl 80 MG TAB PO SCH ×2 (08:18→20:34)
[2018-10-19] MEDS: Polyethylene Glycol 3350 17 GM Packet PO SCH (08:19)
[2018-10-19] MEDS: Famotidine 20 MG TAB PO SCH ×2 (08:19→20:34)
--- NOTE | 2018-10-19 11:13 | PDOC.PN ---
- Subjective Encounter Start Date: 10/19/18 Encounter Start Time: 09:20 Patient seen and examined. No new complaints. No overnight events - Objective Resuscitation Status - Order Detail: 10/12/18 13:43 Resuscitation Status Routine Resuscitation Status: FULL: Full Resuscitation MAR Reviewed: Yes Vital Signs & Weight: Vital Signs (12 hours) Temp Pulse Resp BP BP BP Pulse Ox 10/19/18 08:18 70 112/71 10/19/18 08:00 96 10/19/18 07:59 97.6 F 70 18 112/71 96 10/19/18 04:00 97.6 F 71 18 113/69 98 Weight Weight 210 lb 4.8 oz I&O: 10/18/18 10/19/18 10/20/18 06:59 06:59 06:59 Intake Total 1550 Output Total 2900 5100 Balance -2900 -3550 Result Diagrams: 10/19/18 07:12 10/19/18 07:12 Phys Exam - Physical Examination Constitutional: NAD HEENT: PERRLA, moist MMs, sclera anicteric Neck: no JVD, supple Respiratory: no wheezing, no rales, no rhonchi Cardiovascular: RRR, no significant murmur, no rub Gastrointestinal: soft, non-tender, no distention, positive bowel sounds Musculoskeletal: no edema, pulses present rizzo+ Neurological: non-focal, normal sensation Lymphatic: no nodes Psychiatric: normal affect, A&O x 3 Skin: no rash, normal turgor Dx/Plan (1) Acute urinary retention Code(s): R33.8 - OTHER RETENTION OF URINE Status: Acute Comment: Due to blood clot. 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 S/p watchman procedure. Told by core winder/EPS that he can stop anticoagulation. small PE noted in 07/2018 is questioned at this time ? artefacts (6) CAD (coronary artery disease) Code(s): I25.10 - ATHSCL HEART DISEASE OF [place] CORONARY ARTERY W/O ANG PCTRS Status: Chronic Qualifiers: - Plan cont current plan of care, plan discussed w/ family, continue antibiotics * medication reviewed as below * symptomatic treatment * continue rocephin * DC IVF * continue CBI. Review of Systems - Review of Systems ENT: negative: Ear Pain, Ear Discharge, Nose Pain, Nose Discharge, Nose Congestion, Mouth Pain, Mouth Swelling, Throat Pain, Throat Swelling, Other Respiratory: negative: Cough, Dry, Shortness of Breath, Hemoptysis, SOB with Excertion, Pleuritic Pain, Sputum, Wheezing Cardiovascular: negative: chest pain, palpitations, orthopnea, paroxysmal nocturnal dyspnea, edema, light headedness, other Gastrointestinal: negative: Nausea, Vomiting, Abdominal Pain, Diarrhea, Constipation, Melena, Hematochezia, Other Genitourinary: negative: Dysuria, Frequency, Incontinence, Hematuria, Retention , Other Musculoskeletal: negative: Neck Pain, Shoulder Pain, Arm Pain, Back Pain, Hand Pain, Leg Pain, Foot Pain, Other Skin: negative: Rash, Lesions, Jaime, Bruising, Other - Medications/Allergies Allergies/Adverse Reactions: Allergies Allergy/AdvReac Type Severity Reaction Status Date / Time ciprofloxacin [From Cipro] Allergy Severe Verified 10/12/18 15:45 rivaroxaban [From Xarelto] Allergy Severe Verified 10/12/18 15:45 fluoxetine Allergy Verified 10/12/18 15:45 hydroxyzine Allergy Verified 10/12/18 15:45 Medications: Current Medications Acetaminophen (Tylenol) 650 mg PO Q4H PRN PRN Reason: Headache/Fever/Mild Pain (1-3) Last Admin: 10/14/18 04:49 Dose: 650 mg Hydrocodone Bitart/Acetaminophen ([place] 5/325) 1 tab PO Q4H PRN PRN Reason: Moderate Pain (4-6) Last Admin: 10/19/18 09:48 Dose: 1 tab Artificial Tears (Tears Naturale) 2 drop EA EYE PRN PRN PRN Reason: Dry Eyes Atorvastatin Calcium (Lipitor) 20 mg PO HS PATRICIA Last Admin: 10/18/18 21:18 Dose: 20 mg Bisacodyl (Dulcolax) 10 mg PO DAILYPRN PRN PRN Reason: Constipation Last Admin: 10/17/18 20:39 Dose: 10 mg Calcium Carbonate (Tums) 1,000 mg PO Q4H PRN PRN Reason: Heartburn or Indigestion Famotidine (Pepcid) 20 mg PO BID [facility] Last Admin: 10/19/18 08:19 Dose: 20 mg Guaifenesin (Robitussin Sf) 200 mg PO Q4H PRN PRN Reason: Cough Hydralazine HCl (Apresoline) 10 mg SLOW IVP Q4H PRN PRN Reason: SBP > 180 and HR < 70 Ceftriaxone Sodium 1 gm/ (Sodium Chloride) 100 mls @ 200 mls/hr IVPB Q24HR [facility] Last Admin: 10/19/18 08:16 Dose: 100 mls Levothyroxine Sodium (Synthroid) 75 mcg PO 0600 [facility] Last Admin: 10/19/18 05:24 Dose: 75 mcg Loperamide HCl (Imodium) 2 mg PO PRN PRN PRN Reason: Diarrhea/Loose Stools Metoclopramide HCl (Reglan) 10 mg IVP Q6H PRN PRN Reason: Nausea/Vomiting Mineral Oil/White Petrolatum (Eucerin Cream) 0 gm TOP BIDPRN PRN PRN Reason: Dry Skin Polyethylene Glycol (Miralax) 17 gm PO DAILY [facility] Last Admin: 10/19/18 08:19 Dose: 17 gm Senna/Docusate Sodium (Senokot S) 2 tab PO BID PRN PRN Reason: Constipation Sodium Chloride ([place] Nasal [place] 0.65%) 0 ml EA NARE QIDPRN PRN PRN Reason: Nasal Congestion Sodium Chloride (Flush - Normal Saline) 10 ml IVF PRN PRN PRN Reason: Saline Flush Sotalol HCl (Betapace) 160 mg PO BID [facility] Last Admin: 10/19/18 08:18 Dose: 160 mg Throat Lozenges (Cepastat Lozenges) 1 anselmo PO Q2H PRN PRN Reason: Sore Throat Zolpidem Tartrate (Ambien) 5 mg PO HSPRN PRN PRN Reason: Insomnia
[2018-10-19] MEDS: Atorvastatin Calcium 20 MG TAB PO SCH (20:34)
[2018-10-20] MEDS: Levothyroxine Sodium 75 MCG TAB PO SCH (05:23)
[2018-10-20 06:35] LABS: #Eosinphils 0.4 thou/uL (0.0-0.7); #Lymphocytes 1.5 thou/uL (1.20-3.40); #Monocytes 0.8 thou/uL (0.11-0.59); %Basophils 0.3 % (0.0-1.0); %Eosinophils 6.4 % (0.0-10.0); %Lymphocytes 22.2 % (21.0-51.0); %Neutrophils 59.1 % (42.0-75.0); Hemoglobin 9.8 g/dL (14.0-18.0); Mean Corpuscular HGB CONC 33.9 g/dL (32.0-36.0); Mean Corpuscular Hemoglobin 29.6 pg (27.0-31.0); Mean Corpuscular Volume 87.5 fL (78.0-98.0); Mean Platelet Volume 6.6 fL (7.4-10.4); Platelet Count 334 thou/uL (130-400); Red Blood Cell (RBC) Count 3.31 mill/uL (4.70-6.10); White Blood Cell (WBC) Count 6.8 thou/uL (4.8-10.8)
[2018-10-20 06:52] LABS: Anion Gap 12 mmol/L (10-20); BUN (Urea Nitrogen) 17 mg/dL (8.4-25.7); Calc. Creatinine Clearance 88 mL/min (70-130); Calcium 9.1 mg/dL (7.8-10.44); Carbon Dioxide 30 mmol/L (23-31); Chloride 102 mmol/L (98-107); Estimated GFR-MDRD 75; Glucose 95 mg/dL (83-110); Sodium 140 mmol/L (136-145)
[2018-10-20] MEDS: Polyethylene Glycol 3350 17 GM Packet PO SCH (08:08)
[2018-10-20] MEDS: Famotidine 20 MG TAB PO SCH ×2 (08:08→20:22)
[2018-10-20] MEDS: Sotalol HCl 80 MG TAB PO SCH ×2 (08:08→20:22)
[2018-10-20] MEDS: cefTRIAXone\\ROCEPHIN 1 GM in Sodium Chloride 0.9% 100 ML IVPB SCH (08:08)
[2018-10-20] MEDS: HYDROcodone/Acetaminophen 5/325 mg Tablet PO PRN ×2 (08:11→20:25)
--- NOTE | 2018-10-20 09:40 | PDOC.PN ---
- Subjective Encounter Start Date: 10/20/18 Encounter Start Time: 08:50 Patient seen and examined. No new complaints. No overnight events - Objective Resuscitation Status - Order Detail: 10/12/18 13:43 Resuscitation Status Routine Resuscitation Status: FULL: Full Resuscitation MAR Reviewed: Yes Vital Signs & Weight: Vital Signs (12 hours) Temp Pulse Resp BP BP BP Pulse Ox 10/20/18 08:08 73 126/80 10/20/18 08:00 97.3 F L 71 18 126/80 100 10/20/18 04:00 97.6 F 73 18 123/76 96 Weight Weight 210 lb 4.8 oz I&O: 10/19/18 10/20/18 10/21/18 06:59 06:59 06:59 Intake Total 1550 980 Output Total 5100 4700 Balance -9310 -3720 Result Diagrams: 10/20/18 05:59 10/20/18 05:59 Phys Exam - Physical Examination Constitutional: NAD HEENT: PERRLA, moist MMs, sclera anicteric Neck: no JVD, supple Respiratory: no wheezing, no rales, no rhonchi Cardiovascular: RRR, no significant murmur, no rub Gastrointestinal: soft, non-tender, no distention, positive bowel sounds Musculoskeletal: no edema, pulses present Neurological: non-focal, normal sensation Lymphatic: no nodes Psychiatric: normal affect Skin: no rash, normal turgor Dx/Plan (1) Acute urinary retention Code(s): R33.8 - OTHER RETENTION OF URINE Status: Acute Comment: Due to blood clot. 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 S/p watchman procedure. Told by behavioral science chair/EPS that he can stop anticoagulation. small PE noted in 07/2018 is questioned at this time ? artefacts (6) CAD (coronary artery disease) Code(s): I25.10 - ATHSCL HEART DISEASE OF [place] CORONARY ARTERY W/O ANG PCTRS Status: Chronic Qualifiers: - Plan cont current plan of care, plan discussed w/ family * medication reviewed as below * symptomatic treatment * continue bladder irrigation for now, still has pinkish urine. Review of Systems - Review of Systems ENT: negative: Ear Pain, Ear Discharge, Nose Pain, Nose Discharge, Nose Congestion, Mouth Pain, Mouth Swelling, Throat Pain, Throat Swelling, Other Respiratory: negative: Cough, Dry, Shortness of Breath, Hemoptysis, SOB with Excertion, Pleuritic Pain, Sputum, Wheezing Cardiovascular: negative: chest pain, palpitations, orthopnea, paroxysmal nocturnal dyspnea, edema, light headedness, other Gastrointestinal: negative: Nausea, Vomiting, Abdominal Pain, Diarrhea, Constipation, Melena, Hematochezia, Other Genitourinary: negative: Dysuria, Frequency, Incontinence, Hematuria, Retention , Other Musculoskeletal: negative: Neck Pain, Shoulder Pain, Arm Pain, Back Pain, Hand Pain, Leg Pain, Foot Pain, Other Skin: negative: Rash, Lesions, Jaime, Bruising, Other - Medications/Allergies Allergies/Adverse Reactions: Allergies Allergy/AdvReac Type Severity Reaction Status Date / Time ciprofloxacin [From Cipro] Allergy Severe Verified 10/12/18 15:45 rivaroxaban [From Xarelto] Allergy Severe Verified 10/12/18 15:45 fluoxetine Allergy Verified 10/12/18 15:45 hydroxyzine Allergy Verified 10/12/18 15:45 Medications: Current Medications Acetaminophen (Tylenol) 650 mg PO Q4H PRN PRN Reason: Headache/Fever/Mild Pain (1-3) Last Admin: 10/14/18 04:49 Dose: 650 mg Hydrocodone Bitart/Acetaminophen ([place] 5/325) 1 tab PO Q4H PRN PRN Reason: Moderate Pain (4-6) Last Admin: 10/20/18 08:11 Dose: 1 tab Artificial Tears (Tears Naturale) 2 drop EA EYE PRN PRN PRN Reason: Dry Eyes Atorvastatin Calcium (Lipitor) 20 mg PO HS PATRICIA Last Admin: 10/19/18 20:34 Dose: 20 mg Bisacodyl (Dulcolax) 10 mg PO DAILYPRN PRN PRN Reason: Constipation Last Admin: 10/17/18 20:39 Dose: 10 mg Calcium Carbonate (Tums) 1,000 mg PO Q4H PRN PRN Reason: Heartburn or Indigestion Famotidine (Pepcid) 20 mg PO BID [facility] Last Admin: 10/20/18 08:08 Dose: 20 mg Guaifenesin (Robitussin Sf) 200 mg PO Q4H PRN PRN Reason: Cough Hydralazine HCl (Apresoline) 10 mg SLOW IVP Q4H PRN PRN Reason: SBP > 180 and HR < 70 Ceftriaxone Sodium 1 gm/ (Sodium Chloride) 100 mls @ 200 mls/hr IVPB Q24HR [facility] Last Admin: 10/20/18 08:08 Dose: 100 mls Levothyroxine Sodium (Synthroid) 75 mcg PO 0600 [facility] Last Admin: 10/20/18 05:23 Dose: 75 mcg Loperamide HCl (Imodium) 2 mg PO PRN PRN PRN Reason: Diarrhea/Loose Stools Metoclopramide HCl (Reglan) 10 mg IVP Q6H PRN PRN Reason: Nausea/Vomiting Mineral Oil/White Petrolatum (Eucerin Cream) 0 gm TOP BIDPRN PRN PRN Reason: Dry Skin Polyethylene Glycol (Miralax) 17 gm PO DAILY [facility] Last Admin: 10/20/18 08:08 Dose: 17 gm Senna/Docusate Sodium (Senokot S) 2 tab PO BID PRN PRN Reason: Constipation Sodium Chloride ([place] Nasal [place] 0.65%) 0 ml EA NARE QIDPRN PRN PRN Reason: Nasal Congestion Sodium Chloride (Flush - Normal Saline) 10 ml IVF PRN PRN PRN Reason: Saline Flush Sotalol HCl (Betapace) 160 mg PO BID [facility] Last Admin: 10/20/18 08:08 Dose: 160 mg Throat Lozenges (Cepastat Lozenges) 1 anselmo PO Q2H PRN PRN Reason: Sore Throat Zolpidem Tartrate (Ambien) 5 mg PO HSPRN PRN PRN Reason: Insomnia
[2018-10-20] MEDS: Atorvastatin Calcium 20 MG TAB PO SCH (20:22)
[2018-10-21] MEDS: Levothyroxine Sodium 75 MCG TAB PO SCH (05:24)
[2018-10-21] MEDS: HYDROcodone/Acetaminophen 5/325 mg Tablet PO PRN ×2 (05:33→15:36)
[2018-10-21] MEDS: cefTRIAXone\\ROCEPHIN 1 GM in Sodium Chloride 0.9% 100 ML IVPB SCH (07:42)
[2018-10-21] MEDS: Famotidine 20 MG TAB PO SCH ×2 (07:51→20:12)
[2018-10-21] MEDS: Sotalol HCl 80 MG TAB PO SCH ×2 (07:52→20:13)
[2018-10-21] MEDS: Polyethylene Glycol 3350 17 GM Packet PO SCH (07:54)
--- NOTE | 2018-10-21 11:39 | PDOC.PN ---
- Subjective Encounter Start Date: 10/21/18 Encounter Start Time: 09:00 Patient seen and examined. No new complaints. No overnight events - Objective Resuscitation Status - Order Detail: 10/12/18 13:43 Resuscitation Status Routine Resuscitation Status: FULL: Full Resuscitation MAR Reviewed: Yes Vital Signs & Weight: Vital Signs (12 hours) Temp Pulse Resp BP BP BP Pulse Ox 10/21/18 11:32 97.8 F 69 20 119/73 94 L 10/21/18 07:52 69 127/69 10/21/18 03:57 97.5 F L 69 18 119/67 96 Weight Weight 210 lb 4.8 oz I&O: 10/20/18 10/21/18 10/22/18 06:59 06:59 06:59 Intake Total 980 500 Output Total 4700 2250 Balance -3720 -1750 Result Diagrams: 10/20/18 05:59 10/20/18 05:59 Phys Exam - Physical Examination Constitutional: NAD HEENT: PERRLA, moist MMs, sclera anicteric Neck: no JVD, supple Respiratory: no wheezing, no rales, no rhonchi Cardiovascular: RRR, no significant murmur, no rub Gastrointestinal: soft, non-tender, no distention, positive bowel sounds Musculoskeletal: no edema, pulses present Neurological: non-focal, normal sensation, moves all 4 limbs Lymphatic: no nodes Psychiatric: normal affect, A&O x 3 Skin: no rash, normal turgor Dx/Plan (1) Acute urinary retention Code(s): R33.8 - OTHER RETENTION OF URINE Status: Acute Comment: Due to blood clot. (2) Anemia due to acute blood loss Code(s): D62 - ACUTE POSTHEMORRHAGIC ANEMIA Status: Acute (3) Edema of both lower extremities Code(s): R60.0 - LOCALIZED EDEMA Status: Resolved (4) Hematuria, gross Status: Acute (5) Anticoagulant long-term use Code(s): Z79.01 - HALFWAY (CURRENT) USE OF ANTICOAGULANTS Status: Chronic Comment: For atrial fib. S/p watchman procedure. Told by brim plater/EPS that he can stop anticoagulation. small PE noted in 07/2018 is questioned at this time ? artefacts (6) CAD (coronary artery disease) Code(s): I25.10 - ATHSCL HEART DISEASE OF [place] CORONARY ARTERY W/O ANG PCTRS Status: Chronic Qualifiers: - Plan cont current plan of care, plan discussed w/ family * medication reviewed as below * symptomatic treatment * continue bladder irrigation * will consider discharge when urology OK. Review of Systems - Review of Systems ENT: negative: Ear Pain, Ear Discharge, Nose Pain, Nose Discharge, Nose Congestion, Mouth Pain, Mouth Swelling, Throat Pain, Throat Swelling, Other Respiratory: negative: Cough, Dry, Shortness of Breath, Hemoptysis, SOB with Excertion, Pleuritic Pain, Sputum, Wheezing Cardiovascular: negative: chest pain, palpitations, orthopnea, paroxysmal nocturnal dyspnea, edema, light headedness, other Gastrointestinal: negative: Nausea, Vomiting, Abdominal Pain, Diarrhea, Constipation, Melena, Hematochezia, Other Genitourinary: negative: Dysuria, Frequency, Incontinence, Hematuria, Retention , Other Musculoskeletal: negative: Neck Pain, Shoulder Pain, Arm Pain, Back Pain, Hand Pain, Leg Pain, Foot Pain, Other - Medications/Allergies Allergies/Adverse Reactions: Allergies Allergy/AdvReac Type Severity Reaction Status Date / Time ciprofloxacin [From Cipro] Allergy Severe Verified 10/12/18 15:45 rivaroxaban [From Xarelto] Allergy Severe Verified 10/12/18 15:45 fluoxetine Allergy Verified 10/12/18 15:45 hydroxyzine Allergy Verified 10/12/18 15:45 Medications: Current Medications Acetaminophen (Tylenol) 650 mg PO Q4H PRN PRN Reason: Headache/Fever/Mild Pain (1-3) Last Admin: 10/14/18 04:49 Dose: 650 mg Hydrocodone Bitart/Acetaminophen ([place] 5/325) 1 tab PO Q4H PRN PRN Reason: Moderate Pain (4-6) Last Admin: 10/21/18 05:33 Dose: 1 tab Artificial Tears (Tears Naturale) 2 drop EA EYE PRN PRN PRN Reason: Dry Eyes Atorvastatin Calcium (Lipitor) 20 mg PO HS PATRICIA Last Admin: 10/20/18 20:22 Dose: 20 mg Bisacodyl (Dulcolax) 10 mg PO DAILYPRN PRN PRN Reason: Constipation Last Admin: 10/17/18 20:39 Dose: 10 mg Calcium Carbonate (Tums) 1,000 mg PO Q4H PRN PRN Reason: Heartburn or Indigestion Famotidine (Pepcid) 20 mg PO BID [facility] Last Admin: 10/21/18 07:51 Dose: 20 mg Guaifenesin (Robitussin Sf) 200 mg PO Q4H PRN PRN Reason: Cough Hydralazine HCl (Apresoline) 10 mg SLOW IVP Q4H PRN PRN Reason: SBP > 180 and HR < 70 Ceftriaxone Sodium 1 gm/ (Sodium Chloride) 100 mls @ 200 mls/hr IVPB Q24HR [facility] Last Admin: 10/21/18 07:42 Dose: 100 mls Levothyroxine Sodium (Synthroid) 75 mcg PO 0600 [facility] Last Admin: 10/21/18 05:24 Dose: 75 mcg Loperamide HCl (Imodium) 2 mg PO PRN PRN PRN Reason: Diarrhea/Loose Stools Metoclopramide HCl (Reglan) 10 mg IVP Q6H PRN PRN Reason: Nausea/Vomiting Mineral Oil/White Petrolatum (Eucerin Cream) 0 gm TOP BIDPRN PRN PRN Reason: Dry Skin Polyethylene Glycol (Miralax) 17 gm PO DAILY [facility] Last Admin: 10/21/18 07:54 Dose: 17 gm Senna/Docusate Sodium (Senokot S) 2 tab PO BID PRN PRN Reason: Constipation Sodium Chloride ([place] Nasal [place] 0.65%) 0 ml EA NARE QIDPRN PRN PRN Reason: Nasal Congestion Sodium Chloride (Flush - Normal Saline) 10 ml IVF PRN PRN PRN Reason: Saline Flush Sotalol HCl (Betapace) 160 mg PO BID [facility] Last Admin: 10/21/18 07:52 Dose: 160 mg Throat Lozenges (Cepastat Lozenges) 1 anselmo PO Q2H PRN PRN Reason: Sore Throat Zolpidem Tartrate (Ambien) 5 mg PO HSPRN PRN PRN Reason: Insomnia
[2018-10-21] MEDS: Atorvastatin Calcium 20 MG TAB PO SCH (20:13)
[2018-10-22] MEDS: HYDROcodone/Acetaminophen 5/325 mg Tablet PO PRN ×2 (05:03→19:16)
[2018-10-22] MEDS: Levothyroxine Sodium 75 MCG TAB PO SCH (05:04)
[2018-10-22 06:37] LABS: #Eosinphils 0.4 thou/uL (0.0-0.7); #Lymphocytes 1.6 thou/uL (1.20-3.40); #Monocytes 0.7 thou/uL (0.11-0.59); #Neutrophils 4.8 thou/uL (1.40-6.50); %Basophils 0.1 % (0.0-1.0); %Eosinophils 5.4 % (0.0-10.0); %Monocytes 9.6 % (0.0-10.0); %Neutrophils 63.9 % (42.0-75.0); Hemoglobin 9.8 g/dL (14.0-18.0); Mean Corpuscular HGB CONC 32.7 g/dL (32.0-36.0); Mean Corpuscular Volume 88.7 fL (78.0-98.0); Mean Platelet Volume 6.5 fL (7.4-10.4); Platelet Count 336 thou/uL (130-400); RBC Distribution Width 13.1 % (11.5-14.5); White Blood Cell (WBC) Count 7.5 thou/uL (4.8-10.8)
[2018-10-22 06:58] LABS: Anion Gap 8 mmol/L (10-20); BUN (Urea Nitrogen) 19 mg/dL (8.4-25.7); Calc. Creatinine Clearance 74 mL/min (70-130); Calcium 9.1 mg/dL (7.8-10.44); Carbon Dioxide 28 mmol/L (23-31); Chloride 103 mmol/L (98-107); Estimated GFR-MDRD 61; Glucose 90 mg/dL (83-110); Potassium 4.4 mmol/L (3.5-5.1); Sodium 135 mmol/L (136-145)
[2018-10-22] MEDS: Polyethylene Glycol 3350 17 GM Packet PO SCH (09:08)
[2018-10-22] MEDS: Famotidine 20 MG TAB PO SCH ×2 (09:08→21:55)
[2018-10-22] MEDS: Sotalol HCl 80 MG TAB PO SCH ×2 (09:08→22:19)
[2018-10-22] MEDS: cefTRIAXone\\ROCEPHIN 1 GM in Sodium Chloride 0.9% 100 ML IVPB SCH (09:08)
--- NOTE | 2018-10-22 11:26 | PDOC.PN ---
- Subjective Encounter Start Date: 10/22/18 Encounter Start Time: 09:30 Patient seen and examined. No new complaints. No overnight events - Objective Resuscitation Status - Order Detail: 10/12/18 13:43 Resuscitation Status Routine Resuscitation Status: FULL: Full Resuscitation MAR Reviewed: Yes Vital Signs & Weight: Vital Signs (12 hours) Temp Pulse Resp BP BP BP Pulse Ox 10/22/18 09:08 145/85 H 10/22/18 08:00 97 10/22/18 07:42 98.1 F 71 20 145/85 H 97 10/22/18 04:14 97.8 F 69 18 125/73 96 10/22/18 00:00 16 Weight Weight 210 lb 4.8 oz I&O: 10/21/18 10/22/18 10/23/18 06:59 06:59 06:59 Intake Total 500 Output Total 2250 700 Balance -1750 -700 Result Diagrams: 10/22/18 06:08 10/22/18 06:08 Phys Exam - Physical Examination Constitutional: NAD HEENT: PERRLA, moist MMs, sclera anicteric Neck: no JVD, supple Respiratory: no wheezing, no rales, no rhonchi Cardiovascular: RRR, no significant murmur, no rub Gastrointestinal: soft, non-tender, no distention, positive bowel sounds Musculoskeletal: no edema, pulses present rizzo+ Neurological: non-focal, normal sensation Lymphatic: no nodes Psychiatric: normal affect, A&O x 3 Skin: no rash, normal turgor Dx/Plan (1) Acute urinary retention Code(s): R33.8 - OTHER RETENTION OF URINE Status: Acute Comment: Due to blood clot. 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 S/p watchman procedure. Told by human resources associate/EPS that he can stop anticoagulation. small PE noted in 07/2018 is questioned at this time ? artefacts (6) CAD (coronary artery disease) Code(s): I25.10 - ATHSCL HEART DISEASE OF [place] CORONARY ARTERY W/O ANG PCTRS Status: Chronic Qualifiers: - Plan cont current plan of care, plan discussed w/ family, continue antibiotics * today CBI turned off, and see if he has any recurrent hematuria * urology will decide if he can be discharged home, but he is scheduled for another urologic procedure this sunday, so suspecting readmission at that time with similar issue * medication reviewed as below * symptomatic treatment. * medically stable * discussed with bedside Review of Systems - Review of Systems ENT: negative: Ear Pain, Ear Discharge, Nose Pain, Nose Discharge, Nose Congestion, Mouth Pain, Mouth Swelling, Throat Pain, Throat Swelling, Other Respiratory: negative: Cough, Dry, Shortness of Breath, Hemoptysis, SOB with Excertion, Pleuritic Pain, Sputum, Wheezing Cardiovascular: negative: chest pain, palpitations, orthopnea, paroxysmal nocturnal dyspnea, edema, light headedness, other Gastrointestinal: negative: Nausea, Vomiting, Abdominal Pain, Diarrhea, Constipation, Melena, Hematochezia, Other Genitourinary: negative: Dysuria, Frequency, Incontinence, Hematuria, Retention , Other Musculoskeletal: negative: Neck Pain, Shoulder Pain, Arm Pain, Back Pain, Hand Pain, Leg Pain, Foot Pain, Other Skin: negative: Rash, Lesions, Jaime, Bruising, Other - Medications/Allergies Allergies/Adverse Reactions: Allergies Allergy/AdvReac Type Severity Reaction Status Date / Time ciprofloxacin [From Cipro] Allergy Severe Verified 10/12/18 15:45 rivaroxaban [From Xarelto] Allergy Severe Verified 10/12/18 15:45 fluoxetine Allergy Verified 10/12/18 15:45 hydroxyzine Allergy Verified 10/12/18 15:45 Medications: Current Medications Acetaminophen (Tylenol) 650 mg PO Q4H PRN PRN Reason: Headache/Fever/Mild Pain (1-3) Last Admin: 10/14/18 04:49 Dose: 650 mg Hydrocodone Bitart/Acetaminophen ([place] 5/325) 1 tab PO Q4H PRN PRN Reason: Moderate Pain (4-6) Last Admin: 10/22/18 05:03 Dose: 1 tab Artificial Tears (Tears Naturale) 2 drop EA EYE PRN PRN PRN Reason: Dry Eyes Atorvastatin Calcium (Lipitor) 20 mg PO HS [facility] Last Admin: 10/21/18 20:13 Dose: 20 mg Bisacodyl (Dulcolax) 10 mg PO DAILYPRN PRN PRN Reason: Constipation Last Admin: 10/17/18 20:39 Dose: 10 mg Calcium Carbonate (Tums) 1,000 mg PO Q4H PRN PRN Reason: Heartburn or Indigestion Famotidine (Pepcid) 20 mg PO BID [facility] Last Admin: 10/22/18 09:08 Dose: 20 mg Guaifenesin (Robitussin Sf) 200 mg PO Q4H PRN PRN Reason: Cough Hydralazine HCl (Apresoline) 10 mg SLOW IVP Q4H PRN PRN Reason: SBP > 180 and HR < 70 Ceftriaxone Sodium 1 gm/ (Sodium Chloride) 100 mls @ 200 mls/hr IVPB Q24HR [facility] Last Admin: 10/22/18 09:08 Dose: 100 mls Levothyroxine Sodium (Synthroid) 75 mcg PO 0600 [facility] Last Admin: 10/22/18 05:04 Dose: 75 mcg Loperamide HCl (Imodium) 2 mg PO PRN PRN PRN Reason: Diarrhea/Loose Stools Metoclopramide HCl (Reglan) 10 mg IVP Q6H PRN PRN Reason: Nausea/Vomiting Mineral Oil/White Petrolatum (Eucerin Cream) 0 gm TOP BIDPRN PRN PRN Reason: Dry Skin Polyethylene Glycol (Miralax) 17 gm PO DAILY [facility] Last Admin: 10/22/18 09:08 Dose: 17 gm Senna/Docusate Sodium (Senokot S) 2 tab PO BID PRN PRN Reason: Constipation Sodium Chloride ([place] Nasal [place] 0.65%) 0 ml EA NARE QIDPRN PRN PRN Reason: Nasal Congestion Sodium Chloride (Flush - Normal Saline) 10 ml IVF PRN PRN PRN Reason: Saline Flush Sotalol HCl (Betapace) 160 mg PO BID [facility] Last Admin: 10/22/18 09:08 Dose: 160 mg Throat Lozenges (Cepastat Lozenges) 1 anselmo PO Q2H PRN PRN Reason: Sore Throat Zolpidem Tartrate (Ambien) 5 mg PO HSPRN PRN PRN Reason: Insomnia
[2018-10-22] MEDS: Acetaminophen 325 MG TAB PO PRN (17:34)
--- NOTE | 2018-10-22 19:04 | PRG ---
DATE OF SERVICE: 10/22/2018 SUBJECTIVE: The patient has no complaints. He continues to have hematuria intermittently, which sometimes worsens and sometimes improves. He had elected not to be discharged. He does not have any bladder spasms or pain other than some mild discomfort on his right side where his stent is located. He did state that he wished to proceed forward with TUVP at the time of his ureteroscopy, which is currently scheduled for Sunday. OBJECTIVE: VITAL SIGNS: Temperature 98.1, pulse 71, respirations 20, blood pressure 145/85, and saturations 97% on room air. GENERAL: No apparent distress, communicating, and alert. CARDIOVASCULAR: Regular rate and rhythm. ABDOMEN: Soft, nontender, and nondistended. Positive bowel sounds. : Landrum catheter in place with a very light orange-colored urine consistent with extremely mild bleeding on CBI on a slow drip. EXTREMITIES: No clubbing, cyanosis, or edema. LABORATORY EVALUATION: The patient's white count is 7.5 with hemoglobin of 9.8, platelets of 336. Creatinine is 1.17. ASSESSMENT AND PLAN: A 73-year-old white male with gross hematuria, which is improving, but not resolved. The patient's catheter is draining well and he is at low risk for clotting on the CBI. Due to his persistent hematuria and possible prostate or renal origin, he has elected to remain in the hospital until his surgery on Sunday, at which point we will plan for definitive ureteroscopy, potential cauterization of anything in his kidney that is still bleeding, removal of any residual stones, then performance of a TUVP to vaporize out his prostate and fix any bleeding as well as correct the obstruction which was present and previously noted. I have gone over the TUVP with him in detail including risks and benefits. The risks, which include, but are not limited to bleeding, infection, urethral stricture, retrograde ejaculation, damage to the bladder, ureteral orifices, erectile dysfunction, urge or stress incontinence, and need for further procedures. He understands these risks and wishes to proceed forward with the TUVP on Sunday. I will continue to follow him and manage his CBI until then. Job ID: [id number]
[2018-10-22] MEDS: Atorvastatin Calcium 20 MG TAB PO SCH (21:54)
--- NOTE | 2018-10-22 22:13 | PRG ---
DATE OF SERVICE: 10/22/2018 SUBJECTIVE: The patient is complaining of bladder pain due to clot retention, called by nursing staff as catheter clotted off. CBI was held this morning, restarted. I have seen the patient for Dr. Bernardo last week. CBI was going at a low rate with clear urine. His anticoagulation is on hold. OBJECTIVE: VITAL SIGNS: Stable. ABDOMEN: Soft. pre-existing catheter was removed and a new 22-[place] 3-way Landrum catheter placed without significant issues. CBI is restarted draining. manually irrigate clots were evacuated; subsequently transparent red pink-tinged urine. CBI restarted at a moderate high-rate, continuous drip. LABORATORY DATA: Labs reviewed, demonstrating his renal function stable, normalized. Hemoglobin is stable at 9.8, on Rocephin. IMPRESSION AND PLAN: Mr. Heredia is a 73-year-old male with history of clot retention, status post ureteroscopy, laser lithotripsy, presented with clot retention. Recurrence of clot retention tonight. Continue to hold all anticoagulation due to recurrent hematuria. Myrbetriq. Advised for bladder spasms. Son and family reassured. Approximately 40 minutes spent with the patient at bedside regarding direct patient care. Job ID: [id number] [facility]
[2018-10-23] MEDS: Acetaminophen 325 MG TAB PO PRN ×2 (03:29→12:35)
[2018-10-23 04:59] LABS: Bilirubin Negative (Negative); Blood, Urine Large (Negative); Clarity CLOUDY (Clear); Glucose, Urine (Dipstick) Negative (Negative); Leukocyte Large (Negative); Nitrite Negative (Negative); Protein, Urine (Dipstick) Trace mg/dL (Neg-Trace); Specific Gravity, Urine 1.005 (1.002-1.036); Urobilinogen 0.2 mg/dL (0.2-1.0)
[2018-10-23 05:02] LABS: Bacteria/HPF None Seen HPF (None Seen); Hyaline Casts/LPF 0-3 HYALINE CAST LPF (0-3 Hyaline); Pathc Cast-AUWi Flag 0.25 (0-2.49); Squamous Epithelial None Seen HPF (0-3)
--- NOTE | 2018-10-23 05:03 | RAD ---
XR Chest 1 View Portable HISTORY: Shortness of breath and cough COMPARISON: 06/13/2017 exam FINDINGS: Heart size is slightly enlarged with a pacemaker in place. There is elevation to the left h emidiaphragm with linear interstitial change in left base most likely chronic in nature. IMPRESSION: Cardiomegaly. Linear parenchymal change in left base is probably on the basis of scar.
[2018-10-23 05:08] LABS: RBC/HPF GREATER THAN 50-TNTC HPF (0-3); Yeast-AUWi Flag 90.2 (0-25.0)
[2018-10-23 05:29] LABS: Other Casts/LPF 0-3 RBC CASTS LPF (0-3 Hyaline); Yeast-All Forms None Seen HPF (None Seen)
[2018-10-23 06:21] LABS: Hemoglobin 10.8 g/dL (14.0-18.0); Mean Corpuscular HGB CONC 30.9 g/dL (32.0-36.0); Mean Corpuscular Hemoglobin 27.3 pg (27.0-31.0); Mean Corpuscular Volume 88.3 fL (78.0-98.0); Mean Platelet Volume 6.6 fL (7.4-10.4); Platelet Count 416 thou/uL (130-400); RBC Distribution Width 13.3 % (11.5-14.5); Red Blood Cell (RBC) Count 3.93 mill/uL (4.70-6.10); White Blood Cell (WBC) Count 21.2 thou/uL (4.8-10.8)
[2018-10-23] MEDS: Levothyroxine Sodium 75 MCG TAB PO SCH (06:23)
[2018-10-23 06:40] LABS: Anion Gap 14 mmol/L (10-20); BUN (Urea Nitrogen) 20 mg/dL (8.4-25.7); Calc. Creatinine Clearance 85 mL/min (70-130); Calcium 9.8 mg/dL (7.8-10.44); Carbon Dioxide 29 mmol/L (23-31); Chloride 102 mmol/L (98-107); Estimated GFR-MDRD 72; Glucose 127 mg/dL (83-110); Potassium 4.9 mmol/L (3.5-5.1); Sodium 140 mmol/L (136-145)
[2018-10-23 07:08] LABS: Band 23 % (5-11); Lymphocytes 3 % (21-51); MDiff Complete? YES; Monocytes 4 % (0-10); Neutrophil 70 % (42-75); Platelet Morphology Comment Appears Increased; Polychromasia SLIGHT = 2-3 cells (100X) (0-2/hpf)
[2018-10-23] MEDS: Famotidine 20 MG TAB PO SCH ×2 (08:22→19:41)
[2018-10-23] MEDS: cefTRIAXone\\ROCEPHIN 1 GM in Sodium Chloride 0.9% 100 ML IVPB SCH (08:22)
[2018-10-23] MEDS: Sotalol HCl 80 MG TAB PO SCH ×2 (08:22→19:42)
[2018-10-23] MEDS: Polyethylene Glycol 3350 17 GM Packet PO SCH (08:22)
[2018-10-23] MEDS: HYDROcodone/Acetaminophen 5/325 mg Tablet PO PRN ×2 (08:31→19:41)
--- NOTE | 2018-10-23 12:23 | PDOC.PN ---
- Subjective Encounter Start Date: 10/23/18 Encounter Start Time: 09:20 last night he had fever, today wbc count increased, he had retention again last night - Objective Resuscitation Status - Order Detail: 10/12/18 13:43 Resuscitation Status Routine Resuscitation Status: FULL: Full Resuscitation MAR Reviewed: Yes Vital Signs & Weight: Vital Signs (12 hours) Temp Pulse Resp BP BP Pulse Ox 10/23/18 08:27 99.5 F 75 18 121/57 L 95 10/23/18 08:22 75 121/57 L 10/23/18 08:00 95 10/23/18 06:30 99.0 F 10/23/18 04:00 101.4 F H 75 16 135/84 96 10/23/18 03:48 100.9 F H 80 24 H 160/80 H Weight Weight 210 lb 4.8 oz I&O: 10/22/18 10/23/18 10/24/18 06:59 06:59 06:59 Intake Total 1300 Output Total 700 3600 Balance -700 -2300 Result Diagrams: 10/23/18 05:08 10/23/18 05:08 Phys Exam - Physical Examination Constitutional: NAD HEENT: PERRLA, moist MMs, sclera anicteric Neck: no JVD, supple Respiratory: no wheezing, no rales, no rhonchi Cardiovascular: RRR, no significant murmur, no rub Gastrointestinal: soft, non-tender, no distention, positive bowel sounds Musculoskeletal: no edema, pulses present Neurological: non-focal, normal sensation, moves all 4 limbs Lymphatic: no nodes Psychiatric: normal affect, A&O x 3 Skin: no rash, normal turgor Dx/Plan (1) Acute urinary retention Code(s): R33.8 - OTHER RETENTION OF URINE Status: Acute Comment: Due to blood clot. (2) Anemia due to acute blood loss Code(s): D62 - ACUTE POSTHEMORRHAGIC ANEMIA Status: Acute (3) Edema of both lower extremities Code(s): R60.0 - LOCALIZED EDEMA Status: Resolved (4) Hematuria, gross Status: Acute (5) CAD (coronary artery disease) Code(s): I25.10 - ATHSCL HEART DISEASE OF [place] CORONARY ARTERY W/O ANG PCTRS Status: Chronic Qualifiers: - Plan cont current plan of care, plan discussed w/ family, continue antibiotics * continue rocephin * add vancomycin * repeat labs tomorrow * continue bladder irrigation * will repeat labs tomorrow * medication reviewed as below * symptomatic treatment. Review of Systems - Review of Systems ENT: negative: Ear Pain, Ear Discharge, Nose Pain, Nose Discharge, Nose Congestion, Mouth Pain, Mouth Swelling, Throat Pain, Throat Swelling, Other Respiratory: negative: Cough, Dry, Shortness of Breath, Hemoptysis, SOB with Excertion, Pleuritic Pain, Sputum, Wheezing Cardiovascular: negative: chest pain, palpitations, orthopnea, paroxysmal nocturnal dyspnea, edema, light headedness, other Gastrointestinal: negative: Nausea, Vomiting, Abdominal Pain, Diarrhea, Constipation, Melena, Hematochezia, Other Genitourinary: negative: Dysuria, Frequency, Incontinence, Hematuria, Retention , Other Musculoskeletal: negative: Neck Pain, Shoulder Pain, Arm Pain, Back Pain, Hand Pain, Leg Pain, Foot Pain, Other - Medications/Allergies Allergies/Adverse Reactions: Allergies Allergy/AdvReac Type Severity Reaction Status Date / Time ciprofloxacin [From Cipro] Allergy Severe Verified 10/12/18 15:45 rivaroxaban [From Xarelto] Allergy Severe Verified 10/12/18 15:45 fluoxetine Allergy Verified 10/12/18 15:45 hydroxyzine Allergy Verified 10/12/18 15:45 Medications: Current Medications Acetaminophen (Tylenol) 650 mg PO Q4H PRN PRN Reason: Headache/Fever/Mild Pain (1-3) Last Admin: 10/23/18 03:29 Dose: 650 mg Hydrocodone Bitart/Acetaminophen ([place] 5/325) 1 tab PO Q4H PRN PRN Reason: Moderate Pain (4-6) Last Admin: 10/23/18 08:31 Dose: 1 tab Artificial Tears (Tears Naturale) 2 drop EA EYE PRN PRN PRN Reason: Dry Eyes Atorvastatin Calcium (Lipitor) 20 mg PO HS [facility] Last Admin: 10/22/18 21:54 Dose: 20 mg Bisacodyl (Dulcolax) 10 mg PO DAILYPRN PRN PRN Reason: Constipation Last Admin: 10/17/18 20:39 Dose: 10 mg Calcium Carbonate (Tums) 1,000 mg PO Q4H PRN PRN Reason: Heartburn or Indigestion Famotidine (Pepcid) 20 mg PO BID [facility] Last Admin: 10/23/18 08:22 Dose: 20 mg Guaifenesin (Robitussin Sf) 200 mg PO Q4H PRN PRN Reason: Cough Hydralazine HCl (Apresoline) 10 mg SLOW IVP Q4H PRN PRN Reason: SBP > 180 and HR < 70 Ceftriaxone Sodium 1 gm/ (Sodium Chloride) 100 mls @ 200 mls/hr IVPB Q24HR [facility] Last Admin: 10/23/18 08:22 Dose: 100 mls Levothyroxine Sodium (Synthroid) 75 mcg PO 0600 [facility] Last Admin: 10/23/18 06:23 Dose: 75 mcg Loperamide HCl (Imodium) 2 mg PO PRN PRN PRN Reason: Diarrhea/Loose Stools Metoclopramide HCl (Reglan) 10 mg IVP Q6H PRN PRN Reason: Nausea/Vomiting Mineral Oil/White Petrolatum (Eucerin Cream) 0 gm TOP BIDPRN PRN PRN Reason: Dry Skin Mirabegron (Myrbetriq Er) 50 mg PO DAILY [facility] Last Admin: 10/23/18 08:31 Dose: 50 mg Polyethylene Glycol (Miralax) 17 gm PO DAILY [facility] Last Admin: 10/23/18 08:22 Dose: 17 gm Senna/Docusate Sodium (Senokot S) 2 tab PO BID PRN PRN Reason: Constipation Sodium Chloride ([place] Nasal [place] 0.65%) 0 ml EA NARE QIDPRN PRN PRN Reason: Nasal Congestion Sodium Chloride (Flush - Normal Saline) 10 ml IVF PRN PRN PRN Reason: Saline Flush Sotalol HCl (Betapace) 160 mg PO BID [facility] Last Admin: 10/23/18 08:22 Dose: 160 mg Throat Lozenges (Cepastat Lozenges) 1 anselmo PO Q2H PRN PRN Reason: Sore Throat Zolpidem Tartrate (Ambien) 5 mg PO HSPRN PRN PRN Reason: Insomnia
[2018-10-23] MEDS: Vancomycin HCl 1.25 GM in Sodium Chloride 0.9% 250 ML 250 ML IVPB SCH (14:40)
[2018-10-23] MEDS ORDERED: Oxybutynin 5 MG TAB PO PRN (18:20)
[2018-10-23] MEDS: Atorvastatin Calcium 20 MG TAB PO SCH (19:41)
--- NOTE | 2018-10-23 19:44 | PRG ---
DATE OF SERVICE: 10/23/2018 SUBJECTIVE: The patient had a rough night. His catheter became clogged with blood clot and he ended up with urinary overdistention injury. Again, his catheter had to be changed out for another three way Landrum catheter and subsequently irrigated by Dr. Yassine Bernardo overnight. At which point, he felt much better and his urine became more clear. CBI was increased. The patient also had a fever after this up to 101, then subsequently 102. His white count was increased up to 21,000. The Medicine Team has added vancomycin on top of his antibiotic regimen. OBJECTIVE: VITAL SIGNS: Temperature 98.5, pulse 72, respirations 20, blood pressure 102/55, and saturation 93% on room air. GENERAL: No apparent distress. Communicative and alert. CARDIOVASCULAR: Regular rate and rhythm. Normal S1 and S2. CHEST: No increased work of breathing. ABDOMEN: Soft, nontender, and nondistended. Positive bowel sounds. : Landrum catheter in place, draining clear yellow urine on CBI with no blood. EXTREMITIES: 2+ edema. LABORATORY EVALUATION: The full set of labs are in the [facility] system which I have reviewed. Of note, the patient's white count is 21,000 with a hemoglobin 10.8, platelet count of 416,000. Creatinine is 1.01. Urine culture and blood cultures are pending. Chest x-ray demonstrates cardiomegaly with some potential old scarring on the lung, but otherwise no evidence of pneumonia. ASSESSMENT AND PLAN: A 73-year-old white male with overdistention injury overnight, which likely resulted in reflux of colonized urine up into the kidney resulting in the temperature spike along with elevation in white count. Now, his catheter is now draining normally. This should resolve, but I would recommend broadening out his antibiotics. I agree with the vancomycin and I will change him to Zosyn for further coverage of anaerobes, which ceftriaxone may not cover. We will continue this regimen and monitor for adequate resolution of his elevated white count. He still is currently scheduled for surgery on Sunday, which we will keep the plan for unless he continues to have fevers in which case we may have to delay his surgery. I would recommend continuing his CBI for now. I have also noticed the patient is on Myrbetriq, which is contraindicated with sotalol. I will stop the Myrbetriq and put him back on oxybutynin. Job ID: [id number]
[2018-10-23] MEDS: Piperacillin/Tazobactam 3.375 GM in Sodium Chloride 0.9% 100 ML IVPB SCH (23:57)
[2018-10-24] MEDS: Vancomycin HCl 1.25 GM in Sodium Chloride 0.9% 250 ML 250 ML IVPB SCH ×2 (02:55→14:10)
[2018-10-24] MEDS: Acetaminophen 325 MG TAB PO PRN (03:28)
[2018-10-24] MEDS: Piperacillin/Tazobactam 3.375 GM in Sodium Chloride 0.9% 100 ML IVPB SCH ×4 (05:28→23:23)
[2018-10-24] MEDS: Levothyroxine Sodium 75 MCG TAB PO SCH (05:28)
[2018-10-24] MEDS: Sotalol HCl 80 MG TAB PO SCH ×2 (08:33→20:47)
[2018-10-24] MEDS: Polyethylene Glycol 3350 17 GM Packet PO SCH (08:33)
[2018-10-24] MEDS: Famotidine 20 MG TAB PO SCH ×2 (08:39→20:47)
--- NOTE | 2018-10-24 10:21 | PDOC.PN ---
- Subjective Encounter Start Date: 10/24/18 Encounter Start Time: 09:20 Patient seen and examined. No new complaints. No overnight events - Objective Resuscitation Status - Order Detail: 10/12/18 13:43 Resuscitation Status Routine Resuscitation Status: FULL: Full Resuscitation MAR Reviewed: Yes Vital Signs & Weight: Vital Signs (12 hours) Temp Pulse Resp BP BP Pulse Ox 10/24/18 08:33 71 10/24/18 08:00 94 L 10/24/18 07:48 97.4 F L 71 16 104/60 94 L 10/24/18 04:00 98.4 F 76 18 97/53 L 93 L 10/24/18 00:00 98.6 F 70 18 104/54 L Weight Weight 210 lb 4.8 oz I&O: 10/23/18 10/24/18 10/25/18 06:59 06:59 06:59 Intake Total 1300 3040 Output Total 3600 3900 Balance -2300 -860 Result Diagrams: 10/23/18 05:08 10/23/18 05:08 Phys Exam - Physical Examination Constitutional: NAD HEENT: PERRLA, moist MMs, sclera anicteric Neck: no JVD, supple Respiratory: no wheezing, no rales, no rhonchi Cardiovascular: RRR, no significant murmur, no rub Gastrointestinal: soft, non-tender, no distention, positive bowel sounds Musculoskeletal: no edema, pulses present rizzo+ Neurological: non-focal, normal sensation, moves all 4 limbs Lymphatic: no nodes Psychiatric: normal affect, A&O x 3 Skin: no rash, normal turgor Dx/Plan (1) Acute urinary retention Code(s): R33.8 - OTHER RETENTION OF URINE Status: Acute Comment: Due to blood clot. (2) Anemia due to acute blood loss Code(s): D62 - ACUTE POSTHEMORRHAGIC ANEMIA Status: Acute (3) Edema of both lower extremities Code(s): R60.0 - LOCALIZED EDEMA Status: Resolved (4) Hematuria, gross Status: Acute (5) CAD (coronary artery disease) Code(s): I25.10 - ATHSCL HEART DISEASE OF [place] CORONARY ARTERY W/O ANG PCTRS Status: Chronic Qualifiers: - Plan cont current plan of care, plan discussed w/ family, continue antibiotics * continue vancomycin and zosyn * medication reviewed as below * symptomatic treatment * repeat labs tomorrow * continue bladder irrigation. Review of Systems - Review of Systems ENT: negative: Ear Pain, Ear Discharge, Nose Pain, Nose Discharge, Nose Congestion, Mouth Pain, Mouth Swelling, Throat Pain, Throat Swelling, Other Respiratory: negative: Cough, Dry, Shortness of Breath, Hemoptysis, SOB with Excertion, Pleuritic Pain, Sputum, Wheezing Cardiovascular: negative: chest pain, palpitations, orthopnea, paroxysmal nocturnal dyspnea, edema, light headedness, other Gastrointestinal: negative: Nausea, Vomiting, Abdominal Pain, Diarrhea, Constipation, Melena, Hematochezia, Other Genitourinary: negative: Dysuria, Frequency, Incontinence, Hematuria, Retention , Other Musculoskeletal: negative: Neck Pain, Shoulder Pain, Arm Pain, Back Pain, Hand Pain, Leg Pain, Foot Pain, Other - Medications/Allergies Allergies/Adverse Reactions: Allergies Allergy/AdvReac Type Severity Reaction Status Date / Time ciprofloxacin [From Cipro] Allergy Severe Verified 10/12/18 15:45 rivaroxaban [From Xarelto] Allergy Severe Verified 10/12/18 15:45 fluoxetine Allergy Verified 10/12/18 15:45 hydroxyzine Allergy Verified 10/12/18 15:45 Medications: Current Medications Acetaminophen (Tylenol) 650 mg PO Q4H PRN PRN Reason: Headache/Fever/Mild Pain (1-3) Last Admin: 10/24/18 03:28 Dose: 650 mg Hydrocodone Bitart/Acetaminophen ([place] 5/325) 1 tab PO Q4H PRN PRN Reason: Moderate Pain (4-6) Last Admin: 10/23/18 19:41 Dose: 1 tab Artificial Tears (Tears Naturale) 2 drop EA EYE PRN PRN PRN Reason: Dry Eyes Atorvastatin Calcium (Lipitor) 20 mg PO HS [facility] Last Admin: 10/23/18 19:41 Dose: 20 mg Bisacodyl (Dulcolax) 10 mg PO DAILYPRN PRN PRN Reason: Constipation Last Admin: 10/17/18 20:39 Dose: 10 mg Calcium Carbonate (Tums) 1,000 mg PO Q4H PRN PRN Reason: Heartburn or Indigestion Famotidine (Pepcid) 20 mg PO BID [facility] Last Admin: 10/24/18 08:39 Dose: 20 mg Guaifenesin (Robitussin Sf) 200 mg PO Q4H PRN PRN Reason: Cough Hydralazine HCl (Apresoline) 10 mg SLOW IVP Q4H PRN PRN Reason: SBP > 180 and HR < 70 Vancomycin HCl 1.25 gm/ Sodium (Chloride) 250 mls @ 166.667 mls/hr IVPB 0200, 1400 [facility] Last Admin: 10/24/18 02:55 Dose: 250 mls Piperacillin Sod/Tazobactam (Sod 3.375 gm/ Sodium Chloride) 100 mls @ 200 mls/ hr IVPB Q6HR [facility] Last Admin: 10/24/18 05:28 Dose: 100 mls Levothyroxine Sodium (Synthroid) 75 mcg PO 0600 [facility] Last Admin: 10/24/18 05:28 Dose: 75 mcg Loperamide HCl (Imodium) 2 mg PO PRN PRN PRN Reason: Diarrhea/Loose Stools Metoclopramide HCl (Reglan) 10 mg IVP Q6H PRN PRN Reason: Nausea/Vomiting Mineral Oil/White Petrolatum (Eucerin Cream) 0 gm TOP BIDPRN PRN PRN Reason: Dry Skin Miscellaneous Medication (Pharmacy To Dose) 1 each IVPB PRN PRN PRN Reason: Pharmacy to dose Oxybutynin Chloride (Ditropan) 5 mg PO Q8H PRN PRN Reason: Bladder Spasms Polyethylene Glycol (Miralax) 17 gm PO DAILY [facility] Last Admin: 10/24/18 08:33 Dose: 17 gm Senna/Docusate Sodium (Senokot S) 2 tab PO BID PRN PRN Reason: Constipation Sodium Chloride ([place] Nasal [place] 0.65%) 0 ml EA NARE QIDPRN PRN PRN Reason: Nasal Congestion Sodium Chloride (Flush - Normal Saline) 10 ml IVF PRN PRN PRN Reason: Saline Flush Sotalol HCl (Betapace) 160 mg PO BID [facility] Last Admin: 10/24/18 08:33 Dose: 160 mg Throat Lozenges (Cepastat Lozenges) 1 anselmo PO Q2H PRN PRN Reason: Sore Throat Zolpidem Tartrate (Ambien) 5 mg PO HSPRN PRN PRN Reason: Insomnia
--- NOTE | 2018-10-24 18:28 | PRG ---
DATE OF SERVICE: 10/24/2018 SUBJECTIVE: The patient states he is feeling fine. He had no significant problems overnight. No issues with clotting in his catheter. His CBI has been running and his urine has been extremely clear. He has not had any fevers. OBJECTIVE: VITAL SIGNS: Temperature 97.4, pulse 71, respirations 16, blood pressure 104/60, saturation 94% on room air. GENERAL: No apparent distress. Communicative and alert. CARDIOVASCULAR: Regular rate and rhythm. ABDOMEN: Soft, nontender, and nondistended. Positive bowel sounds. : Landrum catheter in place with moderate drip CBI, completely clear with no blood. EXTREMITIES: No clubbing or cyanosis. 1+ edema. LABS: No labs to review today. ASSESSMENT AND PLAN: A 73-year-old white male with hematuria, persistent right nephrolithiasis, benign prostatic hypertrophy, and urinary retention. He has remained afebrile and his urine culture is negative. He is currently on vancomycin and Zosyn, which we will leave him on until after his surgery. He is scheduled to go tomorrow for right ureteroscopy, laser lithotripsy, basket extraction of stone, replacement of his right stent, and transurethral vaporization of the prostate. All of this has been discussed with him previously and he has agreed to proceed forward. His surgery will be tomorrow. Job ID: [id number]
[2018-10-24] MEDS: Atorvastatin Calcium 20 MG TAB PO SCH (20:47)
[2018-10-24] MEDS: HYDROcodone/Acetaminophen 5/325 mg Tablet PO PRN (20:54)
[2018-10-24] MEDS: Sodium Chloride 0.9% 1,000 ML IV SCH (23:33)
[2018-10-25] MEDS: Vancomycin HCl 1.25 GM in Sodium Chloride 0.9% 250 ML 250 ML IVPB SCH ×2 (02:10→15:29)
[2018-10-25] MEDS: Levothyroxine Sodium 75 MCG TAB PO SCH (05:06)
[2018-10-25] MEDS: Piperacillin/Tazobactam 3.375 GM in Sodium Chloride 0.9% 100 ML IVPB SCH ×4 (05:07→23:16)
[2018-10-25] MEDS: Sotalol HCl 80 MG TAB PO SCH ×2 (06:05→20:45)
[2018-10-25 07:22] LABS: Hemoglobin 10.2 g/dL (14.0-18.0); Mean Corpuscular HGB CONC 32.6 g/dL (32.0-36.0); Mean Corpuscular Hemoglobin 28.9 pg (27.0-31.0); Mean Corpuscular Volume 88.6 fL (78.0-98.0); Mean Platelet Volume 6.9 fL (7.4-10.4); Platelet Count 348 thou/uL (130-400); RBC Distribution Width 13.4 % (11.5-14.5); Red Blood Cell (RBC) Count 3.55 mill/uL (4.70-6.10); White Blood Cell (WBC) Count 16.6 thou/uL (4.8-10.8)
[2018-10-25 07:26] LABS: ALT (SGPT) 16 U/L (8-55); AST (SGOT) 23 U/L (5-34); Albumin 3.5 g/dL (3.4-4.8); Alkaline Phosphatase 88 U/L (40-150); Anion Gap 13 mmol/L (10-20); BUN (Urea Nitrogen) 19 mg/dL (8.4-25.7); Bilirubin, Total 0.5 mg/dL (0.2-1.2); Calc. Creatinine Clearance 79 mL/min (70-130); Calcium 9.6 mg/dL (7.8-10.44); Carbon Dioxide 26 mmol/L (23-31); Chloride 102 mmol/L (98-107); Estimated GFR-MDRD 66; Globulin 3.4 g/dL (2.4-3.5); Glucose 95 mg/dL (83-110); Potassium 3.8 mmol/L (3.5-5.1); Protein, Total 6.9 g/dL (5.8-8.1); Sodium 137 mmol/L (136-145)
[2018-10-25] MEDS: Polyethylene Glycol 3350 17 GM Packet PO SCH (08:29)
[2018-10-25] MEDS: Famotidine 20 MG TAB PO SCH ×2 (08:29→20:43)
[2018-10-25 08:42] LABS: Band 16 % (5-11); Eosinophils 4 % (0-10); Lymphocytes 6 % (21-51); MDiff Complete? YES; Monocytes 11 % (0-10); Neutrophil 62 % (42-75); Polychromasia SLIGHT = 2-3 cells (100X) (0-2/hpf)
--- NOTE | 2018-10-25 10:52 | PDOC.PN ---
- Subjective Encounter Start Date: 10/25/18 Encounter Start Time: 09:10 Patient seen and examined. No new complaints. No overnight events - Objective Resuscitation Status - Order Detail: 10/12/18 13:43 Resuscitation Status Routine Resuscitation Status: FULL: Full Resuscitation MAR Reviewed: Yes Vital Signs & Weight: Vital Signs (12 hours) Temp Pulse Resp BP BP BP Pulse Ox 10/25/18 08:00 96 10/25/18 07:40 99.1 F 68 16 135/65 96 10/25/18 06:05 73 10/25/18 05:11 98.3 F 73 18 141/67 H 97 10/24/18 23:34 98.4 F 71 18 116/58 L 98 Weight Admit Weight 210 lb 4.8 oz Weight 210 lb 4.8 oz I&O: 10/24/18 10/25/18 10/26/18 06:59 06:59 06:59 Intake Total 3040 1300 Output Total 3900 1400 Balance -860 -100 Result Diagrams: 10/25/18 06:13 10/25/18 06:13 Phys Exam - Physical Examination Constitutional: NAD HEENT: PERRLA, moist MMs, sclera anicteric Neck: no JVD, supple Respiratory: no wheezing, no rales, no rhonchi Cardiovascular: RRR, no significant murmur, no rub Gastrointestinal: soft, non-tender, no distention, positive bowel sounds Musculoskeletal: pulses present trace edema noted Neurological: non-focal, normal sensation, moves all 4 limbs Psychiatric: normal affect, A&O x 3 Skin: no rash, normal turgor Dx/Plan (1) Acute urinary retention Code(s): R33.8 - OTHER RETENTION OF URINE Status: Acute Comment: Due to blood clot. (2) Anemia due to acute blood loss Code(s): D62 - ACUTE POSTHEMORRHAGIC ANEMIA Status: Acute (3) Edema of both lower extremities Code(s): R60.0 - LOCALIZED EDEMA Status: Resolved (4) Hematuria, gross Status: Acute (5) CAD (coronary artery disease) Code(s): I25.10 - ATHSCL HEART DISEASE OF [place] CORONARY ARTERY W/O ANG PCTRS Status: Chronic Qualifiers: (6) Bandemia Code(s): D72.825 - BANDEMIA Status: Acute (7) Atrial fibrillation and flutter Code(s): I48.91 - UNSPECIFIED ATRIAL FIBRILLATION; I48.92 - UNSPECIFIED ATRIAL FLUTTER Status: Chronic (8) Cancer of skin of right ear Code(s): C44.202 - UNSP MALIG NEOPLASM SKIN/ RIGHT EAR AND EXTERNAL AURIC CANAL Status: Chronic (9) Nephrolithiasis Status: Chronic Comment: Right sided. S/p stent placement (10) CHENTE (acute kidney injury) Code(s): N17.9 - ACUTE KIDNEY FAILURE, UNSPECIFIED Status: Resolved Comment : No improvement in renal function as yet. (11) Hyponatremia Code(s): E87.1 - HYPO-OSMOLALITY AND HYPONATREMIA Status: Resolved - Plan cont current plan of care, plan discussed w/ family, continue antibiotics * continue vancomycin and zosyn * today urology planning ureteroscopy, lithotripsy and basket stone removal * medication reviewed as below * symptomatic treatment * will monitor in hospital after procedure for any recurrent hematuria and clot retention. Review of Systems - Review of Systems ENT: negative: Ear Pain, Ear Discharge, Nose Pain, Nose Discharge, Nose Congestion, Mouth Pain, Mouth Swelling, Throat Pain, Throat Swelling, Other Respiratory: negative: Cough, Dry, Shortness of Breath, Hemoptysis, SOB with Excertion, Pleuritic Pain, Sputum, Wheezing Cardiovascular: negative: chest pain, palpitations, orthopnea, paroxysmal nocturnal dyspnea, edema, light headedness, other Gastrointestinal: negative: Nausea, Vomiting, Abdominal Pain, Diarrhea, Constipation, Melena, Hematochezia, Other Genitourinary: negative: Dysuria, Frequency, Incontinence, Hematuria, Retention , Other Musculoskeletal: negative: Neck Pain, Shoulder Pain, Arm Pain, Back Pain, Hand Pain, Leg Pain, Foot Pain, Other Skin: negative: Rash, Lesions, Jaime, Bruising, Other - Medications/Allergies Allergies/Adverse Reactions: Allergies Allergy/AdvReac Type Severity Reaction Status Date / Time ciprofloxacin [From Cipro] Allergy Severe Verified 10/12/18 15:45 rivaroxaban [From Xarelto] Allergy Severe Verified 10/12/18 15:45 fluoxetine Allergy Verified 10/12/18 15:45 hydroxyzine Allergy Verified 10/12/18 15:45 Medications: Current Medications Acetaminophen (Tylenol) 650 mg PO Q4H PRN PRN Reason: Headache/Fever/Mild Pain (1-3) Last Admin: 10/24/18 03:28 Dose: 650 mg Hydrocodone Bitart/Acetaminophen ([place] 5/325) 1 tab PO Q4H PRN PRN Reason: Moderate Pain (4-6) Last Admin: 10/24/18 20:54 Dose: 1 tab Artificial Tears (Tears Naturale) 2 drop EA EYE PRN PRN PRN Reason: Dry Eyes Atorvastatin Calcium (Lipitor) 20 mg PO HS [facility] Last Admin: 10/24/18 20:47 Dose: 20 mg Bisacodyl (Dulcolax) 10 mg PO DAILYPRN PRN PRN Reason: Constipation Last Admin: 10/17/18 20:39 Dose: 10 mg Calcium Carbonate (Tums) 1,000 mg PO Q4H PRN PRN Reason: Heartburn or Indigestion Famotidine (Pepcid) 20 mg PO BID [facility] Last Admin: 10/25/18 08:29 Dose: Not Given Guaifenesin (Robitussin Sf) 200 mg PO Q4H PRN PRN Reason: Cough Hydralazine HCl (Apresoline) 10 mg SLOW IVP Q4H PRN PRN Reason: SBP > 180 and HR < 70 Vancomycin HCl 1.25 gm/ Sodium (Chloride) 250 mls @ 166.667 mls/hr IVPB 0200, 1400 [facility] Last Admin: 10/25/18 02:10 Dose: 250 mls Piperacillin Sod/Tazobactam (Sod 3.375 gm/ Sodium Chloride) 100 mls @ 200 mls/ hr IVPB Q6HR [facility] Last Admin: 10/25/18 05:07 Dose: 100 mls Sodium Chloride (Normal Saline 0.9%) 1,000 mls @ 75 mls/hr IV .[id number] [facility] Last Admin: 10/24/18 23:33 Dose: 1,000 mls Levothyroxine Sodium (Synthroid) 75 mcg PO 0600 [facility] Last Admin: 10/25/18 05:06 Dose: Not Given Loperamide HCl (Imodium) 2 mg PO PRN PRN PRN Reason: Diarrhea/Loose Stools Metoclopramide HCl (Reglan) 10 mg IVP Q6H PRN PRN Reason: Nausea/Vomiting Last Admin: 10/25/18 06:29 Dose: 10 mg Mineral Oil/White Petrolatum (Eucerin Cream) 0 gm TOP BIDPRN PRN PRN Reason: Dry Skin Miscellaneous Medication (Pharmacy To Dose) 1 each IVPB PRN PRN PRN Reason: Pharmacy to dose Oxybutynin Chloride (Ditropan) 5 mg PO Q8H PRN PRN Reason: Bladder Spasms Polyethylene Glycol (Miralax) 17 gm PO DAILY [facility] Last Admin: 10/25/18 08:29 Dose: Not Given Senna/Docusate Sodium (Senokot S) 2 tab PO BID PRN PRN Reason: Constipation Sodium Chloride ([place] Nasal [place] 0.65%) 0 ml EA NARE QIDPRN PRN PRN Reason: Nasal Congestion Sodium Chloride (Flush - Normal Saline) 10 ml IVF PRN PRN PRN Reason: Saline Flush Sotalol HCl (Betapace) 160 mg PO BID [facility] Last Admin: 10/25/18 06:05 Dose: 160 mg Throat Lozenges (Cepastat Lozenges) 1 anselmo PO Q2H PRN PRN Reason: Sore Throat Zolpidem Tartrate (Ambien) 5 mg PO HSPRN PRN PRN Reason: Insomnia
[2018-10-25] MEDS: Sodium Chloride 0.9% 1,000 ML IV SCH (13:25)
[2018-10-25] MEDS ORDERED: Fentanyl 100 MCG/2 ML VIAL ONE ×2 (13:43→17:44)
[2018-10-25] MEDS ORDERED: Famotidine/PF 20 mg/2ml Vial ONE (13:43)
[2018-10-25] MEDS ORDERED: Fentanyl 250 MCG/5 ML VIAL ONE (13:43)
[2018-10-25] MEDS ORDERED: B & O ONE (17:14)
[2018-10-25] MEDS ORDERED: Lidocaine 1% PF 5 ML VIAL ONE (17:29)
[2018-10-25] MEDS ORDERED: Ondansetron PF 4 MG/2 ML Vial ONE (17:29)
[2018-10-25] MEDS ORDERED: PROPOFOL 200 MG/20 ML VIAL ONE (17:29)
[2018-10-25] MEDS ORDERED: PHENYLEPHRINE-NS 100 MCG/ML 10 ML SYRINGE ONE (17:29)
[2018-10-25] MEDS ORDERED: Rocuronium Bromide 10 MG/ML (10ML VIAL) ONE (17:29)
[2018-10-25] MEDS ORDERED: Dexamethasone 20 MG/5 ML VIAL ONE (17:29)
[2018-10-25] MEDS ORDERED: Ondansetron HCl/PF 4 MG/2 ML Vial IVP PRN (18:02)
[2018-10-25] MEDS ORDERED: Promethazine HCl 25 MG/ML VIAL IM PRN (18:02)
[2018-10-25] MEDS ORDERED: Promethazine HCl 25 MG/ML VIAL SLOW IVP PRN (18:02)
--- NOTE | 2018-10-25 19:43 | OP ---
DATE OF PROCEDURE: 10/25/2018 SERVICE: Urology. PREOPERATIVE DIAGNOSES: Right renal stones and BPH with urinary retention and gross hematuria. POSTOPERATIVE DIAGNOSES: Right renal stones, BPH, and gross hematuria. PROCEDURES PERFORMED: 1. Right ureteroscopy, laser lithotripsy, basket extraction of stones, and replacement of a 6 x 26 double-J stent. 2. Transurethral vaporization of the prostate. INDICATION FOR PROCEDURE: Mr. Heredia is a 73-year-old white male, who I had previously taken to the operating room for a large 2.6 cm stone burden in the right kidney. He underwent laser lithotripsy at that time and had the majority of the stone broken up, but due to bleeding, I had to stop the case. Postoperatively, the patient had clot retention and failed a void trial with severely large prostate, which he has been known to have. I had talked him about doing concurrent TUVP at the same time as a second-look ureteroscopy to get rid of his remaining stones with all risks and benefits discussed and he has agreed to proceed forward. DESCRIPTION OF PROCEDURE: After identification of armband and verification of consent, the patient was brought back to the operating room, where he underwent general anesthesia with endotracheal intubation. He was then placed in dorsal lithotomy position, and prepped and draped in usual sterile fashion. After appropriate time-out, a lubricated 22-Bahraini rigid cystoscope was introduced per urethra into the bladder and attention turned to the right ureteral orifice from which there was a stent emanating. Flexible grasper was used to grasp the stent and bring it up to the level of the urethral meatus. A 0.035 Sensor wire was then advanced through the ureteral stent up to the level of renal pelvis. The stent was then removed and discarded. A dual-lumen catheter was then advanced over the Sensor wire up to the level of the proximal ureter. An Amplatz Super Stiff wire was then placed through the second lumen of the dual-lumen catheter to the level of renal pelvis. The dual-lumen was then removed, and the Sensor wire affixed to the drapes as a safety wire. An 11/13 x 36 cm ureteral access sheath was then placed over the Super Stiff wire with ease up to the level of the proximal ureter. The 13/15 sheath was attempted first, but this did not fit. The inner cannula and Super Stiff wire were then removed leaving the outer sheath and Sensor wire in place as a safety wire. A flexible digital ureteroscope was then passed up into the renal pelvis. The UPJ looked more open than previous and did not require redilation. There was a moderate amount of stone fragment, but much less than what had previously been seen in the patient's kidney. The larger stones were broken down with a 200 micron laser fiber until there were extremely small dust fragments. The basket was used to pick out as many stones as possible, but the remaining stones were so small, they could not be picked up with the basket. These were submillimeter and 1 mm fragments. I did not feel these would be amenable to basketing and should pass with a very dilated ureter. Once I was satisfied that all the stone was broken up, a pullback ureteroscopy was employed and no additional stones were seen in the ureter. The ureteroscope and sheath were then removed, and the cystoscope was backloaded back into the bladder over the Sensor wire. A 6 x 26 double-J stent was advanced over the Sensor wire up to the level of the renal pelvis. The Sensor wire was then removed leaving a good curl in the kidney and a good curl in the bladder. The bladder was then emptied, and the cystoscope was removed. The visual obturator bipolar resectoscope was then introduced per urethra back into the bladder. The visual obturator was then replaced for the bipolar button. Using vaporization current, the prostate was vaporized circumferentially for removal of approximately 50% to 60% of the entire prostate volume. The prostate was extremely large and extremely vascular and despite prolonged vaporization, I could not vaporize the entire prostate out. Given the long duration of the case at this point, I felt it was best to go ahead and stop. The patient's BPH has been fully resolved and is wide open, but all of his prostate is not removed, as such, he may have regrowth in the future, but I did feel at this point that this would be the best point to stop to avoid prolonged anesthetic and risk of recurrent atrial fibrillation. This individual meticulous hemostasis was performed with the remaining time to ensure that the patient had no significant bleeding postoperatively. Once adequate hemostasis was achieved, the bladder was then drained and repeat cystoscopy was performed on the prostatic fossa to ensure there was no additional bleeding. Any minor bleeding points were cauterized. There was absolutely no bleeding upon completion, and the resectoscope was removed leaving the bladder partially filled. A 22-[place] three-way Landrum catheter was inserted with ease into the patient's bladder. 30 mL of sterile water was placed into the balloon and CBI was initiated. This was affixed to the patient's leg with a StatLock, and a B and O suppository was placed in his rectum. He was taken out of positioning, awakened, and taken to PACU for recovery in stable condition. COMPLICATIONS: None. ESTIMATED BLOOD LOSS: Estimated to be around 50 to 60 mL. RETAINED TUBES AND DRAINS: A 6 x 26 double-J stent on the right and a 22-B[place]i three-way Landrum catheter on CBI. SPECIMENS: Stone for stone analysis. DISPOSITION: The patient will be kept in the hospital and we will consider a void trial tomorrow depending on the level of hematuria. Job ID: [id number]
[2018-10-25] MEDS: Atorvastatin Calcium 20 MG TAB PO SCH (20:43)
[2018-10-25] MEDS: HYDROcodone/Acetaminophen 5/325 mg Tablet PO PRN (23:14)
[2018-10-26] MEDS: Sodium Chloride 0.9% 1,000 ML IV SCH (02:03)
[2018-10-26] MEDS: Vancomycin HCl 1.25 GM in Sodium Chloride 0.9% 250 ML 250 ML IVPB SCH (02:03)
[2018-10-26] MEDS: Levothyroxine Sodium 75 MCG TAB PO SCH (05:19)
[2018-10-26] MEDS: Piperacillin/Tazobactam 3.375 GM in Sodium Chloride 0.9% 100 ML IVPB SCH ×2 (05:19→12:00)
[2018-10-26 07:07] LABS: #Lymphocytes 0.7 thou/uL (1.20-3.40); #Monocytes 0.2 thou/uL (0.11-0.59); %Basophils 0.1 % (0.0-1.0); %Eosinophils 0.1 % (0.0-10.0); %Lymphocytes 10.3 % (21.0-51.0); %Monocytes 2.8 % (0.0-10.0); %Neutrophils 86.6 % (42.0-75.0); Hemoglobin 9.6 g/dL (14.0-18.0); Mean Corpuscular HGB CONC 32.6 g/dL (32.0-36.0); Mean Corpuscular Hemoglobin 28.8 pg (27.0-31.0); Mean Corpuscular Volume 88.3 fL (78.0-98.0); Mean Platelet Volume 7.1 fL (7.4-10.4); Platelet Count 329 thou/uL (130-400); Red Blood Cell (RBC) Count 3.31 mill/uL (4.70-6.10); White Blood Cell (WBC) Count 6.9 thou/uL (4.8-10.8)
[2018-10-26 07:13] LABS: Anion Gap 13 mmol/L (10-20); BUN (Urea Nitrogen) 22 mg/dL (8.4-25.7); Calc. Creatinine Clearance 87 mL/min (70-130); Calcium 8.9 mg/dL (7.8-10.44); Carbon Dioxide 24 mmol/L (23-31); Chloride 105 mmol/L (98-107); Estimated GFR-MDRD 74; Glucose 136 mg/dL (83-110); Sodium 137 mmol/L (136-145)
[2018-10-26 07:28] VITALS: BP 128/78; TEMP 97.5
[2018-10-26] MEDS: Famotidine 20 MG TAB PO SCH (08:04)
[2018-10-26] MEDS: Sotalol HCl 80 MG TAB PO SCH (08:04)
[2018-10-26] MEDS: Polyethylene Glycol 3350 17 GM Packet PO SCH (08:04)
--- NOTE | 2018-10-26 10:35 | PDOC.PN ---
- Subjective Encounter Start Date: 10/26/18 Encounter Start Time: 09:10 Patient seen and examined. No new complaints. No overnight events - Objective Resuscitation Status - Order Detail: 10/12/18 13:43 Resuscitation Status Routine Resuscitation Status: FULL: Full Resuscitation MAR Reviewed: Yes Vital Signs & Weight: Vital Signs (12 hours) Temp Pulse Resp BP BP Pulse Ox 10/26/18 08:04 72 10/26/18 08:00 94 L 10/26/18 07:28 97.5 F L 72 20 128/78 94 L 10/26/18 05:00 69 18 127/83 94 L 10/25/18 23:22 97.9 F 71 17 127/78 95 Weight Admit Weight 210 lb 4.8 oz Weight 210 lb 4.8 oz I&O: 10/25/18 10/26/18 10/27/18 06:59 06:59 06:59 Intake Total 1300 1800 360 Output Total 1400 1100 Balance -100 700 360 Result Diagrams: 10/26/18 06:04 10/26/18 06:04 Phys Exam - Physical Examination Constitutional: NAD HEENT: PERRLA, moist MMs, sclera anicteric Neck: no JVD, supple Respiratory: no wheezing, no rales, no rhonchi Cardiovascular: RRR, no significant murmur, no rub Gastrointestinal: soft, non-tender, no distention, positive bowel sounds rizzo+ Musculoskeletal: no edema, pulses present Neurological: non-focal, normal sensation, moves all 4 limbs Lymphatic: no nodes Psychiatric: normal affect, A&O x 3 Skin: no rash, normal turgor Dx/Plan (1) Acute urinary retention Code(s): R33.8 - OTHER RETENTION OF URINE Status: Acute Comment: Due to blood clot. (2) Anemia due to acute blood loss Code(s): D62 - ACUTE POSTHEMORRHAGIC ANEMIA Status: Acute (3) Edema of both lower extremities Code(s): R60.0 - LOCALIZED EDEMA Status: Resolved (4) Hematuria, gross Status: Acute (5) CAD (coronary artery disease) Code(s): I25.10 - ATHSCL HEART DISEASE OF [place] CORONARY ARTERY W/O ANG PCTRS Status: Chronic Qualifiers: (6) Bandemia Code(s): D72.825 - BANDEMIA Status: Acute (7) Atrial fibrillation and flutter Code(s): I48.91 - UNSPECIFIED ATRIAL FIBRILLATION; I48.92 - UNSPECIFIED ATRIAL FLUTTER Status: Chronic (8) Cancer of skin of right ear Code(s): C44.202 - UNSP MALIG NEOPLASM SKIN/ RIGHT EAR AND EXTERNAL AURIC CANAL Status: Chronic (9) Nephrolithiasis Status: Chronic Comment: s/p ureteroscopy, lithotripsy, stent placement (10) CHENTE (acute kidney injury) Code(s): N17.9 - ACUTE KIDNEY FAILURE, UNSPECIFIED Status: Resolved Comment : No improvement in renal function as yet. (11) Hyponatremia Code(s): E87.1 - HYPO-OSMOLALITY AND HYPONATREMIA Status: Resolved - Plan cont current plan of care, plan discussed w/ family, continue antibiotics * continue vancomycin and zosyn * DC IVF * continue CBI as per urology * medication reviewed as below * symptomatic treatment * discussed with family bedside. Review of Systems - Review of Systems ENT: negative: Ear Pain, Ear Discharge, Nose Pain, Nose Discharge, Nose Congestion, Mouth Pain, Mouth Swelling, Throat Pain, Throat Swelling, Other Respiratory: negative: Cough, Dry, Shortness of Breath, Hemoptysis, SOB with Excertion, Pleuritic Pain, Sputum, Wheezing Cardiovascular: negative: chest pain, palpitations, orthopnea, paroxysmal nocturnal dyspnea, edema, light headedness, other Gastrointestinal: negative: Nausea, Vomiting, Abdominal Pain, Diarrhea, Constipation, Melena, Hematochezia, Other Genitourinary: negative: Dysuria, Frequency, Incontinence, Hematuria, Retention , Other Musculoskeletal: negative: Neck Pain, Shoulder Pain, Arm Pain, Back Pain, Hand Pain, Leg Pain, Foot Pain, Other Skin: negative: Rash, Lesions, Jaime, Bruising, Other - Medications/Allergies Allergies/Adverse Reactions: Allergies Allergy/AdvReac Type Severity Reaction Status Date / Time ciprofloxacin [From Cipro] Allergy Severe Verified 10/12/18 15:45 rivaroxaban [From Xarelto] Allergy Severe Verified 10/12/18 15:45 fluoxetine Allergy Verified 10/12/18 15:45 hydroxyzine Allergy Verified 10/12/18 15:45 Medications: Current Medications Acetaminophen (Tylenol) 650 mg PO Q4H PRN PRN Reason: Headache/Fever/Mild Pain (1-3) Last Admin: 10/24/18 03:28 Dose: 650 mg Hydrocodone Bitart/Acetaminophen ([place] 5/325) 1 tab PO Q4H PRN PRN Reason: Moderate Pain (4-6) Last Admin: 10/25/18 23:14 Dose: 1 tab Artificial Tears (Tears Naturale) 2 drop EA EYE PRN PRN PRN Reason: Dry Eyes Atorvastatin Calcium (Lipitor) 20 mg PO HS [facility] Last Admin: 10/25/18 20:43 Dose: 20 mg Bisacodyl (Dulcolax) 10 mg PO DAILYPRN PRN PRN Reason: Constipation Last Admin: 10/17/18 20:39 Dose: 10 mg Calcium Carbonate (Tums) 1,000 mg PO Q4H PRN PRN Reason: Heartburn or Indigestion Famotidine (Pepcid) 20 mg PO BID [facility] Last Admin: 10/26/18 08:04 Dose: 20 mg Guaifenesin (Robitussin Sf) 200 mg PO Q4H PRN PRN Reason: Cough Hydralazine HCl (Apresoline) 10 mg SLOW IVP Q4H PRN PRN Reason: SBP > 180 and HR < 70 Vancomycin HCl 1.25 gm/ Sodium (Chloride) 250 mls @ 166.667 mls/hr IVPB 0200, 1400 [facility] Last Admin: 10/26/18 02:03 Dose: 250 mls Piperacillin Sod/Tazobactam (Sod 3.375 gm/ Sodium Chloride) 100 mls @ 200 mls/ hr IVPB Q6HR [facility] Last Admin: 10/26/18 05:19 Dose: 100 mls Levothyroxine Sodium (Synthroid) 75 mcg PO 0600 [facility] Last Admin: 10/26/18 05:19 Dose: 75 mcg Loperamide HCl (Imodium) 2 mg PO PRN PRN PRN Reason: Diarrhea/Loose Stools Metoclopramide HCl (Reglan) 10 mg IVP Q6H PRN PRN Reason: Nausea/Vomiting Last Admin: 10/25/18 06:29 Dose: 10 mg Mineral Oil/White Petrolatum (Eucerin Cream) 0 gm TOP BIDPRN PRN PRN Reason: Dry Skin Miscellaneous Medication (Pharmacy To Dose) 1 each IVPB PRN PRN PRN Reason: Pharmacy to dose Oxybutynin Chloride (Ditropan) 5 mg PO Q8H PRN PRN Reason: Bladder Spasms Polyethylene Glycol (Miralax) 17 gm PO DAILY [facility] Last Admin: 10/26/18 08:04 Dose: 17 gm Senna/Docusate Sodium (Senokot S) 2 tab PO BID PRN PRN Reason: Constipation Sodium Chloride ([place] Nasal [place] 0.65%) 0 ml EA NARE QIDPRN PRN PRN Reason: Nasal Congestion Sodium Chloride (Flush - Normal Saline) 10 ml IVF PRN PRN PRN Reason: Saline Flush Sotalol HCl (Betapace) 160 mg PO BID [facility] Last Admin: 10/26/18 08:04 Dose: 160 mg Throat Lozenges (Cepastat Lozenges) 1 anselmo PO Q2H PRN PRN Reason: Sore Throat Zolpidem Tartrate (Ambien) 5 mg PO HSPRN PRN PRN Reason: Insomnia
--- NOTE | 2018-10-26 12:21 | PRG ---
DATE OF SERVICE: 10/26/2018 SUBJECTIVE: The patient is feeling very good today. His CBI was stopped at 8:00 am. He has not had any problems with clots, fevers, pain, or bladder spasms. He denies any chest pain or shortness of breath. OBJECTIVE: VITAL SIGNS: Temperature 97.5, pulse 72, respirations 20, blood pressure 128/78, and saturation 94% on room air. GENERAL: No apparent distress. CARDIOVASCULAR: Regular rate and rhythm. ABDOMEN: Soft, nontender, and nondistended. : Landrum catheter in place with pink translucent urine without clots. EXTREMITIES: 1+ edema bilaterally. LABORATORY EVALUATION: The full set of labs are in the [facility] system which I have reviewed. Of note, the patient's white count is down to 6.9 with hemoglobin 9.6. Creatinine is 0.99. ASSESSMENT AND PLAN: A 73-year-old white male, status post transurethral vaporization of prostate and completion right ureteroscopy with laser lithotripsy, basket extraction, and stent replacement postop day #1. He underwent a void trial today and urinated to completion. His postvoid residual was 0. He did not have any significant pain or discomfort. From my standpoint, I feel that the patient is stable enough for discharge at this point. His white count is normal and his cultures have been negative. He has been on antibiotics for 2 weeks. I do not think further antibiotics are necessary, and I would not necessarily recommend that he will be sent home on any type of antibiotic regimen at this time unless he develops recurrent symptoms of urinary tract infection, which I have discussed with him. Additionally, I recommended that he consider probiotic and prebiotics including fiber to help reestablish his intestinal microbiome. I will plan to see him back on October 30 at 8:15 a.m. for cystoscopy and stent removal, and we will handle his outpatient care from that point. I will sign off on this case, but from my standpoint, he is okay to be discharged whenever ready by the Medicine Service. Job ID: [id number]
--- NOTE | 2018-10-26 12:56 | DIS ---
DATE OF ADMISSION: 10/15/2018 DATE OF DISCHARGE: 10/26/2018 PRIMARY CARE PHYSICIAN: Dain Abdalla MD DISCHARGE DISPOSITION: Home. PRIMARY DISCHARGE DIAGNOSES: 1. Acute urinary retention due to clot retention. 2. Anemia due to acute blood loss. 3. Gross hematuria. 4. Urinary tract infection, treated in the hospital. 5. Hyponatremia, improved. 6. Hypotension, resolved. 7. Acute kidney injury, improved. 8. Edema of lower extremity, improved. SECONDARY DISCHARGE DIAGNOSES: Nephrolithiasis, cancer of the skin of the right ear, coronary artery disease, atrial fibrillation. PRIMARY PROCEDURE/OPERATION: Landrum catheterization, ureteroscopy, lithotripsy, stent exchange, vaporization of prostate gland. RADIOLOGICAL INVESTIGATION: Chest x-ray. SIGNIFICANT LABORATORY DATA: Hemoglobin 9.6, creatinine 0.99. DISCHARGE MEDICATIONS: 1. [place] 5 one tablet q.6 hourly p.r.n. 2. Vitamin B12 1000 mcg every month. 3. Clorazepate 7.5 mg b.i.d. 4. Synthroid 75 mcg p.o. daily. 5. Oxybutynin 5 mg p.o. t.i.d. 6. MiraLAX 17 g p.o. daily. 7. Zocor 40 mg p.o. at bedtime. 8. Sotalol 160 mg p.o. b.i.d. 9. Testosterone as per home dosage. 10. Lasix 20 mg p.o. daily. CONTRAINDICATION: None. CODE STATUS: Full code. INPATIENT CONSULTANTS: Dr. Preciado and Dr. Bernardo was following while in hospital. TEST RESULT PENDING ON DISCHARGE: None. ALLERGIES: CIPRO, XARELTO, PROZAC. DISCHARGE PLAN: Posthospital, the patient will follow up with Dr. Yassine Bernardo on October 30, 2018. HOSPITAL COURSE: A 73-year-old male, who has nephrolithiasis and he underwent ureteroscopy and lithotripsy and stent placement. Subsequently, he was discharged home with a Landrum catheter. At home, he was having gross hematuria and subsequently he developed acute urinary retention. He required a Landrum catheter exchange and his retention was related with a clot retention, which was taken care by Dr. Forbes. Subsequently, he was admitted to the hospital. We continued with bladder irrigation while in hospital, but he had continuous gross hematuria and that is why we have to change to inpatient status. While in hospital, he developed fever and it was related to Landrum catheter-related sepsis and that is why we started on vancomycin and Zosyn and subsequently his fever subsided and his leukocytosis improved. He has finished complete course of antibiotic therapy while in hospital. He underwent again ureteroscopy and lithotripsy and stent exchange by Dr. Bernardo and subsequently bladder irrigation was continued and that was discontinued. After that, the patient was doing very well. Today, Landrum catheter was also discontinued and the patient was able to void by himself without any residual volume. Dr. Bernardo cleared him for discharge. He has finished antibiotic therapy. He does not need any antibiotic therapy. At this point, we are not going to give him Eliquis therapy because of recent history of a gross hematuria. He has to follow up with Cardiology to decide about long-term anticoagulation for his history of atrial fibrillation. He was previously told that he had pulmonary embolism, but it was probably artifact related finding. Regarding anticoagulation therapy and antiplatelet therapy, we will ask him to follow up with Cardiology after discharge and the patient understood that understanding and he will follow up with them. Whenever Urology is okay, then that anticoagulation and antiplatelet therapy will be resumed. The patient is seen and examined at bedside today. Please see my progress note from today for further detail. Job ID: [id number]
[2018-10-26 13:55] LABS: Vancomycin, Trough 24.3 ug/mL
[2018-10-31 17:09] LABS: CA Oxalate Dihydrate 10 % (.); CA Oxalate Monohydrate 65 % (.); CA Phosphate 25 % (.); Color Brown (.)
== END 2018-10-26 13:50 | disposition home or self-care (01) | DRG 660 ==
LOC: ERS 10:32 → T4-B 13:23 → OBSVTOIN 10-15 16:19
PROVIDERS: ADMIT Internal Medicine; ATTEND Internal Medicine
PROC: 0TC08ZZ Extirpation of Matter from Right Kidney, Via Natural or Artificial Opening Endoscopic (ICD-10-PCS; principal; 2018-10-25)
PROC: 0V508ZZ Destruction of Prostate, Via Natural or Artificial Opening Endoscopic (ICD-10-PCS; 2018-10-25)
PROC: 0T738DZ Dilation of Right Kidney Pelvis with Intraluminal Device, Via Natural or Artificial Opening Endoscopic (ICD-10-PCS; 2018-10-25)
PROC: 0TP98DZ Removal of Intraluminal Device from Ureter, Via Natural or Artificial Opening Endoscopic (ICD-10-PCS; 2018-10-25)
DX: N99.89 Other postprocedural complications and disorders of genitourinary system (principal); I48.92 Unspecified atrial flutter; T83.511A Infection and inflammatory reaction due to indwelling urethral catheter, initial encounter; N39.0 Urinary tract infection, site not specified; D62 Acute posthemorrhagic anemia; E87.1 Hypo-osmolality and hyponatremia; N17.9 Acute kidney failure, unspecified; N20.0 Calculus of kidney; N40.0 Benign prostatic hyperplasia without lower urinary tract symptoms; C44.202 Unspecified malignant neoplasm of skin of right ear and external auricular canal; I48.91 Unspecified atrial fibrillation; K27.9 Peptic ulcer, site unspecified, unspecified as acute or chronic, without hemorrhage or perforation; R31.0 Gross hematuria; Y84.6 Urinary catheterization as the cause of abnormal reaction of the patient, or of later complication, without mention of misadventure at the time of the procedure; Y92.230 Patient room in hospital as the place of occurrence of the external cause; I10 Essential (primary) hypertension; I25.10 Atherosclerotic heart disease of native coronary artery without angina pectoris; E78.5 Hyperlipidemia, unspecified; E03.9 Hypothyroidism, unspecified; N28.89 Other specified disorders of kidney and ureter; M48.061 Spinal stenosis, lumbar region without neurogenic claudication; R53.81 Other malaise; B95.7 Other staphylococcus as the cause of diseases classified elsewhere; Z95.0 Presence of cardiac pacemaker; Z79.01 Long term (current) use of anticoagulants; Z79.82 Long term (current) use of aspirin; Z79.899 Other long term (current) drug therapy; Z86.711 Personal history of pulmonary embolism
CPT/HCPCS: 36415; 51700; 71045; 76000; 76770; 80048; 80053; 80202; 81001; 82365; 85025; 87040; 87086; 88300; 93005; 93010; C1769; J0131; J0696; J1100; J1940; J2001; J2405; J2543; J2704; J2765; J3010; J3370; J3490; J7050; S0028

== ENCOUNTER 2018-10-28 20:49 | Inpatient (IN) | payer MEDICARE, BC ==
[2018-10-28 21:13] LABS: #Lymphocytes 1.2 thou/uL (1.20-3.40); #Monocytes 1.5 thou/uL (0.11-0.59); #Neutrophils 12.7 thou/uL (1.40-6.50); %Eosinophils 0.3 % (0.0-10.0); %Monocytes 9.5 % (0.0-10.0); %Neutrophils 82.2 % (42.0-75.0); Hemoglobin 10.3 g/dL (14.0-18.0); Mean Corpuscular HGB CONC 32.7 g/dL (32.0-36.0); Mean Corpuscular Hemoglobin 28.5 pg (27.0-31.0); Mean Corpuscular Volume 86.9 fL (78.0-98.0); Mean Platelet Volume 6.2 fL (7.4-10.4); Platelet Count 417 thou/uL (130-400); RBC Distribution Width 13.4 % (11.5-14.5); White Blood Cell (WBC) Count 15.4 thou/uL (4.8-10.8)
[2018-10-28 21:31] LABS: ALT (SGPT) 19 U/L (8-55); AST (SGOT) 17 U/L (5-34); Albumin 3.6 g/dL (3.4-4.8); Alkaline Phosphatase 81 U/L (40-150); Anion Gap 11 mmol/L (10-20); BUN (Urea Nitrogen) 13 mg/dL (8.4-25.7); Bilirubin, Total 0.3 mg/dL (0.2-1.2); Calc. Creatinine Clearance 0 mL/min (70-130); Calcium 9.2 mg/dL (7.8-10.44); Carbon Dioxide 27 mmol/L (23-31); Chloride 100 mmol/L (98-107); Estimated GFR-MDRD 75; Globulin 3.1 g/dL (2.4-3.5); Glucose 106 mg/dL (83-110); Potassium 3.7 mmol/L (3.5-5.1); Protein, Total 6.7 g/dL (5.8-8.1); Sodium 134 mmol/L (136-145)
--- NOTE | 2018-10-28 21:51 | RAD ---
Portable frontal chest radiograph: 10/28/2018 COMPARISON: 10/23/2018 HISTORY: Fever following surgery FINDINGS: Stable elevation of the left hemidiaphragm. Stable mild increased linear density noted in t he left lung base, which may signify infectious pneumonitis/aspiration or volume loss. Stable dual lead transvenous pacing device. IMPRESSION: Stable increased linear density in the left lung base as detailed above.
[2018-10-28 22:03] LABS: Bilirubin Negative (Negative); Blood, Urine Large (Negative); Clarity TURBID (Clear); Glucose, Urine (Dipstick) Negative (Negative); Leukocyte Large (Negative); Nitrite Negative (Negative); Protein, Urine (Dipstick) 100 mg/dL (Neg-Trace); Urobilinogen 0.2 mg/dL (0.2-1.0); pH, Urine 6.5 (5.0-9.0)
[2018-10-28 22:05] LABS: Bacteria/HPF None Seen HPF (None Seen); Pathc Cast-AUWi Flag 5.42 (0-2.49); Squamous Epithelial 0-3 HPF (0-3); Yeast-AUWi Flag 264.2 (0-25.0)
[2018-10-28 22:08] LABS: RBC/HPF 21-50 HPF (0-3)
[2018-10-28 22:09] LABS: Hyaline Casts/LPF 0-3 HYALINE CAST LPF (0-3 Hyaline); Yeast-All Forms None Seen HPF (None Seen)
[2018-10-28] MEDS ORDERED: Piperacillin/Tazobactam 4.5 GM VIAL ONE (22:34)
[2018-10-29] MEDS ORDERED: Acetaminophen 325 MG TAB PO PRN (00:10)
[2018-10-29] MEDS ORDERED: Ondansetron ODT 4 MG TAB PO PRN (00:10)
[2018-10-29] MEDS ORDERED: Ondansetron PF 4 MG/2 ML Vial IVP PRN (00:10)
[2018-10-29 00:16] VITALS: BMI 28.5
[2018-10-29] MEDS ORDERED: Oxybutynin 5 MG TAB PO PRN (00:35)
[2018-10-29] MEDS ORDERED: HYDROcodone/Acetaminophen 5/325 mg Tablet PO PRN (00:35)
[2018-10-29] MEDS ORDERED: Docusate 100 MG CAP PO PRN (00:35)
--- NOTE | 2018-10-29 03:13 | HP ---
PRIMARY CARE PHYSICIAN: Dain Abdalla MD CODE STATUS: Full code. TIME OF EVALUATION: 11:15 p.m. CHIEF COMPLAINT: Fever. HISTORY OF PRESENT ILLNESS: This is a 73-year-old male patient with past medical history of lithotripsy, stent placement with stone removal and TURP over the past 2 weeks. Procedure was done by Dr. Bernardo. After the lithotripsy, the patient has a Landrum placed, was on anticoagulation and has no complications and ended up having CBI, the patient was discharged on Sunday, had a great Sunday and today, the patient started having again low level of oxygen and fever of 103. They called his doctor and he was recommended to come here to the ER. Symptoms were generalized, were severe. No clear triggers, no alleviating factors. REVIEW OF SYSTEMS: CONSTITUTIONAL: The patient has fever, chills, generalized weakness. RESPIRATORY: No cough, sputum production, or shortness of breath. CARDIOVASCULAR: No chest pain, or palpitation. GASTROINTESTINAL: No nausea, vomiting, diarrhea, or abdominal pain. MEDICAL ASSISTANT CARDIOLOGY: No dizziness, headache, or feeling lightheaded. GENITOURINARY: No burning on urination. EXTREMITIES: No leg swelling. All other systems were reviewed and negative except for the findings mentioned above. PAST MEDICAL HISTORY: Positive for atrial flutter, atrial fibrillation, hypothyroidism, peptic ulcer disease, BPH, and hyperlipidemia. PAST SURGICAL HISTORY: Spinal stenosis, pacemaker, kidney stone removal, ablation x3, Watchman procedure, TURP. PSYCHIATRIC HISTORY: Anxiety. SOCIAL HISTORY: No alcohol. No drugs. No smoking history. KNOWN ALLERGIES: , hydroxyzine pamoate, Xarelto. REPORTED MEDICATIONS: 1. Levothyroxine. 2. Aspirin. 3. Clonazepam. 4. . 5. Sotalol. 6. Lasix. 7. [place]. 8. Oxybutynin. 9. PreserVision. 10. Cyanocobalamin. 11. Testosterone. 12. Amoxicillin. 13. Simvastatin. PHYSICAL EXAMINATION: VITAL SIGNS: On presentation, blood pressure is 123/83 with heart rate 76, respiratory rate was 16, temperature is 100.4. Pain was 7/10, oxygen saturation 95% on room air. GENERAL APPEARANCE: The patient is alert, oriented, not in acute distress. Reported generalized weakness. HEENT: Eyes, normal conjunctivae. Moist oral mucosa. Anicteric. No JVD. RESPIRATORY: Bilateral air entry. No rales. No wheezes. Symmetric expansion. CARDIOVASCULAR: Normal rate, regular rhythm. No murmurs. No gallop. Bilateral leg edema. ABDOMEN: Soft, normal bowel sounds. MUSCULOSKELETAL: Baseline range of motion and strength. No tenderness. SKIN: Warm, intact. No pallor. No rash. No redness. Peripheral pulses are present. Capillary refill seems to intact. NEUROLOGIC: No evidence of any new focal weakness. Baseline speech. Cranial nerves seems to be intact. PSYCHIATRIC: The patient is in good mood. No anxiety. Optimal judgment. IMAGING STUDIES: Chest x-ray showed stable increase in linear density in the left lung base. LABORATORY DATA: Reviewed. The patient has white count 15.4, hemoglobin 10.3, MCV 86.9, platelet count 217. Chemistry; sodium 134, potassium 3.7, chloride 100, carbon dioxide 27, anion gap 11. BUN 13, creatinine 0.98, GFR 75, glucose 106, lactic acid 0.9, calcium 9.2, total bilirubin 0.3. LFTs were negative. Albumin was normal. ASSESSMENT AND PLAN: The patient will be placed in the hospital with following medical problems: 1. Left lower lobe pneumonia seen on the chest x-ray. The patient will receive treatment with broad-spectrum antibiotics as the patient has been in the hospital for the recent days. We will follow cultures, we will adjust treatment as needed. 2. Sepsis. The patient has fever, leukocytosis, source is right lower lobe pneumonia. Treatment as above. 3. Hyponatremia, sodium 134, this is mild, no need for any acute intervention at this point. 4. Possible urinary tract infection. The patient has white count greater than 50, too numerous to count. The patient tolerating antibiotics. 5. History of atrial fibrillation, status post Watchman, this is chronic, seems to be stable, we will reconcile home medications and adjust as needed. 6. History of benign prostatic hyperplasia, reconcile home medications. 7. Hyperlipidemia. Low-cholesterol diet is advised. Reconcile home medications. 8. Hypothyroidism, continue hormone replacement. 9. Deep venous thrombosis prophylaxis. Job ID: [id number]
[2018-10-29] MEDS: Levothyroxine Sodium 75 MCG TAB PO SCH (05:34)
[2018-10-29] MEDS: Piperacillin/Tazobactam 4.5 GM in Sodium Chloride 0.9% 100 ML IVPB SCH ×3 (05:38→23:08)
[2018-10-29 06:46] LABS: #Eosinphils 0.1 thou/uL (0.0-0.7); #Lymphocytes 1.4 thou/uL (1.20-3.40); #Monocytes 1.8 thou/uL (0.11-0.59); %Basophils 0.1 % (0.0-1.0); %Eosinophils 0.4 % (0.0-10.0); %Lymphocytes 10.1 % (21.0-51.0); %Monocytes 12.8 % (0.0-10.0); %Neutrophils 76.7 % (42.0-75.0); Mean Corpuscular HGB CONC 32.9 g/dL (32.0-36.0); Mean Corpuscular Hemoglobin 28.8 pg (27.0-31.0); Mean Corpuscular Volume 87.4 fL (78.0-98.0); Mean Platelet Volume 6.5 fL (7.4-10.4); Platelet Count 336 thou/uL (130-400); RBC Distribution Width 13.3 % (11.5-14.5); Red Blood Cell (RBC) Count 3.12 mill/uL (4.70-6.10); White Blood Cell (WBC) Count 14.3 thou/uL (4.8-10.8)
[2018-10-29 07:03] LABS: Anion Gap 12 mmol/L (10-20); BUN (Urea Nitrogen) 11 mg/dL (8.4-25.7); Calc. Creatinine Clearance 94 mL/min (70-130); Calcium 8.6 mg/dL (7.8-10.44); Carbon Dioxide 25 mmol/L (23-31); Chloride 102 mmol/L (98-107); Estimated GFR-MDRD 83; Glucose 99 mg/dL (83-110); Potassium 3.6 mmol/L (3.5-5.1); Sodium 135 mmol/L (136-145)
[2018-10-29] MEDS: Enoxaparin Sodium 40 MG/0.4 ML SYRINGE SC SCH (08:04)
[2018-10-29] MEDS: Vit A,C & E/Lutein/Minerals Tablet PO SCH ×2 (08:04→20:14)
[2018-10-29] MEDS: Polyethylene Glycol 3350 17 GM Packet PO SCH (08:04)
[2018-10-29] MEDS: Vancomycin HCl 1.5 GM in Sodium Chloride 0.9% 250 ML 300 ML IVPB SCH ×2 (08:04→20:13)
[2018-10-29] MEDS: Sotalol HCl 80 MG TAB PO SCH ×2 (08:05→20:13)
--- NOTE | 2018-10-29 18:36 | PDOC.PN ---
- Subjective Encounter Start Date: 10/29/18 Encounter Start Time: 13:45 Subjective: pt up in bed no complains - Objective Resuscitation Status - Order Detail: 10/29/18 00:10 Resuscitation Status Routine Resuscitation Status: FULL: Full Resuscitation Vital Signs & Weight: Vital Signs (12 hours) Temp Pulse Resp BP Pulse Ox 10/29/18 16:49 98.7 F 71 18 127/68 96 10/29/18 12:09 98.5 F 75 20 145/81 H 96 10/29/18 08:05 70 10/29/18 07:28 98.5 F 70 20 145/75 H 97 Weight Weight 205 lb I&O: 10/28/18 10/29/18 10/30/18 06:59 06:59 06:59 Intake Total 100 1440 Balance 100 1440 Result Diagrams: 10/29/18 06:14 10/29/18 06:14 Phys Exam - Physical Examination Respiratory: no wheezing, no rales, no rhonchi, wheezing present, clear to auscultation bilateral Cardiovascular: RRR, no significant murmur, no rub, gallop, irregular Gastrointestinal: soft, non-tender, no distention, positive bowel sounds Dx/Plan (1) Sepsis Code(s): A41.9 - SEPSIS, UNSPECIFIED ORGANISM Status: Acute (2) Atrial fibrillation and flutter Code(s): I48.91 - UNSPECIFIED ATRIAL FIBRILLATION; I48.92 - UNSPECIFIED ATRIAL FLUTTER Status: Chronic (3) CAD (coronary artery disease) Code(s): I25.10 - ATHSCL HEART DISEASE OF [place] CORONARY ARTERY W/O ANG PCTRS Status: Chronic Qualifiers: (4) Nephrolithiasis Status: Chronic Comment: s/p ureteroscopy, lithotripsy, stent placement - Plan pt has no cough, only fever and elevated wbc. will speak with pharmacy -: about abx while he was hospitalized. He was on vanco and zosyn and was -: discharged 2 days ago. will await urine cx and blood cx. may get ct chest -: pt states has had old scar to his left lung. I do not think he has PNA -: will check procalcitonin level. * . Review of Systems - Review of Systems Respiratory: negative: Cough, Dry, Shortness of Breath, Hemoptysis, SOB with Excertion, Pleuritic Pain, Sputum, Wheezing Cardiovascular: negative: chest pain, palpitations, orthopnea, paroxysmal nocturnal dyspnea, edema, light headedness, other - Medications/Allergies Allergies/Adverse Reactions: Allergies Allergy/AdvReac Type Severity Reaction Status Date / Time ciprofloxacin [From Cipro] Allergy Severe Verified 10/29/18 00:10 rivaroxaban [From Xarelto] Allergy Severe Verified 10/29/18 00:10 fluoxetine Allergy Verified 10/29/18 00:10 hydroxyzine Allergy Verified 10/29/18 00:10 Medications: Current Medications Acetaminophen (Tylenol) 650 mg PO Q4H PRN PRN Reason: Headache/Fever/Mild Pain (1-3) Hydrocodone Bitart/Acetaminophen ([place] 5/325) 1 tab PO Q6H PRN PRN Reason: Moderate Pain (4-6) Atorvastatin Calcium (Lipitor) 20 mg PO HS [facility] Clorazepate Dipotassium (Tranxene) 7.5 mg PO BID [facility] Docusate Sodium (Colace) 100 mg PO DAILYPRN PRN PRN Reason: Constipation Enoxaparin Sodium (Lovenox) 40 mg SC 0900 [facility] Last Admin: 10/29/18 08:04 Dose: Not Given Piperacillin Sod/Tazobactam (Sod 4.5 gm/ Sodium Chloride) 100 mls @ 200 mls/hr IVPB Q8HR [facility] Last Admin: 10/29/18 13:34 Dose: 100 mls Vancomycin HCl 1.5 gm/ Sodium (Chloride) 300 mls @ 200 mls/hr IVPB 0800,2000 [facility] Last Admin: 10/29/18 08:04 Dose: 300 mls Levothyroxine Sodium (Synthroid) 75 mcg PO 0600 [facility] Last Admin: 10/29/18 05:34 Dose: 75 mcg Miscellaneous Medication (Pharmacy To Dose) 1 each IVPB PRN PRN PRN Reason: PNA Multivitamins/Minerals (Ocuvite With Lutein) 1 tab PO BID [facility] Last Admin: 10/29/18 08:04 Dose: 1 tab Ondansetron HCl (Zofran Odt) 4 mg PO Q6H PRN PRN Reason: Nausea/Vomiting Ondansetron HCl (Zofran) 4 mg IVP Q6H PRN PRN Reason: Nausea/Vomiting Oxybutynin Chloride (Ditropan) 5 mg PO TIDPRN PRN PRN Reason: Bladder Spasms Polyethylene Glycol (Miralax) 17 gm PO DAILY [facility] Last Admin: 10/29/18 08:04 Dose: 17 gm Sotalol HCl (Betapace) 160 mg PO BID [facility] Last Admin: 10/29/18 08:05 Dose: 160 mg Testosterone Cypionate (Depo-Testosterone) 200 mg IM Q30D [facility]
[2018-10-29] MEDS: Atorvastatin Calcium 20 MG TAB PO SCH (20:13)
[2018-10-29] MEDS ORDERED: CLORAZEPATE DIPOTASSIUM 7.5 MG PO SCH (21:00)
[2018-10-30] MEDS: Levothyroxine Sodium 75 MCG TAB PO SCH (05:24)
[2018-10-30] MEDS: Piperacillin/Tazobactam 4.5 GM in Sodium Chloride 0.9% 100 ML IVPB SCH ×2 (05:25→15:39)
[2018-10-30] MEDS ORDERED: Clopidogrel Bisulfate 75 MG TAB ONE (07:08)
[2018-10-30] MEDS: Sotalol HCl 80 MG TAB PO SCH ×2 (08:24→19:56)
[2018-10-30] MEDS: Enoxaparin Sodium 40 MG/0.4 ML SYRINGE SC SCH (08:25)
[2018-10-30] MEDS: Polyethylene Glycol 3350 17 GM Packet PO SCH (08:25)
[2018-10-30] MEDS: Vit A,C & E/Lutein/Minerals Tablet PO SCH ×2 (08:26→19:56)
[2018-10-30 08:50] LABS: Vancomycin, Trough 21.3 ug/mL
[2018-10-30] MEDS: Vancomycin HCl 1.5 GM in Sodium Chloride 0.9% 250 ML 300 ML IVPB SCH (08:54)
[2018-10-30] MEDS ORDERED: Furosemide 40 MG/4 ML VIAL SLOW IVP SCH (16:00)
--- NOTE | 2018-10-30 17:56 | RAD ---
2 views of the chest: 10/30/2018 COMPARISON: 09/20/2018 HISTORY: Decreased breath sounds FINDINGS: There is a dual lead transvenous pacing device inserted via a left subclavian approach. There is elevation of the left hemidiaphragm. There is a density overlying the AP window region, sugg esting a left atrial appendage occlusion device. There is no pneumothorax on either side. Heart and mediastinal contours are unchanged. IMPRESSION: No acute findings.
[2018-10-30] MEDS: Atorvastatin Calcium 20 MG TAB PO SCH (19:55)
[2018-10-30] MEDS ORDERED: Vancomycin HCl 1.25 GM in Sodium Chloride 0.9% 250 ML 250 ML IVPB SCH (21:00)
--- NOTE | 2018-10-30 22:16 | PDOC.PN ---
- Subjective Encounter Start Date: 10/30/18 Encounter Start Time: 10:30 Subjective: pt up in chair no complains - Objective Resuscitation Status - Order Detail: 10/29/18 00:10 Resuscitation Status Routine Resuscitation Status: FULL: Full Resuscitation Vital Signs & Weight: Vital Signs (12 hours) Temp Pulse Resp BP BP Pulse Ox 10/30/18 20:00 98 10/30/18 19:56 71 130/76 10/30/18 19:27 97.9 F 71 16 138/76 98 10/30/18 16:20 96 Weight Weight 205 lb I&O: 10/29/18 10/30/18 10/31/18 06:59 06:59 06:59 Intake Total 100 3300 Balance 100 3300 Result Diagrams: 10/29/18 06:14 10/29/18 06:14 Phys Exam - Physical Examination Neck: no nodes, no JVD, supple, full ROM Respiratory: no wheezing, no rales, no rhonchi, wheezing present, clear to auscultation bilateral Cardiovascular: RRR, no significant murmur, no rub, gallop, irregular Gastrointestinal: soft, non-tender, no distention, positive bowel sounds Dx/Plan (1) Sepsis Code(s): A41.9 - SEPSIS, UNSPECIFIED ORGANISM Status: Acute (2) Atrial fibrillation and flutter Code(s): I48.91 - UNSPECIFIED ATRIAL FIBRILLATION; I48.92 - UNSPECIFIED ATRIAL FLUTTER Status: Chronic (3) CAD (coronary artery disease) Code(s): I25.10 - ATHSCL HEART DISEASE OF [place] CORONARY ARTERY W/O ANG PCTRS Status: Chronic Qualifiers: (4) Nephrolithiasis Status: Chronic Comment: s/p ureteroscopy, lithotripsy, stent placement (5) UTI (urinary tract infection) Status: Acute - Plan will consult ID since i do not think he has pna -: urine cx gram neg -: urology texted if they will remove stent * . Review of Systems - Review of Systems Cardiovascular: negative: chest pain, palpitations, orthopnea, paroxysmal nocturnal dyspnea, edema, light headedness, other Gastrointestinal: negative: Nausea, Vomiting, Abdominal Pain, Diarrhea, Constipation, Melena, Hematochezia, Other - Medications/Allergies Allergies/Adverse Reactions: Allergies Allergy/AdvReac Type Severity Reaction Status Date / Time ciprofloxacin [From Cipro] Allergy Severe Verified 10/29/18 00:10 rivaroxaban [From Xarelto] Allergy Severe Verified 10/29/18 00:10 fluoxetine Allergy Verified 10/29/18 00:10 hydroxyzine Allergy Verified 10/29/18 00:10 Medications: Current Medications Acetaminophen (Tylenol) 650 mg PO Q4H PRN PRN Reason: Headache/Fever/Mild Pain (1-3) Hydrocodone Bitart/Acetaminophen ([place] 5/325) 1 tab PO Q6H PRN PRN Reason: Moderate Pain (4-6) Atorvastatin Calcium (Lipitor) 20 mg PO HS [facility] Last Admin: 10/30/18 19:55 Dose: 20 mg Clorazepate Dipotassium (Tranxene) 7.5 mg PO BID [facility] Last Admin: 10/30/18 19:56 Dose: Not Given Docusate Sodium (Colace) 100 mg PO DAILYPRN PRN PRN Reason: Constipation Enoxaparin Sodium (Lovenox) 40 mg SC 0900 [facility] Last Admin: 10/30/18 08:25 Dose: Not Given Furosemide (Lasix) 40 mg SLOW IVP DAILY [facility] Stop: 10/31/18 11:00 Levofloxacin 750 mg/ Device 150 mls @ 100 mls/hr IVPB Q24HR [facility] Last Admin: 10/30/18 17:53 Dose: 150 mls Levothyroxine Sodium (Synthroid) 75 mcg PO 0600 [facility] Last Admin: 10/30/18 05:24 Dose: 75 mcg Miscellaneous Medication (Pharmacy To Dose) 1 each IVPB PRN PRN PRN Reason: PNA Multivitamins/Minerals (Ocuvite With Lutein) 1 tab PO BID [facility] Last Admin: 10/30/18 19:56 Dose: 1 tab Ondansetron HCl (Zofran Odt) 4 mg PO Q6H PRN PRN Reason: Nausea/Vomiting Ondansetron HCl (Zofran) 4 mg IVP Q6H PRN PRN Reason: Nausea/Vomiting Oxybutynin Chloride (Ditropan) 5 mg PO TIDPRN PRN PRN Reason: Bladder Spasms Polyethylene Glycol (Miralax) 17 gm PO DAILY [facility] Last Admin: 10/30/18 08:25 Dose: 17 gm Sotalol HCl (Betapace) 160 mg PO BID [facility] Last Admin: 05/15/19 19:56 Dose: 160 mg Testosterone Cypionate (Depo-Testosterone) 200 mg IM Q30D [facility]
--- NOTE | 2018-10-30 23:13 | CON ---
DATE OF CONSULTATION: 10/30/2018 REASON FOR CONSULTATION: Fever following urological procedure. HISTORY OF PRESENT ILLNESS: This is a 73-year-old patient who has a history of supraventricular tachycardia with atrial fibrillation/flutter status post ablation and then Watchman procedure, previous pulmonary embolism and prior TURP, who was diagnosed with nephrolithiasis and required treatment and stent placement. The lithotripsy was done in 2 different phases and after the second admission, he was released and his previous urine culture from 10/16 was negative at 48 hours and blood cultures were negative. His previous urinalysis had 7-10 wbc's and then it increased to greater than 50 to too numerous to count wbc's. He developed bleeding and obstruction, had to have a Landrum catheter and irrigation for 2 weeks in the hospital and he cleared. The final elements of stone were removed from the urinary tract and the patient still has a stent in place. He was sent home and then developed fever, again was readmitted. No headaches. No visual symptoms, sore throat, odynophagia, or dysphagia. No dyspnea or chest pain. No abdominal pain or back pain. No dysuria. He is voiding without difficulty. Clear urine. PAST MEDICAL HISTORY: Includes SVT, cardiac ablation x2, hypothyroidism, pulmonary embolism, Watchman procedure, BPH with TURP and C-spine surgery. SOCIAL HISTORY: Never smoker, retired. ALLERGIES: CIPRO. IT IS ACTUALLY NOT A TRUE ALLERGY TO CIPRO. BASICALLY, THEY BLAMED THE CIPRO FOR THE ATRIAL FIBRILLATION, IT IS UNLIKELY TO BE THE CASE HERE. HE ALSO IS ALLERGIC TO FLUOXETINE, HYDROXYZINE, AND XARELTO. FAMILY HISTORY: Noncontributory. CURRENT MEDICATIONS: 1. Tylenol. 2. Meta. 3. Lipitor. 4. Tranxene. 5. Colace. 6. Lovenox. 7. Lasix. 8. Levofloxacin. PHYSICAL EXAMINATION: VITAL SIGNS: T-max 98.7, blood pressure 159/85, pulse 70 and respirations is 18. SKIN: Not remarkable. The patient has peripheral IV access. No Landrum catheter. He is voiding without difficulty. HEENT: No lymphadenopathy. Ocular movements conjugate. Oral cavity normal. Teeth, numerous teeth in place with decent periodontal tissues. NECK: Supple. Normal jugular venous distention. No carotid bruits. LUNGS: Symmetric breath sounds, a little bit decreased on the left side base. No wheezing. HEART: S1, S2. Regular rate. No S3 or S4. ABDOMEN: Soft. Not distended or tender. EXTREMITIES: No joint inflammatory activity. Moves extremities equally. NEURO: Cognitive function appears to be intact. LABORATORY DATA: White cell count is 14.3, hemoglobin 9, platelets 336, 76% neutrophils. Sodium 135. Other chemistries within normal limits except for BNP at 784. Procalcitonin 0.17. Urinalysis greater than 50 wbc's and microbiology with P aeruginosa, it is susceptible to all antimicrobials except for cefepime and ceftazidime. ASSESSMENT: 1. Supraventricular tachycardia with prior multiple interventions, now controlled well. 2. Nephrolithiasis with obstruction with infection, bleeding status post lithotripsy and removal of all the stone component. Stent still in place. 3. Resolution of the bleeding with hematoma formation with successful voiding trial. 4. Recrudescence of fever. DISCUSSION: Differential diagnosis includes invasive urinary tract infection with pyelonephritis due to Pseudomonas aeruginosa. No evidence of bacteremia at this time. Since he does not have any more obstruction and no evidence of urinary retention, then I would advise oral levofloxacin for at least 7 days after the removal of the stent. Looks like Dr. Bernardo is going to do the removal and it probably can be done tomorrow and continue the levofloxacin after that for about a week. Job ID: [id number]
--- NOTE | 2018-10-31 00:29 | CON ---
DATE OF CONSULTATION: 10/29/2018 CONSULTING: [facility]. CONSULTING PHYSICIAN: Yassine Bernardo MD REASON FOR CONSULTATION: Fever postoperatively after ureteroscopy and TURP. HISTORY OF PRESENT ILLNESS: Mr. 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 He had a prolonged hospital stay previously secondary to hematuria and clot retention requiring CBI. He was in the hospital for approximately 2 weeks at which point towards the beginning of that hospitalization, he had a ureteroscopy with laser lithotripsy on the right and stent placement. He ended up in a clot retention afterwards on top of his existing urinary retention from BPH. He remained in the hospital for 2 weeks and then was subsequently taken back to the operating room for a transurethral vaporization of prostate and completion ureteroscopy and removal of all stones on the right. He was then sent home and was doing well until he spiked to 103 fever and came back to the hospital with significant malaise, chills, and some mild shortness of breath. He was admitted to the Medicine Service and underwent a chest x-ray, which demonstrated some worsening linear opacity, which was possibly consistent with a pneumonia. He was treated for hospital-acquired pneumonia as well as valles cultured. I was consulted for further assistance regarding his previous surgeries and whether or not anything further needs to be done from my standpoint. Of note, the patient still has his right ureteral stent in, which has not yet been removed. ALLERGIES: 1. CIPROFLOXACIN. 2. XARELTO. 3. FLUOXETINE. 4. HYDROXYZINE. HOME MEDICATIONS: 1. Synthroid. 2. Aspirin. 3. Clonazepam. 4. Sotalol. 5. Lasix. 6. Wright. 7. Oxybutynin. 8. PreserVision. 9. Vitamin B12. 10. Testosterone. 11. Amoxicillin. 12. Simvastatin. PAST MEDICAL HISTORY: 1. Atrial flutter. 2. Atrial fibrillation. 3. Hypothyroidism. 4. Peptic ulcer disease. 5. BPH. 6. Hyperlipidemia. 7. Nephrolithiasis. 8. Angiomyolipoma of the kidney. PAST SURGICAL HISTORY: 1. Spinal stenosis treatment. 2. Pacemaker installation. 3. Multiple cardiac ablations. 4. Right-sided ureteroscopy x2. 5. Transurethral vaporization of prostate. 6. Watchman procedure. FAMILY HISTORY: Noncontributory for stone disease or prostate cancer. SOCIAL HISTORY: The patient denies alcohol abuse, illicit drug use, or smoking history. REVIEW OF SYSTEMS: A 12-point review of system was reviewed and otherwise negative other than what was commented on the HPI specifically. He is having malaise, mild shortness of breath, fevers, chills and rigors. Mild right-sided discomfort remained and some lower extremity swelling. Remainder of 12-point review of system was reviewed and otherwise negative. PHYSICAL EXAMINATION: VITAL SIGNS: Temperature 98.5, pulse 70, respirations 20, blood pressure 145/75, and saturation 97% on room air. GENERAL: No apparent distress, communicative and alert. CARDIOVASCULAR: Regular rate and rhythm. Normal S1 and S2. Symmetric pulses. HEENT: Normocephalic, atraumatic. Pupils symmetric and round. Sclerae nonicteric. Moist mucous membranes. Trachea midline. CHEST: No increased work of breathing. Symmetric expansion of the lungs. Bibasilar crackles. ABDOMEN: Soft, nontender, and nondistended. Positive bowel sounds. No organomegaly. BACK: No significant CVA tenderness. : Deferred at this time. EXTREMITIES: No clubbing or cyanosis. 2+ edema bilaterally. MUSCULOSKELETAL: No joint deformities or joint erythema noted. Full range of motion. SKIN: Warm and dry. Good turgor. No rashes or lesions. NEUROLOGIC: Cranial nerves 2 through 12 grossly intact. No focal or sensory motor deficits identified. PSYCHIATRIC: Alert and oriented x3. Appropriate mood and affect. LABORATORY DATA: On laboratory evaluation, the full set of labs are in the phorus system, which I have reviewed. Of note, the patient's white count is 14.3 with hemoglobin 9. Creatinine is currently 0.89. Urinalysis demonstrated greater than 50 white cells, 21-50 red cells, large blood, large leukocyte esterase. Urine culture preliminary is growing Enterococcus at the time of this dictation. ASSESSMENT AND PLAN: A 73-year-old white male with history of right ureteroscopy with persistent stent and status post transurethral vaporization of the prostate with postoperative fever, which is most likely secondary to pneumonia. The patient's urine culture is likely positive as he had a prolonged catheterization with likely colonization of the bladder. While he did receive preoperative antibiotics, it is possible that he actually does have a urinary tract infection currently, although colonization is more likely. In either case, the Pseudomonas is sensitive to levofloxacin, which can be used to treat both his lungs and his bladder, which I think would be a good choice of outpatient antibiotics. Additional treatment for hospital-acquired pneumonia can be done at the discretion of the hospitalist team. From my standpoint, the patient is urinating well without any significant problems. No clots and no significant pain. I will hold off on removal of the stent at this time given the potential infection and would recommend a complete antibiotic course for hospital-acquired pneumonia. I will schedule an outpatient followup for the patient to have his stent removed at a later date. From my standpoint, I do not think anything further needs to be done on this hospital admission. I will go ahead and sign off. If anything further is necessary, please re-consult. Otherwise, I will see the patient on an outpatient basis. Job ID: [id number]
[2018-10-31] MEDS: Levothyroxine Sodium 75 MCG TAB PO SCH (05:30)
[2018-10-31 07:34] VITALS: TEMP 98.1
[2018-10-31] MEDS ORDERED: Eucerin (Mineral Oil/Petrolatum,White) 30 gm Jar TOP PRN (07:34)
[2018-10-31] MEDS ORDERED: Loperamide HCl 2 MG CAP PO PRN (07:34)
[2018-10-31] MEDS ORDERED: hydrALAZINE 20 MG/ML VIAL SLOW IVP PRN (07:34)
[2018-10-31] MEDS ORDERED: Senokot S 8.6-50 MG TAB PO PRN (07:34)
[2018-10-31] MEDS ORDERED: Cepastat Lozenges 1 LOZ PO PRN (07:34)
[2018-10-31] MEDS ORDERED: Bisacodyl 5 MG TAB PO PRN (07:34)
[2018-10-31] MEDS ORDERED: Diabetic Tussin 200 MG/10 ML UDCUP PO PRN (07:34)
[2018-10-31] MEDS ORDERED: Sodium Chloride 0.65% Nasal 44 ML BOT EA NARE PRN (07:34)
[2018-10-31] MEDS ORDERED: Zolpidem Tartrate 5 MG TAB PO PRN (07:34)
[2018-10-31] MEDS ORDERED: Artificial Tears 18 DROP/0.9 ML EA EYE PRN (07:34)
--- NOTE | 2018-10-31 08:35 | CON ---
DATE OF CONSULTATION: ADDENDUM: The other possibility would be intrapulmonary or pleural inflammatory process; for example aspiration pneumonia, parapneumonic effusion, or pulmonary embolism. He does have a history of pulmonary embolism in the past and I do not think he is currently on blood thinners. We will go ahead and repeat the chest x-ray. If shows accumulation of pleural fluid, then we will have to consider that possibility in more detail. Job ID: [id number]
[2018-10-31] MEDS ORDERED: Furosemide 40 MG/4 ML VIAL SLOW IVP SCH (09:00)
[2018-10-31] MEDS: Enoxaparin Sodium 40 MG/0.4 ML SYRINGE SC SCH (09:30)
[2018-10-31] MEDS: Sotalol HCl 80 MG TAB PO SCH (09:31)
[2018-10-31] MEDS: Vit A,C & E/Lutein/Minerals Tablet PO SCH (09:32)
[2018-10-31] MEDS: Polyethylene Glycol 3350 17 GM Packet PO SCH (09:37)
--- NOTE | 2018-10-31 11:55 | PDOC.PN ---
- Subjective Encounter Start Date: 10/31/18 Encounter Start Time: 09:45 -: old records requested/rev Patient seen and examined. No new complaints. No overnight events - Objective Resuscitation Status - Order Detail: 10/29/18 00:10 Resuscitation Status Routine Resuscitation Status: FULL: Full Resuscitation MAR Reviewed: Yes Vital Signs & Weight: Vital Signs (12 hours) Temp Pulse Resp BP Pulse Ox 10/31/18 09:31 73 10/31/18 07:33 98.1 F 73 18 144/86 H 100 Weight Weight 205 lb I&O: 10/30/18 10/31/18 11/01/18 06:59 06:59 06:59 Intake Total 3300 1440 Balance 3300 1440 Result Diagrams: 10/29/18 06:14 10/29/18 06:14 Phys Exam - Physical Examination Constitutional: NAD HEENT: PERRLA, moist MMs, sclera anicteric Neck: no JVD, supple Respiratory: no wheezing, no rales, no rhonchi Cardiovascular: RRR, no significant murmur, no rub Gastrointestinal: soft, non-tender, no distention, positive bowel sounds Musculoskeletal: no edema, pulses present Neurological: non-focal, normal sensation, moves all 4 limbs Lymphatic: no nodes Psychiatric: normal affect, A&O x 3 Skin: no rash, normal turgor Dx/Plan (1) Sepsis Code(s): A41.9 - SEPSIS, UNSPECIFIED ORGANISM Status: Acute (2) UTI (urinary tract infection) Status: Acute Comment: complicated, with h/o recent prolonged rizzo catheterization and urologic procedure (3) Atrial fibrillation and flutter Code(s): I48.91 - UNSPECIFIED ATRIAL FIBRILLATION; I48.92 - UNSPECIFIED ATRIAL FLUTTER Status: Chronic (4) CAD (coronary artery disease) Code(s): I25.10 - ATHSCL HEART DISEASE OF [place] CORONARY ARTERY W/O ANG PCTRS Status: Chronic Qualifiers: (5) Cancer of skin of right ear Code(s): C44.202 - UNSP MALIG NEOPLASM SKIN/ RIGHT EAR AND EXTERNAL AURIC CANAL Status: Chronic (6) Nephrolithiasis Status: Chronic Comment: s/p recent ureteroscopy, lithotripsy, stent placement - Plan cont current plan of care, plan discussed w/ family, continue antibiotics * continue levaquin, no side effects * pt wants to go home later today * medication reviewed as below * symptomatic treatment * discussed with family * repeat CBC today. Review of Systems - Review of Systems ENT: negative: Ear Pain, Ear Discharge, Nose Pain, Nose Discharge, Nose Congestion, Mouth Pain, Mouth Swelling, Throat Pain, Throat Swelling, Other Respiratory: negative: Cough, Dry, Shortness of Breath, Hemoptysis, SOB with Excertion, Pleuritic Pain, Sputum, Wheezing Cardiovascular: negative: chest pain, palpitations, orthopnea, paroxysmal nocturnal dyspnea, edema, light headedness, other Gastrointestinal: negative: Nausea, Vomiting, Abdominal Pain, Diarrhea, Constipation, Melena, Hematochezia, Other Genitourinary: negative: Dysuria, Frequency, Incontinence, Hematuria, Retention , Other Musculoskeletal: negative: Neck Pain, Shoulder Pain, Arm Pain, Back Pain, Hand Pain, Leg Pain, Foot Pain, Other Skin: negative: Rash, Lesions, Jaime, Bruising, Other - Medications/Allergies Allergies/Adverse Reactions: Allergies Allergy/AdvReac Type Severity Reaction Status Date / Time ciprofloxacin [From Cipro] Allergy Severe Verified 10/29/18 00:10 rivaroxaban [From Xarelto] Allergy Severe Verified 10/29/18 00:10 fluoxetine Allergy Verified 10/29/18 00:10 hydroxyzine Allergy Verified 10/29/18 00:10 Medications: Current Medications Acetaminophen (Tylenol) 650 mg PO Q4H PRN PRN Reason: Headache/Fever/Mild Pain (1-3) Hydrocodone Bitart/Acetaminophen (Cary 5/325) 1 tab PO Q6H PRN PRN Reason: Moderate Pain (4-6) Artificial Tears (Tears Naturale) 2 drop EA EYE PRN PRN PRN Reason: Dry Eyes Atorvastatin Calcium (Lipitor) 20 mg PO HS [facility] Last Admin: 10/30/18 19:55 Dose: 20 mg Bisacodyl (Dulcolax) 10 mg PO DAILYPRN PRN PRN Reason: Constipation Clorazepate Dipotassium (Tranxene) 7.5 mg PO BID [facility] Last Admin: 10/31/18 09:29 Dose: Not Given Enoxaparin Sodium (Lovenox) 40 mg SC 0900 [facility] Last Admin: 10/31/18 09:30 Dose: Not Given Guaifenesin (Robitussin Sf) 200 mg PO Q4H PRN PRN Reason: Cough Hydralazine HCl (Apresoline) 10 mg SLOW IVP Q4H PRN PRN Reason: SBP > 180 and HR < 70 Levofloxacin 750 mg/ Device 150 mls @ 100 mls/hr IVPB Q24HR [facility] Last Admin: 10/30/18 17:53 Dose: 150 mls Levothyroxine Sodium (Synthroid) 75 mcg PO 0600 [facility] Last Admin: 10/31/18 05:30 Dose: 75 mcg Loperamide HCl (Imodium) 2 mg PO PRN PRN PRN Reason: Diarrhea/Loose Stools Mineral Oil/White Petrolatum (Eucerin Cream) 0 gm TOP BIDPRN PRN PRN Reason: Dry Skin Miscellaneous Medication (Pharmacy To Dose) 1 each IVPB PRN PRN PRN Reason: PNA Multivitamins/Minerals (Ocuvite With Lutein) 1 tab PO BID [facility] Last Admin: 10/31/18 09:32 Dose: 1 tab Ondansetron HCl (Zofran Odt) 4 mg PO Q6H PRN PRN Reason: Nausea/Vomiting Ondansetron HCl (Zofran) 4 mg IVP Q6H PRN PRN Reason: Nausea/Vomiting Oxybutynin Chloride (Ditropan) 5 mg PO TIDPRN PRN PRN Reason: Bladder Spasms Polyethylene Glycol (Miralax) 17 gm PO DAILY [facility] Last Admin: 10/31/18 09:37 Dose: 17 gm Senna/Docusate Sodium (Senokot S) 2 tab PO BID PRN PRN Reason: Constipation Sodium Chloride ([place] Nasal Eighty Eight 0.65%) 0 ml EA NARE QIDPRN PRN PRN Reason: Nasal Congestion Sotalol HCl (Betapace) 160 mg PO BID [facility] Last Admin: 10/31/18 09:31 Dose: 160 mg Testosterone Cypionate (Depo-Testosterone) 200 mg IM Q30D [facility] Throat Lozenges (Cepastat Lozenges) 1 anselmo PO Q2H PRN PRN Reason: Sore Throat Zolpidem Tartrate (Ambien) 5 mg PO HSPRN PRN PRN Reason: Insomnia
[2018-10-31 12:58] LABS: #Eosinphils 0.2 thou/uL (0.0-0.7); #Lymphocytes 1.3 thou/uL (1.20-3.40); #Monocytes 0.7 thou/uL (0.11-0.59); #Neutrophils 6.6 thou/uL (1.40-6.50); %Eosinophils 2.3 % (0.0-10.0); %Lymphocytes 14.8 % (21.0-51.0); %Monocytes 8.1 % (0.0-10.0); %Neutrophils 74.8 % (42.0-75.0); Hemoglobin 9.7 g/dL (14.0-18.0); Mean Corpuscular HGB CONC 32.5 g/dL (32.0-36.0); Mean Corpuscular Hemoglobin 28.3 pg (27.0-31.0); Mean Corpuscular Volume 86.9 fL (78.0-98.0); Mean Platelet Volume 6.7 fL (7.4-10.4); Platelet Count 447 thou/uL (130-400); RBC Distribution Width 13.5 % (11.5-14.5); Red Blood Cell (RBC) Count 3.42 mill/uL (4.70-6.10); White Blood Cell (WBC) Count 8.8 thou/uL (4.8-10.8)
--- NOTE | 2018-10-31 13:08 | DIS ---
DATE OF ADMISSION: 10/30/2018 DATE OF DISCHARGE: 10/31/2018 PRIMARY CARE PHYSICIAN: Dain Abdalla MD DISCHARGE DISPOSITION: Home. PRIMARY DISCHARGE DIAGNOSES: 1. Sepsis due to urinary tract infection. 2. Urinary tract infection due to Pseudomonas related with recent Landrum catheterization. SECONDARY DISCHARGE DIAGNOSES: Nephrolithiasis, coronary artery disease, history of atrial fibrillation and flutter. PRIMARY PROCEDURE/OPERATION: None. RADIOLOGICAL INVESTIGATION: Chest x-ray. SIGNIFICANT LABORATORY DATA: Hemoglobin 9.0. Creatinine 0.89. LFT normal. Urinalysis suggestive of UTI. Urine culture grew Pseudomonas. Blood culture negative. Influenza negative. DISCHARGE MEDICATIONS: 1. [place]view 5 one tablet q.6 hourly p.r.n. 2. Vitamin B12 1000 mcg every month. 3. Clorazepate 7.5 mg b.i.d. 4. Colace 100 mg daily. 5. Synthroid 75 mcg daily. 6. Ditropan 5 mg t.i.d. p.r.n. 7. MiraLAX 17 g p.o. daily. 8. Zocor 40 mg p.o. q.h.s. 9. Sotalol 160 mg p.o. b.i.d. 10. Testosterone every month as directed. 11. Ocuvite one tablet b.i.d. 12. Lasix 20 mg daily. 13. Levaquin 750 mg p.o. daily for 7 days. CONTRAINDICATION: None. CODE STATUS: Full code. INPATIENT ASSET SPECIALIST: Dr. Bernardo was following while in the hospital. Dr. Garner was consulted while in hospital. TEST RESULTS PENDING ON DISCHARGE: None. ALLERGIES: XARELTO, FLUOXETINE, HYDROXYZINE. DISCHARGE PLAN: Posthospital, the patient will follow up with Dr. Bernardo in one week. HOSPITAL COURSE: A 73-year-old male, who was recently admitted in our hospital for urinary retention, which was related with clot retention. He required several days indwelling Landrum catheter with continuous bladder irrigation. He also underwent recently ureteroscopy and lithotripsy as well as vaporization of prostate. After discharge from recent hospitalization, he developed fever at home and that is why he returned back to emergency room. He was admitted by Dr. Reich. Please see his H and P for further details. During this admission, his chest x-ray was unremarkable. He was not having any respiratory symptoms to support any diagnosis of pneumonia. We suspected complicated UTI and his urine culture grew Pseudomonas. Dr. Garner agreed with this plan. This patient reported ciprofloxacin allergy, but while in the hospital, he tolerated very well without any side effects, levofloxacin and he wanted to continue this medication. Dr. Garner recommended for at least 7 days of antibiotic therapy and he will have outpatient followup with Dr. Bernardo for stent removal. The patient is insisting on going home today. He stayed in hospital for 3 days. He received IV antibiotic therapy while in hospital and for last couple of days, he is receiving levofloxacin as well, which is sensitive to Pseudomonas. The patient is seen and examined. Plan of care discussed with the family member later on today after giving antibiotic therapy. The patient will be discharged home. Job ID: [id number]
[2018-10-31 17:54] VITALS: BP 130/79
--- NOTE | 2018-11-02 10:31 | EKG ---
Test Reason : Blood Pressure : / mmHG Vent. Rate : 070 BPM Atrial Rate : 069 BPM P-R Int : 000 ms QRS Dur : 086 ms QT Int : 414 ms P-R-T Axes : 000 030 048 degrees QTc Int : 447 ms Electronic atrial pacemaker Confirmed by LARRY TOTH ([id number]), scientific editor ANTIONE UPTON ([id number]) on 11/02/2018 10:31:07 AM Referred By: Confirmed By:LARRY TOTH
== END 2018-10-31 18:55 | disposition home or self-care (01) | DRG 698 ==
LOC: ERS 20:49 → T4-A 22:30 → OBSVTOIN 10-30 16:20
PROVIDERS: ADMIT Hospitalist; ATTEND Hospitalist
DX: T83.511A Infection and inflammatory reaction due to indwelling urethral catheter, initial encounter (principal); A41.9 Sepsis, unspecified organism; E87.1 Hypo-osmolality and hyponatremia; I47.1 Supraventricular tachycardia; I48.92 Unspecified atrial flutter; N39.0 Urinary tract infection, site not specified; E03.9 Hypothyroidism, unspecified; I48.2 Chronic atrial fibrillation; C44.202 Unspecified malignant neoplasm of skin of right ear and external auricular canal; N40.0 Benign prostatic hyperplasia without lower urinary tract symptoms; E78.5 Hyperlipidemia, unspecified; N20.0 Calculus of kidney; B96.5 Pseudomonas (aeruginosa) (mallei) (pseudomallei) as the cause of diseases classified elsewhere; F41.9 Anxiety disorder, unspecified; I25.10 Atherosclerotic heart disease of native coronary artery without angina pectoris; Y84.6 Urinary catheterization as the cause of abnormal reaction of the patient, or of later complication, without mention of misadventure at the time of the procedure; Z87.11 Personal history of peptic ulcer disease; Z79.899 Other long term (current) drug therapy; Z79.82 Long term (current) use of aspirin; Z79.890 Hormone replacement therapy; Z88.8 Allergy status to other drugs, medicaments and biological substances; Z95.0 Presence of cardiac pacemaker; Z88.1 Allergy status to other antibiotic agents
CPT/HCPCS: 36415; 71045; 71046; 80048; 80053; 80202; 81003; 81015; 83605; 83880; 84145; 85025; 87040; 87077; 87086; 87186; 87804; 93005; 96365; J1650; J1940; J1956; J2543; J3370; J3490; J7050

== ENCOUNTER 2018-12-18 07:19 | Day surgery (SDC) | payer MEDICARE, BC ==
[2018-12-17 15:11] VITALS: BMI 27.8
--- NOTE | 2018-12-17 16:59 | HP ---
HISTORY OF PRESENT ILLNESS: Mr. Heredia is a 73-year-old man, known to us for distant posterior cervical decompression for gait instability and weakness. He returns now with continued progression and fall with leg numbness, ataxic gait and hand numbness that has worsened. His family and he are extremely concerned about his overall well-being, particularly given the falls that he continues to experience. We do not have any updated imaging and for that purpose, would like to obtain CT myelogram. PAST MEDICAL HISTORY: Significant for arrhythmia, gastric ulcer, and BPH. PAST SURGICAL HISTORY: Tonsillectomy and pacemaker placement. CURRENT MEDICATIONS: Sotalol, bupropion, levothyroxine, terazosin, Ecotrin, Ventolin, finasteride, simvastatin, cyanocobalamin, and testosterone. ALLERGIES: NO KNOWN DRUG ALLERGIES. PHYSICAL EXAMINATION: GENERAL: The patient is alert and oriented x3. Gait is unsteady and ataxic. He is using a walker. EXTREMITIES: Upper extremity strength is 4+/5 bilaterally. There is sensory disturbance to the bilateral hands in digits one through four bilaterally. Lower extremity strength is 4/5 in all movements. Reflexes are reduced in all 4 extremities at the patella and biceps bilaterally. ASSESSMENT: Gait instability, falls, and possible myelopathy. PLAN: At this time, we will order a CT myelogram of the full axial spine and follow up with the results thereafter. Job ID: [id number]
[2018-12-18 08:05] VITALS: BP 127/82; TEMP 97.8
--- NOTE | 2018-12-18 10:17 | RAD ---
CERVICAL AND THORACIC AND LUMBAR SPINE MYELOGRAM: HISTORY: Gait disorder. Bilateral leg weakness. COMPARISON: None. FINDINGS: Two view tire recapper radiograph of the cervical spine demonstrates multilevel degenerative disk disease wit h loss of disk space height and near-complete fusion at the C5-C6 level. There is multilevel facet h ypertrophy. C4-5 and C5-6 laminectomy defect. Two views of the thoracic spine demonstrate preservation of vertebral body height. Mild loss of disk space height is noted. No fractures or malalignment. Two views of the lumbar spine demonstrate 5 lumbar-type vertebral bodies. There is moderate to sever e loss of disk space height at L4-L5 with 4.7 mm of anterolisthesis of L5 upon S1. No evidence of as sociated spondylitis. Atherosclerosis of the aorta is noted. Successful lumbar puncture. A total of 9 cc of Isovue-M 300 contrast was administered intrathecally at the L3-L4 level. TECHNIQUE: Consent was obtained to perform a lumbar puncture for intrathecal contrast administration. The L3-L4 level is deemed appropriate. The skin was prepped and draped in sterile fashion. 1% Lidocaine, buf fered with sodium bicarbonate, was used for local anesthesia. Under fluoroscopic guidance, a 22-gaug e needle was advanced into the CSF space. Via a short tubing catheter, a total of 9 cc of Isovue-M 3 00 contrast was administered intrathecally. The patient tolerated the procedure well. No immediate or postprocedure complications. IMPRESSION: Successful complete myelogram. POS: [facility]
--- NOTE | 2018-12-18 12:14 | CT ---
POST MYELOGRAM CERVICAL SPINE CT: HISTORY: Bilateral lower extremity weakness. Gait disturbance. COMPARISON: None. FINDINGS: No craniocervical dissociation. Lateral masses of C1 and C2 articulate appropriately. There is evid ence o facet hypertrophy. Straightening of normal cervical lordosis may be due to patient position o r muscle spasm. There are laminectomy defects at C4-C5 and C5-C6. C2-C3: Broad-based disk-osteophyte complex with mild central canal stenosis. Mild to moderate angel inal narrowing due to uncovertebral hypertrophy. The left neural foramen is mildly narrowed due to u ncovertebral hypertrophy. C3-C4: There is a broad-based disk-osteophyte complex which results in moderate to severe central ca nal stenosis. There is deformity of the cervical cord. Moderate to severe right and severe left for aminal narrowing due to uncovertebral as well as left greater than right facet hypertrophy. C4-C5: Posterior laminectomy defect. Broad-based disk-osteophyte complex without significant centra l canal stenosis. Severe right and left foraminal narrowing due to uncovertebral and facet hypertro phy (right greater than left). C5-C6: Posterior laminectomy defect. There is a broad-based disk-osteophyte complex with near-compl ete fusion of the C5-C6 disk space. No significant central canal stenosis. Severe bilateral foramin al narrowing due to uncovertebral and facet hypertrophy. C6-C7: No significant central canal stenosis. Mild bilateral foraminal narrowing due to uncovertebr al hypertrophy. C7-T1: No significant central canal stenosis or foraminal narrowing. IMPRESSION: 1. Postsurgical changes with laminectomy defect at C4-C5 and C5-C6. At the level of laminectomy, th ere is no significant central canal stenosis. 2. Moderate to severe central canal stenosis at C3-C4. 3. Multilevel significant foraminal narrowing as detailed above. There is extensive posterior eleme nt hypertrophy. POS: [facility]
--- NOTE | 2018-12-18 12:33 | CT ---
POST MYELOGRAM THORACIC SPINE CT: Date: 12/18/18 HISTORY: Gait disturbance. Bilateral lower extremity weakness. COMPARISON: None. FINDINGS: Limited evaluation of the mediastinum due to lack of IV contrast. No mass, lymphadenopathy, or hemato ma. There is atherosclerosis of a nonaneurysmal aorta. There is a metallic device projecting over the expected region of the ductus arteriosus. Visualized solid organs are unremarkable. Thoracic spine vertebral body height is maintained. There is no fracture. No significant loss of disc space height. Throughout the thoracic spine, the neural foramina are patent. No significant central canal stenosis throughout the thoracic spine. Conus medullaris terminates beyond the inferior aspect of T12. IMPRESSION: No significant central canal stenosis or neural foraminal narrowing. POS: [facility]
--- NOTE | 2018-12-18 12:55 | CT ---
EXAM: POST MYELOGRAM LUMBAR SPINE CT: 12/18/18 HISTORY: Gait disturbance. Bilateral leg weakness. COMPARISON: None. FINDINGS: There are nonobstructing calculi in the right intrarenal collecting system. There is mild dilatation of the right renal calyces and renal pelvis. The right ureter appears to be decompressed. No evidence of ureterolithiasis, hydroureter or periureteral fat stranding. The left intra and extrarenal collec ting system do not demonstrate any obstructive uropathy. There is an exophytic isodense lesion emanat ing from the lower pole of the left kidney with attenuation coefficient of 14 Hounsfield units. Sligh tly complex cyst measuring 1.8 cm is suspected. Atherosclerosis of a nonaneurysmal aorta. Symmetric attenuation of the psoas muscles. Visualized alim entary canal and urinary bladder are unremarkable. Five lumbar type vertebral bodies. Lumbar spine ve rtebral body height is maintained. There is no fracture. 4 mm of anterolisthesis of L4 upon L5 withou t associated spondylolysis. There is vacuum disc joint phenomenon in the right facet at L4-L5. There is vacuum disc phenomenon at L4-L5 and L5-S1. Conus medullaris terminates at the mid L1 level. T12-L1: No significant central canal stenosis or neural foraminal narrowing. L1-L2: No significant central canal stenosis or neural foraminal narrowing. L2-L3: No significant central canal stenosis or neural foraminal narrowing. L3-L4: Generalized disc bulge flattens the ventral thecal sac. No significant central canal stenosis. Mild bilateral neural foraminal narrowing. L4-L5: Vacuum disc phenomenon. Mild central canal stenosis secondary to generalized disc bulge. Mild bilateral foraminal narrowing. L5-S1: Vacuum disc phenomenon. No significant central canal stenosis. Neural foramina are mildly narr owed bilaterally. IMPRESSION: 1. Vacuum disc phenomenon at L4-L5 and L5-S1. Nevertheless, no evidence of significant central c anal stenosis throughout the lumbar spine. 2. There is mild central canal stenosis at L3-L4. 3. No significant foraminal narrowing throughout the lumbar spine. 4. Nonobstructing calculi in the right renal pelvis. There is asymmetric dilatation of the right renal pelvis with abrupt caliber change at the right ureteropelvic junction. Nonemergent urology con sultation is recommended for possible retrograde IVP. Correlation made with a CT from 2/7/18 does dem onstrate similar findings. POS: [facility]
== END 2018-12-18 10:55 | disposition home or self-care (01) ==
LOC: RAD 07:19
PROVIDERS: ATTEND Neurological Surgery
DX: R26.89 Other abnormalities of gait and mobility (principal); R20.0 Anesthesia of skin; R53.1 Weakness; E03.9 Hypothyroidism, unspecified; E78.5 Hyperlipidemia, unspecified; F41.9 Anxiety disorder, unspecified; N40.0 Benign prostatic hyperplasia without lower urinary tract symptoms; K27.9 Peptic ulcer, site unspecified, unspecified as acute or chronic, without hemorrhage or perforation; Z79.899 Other long term (current) drug therapy; Z95.0 Presence of cardiac pacemaker
CPT/HCPCS: 62305; 72126; 72129; 72132

== ENCOUNTER 2019-04-28 18:10 | Inpatient (IN) | payer MEDICARE, BC ==
[2019-04-28 19:36] LABS: Mean Corpuscular Volume 85.4 fL (78.0-98.0); Red Blood Cell (RBC) Count 4.41 mill/uL (4.70-6.10); White Blood Cell (WBC) Count 7.1 thou/uL (4.8-10.8)
[2019-04-28 19:37] LABS: #Eosinphils 0.4 thou/uL (0.0-0.7); #Lymphocytes 1.5 thou/uL (1.20-3.40); #Monocytes 0.7 thou/uL (0.11-0.59); #Neutrophils 4.5 thou/uL (1.40-6.50); %Basophils 0.2 % (0.0-1.0); %Lymphocytes 21.2 % (21.0-51.0); %Monocytes 9.9 % (0.0-10.0); %Neutrophils 63.7 % (42.0-75.0); Mean Corpuscular Hemoglobin 27.3 pg (27.0-31.0); Mean Platelet Volume 7.5 fL (7.4-10.4); Platelet Count 232 thou/uL (130-400); RBC Distribution Width 16.2 % (11.5-14.5)
[2019-04-28 19:44] LABS: Bilirubin Negative (Negative); Blood, Urine 3+ (Negative); Clarity Extra Turbid (Clear); Glucose, Urine (Dipstick) Normal (Negative); Leukocyte Negative Leu/uL (Negative); Nitrite Negative (Negative); Protein, Urine (Dipstick) 300 mg/dL (Neg-Trace); RBC/HPF Greater than 50 HPF (0-3); Urobilinogen Normal mg/dL (Less than 2)
[2019-04-28 19:46] LABS: Bacteria/HPF 1+ HPF (None Seen); Squamous Epithelial 0-3 HPF (0-3)
[2019-04-28 19:57] LABS: ALT (SGPT) 11 U/L (8-55); AST (SGOT) 23 U/L (5-34); Albumin 3.9 g/dL (3.4-4.8); Alkaline Phosphatase 113 U/L (40-110); Anion Gap 12 mmol/L (10-20); BUN (Urea Nitrogen) 14 mg/dL (8.4-25.7); Bilirubin, Total 0.3 mg/dL (0.2-1.2); Calc. Creatinine Clearance 0 mL/min (70-130); Calcium 9.1 mg/dL (7.8-10.44); Carbon Dioxide 28 mmol/L (23-31); Chloride 102 mmol/L (98-107); Estimated GFR-MDRD 81; Globulin 2.9 g/dL (2.4-3.5); Glucose 100 mg/dL (83-110); Potassium 4.4 mmol/L (3.5-5.1); Protein, Total 6.8 g/dL (5.8-8.1); Sodium 138 mmol/L (136-145)
--- NOTE | 2019-04-28 20:06 | CT ---
CT abdomen and pelvis noncontrast HISTORY: Kidney stones. Hematuria. Flank pain. COMPARISON: 03/19/2018. FINDINGS: Stone burden of the right kidney has decreased dramatically. Approximately 6 remaining ston es within nondilated calyces, measuring up to 0.9 cm greatest diameter. Extrarenal pelvis of the right kidney is again demonstrated. Scarring of the renal cortex has increased since the prior study. The left renal collecting system and ureter are decompressed without stone evident. Small left renal cyst is stable. Lack of contrast limits evaluation for other abnormalities. Lobular cyst within the liver is stable. Prostate gland measures up to 7.4 cm transverse diameter. Landrum catheter extends into the bladder, al though an inflated balloon is not reliably demonstrated. Hyperdense material fills approximately one third of the dependent portion of the urinary bladder. It is difficult to separate from the prost ate gland. IMPRESSION: Hyperdense material within the urinary bladder likely represents clotted blood. Upper uri nary tract source is not evident. The suspected blood within the urinary bladder is inseparable from the enlarged prostate gland. Landrum catheter extends into the urinary bladder, although the ballo on is not seen to be inflated. The position of the balloon, within the suspected hematoma, should be visible on the current CT. Significant interval decrease in burden of nonobstructing stones of the right kidney
[2019-04-28] MEDS ORDERED: Iothalamate Meglumine 60% 50 ML VIAL FS ONE (20:50)
[2019-04-28] MEDS ORDERED: Morphine 4 MG/ML VIAL ONE ×2 (22:05→22:13)
[2019-04-28] MEDS ORDERED: Ondansetron PF 4 MG/2 ML Vial ONE ×3 (22:05→22:39)
[2019-04-28] MEDS ORDERED: Sodium Chloride 0.9% 100 ML ONE (22:17)
[2019-04-28] MEDS ORDERED: cefTRIAXone\\ROCEPHIN 2 GM VIAL ONE (22:17)
[2019-04-28] MEDS ORDERED: Fentanyl 100 MCG/2 ML VIAL ONE (22:18)
[2019-04-28] MEDS ORDERED: Lidocaine 1% PF 5 ML VIAL ONE (22:39)
[2019-04-28] MEDS ORDERED: PROPOFOL 200 MG/20 ML VIAL ONE (22:39)
[2019-04-28] MEDS ORDERED: PHENYLEPHRINE-NS 100 MCG/ML 10 ML SYRINGE ONE (22:39)
[2019-04-28] MEDS ORDERED: PACU-Morphine 4MG/ML VIAL SLOW IVP PRN (23:53)
[2019-04-28] MEDS ORDERED: HYDROmorphone 2 MG/ML VIAL SLOW IVP PRN (23:53)
[2019-04-28] MEDS ORDERED: Promethazine HCl 25 MG/ML VIAL IM PRN (23:53)
[2019-04-28] MEDS ORDERED: Promethazine HCl 25 MG/ML VIAL SLOW IVP PRN (23:53)
[2019-04-28] MEDS ORDERED: Ondansetron HCl/PF 4 MG/2 ML Vial IVP PRN (23:53)
[2019-04-28] MEDS ORDERED: Morphine Sulfate 2 MG/ML SYRINGE SLOW IVP PRN (23:53)
[2019-04-29] MEDS ORDERED: B & O PR PRN (00:24)
[2019-04-29 01:20] VITALS: BMI 29.5
[2019-04-29] MEDS: D5 1/2 NS w/20 mEq KCL 1,000 ML IV SCH ×3 (01:42→20:51)
--- NOTE | 2019-04-29 04:14 | OP ---
DATE OF PROCEDURE: 04/29/2019 PREOPERATIVE DIAGNOSES: Gross hematuria, urinary retention and inability to pass a Landrum catheter. POSTOPERATIVE DIAGNOSES: Gross hematuria, urinary retention and inability to pass a Landrum catheter. PROCEDURES PERFORMED: Cystoscopy, removal of clot, fulguration of prostatic urethral bleeding, and difficult Landrum placement. ANESTHESIA: General. ESTIMATED BLOOD LOSS: There was probably about 400 mL of blood clot in his bladder. He had active bleeding from the prostatic urethra, which was very friable, had some areas that almost appeared superficially necrotic. DRAINS PLACED: A 22-Cymro Landrum with 50 mL in the balloon, a three way on continuous bladder irrigation. DESCRIPTION OF PROCEDURE: After obtaining written and verbal consent from the patient after he had received 2 g of Rocephin, he was taken to the operating suite. He was placed in the supine position on the treatment table. PlexiPulses were placed on his lower extremities and turned on. He was given a general anesthetic, oral intubation, placed in the dorsal lithotomy position. He was sterilely prepped and draped for cystoscopy. Cystoscopy was performed with a 17-Cymro sheath. This was done because we could not pass the catheter in the ER. On flexible cystoscopy, I could not get into the bladder. The concern was that he had a stricture and a false passage. We went in with a 17-Cymro sheath and saw mainly just clot in the prostatic urethra and met in the region of the membranous urethra, making it difficult to visualize, so we switched over to a 20-Cymro. We were able to use this and a pair of grasping forceps to remove this clot. At this point, we were able to get into the prostatic urethra and found there was actually no urethral false passage at the membranous urethra or distal to it. The prostatic urethra was friable, actively bleeding, somewhat even necrotic, appeared like it may have, toward the apex, torn on attempts at passing a Landrum catheter earlier in the emergency center. We were able to get into the bladder with a 20-Cymro, it was full of clot. We then Ellik'd out a great deal of clots and then fed a guidewire through the sheath and switched to a 22-Cymro and passed this over the sheath and irrigated out the rest of the clot until we get the bladder completely clear. At this point, we inspected the bladder with the 30 and 70-degree lens. There were 2 ureteral orifices. There was a fairly heavy trabeculation with some small cellules and small diverticula. There was no obvious evidence of bladder tumor, foreign body, or stone. The prostatic urethra was actively bleeding. We initially brought in a Bugbee and tried to cauterize it, but this was unsuccessful, so we at this point, removed the instruments and switched over to an Sanchez resectoscope. This was well lubricated and passed adjacent to the guidewire that had been left in as a safety wire through the anterior urethra, through the membranous urethra, prostatic urethra into the bladder. We then used Gyrus generator and Gyrus loop and then Sanchez resectoscope with 30-degree lens, video camera and monitor to fulgurate the [place] of the prostatic urethra, especially nearby the verumontanum. Once we had this bleeding under good control, we removed the instruments. We left the guidewire in place as a safety and we fed this through a 22-Cymro Landrum catheter, 30 mL balloon that had so that it would act as a Hoopa tip catheter. This will help us to direct this into the bladder with minimal trauma and then we inflated the balloon about 50 mL, brought it down on traction and hand irrigated. It was just kind of a faint pink color. We hooked up to continuous bladder irrigation and secured it to his left thigh on mild traction. A rectal exam was done which revealed an enlarged prostate without significant nodularity and no rectal lesions. There was no blood on the rectal exam either. At this point, he was awakened and taken by stretcher to the recovery room. Job ID: [id number]
[2019-04-29 05:10] LABS: INR-International Normal Ratio 1.1; PTT 32.4 SEC (22.9-36.1); Prothrombin Time 13.9 SEC (12.0-14.7)
[2019-04-29 05:22] LABS: #Eosinphils 0.2 thou/uL (0.0-0.7); #Lymphocytes 1.7 thou/uL (1.20-3.40); #Neutrophils 6.2 thou/uL (1.40-6.50); %Basophils 0.1 % (0.0-1.0); %Eosinophils 2.2 % (0.0-10.0); %Lymphocytes 18.3 % (21.0-51.0); %Monocytes 10.8 % (0.0-10.0); %Neutrophils 68.6 % (42.0-75.0); Hemoglobin 11.1 g/dL (14.0-18.0); Mean Corpuscular HGB CONC 32.5 g/dL (32.0-36.0); Mean Corpuscular Hemoglobin 27.8 pg (27.0-31.0); Mean Corpuscular Volume 85.5 fL (78.0-98.0); Mean Platelet Volume 9.2 fL (7.4-10.4); Platelet Count 182 thou/uL (130-400); RBC Distribution Width 15.9 % (11.5-14.5); Red Blood Cell (RBC) Count 4.01 mill/uL (4.70-6.10); White Blood Cell (WBC) Count 9.1 thou/uL (4.8-10.8)
[2019-04-29 05:28] LABS: Anion Gap 12 mmol/L (10-20); BUN (Urea Nitrogen) 12 mg/dL (8.4-25.7); Calc. Creatinine Clearance 107 mL/min (70-130); Calcium 8.6 mg/dL (7.8-10.44); Carbon Dioxide 26 mmol/L (23-31); Chloride 104 mmol/L (98-107); Estimated GFR-MDRD Greater than 90; Glucose 117 mg/dL (83-110); Potassium 4.3 mmol/L (3.5-5.1); Sodium 138 mmol/L (136-145)
--- NOTE | 2019-04-29 07:49 | CON ---
DATE OF CONSULTATION: HISTORY OF PRESENT ILLNESS: A 73-year-old white male. He called me today around 5 in the afternoon. He was having a hard time urinating. His said he has been sitting on the toilet all day, urinating just small amounts, mostly blood. This started yesterday. He is a patient of Dr. Bernardo's, could not get in to see Dr. Bernardo till tomorrow, told him it would probably it would be best to come to the ER which he did. The ER called me here from [place] hour and a half or so ago, tried to put a catheter in 3 or 4 times, could not get one in. Two nurses and one doctor tried and then a 4th nurse was able to get a stiff catheter in and drained out about 600 mL of grossly bloody urine. It was a catheter that did not have a balloon on it, so it was taped to his thigh when I got here. He did have a CAT scan, noncontrast, done that showed distended bladder with some clot in it. He had some small calcifications in the right kidney and some mild right hydronephrosis, but I did not see any evidence of any ureteral stones. He did have a history of ureteral stones in the past. He had a left renal cyst also. His hemoglobin is 12. His white count 7.1, his platelet count is 232, creatinine 0.9, which is stable. Alkaline phosphatase is slightly elevated. Urine shows 1+ bacteria, 4 to 6 white cells, greater than 50 red cells. His urine is grossly bloody. Reviewing his records, Dr. Bernardo did a TURP on him and ureteroscopy back in September and October 2018. He is actually in the hospital with fever and Dr. Garner saw him at that time also. I think he ultimately ended up having I think pneumonia, although he did have some bacteria in his urine and did have some positive cultures in and around that time. He also has a history of atrial fibrillation and I believe he has had ablations and a Watchman procedure done. He is not on any blood thinners currently. He denies any history of any joint replacement and has no cardiac valve replacement. He does have a history of having a pacemaker placed. He also has a history of spinal stenosis, the kidney stones, ureteroscopy and transurethral vaporization of the prostate, atrial fibrillation, low thyroid, reflux disease, hyperlipidemia, and an angiomyolipoma of the kidney. I think he actually had that removed. He is also hypogonadal. ALLERGIES: HE HAS ALLERGIES TO CIPRO, FLUOXETINE, HYDROXYZINE, AND XARELTO. PHYSICAL EXAMINATION: His penis is without lesion. Testes are descended without mass or tenderness. There is no perineal bruising or scrotal bruising or hematoma. I sterilely prepped and draped and placed 2 vials of 2% Xylocaine jelly and gently tried to pass a 22-Urdu coude tip three-way, would not go in. I did a cysto with a flexible cystoscope at the bedside in the emergency department and I would get down to about the membranous urethra and it looks like he has a false passage there and I could not find the lumen to get into the bladder. I talked with him about this. Recommended we go to the OR, put him in to sleep, look in with a rigid scope, get into the bladder and then try to get this clot out also. We will give him 2 g of Rocephin. He understands that he will be at least be spending the night. I will let Dr. Bernardo know about this tomorrow when he comes back on duty. Job ID: [id number]
[2019-04-29] MEDS: cefTRIAXone\\ROCEPHIN 1 GM in Sodium Chloride 0.9% 100 ML IVPB SCH ×2 (09:26→21:16)
[2019-04-29] MEDS ORDERED: Acetaminophen 500 MG TAB PO PRN (18:01)
[2019-04-29] MEDS ORDERED: traMADol HCl 50 MG TAB PO PRN (18:01)
--- NOTE | 2019-04-29 18:15 | PRG ---
DATE OF SERVICE: 04/29/2019 SUBJECTIVE: The patient states he is feeling better. He is not having any significant bladder pain. He denies any bladder spasms or fevers. OBJECTIVE: VITAL SIGNS: Temperature 98.1, pulse 70, respirations 14, blood pressure 114/63, and saturation 97% on room air. GENERAL: No apparent distress. Communicative and alert. CARDIOVASCULAR: Regular rate and rhythm. ABDOMEN: Soft, nontender, and nondistended. Positive bowel sounds. : Landrum catheter in place with slow drip CBI with very light pink tinged urine. EXTREMITIES: 1+ edema bilaterally. LABORATORY EVALUATION: Full set of labs that are in the [facility] system, which I have reviewed. Of note, the patient's hemoglobin is 11.1 and creatinine of 0.81. ASSESSMENT AND PLAN: A 73-year-old white male with benign prostatic hyperplasia status post transurethral vaporization of the prostate with prostatic bleed of unknown etiology. He apparently developed friable and bleeding tissues in part from multiple attempts of catheter placement, but he did originally spontaneously bleed. I spoke with Dr. Forbes and he is not entirely clear, either why the patient had spontaneous bleeding. We discussed possibly initiating finasteride to prevent future regrowth and further bleeding. But for now the patient states that he does not necessarily want to start any new medications unless necessary. I will await for his hematuria to clear up with CBI on board for 24 hours and tomorrow, we will plan to stop the CBI, if the urine is clear, we can then perform a void trial and I will watch him for another 24 hours urinating on his own and if he continues to urinate relatively clear urine, we can discharge him and follow up on an outpatient basis. Job ID: [id number]
[2019-04-29] MEDS ORDERED: Polyethylene Glycol 3350 17 GM Packet PO SCH (18:30)
[2019-04-29] MEDS: Sotalol HCl 80 MG TAB PO SCH (20:51)
[2019-04-29] MEDS ORDERED: cefTRIAXone\\ROCEPHIN 1 GM in Sodium Chloride 0.9% 100 ML IVPB SCH (22:00)
[2019-04-30] MEDS: Levothyroxine Sodium 75 MCG TAB PO SCH (05:12)
[2019-04-30] MEDS: D5 1/2 NS w/20 mEq KCL 1,000 ML IV SCH (05:14)
[2019-04-30] MEDS: Sotalol HCl 80 MG TAB PO SCH ×2 (08:49→21:13)
[2019-04-30] MEDS: Polyethylene Glycol 3350 17 GM Packet PO SCH (08:52)
--- NOTE | 2019-04-30 09:26 | PRG ---
DATE OF SERVICE: 04/30/2019 SUBJECTIVE: The patient states he is feeling fine. Denies bladder spasms, pain, fevers, chills, or flank pain. States his urine has been relatively clear all night with extremely slow drip CBI. OBJECTIVE: VITAL SIGNS: Temperature 98.6, pulse 70, respirations 16, blood pressure 150/67, saturation 97% on room air. GENERAL: No apparent distress. Communicative and alert. CARDIOVASCULAR: Regular rate. Regular rhythm. Normal S1 and S2. ABDOMEN: Soft, nontender, and nondistended. Positive bowel sounds. : Landrum catheter in place draining extremely pale pink urine with no clots. CBI on extremely slow drip. EXTREMITIES: Trace edema bilaterally. ASSESSMENT AND PLAN: A 73-year-old white male with gross hematuria of unexplained etiology with hematuria which apparently has stopped after fulguration by Dr. Forbes in the operating room. I would recommend Landrum discontinuation at this time. His IV fluids can be stopped. His IV can be removed given the patient is complaining about it and has a low need for IV medications at this point. His urine culture preliminarily is negative, and so, we will stop his IV antibiotics as well. I will watch him for 24 hours to make sure that he is urinating clear urine, and so long as it remains this way, he can probably be discharged tomorrow. I would recommend outpatient cystoscopy to evaluate to see if we can find the source of where he bled from. Job ID: [id number]
[2019-05-01] MEDS: Levothyroxine Sodium 75 MCG TAB PO SCH (05:33)
[2019-05-01] MEDS: Sotalol HCl 80 MG TAB PO SCH (07:50)
[2019-05-01 07:52] VITALS: BP 157/89
[2019-05-01] MEDS: Polyethylene Glycol 3350 17 GM Packet PO SCH (07:52)
[2019-05-01 07:53] VITALS: TEMP 97.8
== END 2019-05-01 11:50 | disposition home or self-care (01) | DRG 667 ==
LOC: ERS 18:10 → SURG A 04-29 00:25
PROVIDERS: ADMIT Urology; ATTEND Urology
PROC: 0V508ZZ Destruction of Prostate, Via Natural or Artificial Opening Endoscopic (ICD-10-PCS; principal; 2019-04-29)
PROC: 0TCB8ZZ Extirpation of Matter from Bladder, Via Natural or Artificial Opening Endoscopic (ICD-10-PCS; 2019-04-29)
DX: R31.0 Gross hematuria (principal); N13.30 Unspecified hydronephrosis; I48.91 Unspecified atrial fibrillation; R33.9 Retention of urine, unspecified; E03.9 Hypothyroidism, unspecified; F41.9 Anxiety disorder, unspecified; N40.0 Benign prostatic hyperplasia without lower urinary tract symptoms; K21.9 Gastro-esophageal reflux disease without esophagitis; E78.5 Hyperlipidemia, unspecified; Z79.01 Long term (current) use of anticoagulants; Z95.0 Presence of cardiac pacemaker; Z87.442 Personal history of urinary calculi; Z88.1 Allergy status to other antibiotic agents; Z88.8 Allergy status to other drugs, medicaments and biological substances
CPT/HCPCS: 36415; 74176; 76000; 80048; 80053; 81003; 81015; 85025; 85610; 85730; 87086; J0696; J2001; J2270; J2405; J2704; J3010; J3490

== ENCOUNTER 2019-08-23 07:56 | Inpatient (IN) | payer MEDICARE, BC ==
[2019-08-23] MEDS ORDERED: Lidocaine Viscous Sol 2% 15 ml UD Cup ONE ×2 (08:49→09:33)
[2019-08-23 09:18] LABS: #Eosinphils 0.2 thou/uL (0.0-0.7); #Lymphocytes 1.1 thou/uL (1.20-3.40); #Monocytes 0.5 thou/uL (0.11-0.59); #Neutrophils 3.5 thou/uL (1.40-6.50); %Basophils 0.3 % (0.0-1.0); %Eosinophils 4.6 % (0.0-10.0); %Lymphocytes 20.9 % (21.0-51.0); %Monocytes 8.6 % (0.0-10.0); %Neutrophils 65.6 % (42.0-75.0); Hemoglobin 13.9 g/dL (14.0-18.0); Mean Corpuscular HGB CONC 32.1 g/dL (32.0-36.0); Mean Corpuscular Hemoglobin 27.5 pg (27.0-31.0); Mean Corpuscular Volume 85.7 fL (78.0-98.0); Mean Platelet Volume 7.6 fL (7.4-10.4); Platelet Count 233 thou/uL (130-400); Red Blood Cell (RBC) Count 5.06 mill/uL (4.70-6.10); White Blood Cell (WBC) Count 5.3 thou/uL (4.8-10.8)
[2019-08-23 09:26] LABS: PTT 32.9 SEC (22.9-36.1)
[2019-08-23 09:32] LABS: Prothrombin Time 12.9 SEC (12.0-14.7)
[2019-08-23 09:37] LABS: ALT (SGPT) 16 U/L (8-55); AST (SGOT) 22 U/L (5-34); Albumin 4.3 g/dL (3.4-4.8); Alkaline Phosphatase 121 U/L (40-110); Anion Gap 9 mmol/L (10-20); BUN (Urea Nitrogen) 16 mg/dL (8.4-25.7); Bilirubin, Total 0.5 mg/dL (0.2-1.2); Calc. Creatinine Clearance 0 mL/min (70-130); Calcium 9.5 mg/dL (7.8-10.44); Carbon Dioxide 32 mmol/L (23-31); Chloride 102 mmol/L (98-107); Estimated GFR-MDRD 73; Globulin 2.8 g/dL (2.4-3.5); Glucose 90 mg/dL (83-110); Potassium 5.2 mmol/L (3.5-5.1); Protein, Total 7.1 g/dL (5.8-8.1); Sodium 138 mmol/L (136-145)
[2019-08-23 09:53] LABS: Bilirubin Moderate (Negative); Blood, Urine Large (Negative); Clarity Turbid (Clear); Glucose, Urine (Dipstick) Negative (Negative); Leukocyte Negative (Negative); Nitrite Negative (Negative); Protein, Urine (Dipstick) > or equal to 300 mg/dL (Neg-Trace)
[2019-08-23 10:04] LABS: RBC/HPF Greater than 50 HPF (0-3)
[2019-08-23 10:05] LABS: Bacteria/HPF None Seen HPF (None Seen); Squamous Epithelial None Seen HPF (0-3); WBC/HPF 0-3 HPF (0-3)
[2019-08-23] MEDS ORDERED: PROPOFOL 200 MG/20 ML VIAL ONE (10:43)
[2019-08-23] MEDS ORDERED: Lidocaine 1% PF 5 ML VIAL ONE (10:43)
[2019-08-23] MEDS ORDERED: Fentanyl 100 MCG/2 ML VIAL ONE ×2 (11:30→11:54)
[2019-08-23] MEDS ORDERED: Meperidine HCl/PF 25 MG/ML VIAL ONE (14:01)
[2019-08-23] MEDS ORDERED: hydrALAZINE 20 MG/ML VIAL SLOW IVP PRN (14:13)
[2019-08-23] MEDS ORDERED: Zolpidem Tartrate 5 MG TAB PO PRN (14:13)
[2019-08-23] MEDS ORDERED: Acetaminophen 500 MG TAB PO PRN (14:13)
[2019-08-23] MEDS ORDERED: diphenhydrAMINE 50 MG/ML VIAL IVP PRN (14:13)
[2019-08-23] MEDS ORDERED: Ondansetron PF 4 MG/2 ML Vial IVP PRN (14:13)
--- NOTE | 2019-08-23 15:21 | HP ---
CHIEF COMPLAINT: Blood in urine. HISTORY OF PRESENT ILLNESS: A 74-year-old male with a history of kidney stone requiring staged ureteroscopy last Spring, during which he developed significant prostatic bleeding and retention, ending up in the hospital for about 2 weeks he tells me. He had a transurethral resection of the prostate performed at that time, which he believes was in last October. He reports that he had good resolution of his obstructive urinary symptoms, noting an excellent stream; complete emptying; reduction in urgency, frequency, nocturia after the prostate surgery. He was recently hospitalized in April for gross hematuria and required a trip to the operating room with Dr. Forbes for clot evacuation, fulguration, catheter placement. He has not had any problems since then and underwent cystoscopy in the office with Dr. Bernardo about one month ago, noting a large prominent vein, but no other abnormalities. He presents today reporting that he developed gross hematuria yesterday, and overnight this worsened with him being unable to void this morning, passing small clots. On admission to the emergency room, a 20-Sierra Leonean 3-way catheter was placed without return of urine and was unable to be irrigated. At this point, I was contacted. On presenting to the bedside, the patient tells me that his bladder is feeling full, but he is not in any significant discomfort. He denies chest pains, difficulty breathing, dysuria, flank pain, nausea, vomiting, fevers, or chills. PAST MEDICAL HISTORY: Atrial fibrillation, kidney stones, angiomyolipoma, hypothyroid, hypogonadism, hyperlipidemia, cardiac disease. SURGICAL HISTORY: Spine surgery, transurethral resection of prostate, cardiac ablation, Watchman procedure, ureteroscopy with laser. SOCIAL HISTORY: Lives with his in [facility]. No substance abuse. FAMILY HISTORY: Reviewed, noncontributory. ALLERGIES: CIPROFLOXACIN, XARELTO, FLUOXETINE, HYDROXYZINE. REVIEW OF SYSTEMS: Ten-point review of systems is negative except as mentioned in my HPI. PHYSICAL EXAMINATION: VITAL SIGNS: Afebrile, vitals are stable. Minimal urine output, grossly bloody with clots. GENERAL: The patient is resting comfortably in bed at the moment, conversant. HEENT: Head, normocephalic and atraumatic. Eyes, extraocular movements are intact. Sclerae are nonicteric. NECK: Supple. Trachea is midline. LUNGS: Breathing unlabored, symmetric chest expansion. HEART: Regular rate and rhythm. ABDOMEN: Soft, nontender, nondistended. No CVA tenderness. : The patient has gross blood at the meatus with moderate amount of blood on his bed sheets. Bladder is somewhat tender and barely palpable above the pubic symphysis. Normal testicles. EXTREMITIES: Without clubbing, cyanosis, or edema. SKIN: Warm and dry. PSYCHIATRIC: Normal mood and affect. NEUROLOGIC: Alert and oriented x3. LABORATORY DATA: White count 5, hemoglobin 13.9. Creatinine 1.0, potassium of 5.2. Urinalysis with large blood, negative leukocyte esterase or nitrites. PROCEDURE: Under sterile conditions, I attempted to pass a 24-S[place] Leonean 3-way catheter, but was unable to traverse the prostatic fossa. Given his history, I elected not to attempt other bedside procedures and we decided that we would proceed to the operating room. ASSESSMENT AND PLAN: Urinary retention, gross hematuria, regrowth adenoma of prostate. We discussed the options, and the patient, his , his daughter, and I are all in agreement that we should proceed to the operating room for fulguration versus repeat resection of regrowth adenoma, clot evacuation, catheter placement. I explained the procedure in detail and went over the risks and expected postoperative course. I expect that he will be here for at least two midnights for continuous irrigation with possible discharge on Sunday. Atrial fibrillation, EKG has been ordered. If this becomes an issue. I will contact the compressor station chief engineer sap solution manager consultant. Dr. Staton is his primary compressor station chief engineer. Holding aspirin. SCDs for DVT prophylaxis. Regular diet after surgery. Job ID: [id number]
[2019-08-23] MEDS: cefTRIAXone\\ROCEPHIN 1 GM in Sodium Chloride 0.9% 100 ML IVPB SCH (15:55)
[2019-08-23] MEDS: Sodium Chloride 0.9% 1,000 ML IV SCH (15:56)
--- NOTE | 2019-08-23 16:49 | OP ---
DATE OF PROCEDURE: 08/23/2019 PREOPERATIVE DIAGNOSES: 1. Clot retention. 2. Hematuria. POSTOPERATIVE DIAGNOSES: 1. Clot retention. 2. Hematuria. 3. Obstructing prostate. PROCEDURES PERFORMED: 1. Transurethral resection of prostate. 2. Clot evacuation. ANESTHESIA: General. COMPLICATIONS: None. BLOOD LOSS: 50 mL. SPECIMEN: Prostate chips. DESCRIPTION OF PROCEDURE: After informed consent, the patient was taken to the operating room and transferred to the table on his own power. Anesthesia was established. A time-out was performed, showing the correct patient, site, and procedure. Preoperative antibiotics were administered. He was prepped and draped in the lithotomy position. I began by inserting the resectoscope through the urethra without difficulty down to the prostatic urethra, where I noted a false passage, which seems to have been created by attempts at placing his catheter this morning. I was able to eventually guide the scope up over the false passage through the anterior aspect of the prostate into the bladder, noting coapting lateral lobes and a high bladder neck. The bladder was systematically examined, noting large blood clot. No mucosal abnormalities. Moderate trabeculation. The blood clot was removed with Ellik evacuator and the bladder reexamined noting no abnormalities with the blood clot out of the way. At this point, I noted the prostate was still bleeding and felt that he was going to have difficulty with any further catheter placements, possibly at the end of procedure unless I performed transurethral resection to allow a channel that would facilitate catheter passage in the event this became necessary. The resection loop was used to resect from the bladder neck back towards the verumontanum in midline and then I resected the lateral lobes mostly anteriorly. At the end, he had a good anterior channel and a normal posterior channel of the prostate, which should allow passage of the catheter. Meticulous hemostasis was achieved. Prostate chips were removed with the Ellik evacuator. The scope was removed and a 22-Hungarian 3-way catheter was passed without difficulty into the bladder, draining clear urine. 30 mL were instilled in the balloon and this was connected to continuous irrigation, which was clear on CBI. The patient was then transferred back to his hospital bed, awoken from anesthesia, taken to the PACU in stable condition, and will be admitted to the floor afterwards. Job ID: [id number]
[2019-08-23] MEDS: Ketorolac Tromethamine 30 MG/ML VIAL IVP SCH ×2 (17:37→23:31)
[2019-08-23 19:30] VITALS: BMI 30.3
[2019-08-23] MEDS: Famotidine/PF 20 mg/2ml Vial SLOW IVP SCH (20:30)
[2019-08-23] MEDS: Sotalol HCl 80 MG TAB PO SCH (20:30)
[2019-08-24] MEDS: Sodium Chloride 0.9% 1,000 ML IV SCH ×2 (03:50→14:30)
[2019-08-24 04:39] LABS: #Eosinphils 0.2 thou/uL (0.0-0.7); #Lymphocytes 1.7 thou/uL (1.20-3.40); #Monocytes 0.8 thou/uL (0.11-0.59); #Neutrophils 4.7 thou/uL (1.40-6.50); %Basophils 0.6 % (0.0-1.0); %Eosinophils 2.9 % (0.0-10.0); %Lymphocytes 22.5 % (21.0-51.0); %Monocytes 11.2 % (0.0-10.0); %Neutrophils 62.8 % (42.0-75.0); Hemoglobin 10.6 g/dL (14.0-18.0); Mean Corpuscular HGB CONC 32.1 g/dL (32.0-36.0); Mean Corpuscular Hemoglobin 27.6 pg (27.0-31.0); Mean Corpuscular Volume 85.9 fL (78.0-98.0); Platelet Count 205 thou/uL (130-400); RBC Distribution Width 14.9 % (11.5-14.5); Red Blood Cell (RBC) Count 3.82 mill/uL (4.70-6.10); White Blood Cell (WBC) Count 7.4 thou/uL (4.8-10.8)
[2019-08-24 04:54] LABS: Anion Gap 7 mmol/L (10-20); BUN (Urea Nitrogen) 23 mg/dL (8.4-25.7); Calc. Creatinine Clearance 72 mL/min (70-130); Calcium 8.2 mg/dL (7.8-10.44); Carbon Dioxide 30 mmol/L (23-31); Chloride 105 mmol/L (98-107); Estimated GFR-MDRD 58; Glucose 122 mg/dL (83-110); Potassium 4.4 mmol/L (3.5-5.1); Sodium 138 mmol/L (136-145)
[2019-08-24] MEDS: Ketorolac Tromethamine 30 MG/ML VIAL IVP SCH ×3 (06:00→18:00)
[2019-08-24] MEDS: Sotalol HCl 80 MG TAB PO SCH ×2 (08:52→20:03)
[2019-08-24] MEDS: Famotidine/PF 20 mg/2ml Vial SLOW IVP SCH ×2 (08:53→20:04)
[2019-08-24] MEDS: Polyethylene Glycol 3350 17 GM Packet PO SCH (08:53)
[2019-08-24] MEDS ORDERED: Levothyroxine Sodium 75 MCG TAB PO SCH (09:00)
--- NOTE | 2019-08-24 11:54 | PRG ---
DATE OF SERVICE: 08/24/2019 SUBJECTIVE: No problems overnight. He denies any bladder discomfort, flank pain, nausea, vomiting, chest pains, fevers, or chills. Tolerating diet, he has been up to a chair. Mild hypotension overnight. This has resolved by the morning. Otherwise, afebrile. OBJECTIVE: VITAL SIGNS: Stable. Urine output pink on slow CBI drip. GENERAL: No acute distress, conversant. LUNGS: Unlabored breathing. HEART: Regular rate and rhythm. ABDOMEN: Soft, nontender, nondistended. No CVA tenderness. : No suprapubic tenderness. Landrum catheter in good position draining urine as listed above. EXTREMITIES: No peripheral edema. LABORATORY DATA: White count 7.4, hemoglobin 10.6. Creatinine 1.22. ASSESSMENT AND PLAN: Postoperative day 1, transurethral resection of regrowth adenoma, fulguration of prostate, clot evacuation, catheter placement. He has been maintained on continuous bladder irrigation overnight. We will continue to slowly run the continuous bladder irrigation through the rest of the day. Gastrointestinal prophylaxis, deep venous thrombosis prophylaxis, out of bed and ambulating, regular diet, pain control as needed. Discharge anticipated tomorrow with catheter for at least 1 week. Job ID: [id number]
[2019-08-24] MEDS: cefTRIAXone\\ROCEPHIN 1 GM in Sodium Chloride 0.9% 100 ML IVPB SCH (14:29)
[2019-08-25] MEDS: Sodium Chloride 0.9% 1,000 ML IV SCH ×2 (01:11→14:38)
[2019-08-25] MEDS: Ketorolac Tromethamine 30 MG/ML VIAL IVP SCH ×4 (01:11→18:44)
[2019-08-25] MEDS: Levothyroxine Sodium 75 MCG TAB PO SCH (05:24)
[2019-08-25] MEDS: Sotalol HCl 80 MG TAB PO SCH ×2 (08:58→21:44)
[2019-08-25] MEDS: Polyethylene Glycol 3350 17 GM Packet PO SCH (08:59)
[2019-08-25] MEDS: Famotidine/PF 20 mg/2ml Vial SLOW IVP SCH ×2 (08:59→21:44)
--- NOTE | 2019-08-25 09:54 | PRG ---
DATE OF SERVICE: 08/25/2019 SUBJECTIVE: No issues overnight. No chest pains. He denies dysuria, suprapubic pain, flank pain, nausea, vomiting, fevers, or chills. OBJECTIVE: VITAL SIGNS: Afebrile. Vitals stable. Good urine output, almost clear on very slow CBI. GENERAL: No acute distress. ABDOMEN: Soft, nontender, and nondistended. GENITOURINARY: Landrum catheter in good position. ASSESSMENT AND PLAN: Postop day 2, transurethral resection of prostate, fulguration, clot evacuation or clot retention. CBI turned off this morning. If he does well through the afternoon, he can likely be discharged home with followup in 1 to 2 weeks for catheter removal and void trial. Job ID: [id number]
[2019-08-25] MEDS: cefTRIAXone\\ROCEPHIN 1 GM in Sodium Chloride 0.9% 100 ML IVPB SCH (16:57)
[2019-08-26] MEDS: Ketorolac Tromethamine 30 MG/ML VIAL IVP SCH ×4 (00:09→18:51)
[2019-08-26] MEDS: Sodium Chloride 0.9% 1,000 ML IV SCH ×3 (00:10→21:08)
[2019-08-26] MEDS: Levothyroxine Sodium 75 MCG TAB PO SCH (05:51)
[2019-08-26] MEDS: Sotalol HCl 80 MG TAB PO SCH ×2 (08:47→21:04)
[2019-08-26] MEDS: Polyethylene Glycol 3350 17 GM Packet PO SCH (08:48)
[2019-08-26] MEDS: Famotidine/PF 20 mg/2ml Vial SLOW IVP SCH ×2 (08:48→21:05)
[2019-08-26] MEDS ORDERED: Furosemide 20 MG TAB PO SCH (09:00)
[2019-08-26] MEDS: Rosuvastatin 10 MG TAB PO SCH (09:30)
--- NOTE | 2019-08-26 09:47 | PRG ---
DATE OF SERVICE: 08/26/2019 SUBJECTIVE: The patient states he is feeling pretty good. He feels his legs are little swollen. He is not having any significant pain. Denies any chest pain or shortness of breath. He also states he had been getting a little bit anxious and has not received his anxiety medications. OBJECTIVE: VITAL SIGNS: Temperature 97.4, pulse 70, respirations 16, blood pressure 153/70, saturation 99% on room air. GENERAL: No apparent distress. Communicative and alert. CARDIOVASCULAR: Regular rate and rhythm. ABDOMEN: Soft, nontender, nondistended. : Landrum catheter in place, secured with light red urine, which is translucent. CBI is currently off. EXTREMITIES: 2+ edema bilaterally. LABORATORY DATA: On laboratory evaluation, there are no new labs today. ASSESSMENT AND PLAN: A 74-year-old white male with gross hematuria likely secondary to BPH regrowth, status post TURP by Dr. Valdez, postoperative day 2. The patient appears to be doing quite well at the current time. His urine is little bit red, but he also recently got up and moved some. I do not think his urine is bloody enough to warrant continued CBI and catheterization. I would recommend that we go ahead and take the catheter out and monitor his urine with serial urine collection. I would like to watch for a few hours to ensure that it is not getting more red, at which point I would like to keep him in the hospital if it is or if it is lightening up then he can probably go home. I will give him a dose of Lasix 20 mg today to ensure that he remains euvolemic as he normally takes 10 mg once a day, but does take 20 when his legs started to swell. He already has anxiety medications order and I told him that he should probably remain on this so long as he is able to void and his urine is relatively clear. I think he can go home with outpatient followup. I recommended he remain off his aspirin until his urine is cleared up as well as light activity. I will also start him on finasteride to try and limit prostatic regrowth and vascularization. His care will then be handled on an outpatient basis. Job ID: [id number]
[2019-08-26] MEDS: cefTRIAXone\\ROCEPHIN 1 GM in Sodium Chloride 0.9% 100 ML IVPB SCH (15:46)
[2019-08-27] MEDS: Ketorolac Tromethamine 30 MG/ML VIAL IVP SCH ×4 (00:11→17:05)
[2019-08-27] MEDS: Levothyroxine Sodium 75 MCG TAB PO SCH (05:35)
[2019-08-27] MEDS: Acetaminophen 500 MG TAB PO PRN ×2 (07:52→17:34)
[2019-08-27] MEDS: Hyoscyamine Sulfate SL 0.125 mg Tablet SL PRN ×2 (07:52→14:38)
[2019-08-27] MEDS: Sotalol HCl 80 MG TAB PO SCH ×2 (07:53→21:37)
[2019-08-27] MEDS: Polyethylene Glycol 3350 17 GM Packet PO SCH (07:53)
[2019-08-27] MEDS: Rosuvastatin 10 MG TAB PO SCH (07:53)
[2019-08-27] MEDS: Famotidine/PF 20 mg/2ml Vial SLOW IVP SCH ×2 (07:56→21:38)
[2019-08-27] MEDS ORDERED: B & O PR PRN (11:10)
--- NOTE | 2019-08-27 11:41 | PRG ---
DATE OF SERVICE: 08/27/2019 SUBJECTIVE: The patient had a significant event occurring yesterday afternoon. After the catheter removal, he was unable to urinate. A bladder scan demonstrated almost 600 mL in the bladder and the patient began experiencing significant pain. Attempts to replace the catheter by nursing staff were unsuccessful. I was called to bedside. At which point, I attempted a 22-Kinyarwanda three-way Landrum catheter, which again was being met with resistance at the bladder neck. A 22-Kinyarwanda coude catheter was able to be passed into the bladder with release of approximately 600 mL of bloody urine. The patient was kept with catheter overnight to monitor for bleeding and discharge was canceled. Today, he states that he has been having a lot of bladder spasms with urination around the catheter. His urine has remained bloody, but he is not currently experiencing lot of pain. He denies any fevers. He otherwise is feeling good. He still feels a little bit swollen, but is currently on IV fluids. He received 20 mg of Lasix yesterday. OBJECTIVE: VITAL SIGNS: Temperature 97.5, pulse 73, respirations 18, blood pressure 147/79, saturation 97% on room air. GENERAL: No apparent distress, communicative, alert. CARDIOVASCULAR: Regular rate and rhythm. Normal S1 and S2. CHEST: No increased work of breathing. Symmetric expansion of lungs. ABDOMEN: Soft, nontender, and nondistended. Positive bowel sounds. : Landrum catheter in place, secured to StatLock with maroon-colored urine which is translucent without clots. EXTREMITIES: 1+ edema bilaterally. MUSCULOSKELETAL: No joint deformities or joint erythema noted. Full range of motion. SKIN: Warm and dry. No rashes or lesions. Good turgor. LABORATORY EVALUATION: There are no new labs to review today. ASSESSMENT AND PLAN: A 74-year-old white male with gross hematuria and urinary retention. There were no clots, so this is not likely clot retention, but the patient likely is having neurogenic bladder dysfunction resulting in urinary retention. I would recommend that since he is having hematuria and an inability to void, we keep the catheter in for approximately 1 week. At which point, we can retry a voiding trial about one week in the office. For now, since he is still having hematuria and concern for blockages with bladder spasms, I would recommend that we monitor him in the hospital for at least another day. I will start him on oxybutynin extended release 10 mg p.o. daily as well as B and O suppositories b.i.d. p.r.n. bladder spasms. He may continue to use the Levsin p.r.n. as previously ordered. We will ensure that his bladder spasms are controlled and his hematuria is not worsening. At which point, I do think he should be able to go home with his catheter. I will also start him on finasteride as we had previously discussed to maintain his prostatic regrowth to avoid future bleeding. Since he is still having some edema, I will go ahead and order him to continue his 10 mg of Lasix daily and shut off his IV fluids. I will also plan to recheck a BMP today to ensure he does not need any potassium replacement as well as a BMP tomorrow morning. Job ID: [id number]
[2019-08-27] MEDS: Sodium Chloride 0.9% 1,000 ML IV SCH (12:29)
[2019-08-27] MEDS ORDERED: Furosemide 20 MG TAB PO SCH (13:00)
[2019-08-27 13:52] LABS: Anion Gap 9 mmol/L (10-20); BUN (Urea Nitrogen) 9 mg/dL (8.4-25.7); Calc. Creatinine Clearance 109 mL/min (70-130); Calcium 8.6 mg/dL (7.8-10.44); Carbon Dioxide 27 mmol/L (23-31); Chloride 105 mmol/L (98-107); Estimated GFR-MDRD Greater than 90; Glucose 86 mg/dL (83-110); Potassium 3.7 mmol/L (3.5-5.1); Sodium 137 mmol/L (136-145)
[2019-08-27] MEDS: cefTRIAXone\\ROCEPHIN 1 GM in Sodium Chloride 0.9% 100 ML IVPB SCH (14:42)
[2019-08-28] MEDS: Ketorolac Tromethamine 30 MG/ML VIAL IVP SCH ×4 (00:58→18:20)
[2019-08-28] MEDS: Levothyroxine Sodium 75 MCG TAB PO SCH (05:24)
[2019-08-28 05:58] LABS: Anion Gap 10 mmol/L (10-20); BUN (Urea Nitrogen) 12 mg/dL (8.4-25.7); Calc. Creatinine Clearance 111 mL/min (70-130); Calcium 8.8 mg/dL (7.8-10.44); Carbon Dioxide 28 mmol/L (23-31); Chloride 105 mmol/L (98-107); Estimated GFR-MDRD Greater than 90; Glucose 100 mg/dL (83-110); Sodium 139 mmol/L (136-145)
[2019-08-28] MEDS: Famotidine/PF 20 mg/2ml Vial SLOW IVP SCH ×2 (08:32→20:55)
[2019-08-28] MEDS: Oxybutynin ER 5 MG TAB PO SCH (08:32)
[2019-08-28] MEDS: Sotalol HCl 80 MG TAB PO SCH ×2 (08:33→20:56)
[2019-08-28] MEDS: Rosuvastatin 10 MG TAB PO SCH (08:33)
[2019-08-28] MEDS: Finasteride 5 MG TAB PO SCH (08:33)
[2019-08-28] MEDS: Furosemide 20 MG TAB PO SCH (08:33)
[2019-08-28] MEDS: Polyethylene Glycol 3350 17 GM Packet PO SCH (12:18)
[2019-08-28] MEDS: cefTRIAXone\\ROCEPHIN 1 GM in Sodium Chloride 0.9% 100 ML IVPB SCH (14:45)
--- NOTE | 2019-08-28 18:52 | PRG ---
DATE OF SERVICE: 08/28/2019 SUBJECTIVE: The patient states he has been feeling fine until this afternoon when he felt his catheter has stopped draining. The nurse did flush the catheter a few times, but he feels like everything is backing up, and he does not think that the catheter is draining properly. He denies any significant bladder spasms currently, although he did have a few episodes of leakage around his catheter. He stated urine has been clearing up other than some bloody urine when he had a bowel movement earlier. OBJECTIVE: VITAL SIGNS: Temperature 98.1, pulse 74, respirations 14, blood pressure 138/77, and saturation 98% on room air. GENERAL: No apparent distress, communicative, and alert. CARDIOVASCULAR: Regular rate and rhythm. ABDOMEN: Soft, nontender, and nondistended. Positive bowel sounds. EXTREMITIES: 1+ edema bilaterally. : Landrum catheter is in place, draining a light translucent maroon urine. The catheter was irrigated with small to moderate amount of clots removed. After irrigation, the urine is completely clear with no evidence of bleeding. Approximately 500 mL of normal saline was used for irrigation. ASSESSMENT AND PLAN: A 74-year-old white male with likely overdistention injury resulting in urinary retention and gross hematuria secondary to BPH, status post repeat transurethral resection of the prostate, postoperative day 5. He did have, I believe, the rest of his clot removed from his bladder at this time as his urine is completely clear. I recommended we keep him in the hospital one additional day to ensure that he will not go home and end up in clot retention. If his urine remains clear tomorrow, I think he can be discharged home and can follow up as an outpatient next week for a voiding trial. Due to his overdistention injury, the patient will likely not regain the ability to void for at least a week. The patient is fine with the plan, and we will continue to monitor his care and see him again in the morning. Job ID: [id number]
[2019-08-28] MEDS: Acetaminophen 500 MG TAB PO PRN (18:55)
[2019-08-28] MEDS: Hyoscyamine Sulfate SL 0.125 mg Tablet SL PRN (21:00)
[2019-08-29] MEDS: Levothyroxine Sodium 75 MCG TAB PO SCH (05:50)
[2019-08-29] MEDS: Furosemide 20 MG TAB PO SCH (09:14)
[2019-08-29] MEDS: Finasteride 5 MG TAB PO SCH (09:14)
[2019-08-29] MEDS: Polyethylene Glycol 3350 17 GM Packet PO SCH (09:14)
[2019-08-29] MEDS: Rosuvastatin 10 MG TAB PO SCH (09:14)
[2019-08-29] MEDS: Sotalol HCl 80 MG TAB PO SCH (09:15)
[2019-08-29] MEDS: Famotidine/PF 20 mg/2ml Vial SLOW IVP SCH (09:15)
[2019-08-29] MEDS: Oxybutynin ER 5 MG TAB PO SCH (09:15)
[2019-08-29 11:24] VITALS: BP 150/87; TEMP 98.1
--- NOTE | 2019-08-29 17:12 | PRG ---
DATE OF SERVICE: 08/29/2019 SUBJECTIVE: The patient states he had a very good night. He denies any chest pain or shortness of breath. His catheter did not clog at all, it has been draining very well with almost no blood. OBJECTIVE: VITAL SIGNS: Temperature 98.3, pulse 76, respirations 18, blood pressure 161/91, and saturation 96% on room air. GENERAL: No apparent distress, awake and alert. CARDIOVASCULAR: Regular rate and rhythm. ABDOMEN: Soft, nontender, and nondistended. : Landrum catheter in place with very light quirino colored urine. EXTREMITIES: 1+ edema bilaterally. LABORATORY EVALUATION: There are no new labs today to review. ASSESSMENT AND PLAN: A 74-year-old white male with gross hematuria and benign prostatic hypertrophy status post transurethral resection of prostate by Dr. Valdez, postoperative day 6. His hematuria seems to be resolving. He has had no further issues with clot retention. The patient states he is ready to go home. I do think he can be discharged, but I would recommend keeping the Landrum catheter in for at least 3 or 4 more days to ensure that his bladder has adequate time to recover, at which point we will reattempt a void trial. He likely did have an overdistention injury. I have gone over all this with the patient and he is amenable to going home. I will see him back next week for a void trial in office. Job ID: [id number]
--- NOTE | 2019-08-30 00:33 | DIS ---
DATE OF ADMISSION: 08/23/2019 DATE OF DISCHARGE: 08/29/2019 ADMITTING DIAGNOSIS: Gross hematuria with clot retention. DISCHARGE DIAGNOSIS: Gross hematuria secondary to BPH regrowth with overdistention injury and urinary retention. BRIEF HISTORY: Mr. Heredia is a 74-year-old white male, who is well known to me for a long history of BPH with urinary retention issues. He also has a history of nephrolithiasis, angiomyolipomas, and elevated PSA. He has undergone a TURP in the past with adequate voiding. He has had a prior episode of gross hematuria. The patient ended up in the emergency room on the again with another episode of gross hematuria and clot retention. He was taken to the operating room by Dr. Valdez as dictated separately by him. The full H and P can be found in the scanned portion of the [id number] system. HOSPITAL COURSE: After surgery with Dr. Valdez (please see operative note for details) the patient was admitted to the hospital for CBI. I resumed care of him on postop day 1, at which point the patient stated that he was feeling a little bit better, but still had bloody urine. His catheter was kept in overnight and removed on postop day 2. At that point, the patient was not able to void. I had to return emergently to replace a Landrum catheter, which was not able to be passed directly with a standard three-way Landrum catheter. A coude catheter was able to be navigated into the bladder and drained approximately 600 mL of dark maroon urine. There were some clots within the bladder, which were irrigated out. Given that we were not able to perform CBI, I did recommend that the patient stay in the hospital for monitoring. Over the course of the next two days, the patient continued to have hematuria which seemed to improve although he did have intermittent episodes of clogging. His catheter was repeatedly irrigated with removal of subsequent clots until it completely cleared and there were no clots and no further hematuria. At this point, the patient stated he was feeling a lot better. He did not have any further episodes of bladder spasms, which were occurring intermittently when his catheter became clogged. He did have lower extremity edema, which was worsened during his hospital stay. He was given 20 mg of Lasix followed by 10 mg of daily Lasix, which did help his lower extremity edema. He was told by Dr. Staton' rejogger that he will probably need to remain on Lasix at a previous office visit and the patient could use between 10 to 20 mg p.r.n. for lower extremity edema. I would recommend the patient that we also restart his finasteride and that he remain on this medication to try to avoid BPH regrowth. The patient is comfortable with that plan and he would be willing to go home. I recommend he go home with a catheter since he had significant urinary retention with overdistention injury and the patient previously failed void trial. We will plan for a void trial again next week. DISPOSITION: Discharge to home. DISCHARGE CONDITION: Good. The patient will be discharged with a Landrum catheter. DISCHARGE MEDICATIONS: The patient will resume his home medications except aspirin, which he will hold until the urine has been cleared for at least 48 hours. In addition, we are still going to restart his finasteride 5 mg p.o. daily. The patient also be given oxybutynin 5 mg p.o. t.i.d. p.r.n. bladder spasms. He is also to stay on his Lasix between 10 to 20 mg as needed. DISCHARGE INSTRUCTIONS: Discharge instructions were gone over with the patient. The patient was also discharged with an irrigation tray with instructions on how to use it in case he did have any small clots that need to be irrigated out. We will plan for a followup next week on Sunday for a void trial. Job ID: [id number] MTDD
== END 2019-08-29 13:50 | disposition home or self-care (01) | DRG 714 ==
LOC: ERS 07:56 → 2NO 11:18 → SDC 11:21 → 2NO 14:13 → SURG A 08-26 19:46
PROVIDERS: ADMIT Urology; ATTEND Urology
PROC: 0VT08ZZ Resection of Prostate, Via Natural or Artificial Opening Endoscopic (ICD-10-PCS; principal; 2019-08-23)
PROC: 0TC Urinary System, Extirpation (ICD-10-PCS; 2019-08-23)
DX: N40.1 Benign prostatic hyperplasia with lower urinary tract symptoms (principal); R31.0 Gross hematuria; R33.9 Retention of urine, unspecified; I48.91 Unspecified atrial fibrillation; E78.5 Hyperlipidemia, unspecified; E03.9 Hypothyroidism, unspecified; F41.9 Anxiety disorder, unspecified; Z79.01 Long term (current) use of anticoagulants; Z87.442 Personal history of urinary calculi; Z88.1 Allergy status to other antibiotic agents; Z88.8 Allergy status to other drugs, medicaments and biological substances; Z87.11 Personal history of peptic ulcer disease
CPT/HCPCS: 36415; 51702; 80048; 80053; 81003; 81015; 85025; 85610; 85730; 87086; 88305; 93005; J0696; J1885; J2001; J2175; J2704; J3010; J3490; S0028

== ENCOUNTER 2019-09-05 21:00 | Inpatient (IN) | payer MEDICARE, BC ==
[2019-09-05] MEDS ORDERED: cefTRIAXone\\ROCEPHIN 2 GM VIAL ONE (21:33)
[2019-09-05 22:13] LABS: #Eosinphils 0.3 thou/uL (0.0-0.7); #Lymphocytes 0.6 thou/uL (1.20-3.40); #Monocytes 0.4 thou/uL (0.11-0.59); #Neutrophils 12.7 thou/uL (1.40-6.50); %Basophils 0.2 % (0.0-1.0); %Eosinophils 2.4 % (0.0-10.0); %Lymphocytes 4.5 % (21.0-51.0); %Monocytes 3.1 % (0.0-10.0); %Neutrophils 89.8 % (42.0-75.0); Hemoglobin 11.8 g/dL (14.0-18.0); Mean Corpuscular HGB CONC 33.5 g/dL (32.0-36.0); Mean Corpuscular Hemoglobin 28.4 pg (27.0-31.0); Mean Corpuscular Volume 84.8 fL (78.0-98.0); Mean Platelet Volume 7.1 fL (7.4-10.4); Platelet Count 226 thou/uL (130-400); RBC Distribution Width 14.6 % (11.5-14.5); Red Blood Cell (RBC) Count 4.16 mill/uL (4.70-6.10); White Blood Cell (WBC) Count 14.1 thou/uL (4.8-10.8)
[2019-09-05 22:14] LABS: Bacteria/HPF None Seen HPF (None Seen); Bilirubin Negative (Negative); Blood, Urine 3+ (Negative); Clarity Extra Turbid (Clear); Glucose, Urine (Dipstick) Normal (Negative); Leukocyte 250 Leu/uL (Negative); Nitrite Negative (Negative); Protein, Urine (Dipstick) 100 mg/dL (Neg-Trace); RBC/HPF Greater than 50 HPF (0-3); Squamous Epithelial None Seen HPF (0-3); Urobilinogen Normal mg/dL (Less than 2); WBC/HPF Greater than 50 HPF (0-3)
[2019-09-05 22:16] LABS: Yeast-Budding 2+ HPF (None Seen)
[2019-09-05 22:36] LABS: ALT (SGPT) 15 U/L (8-55); AST (SGOT) 17 U/L (5-34); Alkaline Phosphatase 106 U/L (40-110); Anion Gap 13 mmol/L (10-20); BUN (Urea Nitrogen) 20 mg/dL (8.4-25.7); Bilirubin, Total 0.4 mg/dL (0.2-1.2); Calc. Creatinine Clearance 0 mL/min (70-130); Carbon Dioxide 27 mmol/L (23-31); Chloride 101 mmol/L (98-107); Estimated GFR-MDRD 65; Glucose 130 mg/dL (83-110); Lipase 109 U/L (8-78); Potassium 4.2 mmol/L (3.5-5.1); Sodium 137 mmol/L (136-145)
--- NOTE | 2019-09-05 22:43 | RAD ---
EXAM: Single view of the chest HISTORY: Fever COMPARISON: 10/28/2018 FINDINGS: Single view of the chest shows an enlarged but stable cardiomediastinal silhouette. The pa cemaker is unchanged in position. Increased interstitial markings are present. There is no evidence of consolidation, mass, or pleural effusion. The bones are unremarkable. IMPRESSION: No evidence of acute cardiopulmonary disease
--- NOTE | 2019-09-05 22:50 | CON ---
DATE OF CONSULTATION: 09/05/[address] Bernardo. REASON FOR CONSULT: History of fever and sensation of abdominal bloating. HISTORY OF PRESENT ILLNESS: Mr. Heredia is a pleasant 74-year-old male, followed by Dr. Bernardo. The patient was admitted on August 22 and discharged on August 28, as he presented with gross hematuria and clot retention. The patient with a history of very large prostate. Per my review on CT, prostate volume measures almost 180- 200 g. He initially underwent transurethral vaporization of the prostate by Dr. Bernardo due to recurrent gross hematuria. He presented earlier in August as he had gross hematuria with clot retention. He was seen by Dr. Valdez, on-call. Due to false passage trying unable to successfully evacuate blood clots, the patient was taken to the operating room on August 22 and underwent cysto, evacuation of clots, transurethral resection of the prostate, about 6 gm resected, pathology negative. He denies sensation of incomplete void, has mild dysuria. His called service late this evening as she was concerned about her having fever of 103 / 104. He denied obvious URI symptoms of nasal congestion, cough, however, has had mild shortness of breath. Bowel movements have been somewhat regular. He relates that the urine output has been pink-tinged with no subsequent clots. Labs from the emergency room are pending. The patient presents to the emergency room due to fever. His chart clinical history, operative records, and CT reviewed. Currently, he is conversational, at bedside. I did take care of him in the remote past previously covering for Dr. Bernardo, when he was admitted due to intractable gross hematuria after ureteroscopy for his history of renal calculi. He denies flank pain. PAST MEDICAL HISTORY: Includes hypothyroidism, hypertension, pacemaker, history of kidney stone, history of BPH. SURGICAL HISTORY: 1. Pacemaker. 2. Posterior cervical laminectomy. 3. Cardiac cath in April 2017. 4. Tonsillectomy. 5. Cardio ablation in May 2017. 6. TUVP. Ureteroscopy laser litho- Cystoureteroscopy on October 25, 2018. August 23, 2019, cysto, evacuation of clots, TURP by Dr. Valdez. ALLERGIES: HE IS ALLERGIC TO HYDRALAZINE, FLUOXETINE, CIPROFLOXACIN, RIVAROXABAN. PHYSICAL EXAMINATION: VITAL SIGNS: His temperature in the emergency room is 102.7. His blood pressure is 130/70. GENERAL: The patient is conversational and appears comfortable. He has taken Tylenol over the last few hours. HEENT: Grossly unremarkable. HEART: Regular rate. LUNGS: Clear. ABDOMEN: Soft, morbidly obese. No rigidity. No rebound. No suprapubic tenderness. : Circumcised phallus. Meatus is grossly unremarkable. The testes are descended. I did not perform a FAYE. EXTREMITIES: Bilateral lower extremity 1+ edema. Psychiatric appropriate Neurologic: No gross focal deficit PERTINENT IMAGING AND LABS: From August 24, 2019, white count 7, hemoglobin 10. Coagulation profile is unremarkable. Creatinine 0.8. Recent urine culture is negative. He does have a history of Proteus UTI, somewhat resistant, however, is sensitive to meropenem, resistant to ciprofloxacin. CT of the abdomen and pelvis, which I reviewed myself: April 2019, nonobstructing residual 9 mm right renal lithiasis. Per my review of CT, prostate volume is about 180-200 gm. BEDSIDE PROCEDURE: His penis was formally prepped and draped. I was able to pass an 18-Swedish coude catheter to the level of the bladder, 10 mL insufflated. It is not a true postvoid residual as I did not ask him to void. 100 mL of pink / transparent red-tinged urine. I did flush his catheter with no subsequent clots. Echocardiogram from July 2018, demonstrates EF of 50% to 60%. IMPRESSION AND PLAN: 1. Mr. Heredia is a pleasant 74-year-old male with a history of massively enlarged prostate, status post transurethral vaporization of the prostate. 2. History of kidney stone, status post ureteroscopy. 3. Recent admission in august due to clot retention, status post evacuation of clots, transurethral resection of prostate. 4. Known to have multiple false passages. 5. Recurrent gross hematuria. 6. Fever. It is likely that he likely has a complicated urinary tract infection, as he recently underwent surgical intervention, with known history of false passages. Indwelling Landrum catheter was placed at bedside. His postvoid residual is mild , however, given his history of recurrent gross hematuria and false passage, I do recommend indwelling Landrum catheter to remain in situ until the patient is clinically stable. will restart his benign prostatic hypertrophy medications, Flomax, Proscar. He may require to continue his Proscar indefinitely due to massively enlarged prostate. I recommend admission for complicated urinary tract infection. Blood culture has been obtained by the emergency room. Meropenem recommended based on his previous urine culture. 7. Gross hematuria. Recommend no anticoagulation, due to recurrent nature of his gross hematuria, recently requiring continuous bladder irrigation. Bilateral THERON hose and SCDs can be provided for deep venous thrombosis prophylaxis. Job ID: [id number] [facility]ITAL[facility]aron
[2019-09-05] MEDS ORDERED: Acetaminophen 325 MG TAB PO PRN (23:06)
[2019-09-05] MEDS ORDERED: Senokot S 8.6-50 MG TAB PO PRN (23:06)
[2019-09-05] MEDS ORDERED: Bisacodyl 10 MG SUPP PR PRN (23:06)
[2019-09-05] MEDS ORDERED: Guaifenesin DM 100-10/5 ML UDCUP PO PRN (23:06)
[2019-09-05] MEDS ORDERED: Ondansetron PF 4 MG/2 ML Vial IVP PRN (23:06)
[2019-09-05] MEDS ORDERED: HYDROcodone/Acetaminophen 5/325 mg Tablet PO PRN (23:06)
[2019-09-05] MEDS ORDERED: Calcium Carbonate 500 MG ChewTAB PO PRN (23:06)
[2019-09-05] MEDS ORDERED: Fluconazole 100 MG TAB PO SCH (23:30)
--- NOTE | 2019-09-05 23:54 | HP ---
REASON FOR ADMISSION: Sepsis, urinary tract infection. HISTORY OF PRESENTING ILLNESS: The patient gives history of developing fever with chills around 5:30 p.m. today. He had temperature of 103.[address] Preciado who was on-call for Dr. Bernardo, his urologist. She asked him to come to the ER and get hospitalized. He has had a recent TURP done on the of this month. The patient also has had prior history of urinary stones and has had surgery done for that in October of 2018. He had his Landrum catheter removed on Sunday at Dr. Bernardo office. He has not had trouble with urinating since then. No complaints of cough or expectoration. No chest pain, palpitation, PND, or orthopnea. On arrival here, he was evaluated by Dr. Preciado as well and has had placement of Landrum catheter now. This is in view of prior history of retention and multiple false passages as well. PAST MEDICAL AND SURGICAL HISTORY: History of atrial fibrillation, hypertension, benign prostatic hypertrophy, dyslipidemia, hypothyroidism, history of spinal stenosis, pacemaker, prior stone removed, Watchman procedure, ablation x3 for atrial fibrillation, recent TURP on the , anxiety disorder. CURRENT MEDICATIONS: Aspirin 81 mg p.o. daily, rosuvastatin 10 mg p.o. daily, levothyroxine 88 mcg p.o. daily, vitamin B12 at 1000 mcg intramuscular q.30 days, clorazepate 7.5 mg twice daily, sotalol 160 mg p.o. twice daily. ALLERGIES: TO CIPROFLOXACIN, FLUOXETINE, HYDROXYZINE, OPIOIDS, RIVAROXABAN. PERSONAL HISTORY: Does not abuse alcohol or drugs. No history of smoking. FAMILY HISTORY: Mother of rheumatoid arthritis and its complications at the age of 62. Father at the age of 91 from natural causes. CODE STATUS: Full. 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 REVIEW OF SYSTEMS: CONSTITUTIONAL: Negative for weight loss or gain, ability to conduct usual activities. SKIN: Negative for rash, itching. EYES: Negative for double vision, pain. ENT/MOUTH: Negative for nose bleeding, neck stiffness, pain, tenderness. CARDIOVASCULAR: Negative for palpitations, dyspnea on exertion, orthopnea. RESPIRATORY: Negative for shortness of breath, wheezing, cough, hemoptysis, fever or night sweats. GASTROINTESTINAL: Negative for poor appetite, abdominal pain, heartburn, nausea, vomiting, constipation, or diarrhea. GENITOURINARY: Negative for urgency, frequency, dysuria, nocturia. MUSCULOSKELETAL: Negative for pain, swelling. NEUROLOGIC/PSYCHIATRIC: Negative for anxiety, depression. ALLERGY/IMMUNOLOGIC: Negative for skin rash, bleeding tendency. PHYSICAL EXAMINATION: GENERAL: The patient is a 74-year-old male, who is currently not in any acute distress. VITAL SIGNS: Blood pressure 144/74, pulse 70 per minute, respiratory rate 20 per minute, temperature 102.7 degrees Fahrenheit, saturating 97% on room air. NECK: Supple. No elevated JVD. HEENT: Eyes; extraocular muscles intact. Pupils reacting to light. Oral cavity, mucous membranes are dry. No exudates or congestion. CARDIOVASCULAR SYSTEM: S1, S2 heard. Regular rhythm. RESPIRATORY SYSTEM: Air entry 1+ bilateral. No rales or rhonchi. ABDOMEN: Soft. Bowel sounds heard. No CVA angle tenderness. No rigidity or guarding. EXTREMITIES: There is mild peripheral edema. No calf tenderness. VASCULAR SYSTEM: Peripheral pulses 1+ bilateral. No ischemic ulcerations or gangrene. CENTRAL NERVOUS SYSTEM: No gross focal deficits noted. The patient is alert, awake, oriented well. PSYCHIATRIC: Patient's mood is euthymic. No hallucinations or delusions. LABORATORY DATA: EKG done shows atrial paced rhythm at 80 beats per minute. Chest x-ray done shows no acute cardiopulmonary abnormalities. UA is strongly positive for UTI. There is also 2+ budding yeast seen. BUN 20, creatinine 1.1, serum glucose 130. LFTs are within normal limits. Albumin is 4.0. White count of 14, H and H 11 and 35, platelet count is 226 with 89% neutrophils. CLINICAL IMPRESSION AND PLAN: The patient will be admitted to medical floor for sepsis with urinary tract infection. He has had his Landrum catheter removed on Sunday at Dr. Bernardo's office. He was recently hospitalized for hematuria with retention of clots and massively enlarged prostate with TURP done on the . The patient will be placed on meropenem 2 g IV q.8 hourly and normal saline at 125 mL per hour. We will continue his home dose of Proscar, Flomax, levothyroxine, Crestor, Synthroid, MiraLAX, and sotalol as before. Blood and urine cultures have been obtained. We will closely monitor him on medical floor. Job ID: [id number]
[2019-09-06] MEDS: Sodium Chloride 0.9% 1,000 ML IV SCH ×3 (01:21→14:42)
[2019-09-06 01:53] VITALS: BMI 31.0
[2019-09-06 04:21] LABS: Anion Gap 12 mmol/L (10-20); BUN (Urea Nitrogen) 19 mg/dL (8.4-25.7); Calc. Creatinine Clearance 96 mL/min (70-130); Calcium 8.3 mg/dL (7.8-10.44); Carbon Dioxide 24 mmol/L (23-31); Chloride 106 mmol/L (98-107); Estimated GFR-MDRD 79; Glucose 117 mg/dL (83-110); Potassium 3.8 mmol/L (3.5-5.1); Sodium 138 mmol/L (136-145)
[2019-09-06 04:44] LABS: Band 15 % (5-11); Hemoglobin 10.2 g/dL (14.0-18.0); Lymphocytes 4 % (21-51); MDiff Complete? YES; Mean Corpuscular Hemoglobin 27.2 pg (27.0-31.0); Mean Corpuscular Volume 84.9 fL (78.0-98.0); Mean Platelet Volume 7.7 fL (7.4-10.4); Monocytes 13 % (0-10); Neutrophil 68 % (42-75); Platelet Count 175 thou/uL (130-400); Platelet Morphology Comment Appears Adequate; RBC Distribution Width 14.8 % (11.5-14.5); RBC Morphology Normal; Red Blood Cell (RBC) Count 3.76 mill/uL (4.70-6.10); White Blood Cell (WBC) Count 25.4 thou/uL (4.8-10.8)
[2019-09-06] MEDS: Meropenem 2 GM in Sodium Chloride 0.9% 100 ML IVPB SCH ×3 (06:21→21:40)
[2019-09-06] MEDS: Levothyroxine Sodium 88 MCG TAB PO SCH (06:21)
[2019-09-06] MEDS: Sotalol HCl 80 MG TAB PO SCH ×2 (08:29→21:40)
[2019-09-06] MEDS: Tamsulosin HCl 0.4 MG CAP PO SCH (08:29)
[2019-09-06] MEDS: Finasteride 5 MG TAB PO SCH (08:30)
[2019-09-06] MEDS: Famotidine 20 MG TAB PO SCH ×2 (08:30→21:40)
[2019-09-06] MEDS: Polyethylene Glycol 3350 17 GM Packet PO SCH (08:30)
[2019-09-06] MEDS: Rosuvastatin 10 MG TAB PO SCH (08:30)
[2019-09-06] MEDS ORDERED: Fluconazole 100 MG TAB PO SCH (09:00)
[2019-09-06] MEDS: Vit A,C & E/Lutein/Minerals Tablet PO SCH ×2 (13:42→21:40)
--- NOTE | 2019-09-06 14:08 | PDOC.HOSPP ---
- Subjective Encounter Date: 09/06/19 Encounter Time: 10:50 Subjective: dtr at [facility]. rizzo with dark urine, less serosanguinous. d/w RN as well. pt feels more bloated but no abd or flank pain. had BM this am. - Objective Vital Signs & Weight: Vital Signs (12 hours) Temp Pulse Resp BP Pulse Ox 09/06/19 12:00 97.9 F 70 18 111/65 95 09/06/19 08:48 97.9 F 70 18 111/65 95 09/06/19 08:29 68 09/06/19 08:00 97.9 F 70 18 111/65 95 09/06/19 03:06 97.6 F 68 20 99/52 L 94 L 09/06/19 02:34 93 L Weight Weight 222 lb 8 oz I&O: 09/05/19 09/06/19 09/07/19 06:59 06:59 06:59 Intake Total 900 Output Total 550 Balance 350 Result Diagrams: 09/06/19 04:00 09/06/19 04:00 Hospitalist ROS - Medication Medications: Active Medications Generic Name Dose Route Start Last Admin Trade Name Freq PRN Reason Stop Dose Admin Clorazepate Dipotassium 7.5 mg 09/06/19 09:00 09/06/19 09:42 Tranxene PO 7.5 mg BID PATRICIA Administration Famotidine 20 mg 09/06/19 09:00 09/06/19 08:30 Pepcid PO 20 mg BID PATRICIA Administration Finasteride 5 mg 09/06/19 09:00 09/06/19 08:30 Proscar PO 5 mg DAILY PATRICIA Administration Fluconazole 100 mg 09/06/19 09:00 09/06/19 08:30 Diflucan PO 100 mg DAILY PATRICIA Administration Meropenem 2 gm/ Sodium 100 mls @ 200 mls/hr 09/06/19 06:00 09/06/19 06:21 Chloride IVPB 100 mls Q8HR PATRICIA Administration Sodium Chloride 1,000 mls @ 125 mls/hr 09/05/19 22:00 09/06/19 08:29 Normal Saline 0.9% IV 1,000 mls .Q8H PATRICIA Administration Levothyroxine Sodium 88 mcg 09/06/19 06:00 09/06/19 06:21 Synthroid PO 88 mcg 0600 PATRICIA Administration Polyethylene Glycol 17 gm 09/06/19 09:00 09/06/19 08:30 Miralax PO 17 gm DAILY PATRICIA Administration Rosuvastatin Calcium 10 mg 09/06/19 09:00 09/06/19 08:30 Crestor PO 10 mg DAILY PATRICIA Administration Sotalol HCl 160 mg 09/06/19 09:00 09/06/19 08:29 Betapace PO 160 mg BID PATRICIA Administration Tamsulosin HCl 0.4 mg 09/06/19 09:00 09/06/19 08:29 Flomax PO Not Given DAILY PATRICIA - Exam General Appearance: NAD Eye: PERRL ENT: normocephalic atraumatic Neck: supple Heart: RRR Respiratory: CTAB Gastrointestinal: soft, normal bowel sounds Extremities: no cyanosis Skin: normal turgor Neurological: cranial nerve grossly intact, no focal deficits Hosp A/P - Plan Recurrent UTI Complicated UTI d/t indwelling rizzo UTI a/w rizzo - POA Sepsis 2/2 UTI Recurrent hematuria d/t recent TURP and stone extraction w.. laser s/p recent Transurethral vaporization TURP - false passages - ucx - grew enterococcus, B cx - neg. -also prior cx with same and sens to merum - will cw merum and fw on the sens'ty. leukocytosis -2/2 UTI BPH on proscar/flomax Hypothyroidism - on supplement.
--- NOTE | 2019-09-06 14:58 | PRG ---
DATE OF SERVICE: 09/06/2019 SUBJECTIVE: The patient states that he feels much better today. OBJECTIVE: VITAL SIGNS: Stable. He is afebrile. I's and O's 900 in and 550 out. ABDOMEN: Soft, nontender, and nondistended. No suprapubic tenderness or CVA tenderness. : Landrum catheter adequately secured demonstrating concentrated yellow urine. EXTREMITIES: No cyanosis, clubbing, or edema. LABORATORY DATA: Blood cultures are negative thus far. Urine culture demonstrating preliminary enterococcus greater than 100,000. White count 25,000, hemoglobin 10, platelet 175, 15 bands. Renal function stable at 0.9. IMPRESSION AND PLAN: Mr. Heredia is a pleasant 74-year-old male, with history of very large prostate, status post TUVP, recently admitted with clot retention, underwent transurethral resection of the prostate, evacuation of clots, admitted for history of fever, leukocytosis, urine culture preliminary demonstrates Enterococcus, sensitivities pending. Continue broad-spectrum antibiotics, he appears clinically improved, however, demonstrates significant leukocytosis; therefore, I expect the patient to stay in-house for minimum 48 hours. Continue Proscar, Flomax, and IV fluids. Job ID: [id number] MTDD
[2019-09-06] MEDS ORDERED: Vancomycin 1.5 GRAM/300 ML BAG 1.5 GM in Premix Bag 1 BAG IVPB SCH (17:00)
[2019-09-06] MEDS ORDERED: Vancomycin HCl 1.5 GM in Sodium Chloride 0.9% 250 ML 300 ML IVPB SCH (21:00)
[2019-09-06] MEDS ORDERED: Vancomycin 1 GM in Premix Bag 1 BAG IVPB SCH (21:00)
[2019-09-07] MEDS: Sodium Chloride 0.9% 1,000 ML IV SCH ×4 (01:01→22:18)
[2019-09-07 04:25] LABS: #Basophils 0.1 thou/uL (0.0-0.2); #Eosinphils 0.5 thou/uL (0.0-0.7); #Monocytes 0.8 thou/uL (0.11-0.59); #Neutrophils 8.4 thou/uL (1.40-6.50); %Basophils 0.5 % (0.0-1.0); %Eosinophils 4.2 % (0.0-10.0); %Monocytes 7.6 % (0.0-10.0); %Neutrophils 78.7 % (42.0-75.0); Hemoglobin 10.1 g/dL (14.0-18.0); Mean Corpuscular Hemoglobin 26.9 pg (27.0-31.0); Mean Corpuscular Volume 86.7 fL (78.0-98.0); Mean Platelet Volume 7.7 fL (7.4-10.4); Platelet Count 208 thou/uL (130-400); Red Blood Cell (RBC) Count 3.75 mill/uL (4.70-6.10); White Blood Cell (WBC) Count 10.7 thou/uL (4.8-10.8)
[2019-09-07] MEDS: Meropenem 2 GM in Sodium Chloride 0.9% 100 ML IVPB SCH ×2 (05:51→17:33)
[2019-09-07] MEDS: Levothyroxine Sodium 88 MCG TAB PO SCH (05:51)
--- NOTE | 2019-09-07 08:39 | PRG ---
DATE OF SERVICE: SUBJECTIVE: Patient is feeling better, although he has persistent bloating like sensation. He has passed multiple flatus and a bowel movement. Denies nausea, vomiting, or chills. OBJECTIVE: VITAL SIGNS: Stable, 97.8, 91, 21, 95, and 118/71. Is and Os; 2100 in, 750 out. He is positive 1.3 L. GENERAL: Patient is in no acute distress. Looks well. HEART: Regular rate. LUNGS: Clear. ABDOMEN: Soft. No rigidity. No rebound. EXTREMITIES: No cyanosis, clubbing, or edema. LABORATORY DATA: White count yesterday 25,000, this morning it is 10. Resolution of bandemia present yesterday. Renal function stable, creatinine of 0.9. Urine culture and blood culture demonstrating Enterococcus, sensitivity is pending. IMPRESSION: 1. Mr. Heredia is a 74-year-old male with history of ureteral calculi, previously presented with intractable hematuria after ureteroscopy. 2. History of very large prostate, status post transurethral electrovaporization of the prostate. 3. Recent admission due to clot retention, status post cysto, evacuation of bladder clots, transurethral resection of the prostate. Patient's primary urologist is Dr. Bernardo. Current admission due to fever, due to Enterococcus urosepsis. Continue indwelling Landrum catheter for now, recommend BPH medications as he has very large prostate, CT prostate volume about 180 to 200 g. He is to continue vancomycin, which I started yesterday based on his blood culture and urine culture with clinical improvement, resolution of leukocytosis and bandemia. Dr. Bernardo will resume his care tomorrow. Job ID: [id number] [facility]
[2019-09-07] MEDS: Polyethylene Glycol 3350 17 GM Packet PO SCH (08:57)
[2019-09-07] MEDS: Sotalol HCl 80 MG TAB PO SCH ×2 (08:57→20:46)
[2019-09-07] MEDS: Tamsulosin HCl 0.4 MG CAP PO SCH (08:57)
[2019-09-07] MEDS: Famotidine 20 MG TAB PO SCH ×2 (08:58→20:46)
[2019-09-07] MEDS: Rosuvastatin 10 MG TAB PO SCH (08:58)
[2019-09-07] MEDS: Finasteride 5 MG TAB PO SCH (08:58)
[2019-09-07] MEDS: Vit A,C & E/Lutein/Minerals Tablet PO SCH ×2 (10:28→20:46)
--- NOTE | 2019-09-07 12:19 | PDOC.HOSPP ---
- Subjective Encounter Date: 09/07/19 Encounter Time: 08:45 Subjective: pt doing well, urine is clearing up. Repeat blood brooke in process. ID visit pending. pt had echos in the past, he does not want to take another, echo ordered in the context of +ve blood brooke. - Objective Vital Signs & Weight: Vital Signs (12 hours) Pulse BP Pulse Ox 09/07/19 08:57 70 136/72 09/07/19 04:00 100 Weight Weight 222 lb 8 oz I&O: 09/06/19 09/07/19 09/08/19 06:59 06:59 06:59 Intake Total 900 2100 Output Total 550 750 Balance 350 1350 Result Diagrams: 09/07/19 04:08 09/06/19 04:00 Hospitalist ROS - Medication Medications: Active Medications Generic Name Dose Route Start Last Admin Trade Name Freq PRN Reason Stop Dose Admin Clorazepate Dipotassium 7.5 mg 09/06/19 09:00 09/07/19 10:27 Tranxene PO 7.5 mg BID PATRICIA Administration Famotidine 20 mg 09/06/19 09:00 09/07/19 08:58 Pepcid PO 20 mg BID PATRICIA Administration Finasteride 5 mg 09/06/19 09:00 09/07/19 08:58 Proscar PO 5 mg DAILY PATRICIA Administration Meropenem 2 gm/ Sodium 100 mls @ 200 mls/hr 09/06/19 06:00 09/07/19 05:51 Chloride IVPB 100 mls Q8HR PATRICIA Administration Sodium Chloride 1,000 mls @ 125 mls/hr 09/05/19 22:00 09/07/19 09:42 Normal Saline 0.9% IV 1,000 mls .Q8H PATRICIA Administration Levothyroxine Sodium 88 mcg 09/06/19 06:00 09/07/19 05:51 Synthroid PO 88 mcg 0600 PATRICIA Administration Multivitamins/Minerals 1 tab 09/06/19 09:00 09/07/19 10:28 Ocuvite With Lutein PO 1 tab BID PATRICIA Administration Polyethylene Glycol 17 gm 09/06/19 09:00 09/07/19 08:57 Miralax PO 17 gm DAILY PATRICIA Administration Rosuvastatin Calcium 10 mg 09/06/19 09:00 09/07/19 08:58 Crestor PO 10 mg DAILY PATRICIA Administration Sotalol HCl 160 mg 09/06/19 09:00 09/07/19 08:57 Betapace PO 160 mg BID PATRICIA Administration Tamsulosin HCl 0.4 mg 09/06/19 09:00 09/07/19 08:57 Flomax PO Not Given DAILY PATRICIA - Exam General Appearance: NAD, awake alert Eye: PERRL ENT: normocephalic atraumatic Neck: supple Heart: RRR Respiratory: CTAB, normal chest expansion Gastrointestinal: soft, normal bowel sounds Neurological: cranial nerve grossly intact, no focal deficits Hosp A/P - Plan Recurrent UTI Complicated UTI d/t indwelling rizzo UTI a/w rizzo - POA Sepsis 2/2 UTI Recurrent hematuria d/t recent TURP and stone extraction w.. laser --hematuria cleared up s/p recent Transurethral vaporization TURP - false passages Enterococcus bacteremia -- -repeat blood brooke -- in process -pt denied getting an echo as several done in the past. - ucx - grew enterococcus -also prior cx with same and sens to merum - will cw merum and fw on the sens'ty. -started on vanc on -trough and dose adjustment per pharm. -ID consult pending. leukocytosis -2/2 UTI BPH on proscar/flomax Hypothyroidism - on supplement. Dr. Bernardo to see tomorrow.
[2019-09-07] MEDS ORDERED: Vancomycin 1.5 GRAM/300 ML BAG 1.5 GM in Premix Bag 1 BAG IVPB SCH (14:00)
[2019-09-07] MEDS ORDERED: diphenhydrAMINE 25 MG CAP PO PRN (15:30)
[2019-09-07] MEDS ORDERED: diphenhydrAMINE 25 MG CAP PO SCH (15:45)
[2019-09-07] MEDS ORDERED: Meropenem 2 GM in Sodium Chloride 0.9% 100 ML IVPB SCH (16:00)
--- NOTE | 2019-09-07 22:02 | CON ---
DATE OF CONSULTATION: REASON FOR CONSULTATION: Pyelonephritis obstructive. HISTORY OF PRESENT ILLNESS: A 74-year-old, whom I have seen in October 2018 when he presented with a history of SVT, atrial fibrillation/flutter ablation and Watchman procedure with a pacemaker, previous pulmonary embolism and since then recurrent issues with urological complications following TURP, had nephrolithiasis, required treatment and stent placement, lithotripsy, and then he has had problems with bleeding and had to have repeat procedures, developed bladder microscopic hematuria with hematoma formation and clot retention. He had BPH regrowth and over distention, had to have another procedure to debride the regrowth of his prostate, and then he is admitted now with abdominal distention. After having had a successful voiding trial in the office and he had a catheter reinserted, Dr. Preciado saw the patient, had some microscopic hematuria, again that was washed out. This time just with a simple catheter not a three-way. He has had previous multiple false passages from difficult catheterization. Dr. Preciado has recommended indwelling Landrum catheter remain until the patient is clinically stable. Restart his BPH medications including Flomax and Proscar. Currently, he is feeling better and Enterococcus faecalis has been retrieved from blood and urine. Denies any headaches, visual symptoms, sore throat, odynophagia, or dysphagia. No cough or sputum production. No chest pain. No abdominal pain. No diarrhea. No genitourinary symptoms. PAST MEDICAL HISTORY: SVT, cardiac ablation x2, pacemaker, hypothyroidism, pulmonary embolism, Watchman procedure, and TURP with regrowth and then another TURP, microscopic hemorrhage, clot retention further interventions, and C-spine surgery. SOCIAL HISTORY: Never smoker. Retired. ALLERGIES: CIPRO, ACTUALLY NOT A TRUE ALLERGY, MOSTLY THEY BLAMED THE CIPRO FOR THE ATRIAL FIBRILLATION, BUT IT IS UNLIKELY TO BE THE CASE. HE IS ALLERGIC TO FLUOXETINE. FAMILY HISTORY: Noncontributory. CURRENT MEDICATIONS: Include: 1. Hydrocodone. 2. Dulcolax. 3. Tums. 4. Tranxene. 5. Benadryl. 6. Proscar. 7. Robitussin. 8. Synthroid. 9. Meropenem. 10. Vancomycin. PHYSICAL EXAMINATION: VITAL SIGNS: He has been afebrile since admission, BP 150/83, pulse 70, respirations 18, and O2 saturation 98. SKIN: Unremarkable. He has a peripheral IV access and a Landrum catheter. Urine is clear and inside the bag. No lymphadenopathy. HEENT: Ocular movements conjugate. Oral cavity normal. NECK: Supple. LUNGS: Symmetric clear breath sounds. Pacer pocket site is normal. HEART: S1 and S2. Regular rate. No murmurs. ABDOMEN: Soft, not distended or tender. No ascites. No bladder distention. Feels a little bit of fullness in the epigastric area. EXTREMITIES: No joint inflammatory activity. No edema. Pulses 1+ in dorsalis pedis. Moves extremities equally. NEUROLOGIC: Cognitive function appears to be perfectly fine. LABORATORY DATA: White cell count 14, went up to 25, now is down to 10.7. Hemoglobin 10 and platelets 208 with 78% neutrophils. Sodium 137 and creatinine 1.1. Liver profile normal. Urinalysis with greater than 50 wbc's and microbiology with E. faecalis, two sets of blood cultures and urine. IMAGING DATA: Include an abdomen and pelvis CT from April, has not been repeated. In April 2019, it showed prostate enlargement, Landrum catheter, no other findings. Stone burden is much less. Chest x-ray this time with no evidence of acute cardiopulmonary disease. ASSESSMENT AND PLAN: 1. Supraventricular tachycardia with prior interventions, stable at this time with a pacemaker. 2. Recurring urinary tract complications associated with benign prostatic hyperplasia, various interventions, microscopic hematuria with clot retention, which required irrigation and now, he comes in with another episode of obstructive urinary tract infection with pyelonephritis and bacteremia due to Enterococcus faecalis associated with recurrence of the obstructive symptoms despite recent successful voiding trial, unfortunately. We will switch him to IV ampicillin and then, discharge him on oral ampicillin or amoxicillin for discharge planning and continue for at least 4 weeks. The tinsley component of resolution of these recurrences are the improvement of the flow and a successful voiding trial. Job ID: [id number]
[2019-09-07] MEDS: Ampicillin 2 GM in Sodium Chloride 0.9% 100 ML IVPB SCH (23:54)
[2019-09-08 03:54] LABS: #Eosinphils 0.5 thou/uL (0.0-0.7); #Lymphocytes 1.5 thou/uL (1.20-3.40); #Neutrophils 4.1 thou/uL (1.40-6.50); %Basophils 0.4 % (0.0-1.0); %Eosinophils 6.7 % (0.0-10.0); %Lymphocytes 20.8 % (21.0-51.0); %Monocytes 14.2 % (0.0-10.0); %Neutrophils 57.9 % (42.0-75.0); Hemoglobin 10.6 g/dL (14.0-18.0); Mean Corpuscular Hemoglobin 27.5 pg (27.0-31.0); Mean Corpuscular Volume 85.8 fL (78.0-98.0); Mean Platelet Volume 7.8 fL (7.4-10.4); Platelet Count 208 thou/uL (130-400); RBC Distribution Width 14.8 % (11.5-14.5); Red Blood Cell (RBC) Count 3.87 mill/uL (4.70-6.10); White Blood Cell (WBC) Count 7.1 thou/uL (4.8-10.8)
[2019-09-08] MEDS: Ampicillin 2 GM in Sodium Chloride 0.9% 100 ML IVPB SCH ×4 (05:25→23:18)
[2019-09-08] MEDS: Levothyroxine Sodium 88 MCG TAB PO SCH (05:25)
[2019-09-08] MEDS: Tamsulosin HCl 0.4 MG CAP PO SCH (08:24)
[2019-09-08] MEDS: Sotalol HCl 80 MG TAB PO SCH ×2 (08:53→21:22)
[2019-09-08] MEDS: Famotidine 20 MG TAB PO SCH ×2 (08:54→21:22)
[2019-09-08] MEDS: Rosuvastatin 10 MG TAB PO SCH (08:54)
[2019-09-08] MEDS: Finasteride 5 MG TAB PO SCH (08:55)
[2019-09-08] MEDS: Sodium Chloride 0.9% 1,000 ML IV SCH ×4 (08:58→23:59)
[2019-09-08] MEDS: Vit A,C & E/Lutein/Minerals Tablet PO SCH ×2 (09:43→21:22)
[2019-09-08] MEDS: Polyethylene Glycol 3350 17 GM Packet PO SCH (09:46)
--- NOTE | 2019-09-08 14:20 | PDOC.HOSPP ---
- Subjective Encounter Date: 09/08/19 Encounter Time: 10:10 Subjective: He is doing well, no acute c/o. Dr. bell note reviewed; bl brooke neg x 48hrs. - Objective Vital Signs & Weight: Vital Signs (12 hours) Temp Pulse Resp BP Pulse Ox 09/08/19 08:53 69 09/08/19 08:00 97.7 F 69 18 147/70 H 96 09/08/19 07:15 97.7 F 69 18 147/70 H 96 Weight Weight 222 lb 8 oz I&O: 09/07/19 09/08/19 09/09/19 06:59 06:59 06:59 Intake Total 2100 5621 Output Total 750 5701 1376 Balance 1350 770 -1376 Result Diagrams: 09/08/19 03:41 09/06/19 04:00 Hospitalist ROS - Medication Medications: Active Medications Generic Name Dose Route Start Last Admin Trade Name Freq PRN Reason Stop Dose Admin Clorazepate Dipotassium 7.5 mg 09/06/19 09:00 09/08/19 08:53 Tranxene PO 7.5 mg BID PATRICIA Administration Famotidine 20 mg 09/06/19 09:00 09/08/19 08:54 Pepcid PO 20 mg BID PATRICIA Administration Finasteride 5 mg 09/06/19 09:00 09/08/19 08:55 Proscar PO 5 mg DAILY PATRICIA Administration Sodium Chloride 1,000 mls @ 125 mls/hr 09/05/19 22:00 09/08/19 08:58 Normal Saline 0.9% IV 1,000 mls .Q8H PATRICIA Administration Ampicillin Sodium 2 gm/ Sodium 100 mls @ 200 mls/hr 09/07/19 23:59 09/08/19 05:25 Chloride IVPB 100 mls Q6HR PATRICIA Administration Levothyroxine Sodium 88 mcg 09/06/19 06:00 09/08/19 05:25 Synthroid PO 88 mcg 0600 PATRICIA Administration Multivitamins/Minerals 1 tab 09/06/19 09:00 09/08/19 09:43 Ocuvite With Lutein PO 1 tab BID PATRICIA Administration Polyethylene Glycol 17 gm 09/06/19 09:00 09/08/19 09:46 Miralax PO 17 gm DAILY PATRICIA Administration Rosuvastatin Calcium 10 mg 09/06/19 09:00 09/08/19 08:54 Crestor PO 10 mg DAILY PATRICIA Administration Sotalol HCl 160 mg 09/06/19 09:00 09/08/19 08:53 Betapace PO 160 mg BID PATRICIA Administration Tamsulosin HCl 0.4 mg 09/06/19 09:00 09/08/19 08:24 Flomax PO Not Given DAILY PATRICIA - Exam General Appearance: awake alert Eye: PERRL ENT: normocephalic atraumatic Neck: supple Heart: RRR Respiratory: CTAB, normal chest expansion Gastrointestinal: soft, normal bowel sounds Hosp A/P - Plan Recurrent UTI Complicated UTI d/t indwelling rizzo UTI a/w rizzo - POA Sepsis 2/2 UTI Recurrent hematuria d/t recent TURP and stone extraction w.. laser --hematuria cleared up s/p recent Transurethral vaporization TURP - false passages Enterococcus bacteremia -- -repeat blood brooke -- in process -pt denied getting an echo as several done in the past. - ucx - grew enterococcus -also prior cx with same and sens to merum - will cw merum and fw on the sens'ty. -started on vanc on -----------------> switched to IV amphicillin -trough and dose adjustment per pharm. -ID consult note reviewed. leukocytosis -2/2 UTI -resolved. BPH on proscar/flomax Hypothyroidism - on supplement. Dr. Bernardo to see today. plan to see w.. amoxicillin after urology clearance w.. rizzo in.
--- NOTE | 2019-09-08 17:08 | PRG ---
DATE OF SERVICE: 09/08/2019 SUBJECTIVE: The patient states that he is doing much better. He feels fine. He is not having any bladder spasms or bladder pain. He has had no fevers. He is currently being treated with ampicillin IV. OBJECTIVE: VITAL SIGNS: Temperature 97.7, pulse rate 69, respirations are 18, blood pressure 147/70, and saturation 96% on room air. GENERAL: No apparent distress. Communicative and alert. CARDIOVASCULAR: Regular rate and rhythm. ABDOMEN: Soft, nontender, and nondistended. Positive bowel sounds. : Landrum catheter in place, secured with StatLock draining clear yellow urine. EXTREMITIES: No clubbing, cyanosis, or edema. LABORATORY EVALUATION: The full set of labs are in the [employer] system, which I have reviewed. Of note, the patient's white count is 7.1 with a creatinine of 0.93. ASSESSMENT AND PLAN: A 74-year-old white male with severe BPH with almost 200 g prostate, status post two TURPs with no evidence of bleeding currently, he did end up with Enterococcus bacteremia. This is being currently treated with ampicillin IV. Dr. Garner has evaluated the patient, and recommended four weeks of amoxicillin, which I would agree with. If the patient has recurrent fevers either during his treatment or after treatment, I would give strong consideration to an echocardiogram to ensure he does not have vegetations on his heart as well as investigating his pacemaker lead. Additionally, I would recommend continuing on finasteride. Flomax will not be helpful in the setting of a prior TURP. If the patient experiences further prostate growth enlargement or recurrent bleeding, prostatic artery embolization may be necessary. For now, we will plan for antibiotics for four weeks and I will be okay with the patient being going home with his catheter for the best drainage. We will plan for a voiding trial towards the end of this week and I will continue the patient's care on an outpatient basis. The patient can be discharged when deemed necessary by the primary service. Job ID: [id number]
[2019-09-08] MEDS ORDERED: Furosemide 20 MG TAB PO SCH (22:15)
[2019-09-09 04:59] LABS: #Eosinphils 0.8 thou/uL (0.0-0.7); #Lymphocytes 1.4 thou/uL (1.20-3.40); #Monocytes 0.8 thou/uL (0.11-0.59); #Neutrophils 4.8 thou/uL (1.40-6.50); %Basophils 0.4 % (0.0-1.0); %Eosinophils 10.6 % (0.0-10.0); %Lymphocytes 17.3 % (21.0-51.0); %Monocytes 10.7 % (0.0-10.0); %Neutrophils 61.1 % (42.0-75.0); Hemoglobin 10.5 g/dL (14.0-18.0); Mean Corpuscular HGB CONC 31.7 g/dL (32.0-36.0); Mean Corpuscular Hemoglobin 27.2 pg (27.0-31.0); Mean Corpuscular Volume 85.8 fL (78.0-98.0); Mean Platelet Volume 7.6 fL (7.4-10.4); Platelet Count 220 thou/uL (130-400); RBC Distribution Width 14.7 % (11.5-14.5); Red Blood Cell (RBC) Count 3.86 mill/uL (4.70-6.10); White Blood Cell (WBC) Count 7.9 thou/uL (4.8-10.8)
[2019-09-09 05:20] LABS: Anion Gap 11 mmol/L (10-20); BUN (Urea Nitrogen) 10 mg/dL (8.4-25.7); Calc. Creatinine Clearance 117 mL/min (70-130); Calcium 8.8 mg/dL (7.8-10.44); Carbon Dioxide 27 mmol/L (23-31); Chloride 105 mmol/L (98-107); Estimated GFR-MDRD Greater than 90; Glucose 92 mg/dL (83-110); Sodium 139 mmol/L (136-145)
[2019-09-09] MEDS: Levothyroxine Sodium 88 MCG TAB PO SCH (05:36)
[2019-09-09] MEDS: Ampicillin 2 GM in Sodium Chloride 0.9% 100 ML IVPB SCH ×2 (05:36→12:10)
[2019-09-09 06:53] VITALS: TEMP 98.4
[2019-09-09] MEDS: Vit A,C & E/Lutein/Minerals Tablet PO SCH (09:28)
[2019-09-09] MEDS: Tamsulosin HCl 0.4 MG CAP PO SCH (09:30)
[2019-09-09] MEDS: Famotidine 20 MG TAB PO SCH (09:30)
[2019-09-09] MEDS: Sotalol HCl 80 MG TAB PO SCH (09:30)
[2019-09-09] MEDS: Rosuvastatin 10 MG TAB PO SCH (09:30)
[2019-09-09] MEDS: Finasteride 5 MG TAB PO SCH (09:30)
[2019-09-09] MEDS: Polyethylene Glycol 3350 17 GM Packet PO SCH (09:30)
[2019-09-09] MEDS ORDERED: hydrALAZINE 20 MG/ML VIAL SLOW IVP SCH (11:15)
[2019-09-09] MEDS: Sodium Chloride 0.9% 1,000 ML IV SCH (11:47)
[2019-09-09] MEDS ORDERED: Furosemide 20 MG TAB PO SCH (12:15)
[2019-09-09 13:59] VITALS: BP 166/80
--- NOTE | 2019-09-10 09:20 | DIS ---
DATE OF ADMISSION: 09/05/2019 DATE OF DISCHARGE: 09/09/2019 DISCHARGE DIAGNOSES: 1. Recurrent urinary tract infection. 2. Complicated urinary tract infection due to indwelling Landrum. 3. Urinary tract infection associated with the Landrum, present on admission. 4. Sepsis secondary to urinary tract infection. 5. Recurrent hematuria due to recent transurethral resection of the prostate and stone extraction. 6. Enterococcus bacteremia. 7. Leukocytosis. 8. Benign prostatic hypertrophy. 9. Hypothyroidism. 10. Pyelonephritis. 11. Obstructive uropathy. DISCHARGE MEDICATIONS: 1. Augmentin 875 mg b.i.d. for 4 weeks. 2. Lasix 20 mg daily. 3. Vitamin B12 1 mL every 30 days. 4. Multivitamin one tablet daily. 5. Crestor 10 mg daily. 6. MiraLAX. 7. Levothyroxine 75 mcg daily. 8. Finasteride 5 mg daily. 9. Clorazepate 7.5 mg twice a day. 10. Sotalol 160 mg twice a day. PHYSICAL EXAMINATION: VITAL SIGNS: On the day of discharge, his temp is 98.4, pulse 70, and blood pressure 159/74. He is saturating 100% on room air. GENERAL: The patient is alert and oriented. He is comfortable, going home with a Landrum today. CARDIOVASCULAR: Regular rate and rhythm without murmurs, rubs or gallops. LUNGS: Clear to auscultation bilaterally without wheezing, rales or rhonchi. ABDOMEN: Soft, nontender, and nondistended. Good bowel sounds. GENITOURINARY: He has a Landrum with clear urine. HOSPITAL COURSE: This is a 74-year-old male with a recent history of SVT and atrial fibrillation, flutter ablation, Watchman procedure and a pacemaker placement in October 2018, and followed with a pediatric echo, presented with urological complications from TURP procedure. Following TURP procedure, he had nephrolithiasis with significant size stone requiring lithotripsy and problems with bleeding consequently and had to have a repeat procedure. He developed microscopic hematuria as well as hematoma formation and clot retention. The patient follows with Dr. Bernardo. He had previous multiple false passages from difficult catheterization. Dr. Preciado followed during this weekend and recommended to keep the catheter until the patient followed in the clinic. He also had Enterococcus faecalis from the blood as well as urine. Repeat cultures were negative. Since he had several echos recently, he declined getting another echo as plan for getting echo as his blood cultures positive with enterococcus. The urinary tract complication is due to BPH and various interventions. His microscopic hematuria with clot retention has been resolved and cleared. Both Infectious Disease and Dr. Bernardo followed during this hospitalization. He will be discharged today with amoxicillin for 4 weeks and close followup with Dr. Bernardo. He did have a urine culture growing enterococcus. It is sensitive to Merrem and he was on few doses of vancomycin and Merrem and that has been switched to ampicillin after ID review. He also had a leukocytosis, that is resolved. The patient is clinically stable to be discharged home today. DISCHARGE INSTRUCTION: Activity as tolerated. Regular diet. Follow up with Dr. Bernardo in 1 to 2 weeks. Follow up with primary care physician Dr. Abdalla in 1 week. Discharge time took over 30 minutes. Job ID: [id number] MTDD
--- NOTE | 2019-09-11 15:29 | EKG ---
Test Reason : Blood Pressure : / mmHG Vent. Rate : 080 BPM Atrial Rate : 080 BPM P-R Int : 000 ms QRS Dur : 088 ms QT Int : 390 ms P-R-T Axes : 000 051 059 degrees QTc Int : 449 ms Atrial-paced rhythm with prolonged AV conduction Abnormal ECG Confirmed by AMANDA DESAI, JERZY ([id number]), medical editor XIANG DOMINIQUE ([id number] on 09/11/2019 3:29:05 PM Referred By: Confirmed By:JERZY PATEL MD
== END 2019-09-09 15:22 | disposition home or self-care (01) | DRG 698 ==
LOC: ERS 21:00 → ONC 22:37
PROVIDERS: ADMIT Internal Medicine; ATTEND Internal Medicine
DX: T83.511A Infection and inflammatory reaction due to indwelling urethral catheter, initial encounter (principal); A41.81 Sepsis due to Enterococcus; N13.8 Other obstructive and reflux uropathy; N99.820 Postprocedural hemorrhage of a genitourinary system organ or structure following a genitourinary system procedure; Y84.6 Urinary catheterization as the cause of abnormal reaction of the patient, or of later complication, without mention of misadventure at the time of the procedure; N40.0 Benign prostatic hyperplasia without lower urinary tract symptoms; E03.9 Hypothyroidism, unspecified; I48.91 Unspecified atrial fibrillation; I10 Essential (primary) hypertension; E78.5 Hyperlipidemia, unspecified; F41.9 Anxiety disorder, unspecified; R26.9 Unspecified abnormalities of gait and mobility; Y83.8 Other surgical procedures as the cause of abnormal reaction of the patient, or of later complication, without mention of misadventure at the time of the procedure; Z90.79 Acquired absence of other genital organ(s); Z95.0 Presence of cardiac pacemaker; Z88.1 Allergy status to other antibiotic agents; Z88.8 Allergy status to other drugs, medicaments and biological substances; Z88.5 Allergy status to narcotic agent; Z87.442 Personal history of urinary calculi; Z98.890 Other specified postprocedural states; R31.0 Gross hematuria
CPT/HCPCS: 36415; 51702; 71045; 80048; 80053; 81003; 81015; 83605; 83690; 85025; 87040; 87077; 87086; 87149; 87186; 93005; 96365; 99214; G0463; J0290; J0696; J2185; J3490; Q0163

== ENCOUNTER 2019-09-13 08:13 | Emergency (ER) | payer MEDICARE, BC ==
[2019-09-13 09:27] LABS: Anion Gap 14 mmol/L (10-20); BUN (Urea Nitrogen) 18 mg/dL (8.4-25.7); Calc. Creatinine Clearance 0 mL/min (70-130); Calcium 9.5 mg/dL (7.8-10.44); Carbon Dioxide 26 mmol/L (23-31); Chloride 100 mmol/L (98-107); Estimated GFR-MDRD 83; Glucose 95 mg/dL (83-110); Potassium 4.3 mmol/L (3.5-5.1); Sodium 136 mmol/L (136-145)
[2019-09-13 09:31] LABS: #Eosinphils 0.6 thou/uL (0.0-0.7); #Lymphocytes 1.5 thou/uL (1.20-3.40); #Monocytes 0.7 thou/uL (0.11-0.59); #Neutrophils 7.5 thou/uL (1.40-6.50); %Basophils 0.5 % (0.0-1.0); %Eosinophils 6.2 % (0.0-10.0); %Lymphocytes 14.4 % (21.0-51.0); %Monocytes 6.5 % (0.0-10.0); %Neutrophils 72.5 % (42.0-75.0); Hemoglobin 11.4 g/dL (14.0-18.0); Mean Corpuscular HGB CONC 31.8 g/dL (32.0-36.0); Mean Corpuscular Hemoglobin 26.5 pg (27.0-31.0); Mean Corpuscular Volume 83.3 fL (78.0-98.0); Mean Platelet Volume 7.3 fL (7.4-10.4); Platelet Count 302 thou/uL (130-400); RBC Distribution Width 14.6 % (11.5-14.5); Red Blood Cell (RBC) Count 4.28 mill/uL (4.70-6.10); White Blood Cell (WBC) Count 10.3 thou/uL (4.8-10.8)
[2019-09-13 10:06] LABS: Bacteria/HPF 1+ HPF (None Seen); Bilirubin Negative (Negative); Blood, Urine 3+ (Negative); Clarity Turbid (Clear); Glucose, Urine (Dipstick) Normal (Negative); Leukocyte 500 Leu/uL (Negative); Nitrite Negative (Negative); Protein, Urine (Dipstick) 50 mg/dL (Neg-Trace); RBC/HPF Greater than 50 HPF (0-3); Squamous Epithelial None Seen HPF (0-3); Urobilinogen Normal mg/dL (Less than 2); WBC/HPF Greater than 50 HPF (0-3)
[2019-09-13] MEDS ORDERED: Lidocaine 1% PF 5 ML VIAL ONE (10:28)
[2019-09-13] MEDS ORDERED: cefTRIAXone\\ROCEPHIN 1 GM VIAL ONE (10:28)
== END 2019-09-13 10:50 | disposition home or self-care (01) ==
LOC: ERS 08:13
DX: N39.0 Urinary tract infection, site not specified (principal); R33.9 Retention of urine, unspecified; E03.9 Hypothyroidism, unspecified; E78.5 Hyperlipidemia, unspecified; N40.0 Benign prostatic hyperplasia without lower urinary tract symptoms; F41.9 Anxiety disorder, unspecified; Z79.82 Long term (current) use of aspirin; Z79.899 Other long term (current) drug therapy
CPT/HCPCS: 36415; 80048; 81003; 81015; 85025; 87086; 96372; 99283; J0696; J2001

== ENCOUNTER 2020-04-29 07:40 | Outpatient (CLI) | payer MEDICARE, BC ==
--- NOTE | 2020-04-29 08:27 | ULT ---
ULTRASOUND RETROPERITONEUM COMPLETE: (RENAL) DATE: 04/29/2020 HISTORY: 74-year-old male with nephrolithiasis ("calculus of kidney") N20.0 FINDINGS: Right kidney: 10.5 x 5.5 x 4.5 cm. Left kidney: 10.5 x 5 x 7 cm. Dilated right extrarenal pelvis and minimal dilation of right calyces. Exophytically protruding from the lateral cortical surface of the right kidney, there is a well-circu mscribed heterogeneously hyperechoic, nonshadowing, approximately 3.4 x 3 x 2.8 cm mass. In retrospect, there is a fatty mass in this location that can be appreciated on the CT of 04/28/2019. I ts density is very similar to surrounding retroperitoneal fat, including in the right perirenal space, and its [place] are almost imperceptibly very thin, and therefore it was easily overlooked. This is previously demonstrated on renal ultrasound of 10/17/2018. There are multifocal small hyperechoic structures in the right renal mid, upper, and lower poles near corticomedullary junctions. At least some of them are consistent with calculi visible on the CT of 04/28/2020. Urinary bladder volume is 270 mL at time of scan. No left-sided hydronephrosis. IMPRESSION: 1) right-sided dilated extrarenal pelvis and mild right hydronephrosis. 2) nephrolithiasis consisting of several right renal calculi. 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
== END 2020-04-29 07:41 | disposition home or self-care (01) ==
LOC: BICULT 07:40
PROVIDERS: ATTEND Urology
DX: N13.2 Hydronephrosis with renal and ureteral calculous obstruction (principal); D17.71 Benign lipomatous neoplasm of kidney
CPT/HCPCS: 76770

== ENCOUNTER 2021-06-07 12:43 | Outpatient (CLI) | payer MEDICARE, BC | END 2021-06-07 12:44 | disposition home or self-care (01) | LOC: BICULT 12:43 | PROVIDERS: ATTEND Urology | DX: N20.0 Calculus of kidney (principal) | CPT/HCPCS: 76770 ==

== ENCOUNTER 2022-06-23 10:05 | Outpatient (CLI) | payer MEDICARE, BC | END 2022-06-23 10:06 | disposition home or self-care (01) | LOC: BICULT 10:05 | PROVIDERS: ATTEND Urology | DX: N20.0 Calculus of kidney (principal) | CPT/HCPCS: 76770 ==

== ENCOUNTER 2022-08-03 10:20 | Observation (INO) | payer MEDICARE, BC ==
[2022-08-03 12:09] LABS: Specific Gravity, Urine 1.015 (1.005-1.030); pH, Urine 8.5 (5.0-9.0)
[2022-08-03 12:10] LABS: Clarity Hazy (Clear)
[2022-08-03 12:11] LABS: Bilirubin Unable to Interpret (Negative); Blood, Urine Unable to Interpret (Negative); Glucose, Urine (Dipstick) Unable to Interpret mg/dL (Negative); Ketone, Urine Unable to Interpret mg/dL (Negative); Leukocyte Unable to Interpret (Negative); Nitrite Unable to Interpret (Negative); Protein, Urine (Dipstick) Unable to Interpret mg/dL (Neg-Trace); Urobilinogen UNABLE TO INTERPRET mg/dL (Less than 2)
[2022-08-03 12:12] LABS: Bacteria/HPF Rare-Few HPF (None Seen); RBC/HPF Greater than 50 HPF (0-3); Squamous Epithelial None Seen HPF (0-3)
[2022-08-03 12:26] LABS: #Eosinphils 0.1 thou/uL (0.0-0.7); #Lymphocytes 1.2 thou/uL (1.20-3.40); #Monocytes 0.6 thou/uL (0.11-0.59); #Neutrophils 5.3 thou/uL (1.40-6.50); %Basophils 0.3 % (0.0-1.0); %Lymphocytes 16.6 % (21.0-51.0); %Monocytes 8.1 % (0.0-10.0); Hemoglobin 13.2 g/dL (14.0-18.0); Mean Corpuscular HGB CONC 32.1 g/dL (32.0-36.0); Mean Corpuscular Volume 90.1 fl (78.0-98.0); Mean Platelet Volume 7.2 fL (7.4-10.4); Platelet Count 234 10x3/uL (130-400); RBC Distribution Width 13.6 % (11.5-14.5); Red Blood Cell (RBC) Count 4.55 mill/uL (4.70-6.10); White Blood Cell (WBC) Count 7.3 10x3/uL (4.8-10.8)
[2022-08-03 12:38] LABS: PTT 31.1 sec (22.9-36.1); Prothrombin Time 13.7 sec (12.0-14.7)
[2022-08-03 12:52] LABS: ALT (SGPT) 12 U/L (8-55); AST (SGOT) 20 U/L (5-34); Albumin 4.2 g/dL (3.4-4.8); Alkaline Phosphatase 111 U/L (40-110); Anion Gap 14 mmol/L (10-20); BUN (Urea Nitrogen) 16 mg/dL (8.4-25.7); Bilirubin, Total 0.5 mg/dL (0.2-1.2); Calc. Creatinine Clearance 0 mL/min (70-130); Calcium 9.9 mg/dL (7.8-10.44); Carbon Dioxide 28 mmol/L (23-31); Chloride 101 mmol/L (98-107); Estimated GFR 78; Globulin 3.2 g/dL (2.4-3.5); Glucose 90 mg/dL (83-110); Potassium 4.7 mmol/L (3.5-5.1); Protein, Total 7.4 g/dL (5.8-8.1); Sodium 138 mmol/L (136-145)
[2022-08-03] MEDS ORDERED: Lidocaine Viscous Sol 2% 15 ml UD Cup ONE ×2 (12:57→15:04)
[2022-08-03] MEDS ORDERED: LORazepam 2 MG/ML SYR.(CARPUJECT) ONE (13:22)
[2022-08-03] MEDS ORDERED: cefTRIAXone\\ROCEPHIN 1 GM VIAL ONE (15:40)
[2022-08-03] MEDS ORDERED: Fentanyl 100 MCG/2 ML VIAL ONE (16:23)
[2022-08-03] MEDS ORDERED: Iopamidol 0 ML ONE (17:07)
[2022-08-03] MEDS ORDERED: HYDROcodone/Acetaminophen 5/325 mg Tablet PO PRN (17:26)
[2022-08-03] MEDS ORDERED: Ondansetron PF 4 MG/2 ML Vial IVP PRN (17:26)
[2022-08-03] MEDS ORDERED: Hyoscyamine SL 0.125 MG TAB SL PRN (17:26)
[2022-08-03] MEDS ORDERED: Oxybutynin 5 MG TAB PO PRN (17:26)
[2022-08-03] MEDS ORDERED: hydrALAZINE 20 MG/ML VIAL SLOW IVP PRN (17:26)
[2022-08-03] MEDS ORDERED: Morphine 2 MG/ML VIAL SLOW IVP PRN (17:26)
[2022-08-03] MEDS ORDERED: diphenhydrAMINE 25 MG CAP PO PRN (17:26)
[2022-08-03] MEDS ORDERED: Acetaminophen 500 MG TAB PO PRN (17:26)
[2022-08-03] MEDS ORDERED: Mag-Al 1200 mg/1200 mg/30 ML UDCUP PO PRN (17:26)
[2022-08-03] MEDS ORDERED: PROPOFOL 200 MG/20 ML VIAL ONE (17:32)
[2022-08-03] MEDS ORDERED: Ondansetron PF 4 MG/2 ML Vial ONE (17:32)
[2022-08-03] MEDS ORDERED: Dexamethasone 20 MG/5 ML VIAL ONE (17:32)
[2022-08-03] MEDS ORDERED: PHENYLEPHRINE-NS 100 MCG/ML 10 ML SYRINGE ONE (17:32)
[2022-08-03] MEDS ORDERED: Lidocaine 1% PF 5 ML VIAL ONE (17:32)
[2022-08-03] MEDS ORDERED: Phenazopyridine HCl 100 MG TAB PO PRN (17:36)
[2022-08-03] MEDS ORDERED: Morphine Sulfate 2 MG/ML SYRINGE SLOW IVP PRN (18:39)
[2022-08-03] MEDS ORDERED: Promethazine HCl 25 MG/ML VIAL IM PRN (18:39)
[2022-08-03] MEDS ORDERED: Ondansetron HCl/PF 4 MG/2 ML Vial IVP PRN (18:39)
[2022-08-03 20:10] VITALS: BMI 33.0
[2022-08-03] MEDS: Clorazepate 3.75 MG TAB PO SCH (21:29)
[2022-08-03] MEDS: Sotalol HCl 80 MG TAB PO SCH (21:30)
[2022-08-03] MEDS: Docusate 100 MG CAP PO SCH (21:30)
[2022-08-04] MEDS ORDERED: Levothyroxine Sodium 88 MCG TAB PO SCH (06:00)
[2022-08-04] MEDS: Sotalol HCl 80 MG TAB PO SCH (08:37)
[2022-08-04] MEDS: Docusate 100 MG CAP PO SCH (08:38)
[2022-08-04] MEDS: Clorazepate 3.75 MG TAB PO SCH (08:39)
[2022-08-04] MEDS ORDERED: Rosuvastatin 10 MG TAB PO SCH (09:00)
[2022-08-04] MEDS ORDERED: Furosemide 20 MG TAB PO SCH (09:00)
[2022-08-04] MEDS ORDERED: CLORAZEPATE 7.5 MG PO SCH (09:00)
[2022-08-04] MEDS ORDERED: Finasteride 5 MG TAB PO SCH (09:00)
[2022-08-04] MEDS ORDERED: Polyethylene Glycol 3350 17 GM Packet PO SCH (09:00)
[2022-08-04] MEDS ORDERED: cefTRIAXone\\ROCEPHIN 1 GM in Sodium Chloride 0.9% 100 ML IVPB SCH (09:30)
[2022-08-04 15:27] VITALS: BP 95/61; TEMP 97.1
[2022-08-06] MEDS ORDERED: FLU VACC QS2022-23(65YR UP)/PF 240 MCG/0.7 ML SYRINGE IM ONE (09:00)
== END 2022-08-04 18:35 | disposition home or self-care (01) ==
LOC: ERS 10:20 → SDC 16:15 → SURG A 17:26
PROVIDERS: ADMIT Urology; ATTEND Urology
PROC: 0VT08ZZ Resection of Prostate, Via Natural or Artificial Opening Endoscopic (ICD-10-PCS; principal; 2022-08-03)
DX: N40.1 Benign prostatic hyperplasia with lower urinary tract symptoms (principal); N13.8 Other obstructive and reflux uropathy; R31.0 Gross hematuria; N42.89 Other specified disorders of prostate; E03.9 Hypothyroidism, unspecified; E78.5 Hyperlipidemia, unspecified; I48.91 Unspecified atrial fibrillation; I50.9 Heart failure, unspecified; Z87.11 Personal history of peptic ulcer disease; Z79.890 Hormone replacement therapy; Z79.899 Other long term (current) drug therapy; Z88.1 Allergy status to other antibiotic agents; Z88.8 Allergy status to other drugs, medicaments and biological substances; Z95.0 Presence of cardiac pacemaker
CPT/HCPCS: 52630; 80053; 85025; 85610; 85730; 87086; A4311; J2060; 81003; 81015; 88305; 96365; 96366; 96375; G0378; J0696; J1100; J2405; J2704; J3010; J3490; Q9967

== ENCOUNTER 2023-04-11 06:52 | Inpatient (IN) | payer MEDICARE, BC ==
[2023-04-11 07:39] LABS: #Eosinphils 0.1 thou/uL (0.0-0.7); #Monocytes 0.6 thou/uL (0.11-0.59); #Neutrophils 6.6 thou/uL (1.40-6.50); %Basophils 0.1 % (0.0-1.0); %Lymphocytes 6.3 % (21.0-51.0); %Monocytes 7.4 % (0.0-10.0); %Neutrophils 85.1 % (42.0-75.0); Hemoglobin 13.2 g/dL (14.0-18.0); Mean Corpuscular HGB CONC 32.2 g/dL (32.0-36.0); Mean Corpuscular Hemoglobin 29.5 pg (27.0-31.0); Mean Corpuscular Volume 91.5 fl (78.0-98.0); Mean Platelet Volume 9.5 fL (7.4-10.4); Platelet Count 205 10x3/uL (130-400); RBC Distribution Width 14.6 % (11.5-14.5); Red Blood Cell (RBC) Count 4.48 mill/uL (4.70-6.10); White Blood Cell (WBC) Count 7.7 10x3/uL (4.8-10.8)
[2023-04-11 08:02] LABS: ALT (SGPT) 15 U/L (8-55); AST (SGOT) 22 U/L (5-34); Albumin 4.5 g/dL (3.4-4.8); Alkaline Phosphatase 95 U/L (40-110); Anion Gap 14 mmol/L (10-20); BUN (Urea Nitrogen) 23 mg/dL (8.4-25.7); Bilirubin, Total 0.4 mg/dL (0.2-1.2); Calc. Creatinine Clearance 0 mL/min (70-130); Calcium 9.4 mg/dL (7.8-10.44); Carbon Dioxide 32 mmol/L (23-31); Chloride 98 mmol/L (98-107); Estimated GFR 63; Globulin 2.1 g/dL (2.4-3.5); Glucose 138 mg/dL (83-110); Potassium 3.6 mmol/L (3.5-5.1); Protein, Total 6.6 g/dL (5.8-8.1); Sodium 140 mmol/L (136-145)
[2023-04-11 08:06] LABS: Troponin I Less than 0.010 ng/mL (< 0.028)
[2023-04-11] MEDS ORDERED: Ondansetron PF 4 MG/2 ML Vial ONE ×2 (08:46→12:42)
[2023-04-11 09:12] LABS: SARS-CoV-2 NAA Rapid Test Not Detected (NotDetected)
[2023-04-11] MEDS ORDERED: Iopamidol-370 76% 500 ML MDV (1 ML CHARGE) ONE (09:25)
[2023-04-11] MEDS ORDERED: Benzocaine 20% Spray 60 ML CAN ONE (10:29)
[2023-04-11] MEDS ORDERED: Morphine 4 MG/ML VIAL ONE (11:07)
[2023-04-11] MEDS ORDERED: Fentanyl 250 MCG/5 ML VIAL ONE (12:14)
[2023-04-11] MEDS ORDERED: Bupivacaine PF 0.5% 30 ML VIAL ONE (12:37)
[2023-04-11] MEDS ORDERED: EPINEPHrine 1 MG/ML AMP ONE (12:37)
[2023-04-11] MEDS ORDERED: Dexamethasone 20 MG/5 ML VIAL ONE (12:42)
[2023-04-11] MEDS ORDERED: PROPOFOL 200 MG/20 ML VIAL ONE (12:42)
[2023-04-11] MEDS ORDERED: Rocuronium Bromide 10 MG/ML (10ML VIAL) ONE (12:42)
[2023-04-11] MEDS ORDERED: Lidocaine 1% PF 5 ML VIAL ONE (12:42)
[2023-04-11] MEDS ORDERED: PHENYLEPHRINE-NS 100 MCG/ML 10 ML SYRINGE ONE (12:42)
[2023-04-11] MEDS ORDERED: Succinylcholine 200 MG/10 ml SYRINGE FS ONE (12:42)
[2023-04-11] MEDS ORDERED: Ketorolac Tromethamine 30 MG/ML VIAL ONE (12:45)
[2023-04-11] MEDS ORDERED: cefOXitin 2 GM VIAL ONE (12:46)
[2023-04-11] MEDS ORDERED: Sodium Chloride 0.9% 100 ML ONE (12:46)
[2023-04-11] MEDS ORDERED: SUGAMMADEX SODIUM 200 MG/2 ML VIAL ONE (13:47)
[2023-04-11] MEDS ORDERED: hydrALAZINE 20 MG/ML VIAL SLOW IVP PRN (14:00)
[2023-04-11] MEDS ORDERED: TETANUS, DIPHTHERIA TOX,ADULT (TDVAX) 0.5 ML VIAL IM ONE (14:00)
[2023-04-11] MEDS ORDERED: Ondansetron ODT 4 MG TAB PO PRN (14:00)
[2023-04-11] MEDS ORDERED: Morphine 4 MG/ML VIAL SLOW IVP PRN (14:00)
[2023-04-11] MEDS ORDERED: Ondansetron PF 4 MG/2 ML Vial IVP PRN (14:00)
[2023-04-11] MEDS ORDERED: traMADol HCl 50 MG TAB PO PRN (14:00)
[2023-04-11] MEDS ORDERED: Ibuprofen 600 MG TAB PO PRN (14:06)
[2023-04-11] MEDS ORDERED: Phenazopyridine HCl 100 MG TAB PO PRN (14:07)
[2023-04-11] MEDS ORDERED: Oxybutynin 5 MG TAB PO PRN (14:07)
[2023-04-11] MEDS ORDERED: Ondansetron HCl/PF 4 MG/2 ML Vial IVP PRN (14:14)
[2023-04-11] MEDS ORDERED: Promethazine HCl 25 MG/ML VIAL IM PRN (14:14)
[2023-04-11] MEDS ORDERED: HYDROmorphone 2 MG/ML VIAL SLOW IVP PRN (14:14)
[2023-04-11 17:20] VITALS: BMI 32.1
[2023-04-11] MEDS: Acetaminophen 500 MG TAB PO SCH (17:57)
[2023-04-11] MEDS: Potassium Citrate 10 MEQ TAB PO SCH (17:57)
[2023-04-11] MEDS: 1/2 NS w/KCL 20 mEq 1,000 ML IV SCH (17:57)
[2023-04-11] MEDS ORDERED: CLORAZEPATE DIPOTASSIUM 7.5 MG PO SCH (21:00)
[2023-04-11] MEDS: Vit A,C & E/Lutein/Minerals Tablet PO SCH (21:27)
[2023-04-11] MEDS: Sotalol HCl 80 MG TAB PO SCH (21:27)
[2023-04-11] MEDS: Docusate 100 MG CAP PO SCH (21:29)
[2023-04-11] MEDS: Famotidine 20 MG TAB PO SCH (21:29)
[2023-04-12] MEDS: Acetaminophen 500 MG TAB PO SCH ×3 (00:05→06:17)
[2023-04-12] MEDS: 1/2 NS w/KCL 20 mEq 1,000 ML IV SCH ×2 (01:21→02:33)
[2023-04-12 05:59] LABS: #Monocytes 0.2 thou/uL (0.11-0.59); #Neutrophils 7.9 thou/uL (1.40-6.50); %Basophils 0.1 % (0.0-1.0); %Lymphocytes 10.3 % (21.0-51.0); %Monocytes 2.6 % (0.0-10.0); %Neutrophils 86.6 % (42.0-75.0); Hematocrit 38.1 % (42.0-52.0); Hemoglobin 11.9 g/dL (14.0-18.0); Mean Corpuscular HGB CONC 31.2 g/dL (32.0-36.0); Mean Corpuscular Hemoglobin 29.4 pg (27.0-31.0); Mean Corpuscular Volume 94.1 fl (78.0-98.0); Mean Platelet Volume 9.9 fL (7.4-10.4); Platelet Count 165 10x3/uL (130-400); RBC Distribution Width 14.6 % (11.5-14.5); Red Blood Cell (RBC) Count 4.05 mill/uL (4.70-6.10); White Blood Cell (WBC) Count 9.1 10x3/uL (4.8-10.8)
[2023-04-12] MEDS ORDERED: Levothyroxine Sodium 100 MCG TAB PO SCH (06:00)
[2023-04-12 06:25] LABS: ALT (SGPT) 14 U/L (8-55); AST (SGOT) 25 U/L (5-34); Albumin 3.6 g/dL (3.4-4.8); Alkaline Phosphatase 76 U/L (40-110); Anion Gap 13 mmol/L (10-20); BUN (Urea Nitrogen) 17 mg/dL (8.4-25.7); Bilirubin, Total 0.2 mg/dL (0.2-1.2); Calc. Creatinine Clearance 95 mL/min (70-130); Calcium 8.1 mg/dL (7.8-10.44); Carbon Dioxide 26 mmol/L (23-31); Chloride 103 mmol/L (98-107); Estimated GFR 84; Globulin 2.4 g/dL (2.4-3.5); Glucose 127 mg/dL (83-110); Potassium 4.5 mmol/L (3.5-5.1); Sodium 137 mmol/L (136-145)
[2023-04-12] MEDS ORDERED: Acetaminophen 500 MG TAB PO PRN (06:53)
[2023-04-12] MEDS ORDERED: Rosuvastatin 10 MG TAB PO SCH (09:00)
[2023-04-12] MEDS ORDERED: Polyethylene Glycol 3350 17 GM Packet PO SCH (09:00)
[2023-04-12] MEDS ORDERED: Furosemide 20 MG TAB PO SCH (09:00)
[2023-04-12] MEDS ORDERED: Finasteride 5 MG TAB PO SCH (09:00)
[2023-04-12] MEDS ORDERED: Aspirin 81 mg Enteric Coated Tablet PO SCH (09:00)
[2023-04-12 09:05] VITALS: BP 117/72; TEMP 97.7
[2023-04-12] MEDS: Famotidine 20 MG TAB PO SCH (09:37)
[2023-04-12] MEDS: Vit A,C & E/Lutein/Minerals Tablet PO SCH (09:37)
[2023-04-12] MEDS: Sotalol HCl 80 MG TAB PO SCH (09:38)
[2023-04-12] MEDS: Docusate 100 MG CAP PO SCH (09:38)
[2023-04-12] MEDS: Potassium Citrate 10 MEQ TAB PO SCH (10:11)
[2023-04-12] MEDS ORDERED: Acetaminophen 500 MG TAB PO SCH (13:00)
[2023-04-12] MEDS ORDERED: CLORAZEPATE DIPOTASSIUM 7.5 MG PO SCH (14:30)
== END 2023-04-12 15:44 | disposition home or self-care (01) | DRG 337 ==
LOC: ERS 06:52 → SDC 11:33 → SURG A 11:34 → UNDODISIN 04-12 14:27
PROVIDERS: ADMIT Specialist; ATTEND Specialist
PROC: 0DNB4ZZ Release Ileum, Percutaneous Endoscopic Approach (ICD-10-PCS; principal; 2023-04-11)
PROC: 0D9670Z Drainage of Stomach with Drainage Device, Via Natural or Artificial Opening (ICD-10-PCS; 2023-04-11)
DX: K56.50 Intestinal adhesions [bands], unspecified as to partial versus complete obstruction (principal); I25.10 Atherosclerotic heart disease of native coronary artery without angina pectoris; Z96.653 Presence of artificial knee joint, bilateral; I10 Essential (primary) hypertension; E78.5 Hyperlipidemia, unspecified; I48.91 Unspecified atrial fibrillation; Z20.822 Contact with and (suspected) exposure to COVID-19; Z88.1 Allergy status to other antibiotic agents; Z88.8 Allergy status to other drugs, medicaments and biological substances; Z79.899 Other long term (current) drug therapy; Z95.5 Presence of coronary angioplasty implant and graft; Z98.890 Other specified postprocedural states
CPT/HCPCS: 36415; 71045; 74177; 80053; 83880; 84484; 85025; 93005; 96374; 96375; A4314; J0171; J0694; J1100; J1885; J2270; J2405; J2704; J3010; J3480; J3490; Q9967; S0020

== ENCOUNTER 2024-06-20 10:06 | Outpatient (CLI) | payer MEDICARE, BC | END 2024-06-20 10:07 | disposition home or self-care (01) | LOC: BICULT 10:06 | PROVIDERS: ATTEND Urology | DX: D17.71 Benign lipomatous neoplasm of kidney (principal); N20.0 Calculus of kidney; R31.0 Gross hematuria; N40.1 Benign prostatic hyperplasia with lower urinary tract symptoms; N13.39 Other hydronephrosis; N28.1 Cyst of kidney, acquired | CPT/HCPCS: 36415; 76770; 80048 ==